=== PATIENT | male | born 1950 | race Caucasian/White ===

== ENCOUNTER 2016-05-30 16:43 | Inpatient (IN) | payer BC ==
[2016-05-30] MEDS ORDERED: HYDROcodone/APAP 7.5-325MG 1 EACH TAB PO ONE (17:12)
--- NOTE | 2016-05-30 17:19 | ED ---
Skin/Abscess/FB HPI - General Source: patient, RN notes reviewed Mode of arrival: ambulatory Limitations: no limitations <Stanley Franco - Last Filed: 05/30/16 17:35> <Cayden Solorio - Last Filed: 06/03/16 15:21> - General Chief complaint: Skin/Abscess/Foreign Body Stated complaint: Abcess Sent by Dr Baltazar Seen by Provider: 05/30/16 17:00 - History of Present Illness Initial comments: 65-year-old male present emergency department for possible abscess in his chest. Patient states that he had history of 2 in which most recently he had cardiothoracic surgery and was hospitalized for several days to weeks. Patient states that he was on long-term antibiotics. Patient states that he followed up with primary care physician or a [facility] emergency department. Patient did have lab work. Patient states she's been having increased chest wall pain and swelling consistent with his previous abscess. Patient denies fever, chills. He has no history of VRE or MRSA. (Stanley Franco) - Related Data Home Medications Medication Instructions Recorded Confirmed Atorvastatin [Lipitor] 20 mg PO HS 11/28/15 05/30/16 Cholecalciferol (Vitamin D3) 10,000 unit PO DAILY 11/28/15 05/30/16 [Vitamin D3] Omeprazole 20 mg PO BID 11/28/15 05/30/16 Ferrous Sulfate [Iron (65 MG 325 mg PO DAILY 05/30/16 05/30/16 Elemental)] HYDROcodone/APAP 10-325MG [Hulbert 1 tab PO Q4HR PRN 05/30/16 05/30/16 10-325] Ibuprofen [Motrin] 200 - 400 mg PO Q6HR PRN 05/30/16 05/30/16 Insulin Aspart [NovoLOG Flexpen] 18 units SQ AC-TID 05/30/16 05/30/16 Insulin Glargine [Lantus] 32 unit SQ HS 05/30/16 05/30/16 Allergies Allergy/AdvReac Type Severity Reaction Status Date / Time onion Allergy Anaphylaxis Verified 05/30/16 17:32 Review of Systems ROS Other: All systems not noted in ROS Statement are negative. <Stanley Franco - Last Filed: 05/30/16 17:35> ROS Other: All systems not noted in ROS Statement are negative. <Cayden Solorio - Last Filed: 06/03/16 15:21> ROS Statement: Those systems with pertinent positive or pertinent negative responses have been documented in the HPI. Past Medical History Past Medical History: Diabetes Mellitus, GERD/Reflux, Hyperlipidemia Additional Past Medical History / Comment(s): neuropathy in feet and legs History of Any Multi-Drug Resistant Organisms: None Reported Past Surgical History: Orthopedic Surgery Additional Past Surgical History / Comment(s): Surgery on left elbow, wrist and hand. Past Psychological History: No Psychological Hx Reported Additional Psychological History / Comment(s): . Is in the family home with his . 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 No experience. No international travel more than 25 years since he left the [facility]. Denies significant tobacco or alcohol use. No recreational drug use, no injection drug use. No children. 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 Smoking Status: Former smoker Past Alcohol Use History: None Reported Past Drug Use History: None Reported - Past Family History Father Family Medical History: Cancer, Coronary Artery Disease (CAD) Mother Family Medical History: CVA/TIA, Diabetes Mellitus <Stanley Franco - Last Filed: 05/30/16 17:35> General Exam Limitations: no limitations General appearance: alert, in no apparent distress Head exam: Present: atraumatic, normocephalic, normal inspection Respiratory exam: Present: normal lung sounds bilaterally, chest wall tenderness (Tenderness over the left chest wall region with moderate swelling minimal erythema). Absent: respiratory distress, wheezes, rales, rhonchi, stridor Cardiovascular Exam: Present: regular rate, normal rhythm, normal heart sounds. Absent: systolic murmur, diastolic murmur, rubs, gallop, clicks Skin exam: Present: warm, dry <Stanley Franco - Last Filed: 05/30/16 17:35> Medical Decision Making <Stanley Franco - Last Filed: 05/30/16 17:35> - Lab Data Result diagrams: 06/02/16 09:33 05/31/16 10:40 <Cayden Solorio - Last Filed: 06/03/16 15:21> - Medical Decision Making 65-year-old male presented for chest abscess. Patient medical records to review. Patient CT does show abscess with erosion of the left clavicle. (Stanley Franco) I saw this patient in conjunction with the physician assistant superintendent. I performed independent history and physical exam. Agree with case management. I discussed the patient's case with both the admitting service and with the surgeon. Their treatment recommendations incorporated. (Cayden Solorio) Disposition <Stanley Franco - Last Filed: 05/30/16 17:35> <Cayden Solorio - Last Filed: 06/03/16 15:21> Clinical Impression: Chest wall abscess Disposition: ADMITTED IP TO THIS HOSP Condition: Stable
[2016-05-30] MEDS ORDERED: NALOXONE 0.4 MG/ML 1 ML VIAL IV PRN (17:36)
[2016-05-30] MEDS ORDERED: ONDANSETRON 4 MG/2 ML VIAL IVP PRN (17:36)
[2016-05-30] MEDS ORDERED: DAPTOmycin 500 MG in SODIUM CHLORIDE 0.9% 50 ML IV STA (17:39)
[2016-05-30 20:12] LABS: Glucose,Whole Blood 61 mg/dL (75-99)
[2016-05-30 20:36] LABS: Glucose,Whole Blood 124 mg/dL (75-99)
[2016-05-30] MEDS: ATORVASTATIN 20 MG TAB PO SCH (21:38)
[2016-05-30] MEDS: HYDROcodone/APAP 10-325MG 1 EACH TAB PO PRN (21:39)
[2016-05-30 22:59] LABS: Glucose,Whole Blood 119 mg/dL (75-99)
[2016-05-30] MEDS: INSULIN GLARGINE 100 UNIT/ML 10 ML VIAL SQ SCH (23:00)
[2016-05-31] MEDS: ACETAMINOPHEN TAB 325 MG TAB PO PRN ×2 (02:12→08:02)
[2016-05-31] MEDS: HYDROcodone/APAP 10-325MG 1 EACH TAB PO PRN ×5 (02:14→21:07)
[2016-05-31 02:17] LABS: Glucose,Whole Blood 92 mg/dL (75-99)
[2016-05-31] MEDS: INSULIN LISPRO (humaLOG) 300 UNIT/3 ML VIAL SQ SCH ×4 (08:01→17:16)
[2016-05-31] MEDS: PANTOPRAZOLE 40 MG TABLET PO SCH ×2 (08:33→17:04)
[2016-05-31] MEDS: DAPTOmycin 500 MG in SODIUM CHLORIDE 0.9% 50 ML IV SCH (08:33)
[2016-05-31 08:46] LABS: Glucose,Whole Blood 160 mg/dL (75-99)
[2016-05-31 11:07] LABS: Basophils # (A) 0.1 k/uL (0-0.2); Basophils % (A) 1 %; CH 28.1; Eosinophils # (A) 0.2 k/uL (0-0.7); Eosinophils % (A) 1 %; HCT 39.7 % (39.0-53.0); HDW 2.95; HGB 12.7 gm/dL (13.0-17.5); Luc # (Auto) 0.14; Luc % (Auto) 1; Lymphocytes # (A) 2.1 k/uL (1.0-4.8); Lymphocytes % (A) 18 %; MCH 27.4 pg (25.0-35.0); MCHC 32.1 g/dL (31.0-37.0); MCV 85.5 fL (80.0-100.0); Mean Platelet Volume 7.8; Monocytes # (A) 0.7 k/uL (0-1.0); Monocytes % (A) 6 %; Neutrophils # (A) 8.5 k/uL (1.3-7.7); Neutrophils % (A) 73 %; RBC 4.64 m/uL (4.30-5.90); RDW 15.1 % (11.5-15.5); WBC 11.8 k/uL (3.8-10.6)
--- NOTE | 2016-05-31 11:26 | P.GSCN ---
History of Present Illness Consult date: 05/31/16 Reason for Consult: Evaluation for potential costoclavicular joint abscess Requesting physician: Chin Yang History of present illness: Patient is a 65 years old gentleman who is known to our service from his December admission. At that time he presented with a left apical intrapleural abscess with chest wall abscess were drained on 12/27/2015 followed by a prolonged period of IV antibiotic with essentially resolution of the infection. Cultures grew staph aureus at that time. Patient has been doing well till up to 2 days ago, as he started complaining of some upper left anterior pectoralis pain with some numbness in the left hand fingers. A computed tomography scan shows at this 0.3 cm mass involving the medial aspect of the left clavicle and potentially the costoclavicular sternal joint. There is no intrapleural process. Patient denies fever or chills. He was therefore admitted for IV antibiotics and CT Surgery consult was called Review of Systems - Gastrointestinal Reports dyspepsia, Reports heartburn - Musculoskeletal Reports arm numbness/tingling - Neurological Reports numbness - Endocrine Reports high blood sugars Past Medical History Past Medical History: Asthma, Diabetes Mellitus, GERD/Reflux, Hyperlipidemia, Osteoarthritis (OA) Additional Past Medical History / Comment(s): neuropathy in feet and legs,CARINA CATARACTS, PAST CHEST WALL ABCESS(PER PT/ AFFECTED BOTH MUSCLE AND BONE), PAST PNE VACCINE BUT NOT SURE OF DATE/DR OFFICE CLOSED AT TIME OF THIS ADMIT UNABLE TO VERIFY DATE. History of Any Multi-Drug Resistant Organisms: None Reported Past Surgical History: Orthopedic Surgery Additional Past Surgical History / Comment(s): Surgery on left elbow"nerve release", LT CARPAL TUNNEL RELEASE, LT HAND "BONE SCRAPING", JENNIFER, i&D CHEST WALL ABCESS, PICC LINE INSERTED 01-01-16, REMOVED IN FEB 2016. Past Anesthesia/Blood Transfusion Reactions: No Reported Reaction Additional Past Anesthesia/Blood Transfusion Reaction / Comm: CLAUSTERPHOBIA Past Psychological History: No Psychological Hx Reported Additional Psychological History / Comment(s): . Is in the family home with his . 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 No experience. No international travel more than 25 years since he left the [facility]. Denies significant tobacco or alcohol use. No recreational drug use, no injection drug use. No children. 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 Smoking Status: Former smoker Past Alcohol Use History: None Reported, Rare Additional Past Alcohol Use History / Comment(s): STARTED SMOKING 1972, QUIT 1972 Past Drug Use History: None Reported - Past Family History Father Family Medical History: Cancer, Coronary Artery Disease (CAD) Mother Family Medical History: CVA/TIA, Diabetes Mellitus Medications and Allergies Home Medications Medication Instructions Recorded Confirmed Type Atorvastatin [Lipitor] 20 mg PO HS 11/28/15 05/30/16 History Cholecalciferol (Vitamin D3) 10,000 unit PO DAILY 11/28/15 05/30/16 History [Vitamin D3] Omeprazole 20 mg PO BID 11/28/15 05/30/16 History Cephalexin [Keflex] 500 mg PO QID 05/30/16 05/30/16 History Ferrous Sulfate [Feosol] 325 mg PO DAILY 05/30/16 05/30/16 History HYDROcodone/APAP 10-325MG [Marshall 1 tab PO Q4HR PRN 05/30/16 05/30/16 History 10-325] Ibuprofen [Motrin] 200 - 400 mg PO Q6HR PRN 05/30/16 05/30/16 History Insulin Aspart [NovoLOG Flexpen] 18 units SQ AC-TID 05/30/16 05/30/16 History Insulin Glargine [Lantus] 32 unit SQ HS 05/30/16 05/30/16 History Allergies Allergy/AdvReac Type Severity Reaction Status Date / Time onion Allergy Anaphylaxis Verified 05/30/16 17:32 Surgical - Exam Vital Signs Temp Pulse Resp BP Pulse Ox 98.5 F 100 20 205/92 98 05/30/16 16:55 05/30/16 16:55 05/30/16 16:55 05/30/16 16:55 05/30/16 16:55 - Neck No obvious mass was seen over the left costoclavicular joint. Healed prior I&D site. Some tenderness in the left upper pectoralis area laterally. Results - Labs 05/31/16 10:40 Abnormal Lab Results - Last 24 Hours (Table) 05/30/16 05/30/16 05/30/16 Range/Units 20:11 20:33 22:57 WBC (3.8-10.6) k/uL Hgb (13.0-17.5) gm/dL Plt Count (150-450) k/uL Neutrophils # (1.3-7.7) k/uL POC Glucose (mg/dL) 61 L 124 H 119 H (75-99) mg/dL 05/31/16 05/31/16 Range/Units 07:08 10:40 WBC 11.8 H (3.8-10.6) k/uL Hgb 12.7 L (13.0-17.5) gm/dL Plt Count 147 L (150-450) k/uL Neutrophils # 8.5 H (1.3-7.7) k/uL POC Glucose (mg/dL) 160 H (75-99) mg/dL - Imaging CT scan - chest: report reviewed, image reviewed Assessment and Plan Plan: 65 years old gentleman with past medical history of diabetes mellitus, status post I and D of a left upper intrapleural and chest wall abscess in December 2015 with adequate resolution after prolonged IV antibiotic therapy, admitted at this point with CAT scan finding that shows bony destructive lesion involving the medial aspect of the left clavicle which is probably infectious in nature. At this point recommend to continue IV antibiotics tackling staph aureus. Patient already is feeling better however he might require further surgical intervention depending on the clinical and radiological progression. We'll be following the patient closely with you. Thank you for the privilege of this consult
[2016-05-31 11:32] LABS: Glucose,Whole Blood 90 mg/dL (75-99)
[2016-05-31 12:23] LABS: ALT 54 U/L (21-72); AST 31 U/L (17-59); Alkaline Phosphatase 77 U/L (38-126); Anion Gap 12 mmol/L; Blood Urea Nitrogen 10 mg/dL (9-20); Calcium 8.8 mg/dL (8.4-10.2); Carbon Dioxide 24 mmol/L (22-30); Chloride 105 mmol/L (98-107); Glucose 97 mg/dL (74-99); Non-African American GFR(MDRD) >60 (>60 ml/min/1.73 sqM); Potassium 3.7 mmol/L (3.5-5.1); Sodium 141 mmol/L (137-145); Total Bilirubin 0.6 mg/dL (0.2-1.3); Total Protein 6.8 g/dL (6.3-8.2)
[2016-05-31 13:27] LABS: Hemoglobin A1C 7.1 % (4.2-6.1)
--- NOTE | 2016-05-31 14:55 | HP ---
DATE OF ADMISSION: Patient is a 65-year-old admitted for left apical intrapleural abscess, which is traumatic n nature. Patient underwent operative drainage followed by IV antibiotic therapy. It grew staph aureus at that time. Patient, I believe, was discharged on ceftriaxone. Comes back again with increased pain and numbness in the left hand and severe sharp in nature and CT scan was done. There was about ( ) cm mass involving the medial aspect of the left clavicle and ( ) sternoclavicular joint. There is no intrapleural abscess though. Cardiothoracic surgery was consulted. They are recommending IV antibiotics at this point of time. Patient denied any fever, chills. Patient denied any nausea or vomiting. No operative intervention is being planned. Patient is admitted for possibility of spread and worsening of infection. His pain is significantly better. Patient had 10/10 pain yesterday. REVIEW OF SYSTEMS: CONSTITUTIONAL: No fever, no malaise, no fatigue. HEENT: No recent visual problems or hearing problems. Denied any sore throat. CARDIOVASCULAR: No chest pain, orthopnea, PND, no palpitations, no syncope. PULMONARY: No shortness of breath, no cough, no hemoptysis. GASTROINTESTINAL: No diarrhea, no nausea, no vomiting, no abdominal pain. Normoactive bowel sounds. NEUROLOGICAL: No headaches, no weakness, no numbness. HEMATOLOGICAL: Denies any bleeding or petechiae. GENITOURINARY: Denies any burning micturition, frequency, or urgency. MUSCULOSKELETAL/RHEUMATOLOGICAL: Denies any joint pain, swelling, or any muscle pain. ENDOCRINE: Denies any polyuria or polydipsia. CHEST WALL: As mentioned above. The rest of the 14 point review of systems is negative. PAST MEDICAL HISTORY: Significant for asthma, diabetes mellitus, gastroesophageal reflux disease, hyperlipidemia, osteoarthritis, chest wall abscess that was drained. The patient was discharged on antibiotics. SOCIAL HISTORY: Quit smoking in 1972. Denied any alcohol abuse or any drug abuse. FAMILY HISTORY: Father had coronary disease and cancer. Mother had CVA, TIA, and diabetes mellitus. HOME MEDICATIONS: 1. Atorvastatin. 2. Cholecalciferol. 3. Omeprazole. 4. Cephalexin. 5. Ferrous sulfate. 6. Hydrocodone acetaminophen. 7. Ibuprofen. 8. Insulin aspart. 9. Insulin glargine. ALLERGIES: Allergic to onion. PHYSICAL EXAMINATION: Temperature 97.0, pulse of 70, respiratory rate 20, blood pressure 179/85, saturating at 99% on room air. GENERAL: The patient is alert and oriented x3, not in any acute distress. Well developed, well nourished. HEENT: Pupils are round and equally reacting to light. EOMI. No scleral icterus. No conjunctival pallor. Normocephalic, atraumatic. No pharyngeal erythema. No thyromegaly. CARDIOVASCULAR: S1 and S2 present. No murmurs, rubs, or gallops. PULMONARY: Chest is clear to auscultation, no wheezing or crackles. ABDOMEN: Soft, nontender, nondistended, normoactive bowel sounds. No palpable organomegaly. MUSCULOSKELETAL: No joint swelling or deformity. EXTREMITIES: No cyanosis, clubbing, or pedal edema. NEUROLOGICAL: Gross neurological examination did not reveal any focal deficits. SKIN: No rashes. CHEST WALL: There is very minimal tenderness on chest wall palpation on the anterior chest on the left side. LABORATORY DATA: CBC and CMP abnormal for mildly elevated WBC count of 11,800. ASSESSMENT AND PLAN: 1. Left upper chest wall infection. Patient had history of incision and drainage of the intrapleural abscess. No operative intervention is being planned at this point of time. Patient will be on IV antibiotics in the form of daptomycin. Patient had Staphylococcus aureus in the past. Infectious Disease was consulted as well as Cardiothoracic Surgery evaluated the patient. 2. Type 2 diabetes mellitus. 3. Gastroesophageal reflux disease. 4. Hyperlipidemia. For above mentioned chronic medical problems, I will go ahead and continue his home medications. Awaiting recommendations from Infectious Disease.
[2016-05-31 17:11] LABS: Glucose,Whole Blood 163 mg/dL (75-99)
[2016-05-31 19:31] LABS: Glucose,Whole Blood 80 mg/dL (75-99)
[2016-05-31 20:48] LABS: Glucose,Whole Blood 99 mg/dL (75-99)
--- NOTE | 2016-05-31 20:58 | CONS ---
DATE OF CONSULTATION: 05/31/2016 REASON FOR CONSULTATION: Left medial clavicular abscess/osteomyelitis. HISTORY OF PRESENT ILLNESS: The patient is a 65-year-old male with a past medical history significant for a large abscess over the left anterior chest wall pain that has been indurated through the musculature of sternoclavicular joint and ended up in lung causing an empyema. The patient has been evaluated by Dr. Ndiaye and CT surgery. The patient had drainage of the same. Culture was positive for MSSA. The patient being treated with 8 week course of IV cefazolin 2 grams q.8 hour which the patient had finished on February 28. At that time no further antibiotic was continued as the patient underlying infection had been adequately treated. The patient also started having pain in his left upper chest area. The pain started around Thursday with the pain getting more worse. Pain described to be dull, aching pain about 3/10 and no radiation. Patient denies any significant associated shortness of breath or any cough. No fever, no chills. With his history of an abscess the patient did have a CT of the chest done as an outpatient on 05/30/2016 which did show 3 cm soft tissue mass involving the medial head of the left clavicular with destruction of the proximal clavicle. The patient has been subsequently admitted to the hospital. He was started on daptomycin and ID was consulted for further recommendation regarding antibiotic therapy. Patient noted to have an elevated white count 11.8. Blood cultures have been drawn, which are currently pending, but no fever has been recorded. REVIEW OF SYSTEMS: CONSTITUTIONAL: Positive for weakness. EYES: No complaint. ENT: No complaint. RESPIRATORY: As per HPI. CARDIOVASCULAR: As per HPI. GENITOURINARY: No complaint. GASTROINTESTINAL: No complaint. MUSCULOSKELETAL: No complaint. INTEGUMENTARY: No complaint. PSYCHOLOGIC: No complaint. ENDOCRINAL: No complaint. NEUROLOGICAL: No complaint. PAST MEDICAL HISTORY: Significant for diabetes mellitus, gastroesophageal reflux disease, hyperlipidemia, osteoarthritis, asthma, neuropathy, left chest wall abscess. PAST SURGICAL HISTORY: Left carpal tunnel release, left hand bone scrapping, JENNIFER, I&D of left chest wall abscess, PICC line insertion and subsequent removal. SOCIAL HISTORY: Remote history of smoking; quit back in 1972. No drinking or drug use. and lives with his . FAMILY HISTORY: Father with history of cancer and coronary artery disease. Mother with history of CVA, TIA and diabetes mellitus. ALLERGIES: No known drug allergies. Medications currently include the patient is on Tylenol, Weston, Lipitor, daptomycin 500 daily, Lantus, Humalog, Narcan, Zofran, Protonix. On examination, blood pressure is 150/86 with a pulse of 80, temperature 99.2. He is 97% on room air. General description is a middle-age male up in the room in no distress. No tachypnea or accessory muscles of respiration use. HEENT EXAMINATION: No pallor or scleral icterus. Oral mucous membrane is dry. NECK: Trachea central. There is no thyromegaly. LUNGS: Unlabored breathing. Clear to auscultation anteriorly. HEART: S1, S2. Regular rate and rhythm. He has mild chest wall tenderness in the left clavicular area, but no swelling or redness was noticed. ABDOMEN: Soft, no tenderness. No guarding or rigidity. EXTREMITIES: No edema of the feet. SKIN EXAMINATION: No rash or mass palpable. NEUROLOGICAL: Patient awake, alert, oriented x3. Mood and affect normal. LABS: Hemoglobin is 12.7, white count 11.8 with a BUN of 10, creatinine 0.96. Electrolytes have been normal. Liver enzymes are normal. Sedimentation rate was 18. Blood cultures were obtained which are currently pending. DIAGNOSTIC IMPRESSION AND PLAN: Patient with left chest wall pain and swelling in a patient who did have a previous history of Methicillin-sensitive Staphylococcus aureus abscess in the same location, could be more likely related to recurrence of the same infection. Malignancy thought to be less likely. Infectious etiology cannot be entirely excluded either. PLAN: 1. Patient may benefit from a CT-guided drainage of this area, which should be sent for culture and sensitivity to pathology. 2. Daptomycin to be continued at this point at 6 mg/kg to cover for possible MSSA as well as MRSA. 3. As the patient is known to Dr. Ndiaye, he will be signed out to him as of tomorrow. Family was present at beside. Their questions and concerns were answered.
[2016-05-31] MEDS: INSULIN GLARGINE 100 UNIT/ML 10 ML VIAL SQ SCH (21:04)
[2016-05-31] MEDS: ATORVASTATIN 20 MG TAB PO SCH (21:07)
[2016-06-01] MEDS: HYDROcodone/APAP 10-325MG 1 EACH TAB PO PRN ×2 (00:46→06:27)
[2016-06-01 00:55] LABS: Glucose,Whole Blood 118 mg/dL (75-99)
[2016-06-01] MEDS: PANTOPRAZOLE 40 MG TABLET PO SCH ×2 (07:17→17:33)
[2016-06-01 07:26] LABS: Glucose,Whole Blood 203 mg/dL (75-99)
[2016-06-01] MEDS: INSULIN LISPRO (humaLOG) 300 UNIT/3 ML VIAL SQ SCH ×5 (07:54→17:32)
[2016-06-01] MEDS ORDERED: LORazepam 0.5 MG TAB PO PRN ×2 (08:52→21:39)
[2016-06-01] MEDS: DAPTOmycin 500 MG in SODIUM CHLORIDE 0.9% 50 ML IV SCH (09:42)
[2016-06-01] MEDS: IBUPROFEN 800 MG TAB PO PRN ×2 (09:42→14:44)
--- NOTE | 2016-06-01 10:48 | P.PN ---
Progress Note - Text Mr. 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 He presents at this time with complaints of pain in the left axilla and anterior shoulder region. A computed tomography scan was performed in the emergency room. This shows abnormality in the region of the left sternoclavicular joint. Physical examination demonstrates no abnormality in this region. There is no swelling tenderness warmth redness etc. Patient does have some discomfort on palpation of the pectoralis muscle more laterally. White blood cell count is 11. The case was discussed with Dr. Ndiaye. I can see absolutely no indication for open surgical drainage or resection in the region of the sternoclavicular joint at this time. Patient states he feels better after a couple of doses of antibiotics. My bias is toward outpatient antibiotic management and close follow-up. Symptomatology may be secondary to damage to the sternoclavicular joint on the left side from the previous infection. If this persists or worsens resection of this joint may be necessary as a palliative measure.
[2016-06-01 11:53] LABS: Glucose,Whole Blood 129 mg/dL (75-99)
--- NOTE | 2016-06-01 17:21 | PN ---
A 65-year-old with apical intrapleural abscess in the past, comes in with chest wall pain. There was suspicion of worsening chest wall infection which has cleared previously. Patient is on IV antibiotics at this point of time and Cardiothoracic Surgery and Infectious Disease evaluated and plan was to continue with IV antibiotics at this point of time. REVIEW OF SYSTEMS: CHEST: Patient continues to have chest pain which improves with narcotic which improved with narcotic pain medications. CARDIOVASCULAR: No chest pain, no orthopnea, no PND, no palpitations. GASTROINTESTINAL: No diarrhea, nausea or vomiting. No abdominal pain. Normoactive bowel sounds. NEUROLOGIC: No headaches, no weakness, no numbness. Medications were reviewed. PHYSICAL EXAMINATION: Temperature 99.1, pulse of 82, respiratory rate of 16, blood pressure 184/107, saturating at 98% on room air. GENERAL: The patient is alert and oriented x3, not in any acute distress. Well developed, well nourished. HEENT: Pupils are round and equally reacting to light. EOMI. No scleral icterus. No conjunctival pallor. Normocephalic, atraumatic. No pharyngeal erythema. No thyromegaly. CARDIOVASCULAR: S1 and S2 present. No murmurs, rubs, or gallops. PULMONARY: Chest is clear to auscultation, no wheezing or crackles. ABDOMEN: Soft, nontender, nondistended, normoactive bowel sounds. No palpable organomegaly. MUSCULOSKELETAL: No joint swelling or deformity. EXTREMITIES: No cyanosis, clubbing, or pedal edema. NEUROLOGICAL: Gross neurological examination did not reveal any focal deficits. SKIN: No rashes. CHEST WALL: There is very minimal tenderness on chest wall palpation on the anterior chest on the left side. LABORATORY DATA: WBC count is 11,800. ASSESSMENT AND PLAN: 1. Possibility of left upper chest wall infection. Patient will be on continued on Daptomycin. Patient has methicillin-susceptible Staphylococcus aureus in the past. So far blood cultures were negative. 2. Type 2 diabetes mellitus. 3. Gastroesophageal reflux disease. 4. Hyperlipidemia. PLAN: Continue with present medications, pain management. Patient will be followed by Dr. Liang from tomorrow.
[2016-06-01 17:31] LABS: Glucose,Whole Blood 98 mg/dL (75-99)
[2016-06-01] MEDS: ATORVASTATIN 20 MG TAB PO SCH (20:32)
[2016-06-01 20:51] LABS: Glucose,Whole Blood 205 mg/dL (75-99)
--- NOTE | 2016-06-01 20:57 | P.PN ---
Subjective Principal diagnosis: Pain left clavicle Pleasant 65-year-old male who is well known to infectious disease who has a history of diabetes mellitus poorly controlled. Developed evidence of extensive sepsis with MSSA. Juan J abscess to the anterior chest wall that required surgical intervention. Has done well since completing his intravenous antibiotic therapy on 02/29/2016. Since then has been doing modestly well. However a few days ago started to develop increasing pain to the left anterior chest wall area. It increased in amount. Because of this he sought medical care. Computed tomography scan was performed that shows evidence of some worsening from the prior study. Some osteomyelitis to the left clavicular head. Patient was seen by ID yesterday and this is a follow-up. Patient is feeling better. Is not having high-grade fevers, chills or rigors. Is very concerned about what will happen next. Objective - Vital Signs Vital signs: Vital Signs Temp 97.9 F 06/01/16 14:46 Pulse 80 06/01/16 14:46 Resp 20 06/01/16 14:46 BP 147/75 06/01/16 14:46 Pulse Ox 96 06/01/16 14:46 Intake & Output 06/01/16 06/01/16 06/02/16 06:59 18:59 06:59 Intake Total 1780 580 Balance 1780 580 Intake: Oral 1780 580 Other: Voiding Method Toilet # Voids 3 2 # Bowel Movements 0 - Exam June 65-year-old male who is now grown extensive facial hair since last evaluation HEENT: Anicteric conjunctiva are pink and moist nasal mucosa grossly intact without significant lesions, there is no thrush. Neck: The neck is supple without significant lymphadenopathy or thyromegaly. Lungs: Good bilateral air entry without significant crackles or wheezing. There is no significant bronchial sounds. There is no egophony or dullness. Heart: Regular rate and rhythm with an audible S1-S2, no S3 S4 There is no significant murmur click or rub, PMI was nondisplaced. Abdomen: Positive bowel sounds soft and nontender without palpable masses or organomegaly. There was no guarding or rebound. Extremities: The upper extremities have excellent pulses they are symmetric, no significant petechiae or telangiectasia. No splinter hemorrhages were noted. The lower extremities are free from significant edema. The peripheral pulses were 2+ and symmetric. Neuro: Awake alert oriented to person place and time. There are no acute new gross focal sensory motor deficits. The left sternoclavicular joint area is tender to touch. It however is not warm or with evidence of erythema. It is not unstable. There is some tenderness onto the anterior chest wall over the pectoralis muscle. There is no thickening to the muscle. No lymphadenopathy is noted. - Labs CBC & Chem 7: 05/31/16 10:40 05/31/16 10:40 Labs: Abnormal Lab Results - Last 24 Hours (Table) 06/01/16 06/01/16 06/01/16 Range/Units 00:51 06:53 11:33 POC Glucose (mg/dL) 118 H 203 H 129 H (75-99) mg/dL 06/01/16 Range/Units 20:48 POC Glucose (mg/dL) 205 H (75-99) mg/dL Laboratory Results WBC 11.8 k/uL (3.8-10.6) H 05/31/16 10:40 RBC 4.64 m/uL (4.30-5.90) 05/31/16 10:40 Hgb 12.7 gm/dL (13.0-17.5) L 05/31/16 10:40 Hct 39.7 % (39.0-53.0) 05/31/16 10:40 MCV 85.5 fL (80.0-100.0) 05/31/16 10:40 MCH 27.4 pg (25.0-35.0) 05/31/16 10:40 MCHC 32.1 g/dL (31.0-37.0) 05/31/16 10:40 RDW 15.1 % (11.5-15.5) 05/31/16 10:40 Plt Count 147 k/uL (150-450) L 05/31/16 10:40 Neutrophils % 73 % 05/31/16 10:40 Lymphocytes % 18 % 05/31/16 10:40 Monocytes % 6 % 05/31/16 10:40 Eosinophils % 1 % 05/31/16 10:40 Basophils % 1 % 05/31/16 10:40 Neutrophils # 8.5 k/uL (1.3-7.7) H 05/31/16 10:40 Lymphocytes # 2.1 k/uL (1.0-4.8) 05/31/16 10:40 Monocytes # 0.7 k/uL (0-1.0) 05/31/16 10:40 Eosinophils # 0.2 k/uL (0-0.7) 05/31/16 10:40 Basophils # 0.1 k/uL (0-0.2) 05/31/16 10:40 ESR 18 mm/hr (0-15) H 05/31/16 10:40 Sodium 141 mmol/L (137-145) 05/31/16 10:40 Potassium 3.7 mmol/L (3.5-5.1) 05/31/16 10:40 Chloride 105 mmol/L (98-107) 05/31/16 10:40 Carbon Dioxide 24 mmol/L (22-30) 05/31/16 10:40 Anion Gap 12 mmol/L 05/31/16 10:40 BUN 10 mg/dL (9-20) 05/31/16 10:40 Creatinine 0.96 mg/dL (0.66-1.25) 05/31/16 10:40 Est GFR (MDRD) Af Amer >60 (>60 ml/min/1.73 sqM) 05/31/16 10:40 Est GFR (MDRD) Non-Af >60 (>60 ml/min/1.73 sqM) 05/31/16 10:40 Glucose 97 mg/dL (74-99) 05/31/16 10:40 POC Glucose (mg/dL) 205 mg/dL (75-99) H 06/01/16 20:48 POC Glu Drill Hand Maci Hutton 06/01/16 20:[address] Glu mg/dL 157 mg/dL 05/31/16 10:40 Hemoglobin A1c 7.1 % (4.2-6.1) H 05/31/16 10:40 Calcium 8.8 mg/dL (8.4-10.2) 05/31/16 10:40 Total Bilirubin 0.6 mg/dL (0.2-1.3) 05/31/16 10:40 AST 31 U/L (17-59) 05/31/16 10:40 ALT 54 U/L (21-72) 05/31/16 10:40 Alkaline Phosphatase 77 U/L (38-126) 05/31/16 10:40 Total Protein 6.8 g/dL (6.3-8.2) 05/31/16 10:40 Albumin 3.8 g/dL (3.5-5.0) 05/31/16 10:40 Microbiology 05/30/16 17:35 Blood Blood Culture - Preliminary No Growth after 48 hours Assessment and Plan (1) Leukocytosis Narrative/Plan: Pleasant 65-year-old male who has an extensive past medical history related to the significant abscess to his left anterior chest wall. Was associated with significant MSSA sepsis and infection to that region. He did have surgical incision and drainage and a protracted course of intravenous antibiotic therapy. He had resolution of his infection was doing well from the last outpatient evaluation. Now presents with increasing pain to the area with concerns to ongoing infection. Has been seen by cardiothoracic surgery and CT scans been reviewed. No need for surgical intervention is noted at this time. Largest concern will be to the activity infection at this site. Computed tomography scan does show some changes but it's unclear if these are acute changes. A bone scan showed be obtained. If it shows a large amount of activity in the region then proceed with another course of intravenous antibiotic therapy against his prior staph. Current thoracic surgical following the outpatient setting. Of significant note when he was ill in the past his sedimentation rate was 120, it is now at 18 similar to when he finishes course of antibiotic therapy with resolution of his infection. Status: Acute (2) Osteomyelitis of sternoclavicular joint Status: Acute
[2016-06-01] MEDS: INSULIN GLARGINE 100 UNIT/ML 10 ML VIAL SQ SCH (21:36)
--- NOTE | 2016-06-01 21:45 | NM ---
EXAMINATION TYPE: NM bone 3 phase DATE OF EXAM: 06/01/2016 9:21 PM COMPARISON: NONE HISTORY: Osteophytic clavicle Triple phase bone scintigraphy was performed following the injection of26.6 mCi Tc 99m MDP. Immediat e images and 3 hours post injection images acquired. FINDINGS: Blood flow: No suspicious focal uptake is evident. Blood pool: No abnormal uptake is evident. Static images: There is increased radiotracer accumulation at the left sternal clavicular junction. T his could be posttraumatic in nature. Note is also made of uptake within the ninth costovertebral salena ction region could be posttraumatic. Some additional left side upper cervical spine uptake is also be present may be degenerative in nature. IMPRESSION: 1. No suspicious changes for osteomyelitis. 2. Findings suggestive for posttraumatic change at the proximal left clavicle. 3. Uptake within the cervical thoracic spine may be degenerative or posttraumatic in nature.
[2016-06-02] MEDS: IBUPROFEN 800 MG TAB PO PRN ×3 (01:09→16:46)
[2016-06-02 01:38] LABS: Glucose,Whole Blood 97 mg/dL (75-99)
[2016-06-02 07:42] LABS: Glucose,Whole Blood 131 mg/dL (75-99)
[2016-06-02] MEDS: INSULIN LISPRO (humaLOG) 300 UNIT/3 ML VIAL SQ SCH ×6 (07:46→17:22)
[2016-06-02] MEDS: PANTOPRAZOLE 40 MG TABLET PO SCH ×2 (07:49→16:49)
[2016-06-02] MEDS: DAPTOmycin 500 MG in SODIUM CHLORIDE 0.9% 50 ML IV SCH (07:50)
[2016-06-02 09:48] LABS: Prothrombin Time 10.5 sec (9.0-12.0)
[2016-06-02 09:52] LABS: Mean Platelet Volume 7.2
[2016-06-02] MEDS: MORPHINE SULFATE 2 MG/ML SYRINGE IVP PRN ×2 (10:20→22:49)
[2016-06-02 10:52] LABS: Glucose,Whole Blood 84 mg/dL (75-99)
[2016-06-02 11:18] LABS: Glucose,Whole Blood 113 mg/dL (75-99)
--- NOTE | 2016-06-02 11:43 | CT ---
EXAMINATION TYPE: CT guided aspiration DATE OF EXAM: 06/02/2016 11:14 AM COMPARISON: NONE HISTORY: clavicular swelling CT DLP: 1043mGycm PROCEDURE: The risks, applications, benefits and alternatives, were discussed with the patient and questions wer e answered. Informed consent was obtained. The patient was placed supine on the fluoroscopic table, prepped and draped in the usual sterile fashion. A 22-gauge system was utilized with direct passage of the needle into left clavicular lesion under C T guidance. Samples were obtained with fine needle aspiration. Pathology is pending. The patient was stable throughout procedure and remained stable upon discharge from radiology. All e lements of maximal barrier and sterile technique were utilized. IMPRESSION: 1. Successful left clavicular lesion fine needle aspiration under CT guidance.
[2016-06-02 12:34] LABS: Glucose,Whole Blood 129 mg/dL (75-99)
[2016-06-02] MEDS: HYDROcodone/APAP 10-325MG 1 EACH TAB PO PRN ×2 (14:30→20:00)
[2016-06-02 14:50] LABS: Basophils # (A) 0.1 k/uL (0-0.2); Basophils % (A) 1 %; CH 27.7; Eosinophils # (A) 0.2 k/uL (0-0.7); Eosinophils % (A) 2 %; HCT 36.8 % (39.0-53.0); HDW 2.78; HGB 11.8 gm/dL (13.0-17.5); Luc # (Auto) 0.14; Luc % (Auto) 2; Lymphocytes # (A) 1.4 k/uL (1.0-4.8); Lymphocytes % (A) 15 %; MCH 27.9 pg (25.0-35.0); MCHC 32.1 g/dL (31.0-37.0); MCV 86.9 fL (80.0-100.0); Mean Platelet Volume 7.5; Monocytes # (A) 0.6 k/uL (0-1.0); Monocytes % (A) 6 %; Neutrophils # (A) 7.1 k/uL (1.3-7.7); Neutrophils % (A) 75 %; RBC 4.24 m/uL (4.30-5.90); RDW 14.8 % (11.5-15.5); WBC 9.5 k/uL (3.8-10.6); WBC (Perox) 10.14
[2016-06-02 17:13] LABS: Glucose,Whole Blood 164 mg/dL (75-99)
--- NOTE | 2016-06-02 18:51 | P.PN ---
Subjective Principal diagnosis: Pain left clavicle Pleasant 65-year-old male who is well known to infectious disease who has a history of diabetes mellitus poorly controlled. Developed evidence of extensive sepsis with MSSA. Juan J abscess to the anterior chest wall that required surgical intervention. Has done well since completing his intravenous antibiotic therapy on 02/29/2016. Since then has been doing modestly well. However a few days ago started to develop increasing pain to the left anterior chest wall area. It increased in amount. Because of this he sought medical care. Computed tomography scan was performed that shows evidence of some worsening from the prior study. Some osteomyelitis to the left clavicular head. Patient is feeling better. Is not having high-grade fevers, chills or rigors. Is very concerned about what will happen next. Is up and walking the hallways feeling considerably better. Needle aspiration of the abnormality was performed today. Objective - Vital Signs Vital signs: Vital Signs Temp 97.0 F L 06/02/16 15:00 Pulse 86 06/02/16 15:00 Resp 20 06/02/16 15:00 BP 142/88 06/02/16 15:00 Pulse Ox 97 06/02/16 15:00 Intake & Output 06/01/16 06/02/16 06/02/16 18:59 06:59 18:59 Intake Total 580 Balance 580 Intake: Oral 580 Other: Voiding Method Toilet Toilet # Voids 2 1 3 # Bowel Movements 0 - Exam June 65-year-old male who is now grown extensive facial hair since last evaluation HEENT: Anicteric conjunctiva are pink and moist nasal mucosa grossly intact without significant lesions, there is no thrush. Neck: The neck is supple without significant lymphadenopathy or thyromegaly. Lungs: Good bilateral air entry without significant crackles or wheezing. There is no significant bronchial sounds. There is no egophony or dullness. Heart: Regular rate and rhythm with an audible S1-S2, no S3 S4 There is no significant murmur click or rub, PMI was nondisplaced. Abdomen: Positive bowel sounds soft and nontender without palpable masses or organomegaly. There was no guarding or rebound. Extremities: The upper extremities have excellent pulses they are symmetric, no significant petechiae or telangiectasia. No splinter hemorrhages were noted. The lower extremities are free from significant edema. The peripheral pulses were 2+ and symmetric. Neuro: Awake alert oriented to person place and time. There are no acute new gross focal sensory motor deficits. The left sternoclavicular joint area is tender to touch. It however is not warm or with evidence of erythema. It is not unstable. There is some tenderness onto the anterior chest wall over the pectoralis muscle. There is no thickening to the muscle. No lymphadenopathy is noted. - Labs CBC & Chem 7: 06/02/16 09:33 05/31/16 10:40 Labs: Abnormal Lab Results - Last 24 Hours (Table) 06/01/16 06/02/16 06/02/16 Range/Units 20:48 07:39 09:33 RBC (4.30-5.90) m/uL Hgb (13.0-17.5) gm/dL Hct (39.0-53.0) % Plt Count 144 L (150-450) k/uL POC Glucose (mg/dL) 205 H 131 H (75-99) mg/dL C-Reactive Protein (<10.0) mg/L 06/02/16 06/02/16 06/02/16 Range/Units 09:33 09:33 11:11 RBC 4.24 L (4.30-5.90) m/uL Hgb 11.8 L (13.0-17.5) gm/dL Hct 36.8 L (39.0-53.0) % Plt Count (150-450) k/uL POC Glucose (mg/dL) 113 H (75-99) mg/dL C-Reactive Protein 28.3 H (<10.0) mg/L 06/02/16 06/02/16 Range/Units 12:18 16:53 RBC (4.30-5.90) m/uL Hgb (13.0-17.5) gm/dL Hct (39.0-53.0) % Plt Count (150-450) k/uL POC Glucose (mg/dL) 129 H 164 H (75-99) mg/dL C-Reactive Protein (<10.0) mg/L Microbiology - Last 24 Hours (Table) 06/02/16 11:05 Tissue Culture - Preliminary Shoulder - Left 06/02/16 11:05 Anaerobic Culture - Preliminary Shoulder - Left Laboratory Results WBC 9.5 k/uL (3.8-10.6) 06/02/16 09:33 RBC 4.24 m/uL (4.30-5.90) L 06/02/16 09:33 Hgb 11.8 gm/dL (13.0-17.5) L 06/02/16 09:33 Hct 36.8 % (39.0-53.0) L 06/02/16 09:33 MCV 86.9 fL (80.0-100.0) 06/02/16 09:33 MCH 27.9 pg (25.0-35.0) 06/02/16 09: MCHC 32.1 g/dL (31.0-37.0) 06/02/16 09: RDW 14.8 % (11.5-15.5) 06/02/16 09:33 Plt Count 151 k/uL (150-450) 06/02/16 09: Neutrophils % 75 % 06/02/16 09:33 Lymphocytes % 15 % 06/02/16 09:33 Monocytes % 6 % 06/02/16 09:33 Eosinophils % 2 % 06/02/16 09:33 Basophils % 1 % 06/02/16 09:33 Neutrophils # 7.1 k/uL (1.3-7.7) 06/02/16 09:33 Lymphocytes # 1.4 k/uL (1.0-4.8) 06/02/16 09:33 Monocytes # 0.6 k/uL (0-1.0) 06/02/16 09:33 Eosinophils # 0.2 k/uL (0-0.7) 06/02/16 09:33 Basophils # 0.1 k/uL (0-0.2) 06/02/16 09:33 ESR 18 mm/hr (0-15) H 05/31/16 10:40 PT 10.5 sec (9.0-12.0) 06/02/16 09:33 INR 1.0 (<1.1) 06/02/16 09:33 Sodium 141 mmol/L (137-145) 05/31/16 10:40 Potassium 3.7 mmol/L (3.5-5.1) 05/31/16 10:40 Chloride 105 mmol/L (98-107) 05/31/16 10:40 Carbon Dioxide 24 mmol/L (22-30) 05/31/16 10:40 Anion Gap 12 mmol/L 05/31/16 10:40 BUN 10 mg/dL (9-20) 05/31/16 10:40 Creatinine 0.96 mg/dL (0.66-1.25) 05/31/16 10:40 Est GFR (MDRD) Af Amer >60 (>60 ml/min/1.73 sqM) 05/31/16 10:40 Est GFR (MDRD) Non-Af >60 (>60 ml/min/1.73 sqM) 05/31/16 10:40 Glucose 97 mg/dL (74-99) 05/31/16 10:40 POC Glucose (mg/dL) 164 mg/dL (75-99) H 06/02/16 16:53 POC Glu Clinical Biostatistician Clau Alfonso 06/02/16 16:[address] Glu mg/dL 157 mg/dL 05/31/16 10:40 Hemoglobin A1c 7.1 % (4.2-6.1) H 05/31/16 10:40 Calcium 8.8 mg/dL (8.4-10.2) 05/31/16 10:40 Total Bilirubin 0.6 mg/dL (0.2-1.3) 05/31/16 10:40 AST 31 U/L (17-59) 05/31/16 10:40 ALT 54 U/L (21-72) 05/31/16 10:40 Alkaline Phosphatase 77 U/L (38-126) 05/31/16 10:40 C-Reactive Protein 28.3 mg/L (<10.0) H 06/02/16 09:33 Total Protein 6.8 g/dL (6.3-8.2) 05/31/16 10:40 Albumin 3.8 g/dL (3.5-5.0) 05/31/16 10:40 Microbiology 06/02/16 11:05 Shoulder - Left Tissue Culture - Preliminary 06/02/16 11:05 Shoulder - Left Anaerobic Culture - Preliminary 05/30/16 17:35 Blood Blood Culture - Preliminary No Growth after 48 hours Assessment and Plan (1) Leukocytosis Narrative/Plan: Pleasant 65-year-old male who has an extensive past medical history related to the significant abscess to his left anterior chest wall. Was associated with significant MSSA sepsis and infection to that region. He did have surgical incision and drainage and a protracted course of intravenous antibiotic therapy. He had resolution of his infection was doing well from the last outpatient evaluation. Now presents with increasing pain to the area with concerns to ongoing infection. Has been seen by cardiothoracic surgery and CT scans been reviewed. No need for surgical intervention is noted at this time. Largest concern will be to the activity infection at this site. Computed tomography scan does show some changes but it's unclear if these are acute changes. A bone scan was obtained. It failed to reveal evidence of extensive uptake in the region, consequently changes could be related to the prior infection that is chronic in nature. Some bony deterioration may be causing the muscular discomfort in the chest wall. Current thoracic surgery is following the outpatient setting. Of significant note when he was ill in the past his sedimentation rate was 120, it is now at 18 similar to when he finishes course of antibiotic therapy with resolution of his infection. He is also without fever or leukocytosis. CT biopsy was performed today await the Gram stain and culture to have a plan for intravenous antibiotic therapy if needed at discharge. Status: Acute (2) Osteomyelitis of sternoclavicular joint Status: Acute
[2016-06-02 19:51] LABS: Glucose,Whole Blood 98 mg/dL (75-99)
[2016-06-02] MEDS: ATORVASTATIN 20 MG TAB PO SCH (19:57)
[2016-06-02] MEDS: INSULIN GLARGINE 100 UNIT/ML 10 ML VIAL SQ SCH (19:59)
[2016-06-02 20:36] LABS: Glucose,Whole Blood 132 mg/dL (75-99)
[2016-06-02 23:15] VITALS: TEMP 98.4
[2016-06-02] MEDS ORDERED: NAPROXEN 250 MG TAB PO SCH (23:15)
[2016-06-03] MEDS: HYDROcodone/APAP 10-325MG 1 EACH TAB PO PRN (01:36)
[2016-06-03 01:44] LABS: Glucose,Whole Blood 86 mg/dL (75-99)
[2016-06-03] MEDS: ACETAMINOPHEN TAB 325 MG TAB PO PRN ×2 (05:33→11:29)
[2016-06-03 07:34] LABS: Glucose,Whole Blood 118 mg/dL (75-99)
[2016-06-03] MEDS: INSULIN LISPRO (humaLOG) 300 UNIT/3 ML VIAL SQ SCH ×4 (07:35→12:32)
[2016-06-03] MEDS: PANTOPRAZOLE 40 MG TABLET PO SCH (07:36)
--- NOTE | 2016-06-03 07:59 | PN ---
DATE OF SERVICE: 06/02/2016 PRESENTING COMPLAINT: Left infraclavicular pain. INTERVAL HISTORY: This is a very pleasant gentleman who was here back in 01/02/2016. At that time, patient had acute anterior chest wall abscess following a blunt injury from a fall extending into the intrathoracic space, felt to be possible osteoarthritis of the sternal, mandible, and clavicle junction with positive blood cultures growing MSSA and also had septic vasculitis. Patient presented with increased pain and numbness of the left hand and there is some tenderness noted in the medial aspect of the left clavicle in the sternoclavicular joint. Patient had no fever except when he came in he had a low white count of 11.8, though patient's C-reactive protein was up at 28.3. Patient has been on daptomycin. Patient today underwent a needle drainage by Radiology and really we have noticed blood cultures have been negative. Otherwise, patient's at the bedside. Patient has been up and about in the hallway with some localized tenderness. Review of systems done for constitutional, cardiovascular, GI, pulmonary; relevant findings as above. Patient's appetite is decent. Current medications include IV daptomycin. On examination, temperature 99.1, pulse 77, respirations 18, blood pressure 143/71, pulse ox 96% on room air. GENERAL APPEARANCE: Sitting up, not in distress. EYES: Pupils equal, conjunctivae normal. NECK: JVD not raised. Mass not palpable. Respiratory effort normal. Lungs are clear. CARDIOVASCULAR: First and second sounds normal. No edema. ABDOMEN: Soft, nontender. Liver and spleen not palpable. PSYCHIATRY: Alert and oriented x3. Mood and affect normal. MUSCULOSKELETAL: Some tenderness at the junction of the sternum and mandible on the left side. INVESTIGATIONS: White count 9.5. CRP was up. ASSESSMENT: 1. Tenderness at the mandible, sternal left junction with some serous fluid that was drained. This could be resulting seroma from a prior osteomyelitis site, could be a lead infection. 2. Diabetes mellitus type 2 with peripheral neuropathy. 3. Gastroesophageal reflux disease. 4. Hyperlipidemia. 5. Primary osteoarthritis in multiple joints, bilateral. PLAN: Care was discussed with the patient and . Continue current medication and treatment plan with daptomycin. Await culture results. Will use antiinflammatory in meantime too. I may be noted patient was taken Keflex at home.
[2016-06-03] MEDS: DAPTOmycin 500 MG in SODIUM CHLORIDE 0.9% 50 ML IV SCH (08:01)
[2016-06-03 08:16] VITALS: PULSE 69; RESP 18
[2016-06-03] MEDS ORDERED: NAPROXEN 250 MG TAB PO SCH (09:00)
[2016-06-03 11:53] LABS: Glucose,Whole Blood 90 mg/dL (75-99)
[2016-06-03 14:48] VITALS: BP 124/64
--- NOTE | 2016-06-03 23:25 | P.PN ---
Subjective Principal diagnosis: Pain left clavicle June 65-year-old male who is well known to infectious disease who has a history of diabetes mellitus poorly controlled. Developed evidence of extensive sepsis with MSSA. Juan J abscess to the anterior chest wall that required surgical intervention. Has done well since completing his intravenous antibiotic therapy on 02/29/2016. Since then has been doing modestly well. However a few days ago started to develop increasing pain to the left anterior chest wall area. It increased in amount. Because of this he sought medical care. Computed tomography scan was performed that shows evidence of some worsening from the prior study. Some osteomyelitis to the left clavicular head. Patient is feeling better. Is not having high-grade fevers, chills or rigors. Is very concerned about what will happen next. Is up and walking the hallways feeling considerably better. Needle aspiration of the abnormality was performed and Gram stain reveals evidence of no Objective - Vital Signs Vital signs: Vital Signs Temp 98.4 F 06/03/16 07:00 Pulse 69 06/03/16 07:00 Resp 18 06/03/16 07:00 BP 124/64 06/03/16 14:47 Pulse Ox 98 06/03/16 07:00 Intake & Output 06/03/16 06/03/16 06/04/16 06:59 18:59 06:59 Intake Total 590 Balance 590 Intake: Oral 590 Other: Voiding Method Toilet - Exam June 65-year-old male who is now grown extensive facial hair since last evaluation HEENT: Anicteric conjunctiva are pink and moist nasal mucosa grossly intact without significant lesions, there is no thrush. Neck: The neck is supple without significant lymphadenopathy or thyromegaly. Lungs: Good bilateral air entry without significant crackles or wheezing. There is no significant bronchial sounds. There is no egophony or dullness. Heart: Regular rate and rhythm with an audible S1-S2, no S3 S4 There is no significant murmur click or rub, PMI was nondisplaced. Abdomen: Positive bowel sounds soft and nontender without palpable masses or organomegaly. There was no guarding or rebound. Extremities: The upper extremities have excellent pulses they are symmetric, no significant petechiae or telangiectasia. No splinter hemorrhages were noted. The lower extremities are free from significant edema. The peripheral pulses were 2+ and symmetric. Neuro: Awake alert oriented to person place and time. There are no acute new gross focal sensory motor deficits. The left sternoclavicular joint area is tender to touch. It however is not warm or with evidence of erythema. It is not unstable. There is some tenderness onto the anterior chest wall over the pectoralis muscle. There is no thickening to the muscle. No lymphadenopathy is noted. - Labs CBC & Chem 7: 06/02/16 09:33 05/31/16 10:40 Labs: Abnormal Lab Results - Last 24 Hours (Table) 06/03/16 Range/Units 07:33 POC Glucose (mg/dL) 118 H (75-99) mg/dL Microbiology - Last 24 Hours (Table) 06/02/16 11:05 Gram Stain - Preliminary Shoulder - Left Tissue Culture - Preliminary Laboratory Results WBC 9.5 k/uL (3.8-10.6) 06/02/16 09:33 RBC 4.24 m/uL (4.30-5.90) L 06/02/16 09:33 Hgb 11.8 gm/dL (13.0-17.5) L 06/02/16 09:33 Hct 36.8 % (39.0-53.0) L 06/02/16 09:33 MCV 86.9 fL (80.0-100.0) 06/02/16 09:33 MCH 27.9 pg (25.0-35.0) 06/02/16 09:33 MCHC 32.1 g/dL (31.0-37.0) 06/02/16 09:33 RDW 14.8 % (11.5-15.5) 06/02/16 09:33 Plt Count 151 k/uL (150-450) 06/02/16 09:33 Neutrophils % 75 % 06/02/16 09:33 Lymphocytes % 15 % 06/02/16 09:33 Monocytes % 6 % 06/02/16 09:33 Eosinophils % 2 % 06/02/16 09:33 Basophils % 1 % 06/02/16 09:33 Neutrophils # 7.1 k/uL (1.3-7.7) 06/02/16 09:33 Lymphocytes # 1.4 k/uL (1.0-4.8) 06/02/16 09:33 Monocytes # 0.6 k/uL (0-1.0) 02/13/17 09:33 Eosinophils # 0.2 k/uL (0-0.7) 06/02/16 09:33 Basophils # 0.1 k/uL (0-0.2) 06/02/16 09:33 ESR 18 mm/hr (0-15) H 05/31/16 10:40 PT 10.5 sec (9.0-12.0) 06/02/16 09:33 INR 1.0 (<1.1) 06/02/16 09:33 Sodium 141 mmol/L (137-145) 05/31/16 10:40 Potassium 3.7 mmol/L (3.5-5.1) 05/31/16 10:40 Chloride 105 mmol/L (98-107) 05/31/16 10:40 Carbon Dioxide 24 mmol/L (22-30) 05/31/16 10:40 Anion Gap 12 mmol/L 05/31/16 10:40 BUN 10 mg/dL (9-20) 05/31/16 10:40 Creatinine 0.96 mg/dL (0.66-1.25) 05/31/16 10:40 Est GFR (MDRD) Af Amer >60 (>60 ml/min/1.73 sqM) 05/31/16 10:40 Est GFR (MDRD) Non-Af >60 (>60 ml/min/1.73 sqM) 05/31/16 10:40 Glucose 97 mg/dL (74-99) 05/31/16 10:40 POC Glucose (mg/dL) 90 mg/dL (75-99) 06/03/16 11:51 POC Glu Boarding House Manager ID Mary Bob 06/03/16 11:[address] Glu mg/dL 157 mg/dL 05/31/16 10:40 Hemoglobin A1c 7.1 % (4.2-6.1) H 05/31/16 10:40 Calcium 8.8 mg/dL (8.4-10.2) 05/31/16 10:40 Total Bilirubin 0.6 mg/dL (0.2-1.3) 05/31/16 10:40 AST 31 U/L (17-59) 05/31/16 10:40 ALT 54 U/L (21-72) 05/31/16 10:40 Alkaline Phosphatase 77 U/L (38-126) 05/31/16 10:40 C-Reactive Protein 28.3 mg/L (<10.0) H 06/02/16 09:33 Total Protein 6.8 g/dL (6.3-8.2) 05/31/16 10:40 Albumin 3.8 g/dL (3.5-5.0) 05/31/16 10:40 Microbiology 05/30/16 17:35 Blood Blood Culture - Preliminary No Growth after 96 hours 06/02/16 11:05 Shoulder - Left Gram Stain - Preliminary 06/02/16 11:05 Shoulder - Left Tissue Culture - Preliminary 06/02/16 11:05 Shoulder - Left Anaerobic Culture - Preliminary Assessment and Plan (1) Leukocytosis Narrative/Plan: Pleasant 65-year-old male who has an extensive past medical history related to the significant abscess to his left anterior chest wall. Was associated with significant MSSA sepsis and infection to that region. He did have surgical incision and drainage and a protracted course of intravenous antibiotic therapy. He had resolution of his infection was doing well from the last outpatient evaluation. Now presents with increasing pain to the area with concerns to ongoing infection. Has been seen by cardiothoracic surgery and CT scans been reviewed. No need for surgical intervention is noted at this time. Largest concern will be to the activity infection at this site. Computed tomography scan does show some changes but it's unclear if these are acute changes. A bone scan was obtained. It failed to reveal evidence of extensive uptake in the region, consequently changes could be related to the prior infection that is chronic in nature. Some bony deterioration may be causing the muscular discomfort in the chest wall. Current thoracic surgery is following the outpatient setting. Of significant note when he was ill in the past his sedimentation rate was 120, it is now at 18 similar to when he finishes course of antibiotic therapy with resolution of his infection. He is also without fever or leukocytosis. CT biopsy was performed And Gram stain shows no significant white cells or bacteria. The patient is now considerably improved. Does not seem to evidence of infection at this site. It is likely having some sequela from his person of infection. He'll follow-up in the outpatient setting with follow-up blood work requested. No need for antibiotic therapy at this time. Call the office for any acute change. Status: Acute (2) Osteomyelitis of sternoclavicular joint Status: Acute
--- NOTE | 2016-06-05 10:34 | DS ---
DATE OF ADMISSION: 05/30/2016 DATE OF DISCHARGE: 06/03/2016 FINAL DIAGNOSES: 1. Left chest wall costochondritis. 2. Type 2 diabetes mellitus with peripheral neuropathy. 3. Gastroesophageal reflux disease. 4. Hyperlipidemia. 5. Primary osteoarthritis in multiple joints. HOSPITAL COURSE: This is a patient who previously had methicillin susceptible Staph aureus infection of the left with osteomyelitis of the left manubrium clavicular joint osteomyelitis. Completing course of antibiotics. Presented with some localized pain there. The patient bone scan was nonspecific. Patient's cultures were negative. Blood cultures negative. Area was drained that came back negative too. Seen by Dr. Ndiaye who I talked to the day of discharge, no need for antibiotics. This was discussed in detail with the patient and . Questions were answered. On examination, minimal tenderness. LUNGS: Slightly decreased breath sounds. DC planning more than 35 minutes. DISCHARGE MEDICATIONS: 1. Lipitor 20 mg q.h.s. 2. Vitamin D3 10,000 units daily. 3. Omeprazole 20 mg b.i.d. 4. Iron 325 p.o. daily. 5. [place] 10, 1 tablet q.4 p.r.n. 6. Motrin q.6 p.r.n. 7. FlexPen 18 units a.c. t.i.d. 8. Lantus 32 units subcu q.h.s. Follow-up with Dr. Yang in 2 days. Follow-up with Dr. Ndiaye in one week.
== END 2016-06-03 14:45 | disposition home or self-care (01) | DRG 168 ==
LOC: EC 16:43 → 4MS4W 17:46
PROVIDERS: ADMIT Hospitalist; ATTEND Hospitalist
PROC: 0PBB3ZX Excision of Left Clavicle, Percutaneous Approach, Diagnostic (ICD-10-PCS; principal; 2016-06-02)
DX: M94.0 Chondrocostal junction syndrome [Tietze] (principal); E11.42 Type 2 diabetes mellitus with diabetic polyneuropathy; K21.9 Gastro-esophageal reflux disease without esophagitis; E78.5 Hyperlipidemia, unspecified; M19.91 Primary osteoarthritis, unspecified site; J45.909 Unspecified asthma, uncomplicated; Z98.42 Cataract extraction status, left eye; Z98.41 Cataract extraction status, right eye; Z87.891 Personal history of nicotine dependence; Z79.4 Long term (current) use of insulin; Z79.899 Other long term (current) drug therapy
CPT/HCPCS: 36415; 71260; 77012; 78315; 80053; 83036; 85025; 85049; 85610; 85652; 86140; 87040; 87070; 87075; 87077; 87186; 87205; 96365; 99284

== ENCOUNTER → 2016-05-30 | Outpatient (CLI) | payer BC ==
[2016-05-30 13:07] LABS: CH 27.8; CHCM 32.6; HCT 40.5 % (39.0-53.0); HDW 2.93; HGB 13.1 gm/dL (13.0-17.5); MCH 27.7 pg (25.0-35.0); MCHC 32.3 g/dL (31.0-37.0); MCV 85.5 fL (80.0-100.0); Mean Platelet Volume 7.1; RBC 4.73 m/uL (4.30-5.90); RDW 14.9 % (11.5-15.5); WBC 9.8 k/uL (3.8-10.6); WBC (Perox) 10.95
[2016-05-30 13:14] LABS: ALT 67 U/L (21-72); AST 40 U/L (17-59); Alkaline Phosphatase 74 U/L (38-126); Anion Gap 10 mmol/L; Blood Urea Nitrogen 13 mg/dL (9-20); Calcium 9.3 mg/dL (8.4-10.2); Carbon Dioxide 28 mmol/L (22-30); Chloride 105 mmol/L (98-107); Glucose 147 mg/dL (74-99); Non-African American GFR(MDRD) >60 (>60 ml/min/1.73 sqM); Potassium 4.4 mmol/L (3.5-5.1); Sodium 143 mmol/L (137-145); Total Bilirubin 0.6 mg/dL (0.2-1.3); Total Protein 7.2 g/dL (6.3-8.2)
[2016-05-30 14:33] LABS: Erythrocyte Sedimentation Rate 18 mm/hr (0-15)
--- NOTE | 2016-05-30 14:36 | CT ---
EXAMINATION TYPE: CT chest w con DATE OF EXAM: 05/30/2016 2:14 PM COMPARISON: Previous study dated 12/31/2015 HISTORY: Chest wall pain CT DLP: 407.40 mGycm Automated exposure control for dose reduction was used. CONTRAST: CT scan of the chest is performed with IV Contrast, patient injected with 100 ml mL of Omnipaque 300. FINDINGS: The lungs are clear. There is no evidence of pneumothorax. There is no significant axillary, mediastinal or hilar adenopathy. There is no pleural or pericardial fluid. There is a small hiatal hernia. There is a stable 1.7 cm right upper pole renal cyst. Visualized portions of the upper abdomen are ot herwise unremarkable. There is mild hypertrophic spondylosis within the spine. There is a bony destructive lesion involving the medial aspect of the left clavicle. This represents a new finding. There is an associated 3 cm soft tissue mass. IMPRESSION: 1. 3 cm soft tissue mass involving the medial head of the left clavicle with destruction of the proxi mal clavicle. 2. Small hiatal hernia. 3. Stable right renal cyst.
[2016-05-30 14:41] LABS: Add Differential Manual Differential
== END | disposition home or self-care (01) ==
LOC: RADCTMAIN 12:28
PROVIDERS: ATTEND Family Medicine
DX: R07.89 Other chest pain (principal)
CPT/HCPCS: 80053; 85652; 85025; 71260; 36415; Q9967

== ENCOUNTER 2016-10-01 06:36 | Day surgery (SDC) | payer BC ==
[2016-09-29 12:35] VITALS: BMI 30.4
--- NOTE | 2016-10-01 06:28 | P.GSHP ---
History of Present Illness H&P Date: 10/01/16 CHIEF COMPLAINT: Colon screen HISTORY OF PRESENT ILLNESS: The patient is a 65-year-old male who presents for colon screen. Lower endoscopy was offered for further evaluation and management. PAST MEDICAL HISTORY: Please see list. PAST SURGICAL HISTORY: Please see list. MEDICATIONS: Please see list. ALLERGIES: Please see list. SOCIAL HISTORY: No illicit drug use FAMILY HISTORY: No reports of Crohn disease or ulcerative colitis. REVIEW OF ORGAN SYSTEMS: CONSTITUTIONAL: No reports of fevers or chills. PHYSICAL EXAM: VITAL SIGNS: Stable GENERAL: Well-developed pleasant in no acute distress. HEENT: No scleral icterus. Extraocular movements grossly intact. Moist buccal mucosa. NECK: Supple without lymphadenopathy. CHEST: Unlabored respirations. Equal bilateral excursions. CARDIOVASCULAR: Regular rate and rhythm. Distal 2+ pulses. ABDOMEN: Soft, nontender, nondistended. MUSCULOSKELETAL: No clubbing, cyanosis, or edema. ASSESSMENT: 1. Colon screen. PLAN: 1. Recommend proceeding with a lower endoscopy Past Medical History Past Medical History: Asthma, Diabetes Mellitus, Eye Disorder, GERD/Reflux, Hyperlipidemia, Osteoarthritis (OA) Additional Past Medical History / Comment(s): neuropathy in feet and legs,CARINA CATARACTS, PAST CHEST WALL ABCESS(PER PT/ AFFECTED BOTH MUSCLE AND BONE), History of Any Multi-Drug Resistant Organisms: None Reported Past Surgical History: Orthopedic Surgery Additional Past Surgical History / Comment(s): Surgery on left elbow"nerve release", LT CARPAL TUNNEL RELEASE, LT HAND "BONE SCRAPING", JENNIFER, I&D CHEST WALL ABCESS, PICC LINE INSERTED 01-01-16, REMOVED IN FEB 2016. RECENT I & D OF CHEST WAS ABSCESS 06/02/16 Past Anesthesia/Blood Transfusion Reactions: No Reported Reaction Additional Past Anesthesia/Blood Transfusion Reaction / Comment(s): CLAUSTERPHOBIA Past Psychological History: No Psychological Hx Reported Additional Psychological History / Comment(s): . Is in the family home with his . 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 No experience. No international travel more than 25 years since he left the [facility]. Denies significant tobacco or alcohol use. No recreational drug use, no injection drug use. No children. 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 Smoking Status: Former smoker Past Alcohol Use History: None Reported Additional Past Alcohol Use History / Comment(s): QUIT SMOKING 1973 Past Drug Use History: None Reported - Past Family History Father Family Medical History: Cancer, Coronary Artery Disease (CAD) Mother Family Medical History: CVA/TIA, Diabetes Mellitus Medications and Allergies Home Medications Medication Instructions Recorded Confirmed Type Atorvastatin [Lipitor] 20 mg PO HS 11/28/15 09/29/16 History Cholecalciferol (Vitamin D3) 10,000 unit PO DAILY 11/28/15 09/29/16 History [Vitamin D3] Omeprazole 20 mg PO BID 11/28/15 09/29/16 History Ferrous Sulfate [Iron (65 MG 325 mg PO DAILY 05/30/16 09/29/16 History Elemental)] HYDROcodone/APAP 10-325MG [[place] 1 tab PO Q4HR PRN 05/30/16 09/29/16 History 10-325] Ibuprofen [Motrin] 200 - 400 mg PO Q6HR PRN 05/30/16 09/29/16 History Insulin Aspart [NovoLOG Flexpen] 18 units SQ AC-TID 05/30/16 09/29/16 History Insulin Glargine [Lantus] 32 unit SQ HS 05/30/16 09/29/16 History Allergies Allergy/AdvReac Type Severity Reaction Status Date / Time onion Allergy Anaphylaxis Verified 09/29/16 12:22
[~2016-10-01 06:36] MED LIST: LACTATED RINGERS 1,000 ML IV SCH; LIDOCAINE 1% 20 ML VIAL (10MG/ML) FOR IV START INTRADERMA PRN
[2016-10-01 07:00] VITALS: TEMP 98.4
[2016-10-01 07:09] LABS: Glucose,Whole Blood 158 mg/dL (75-99)
[2016-10-01] MEDS ORDERED: PROPOFOL 10 MG/ML 20 ML VIAL IV ONE (07:28)
--- NOTE | 2016-10-01 07:30 | P.HPADDEND ---
H&P Addendum H&P Addendum Date: 10/01/16 Patient also has history of recent anemia of unclear etiology. He takes chronic and antacids for reflux disease. Patient was recommended to undergo upper endoscopy for full evaluation of anemia. Patient agreed. We will proceed with upper endoscopy including lower endoscopy.
--- NOTE | 2016-10-01 07:43 | P.PCN ---
Date of Procedure: 10/01/16 Preoperative Diagnosis: Postoperative Diagnosis: Procedure(s) Performed: Implants: Indications for Procedure: Operative Findings: Description of Procedure: PREOPERATIVE DIAGNOSIS: Gastroesophageal reflux disease. Anemia. POSTOPERATIVE DIAGNOSIS: Gastroesophageal reflux disease. Anemia. Mendoza's esophagus. Diaphragmatic hiatal hernia without obstruction, sliding type. Chronic gastritis. OPERATION: Esophagogastroduodenoscopy with biopsies along antrum. SURGEON: Tayla Castro MD ANESTHESIA: MAC. INDICATIONS: The patient is a 65-year-old male who presents with a history of reflux disease including anemia of unclear etiology. Benefits and risks of the procedure were described. Informed consent was obtained. DESCRIPTION: The patient was brought into the endoscopy suite and laid in the left lateral decubitus position. An Olympus gastroscope was passed along the posterior oropharynx down to the distal esophagus where the squamocolumnar junction was obliterated by Mendoza's esophagus from 32 cm to 37 cm from the incisors. The stomach was entered and no bile reflux was found. Additional findings are listed below. Biopsies with cold forceps were obtained of the antrum. The first through third portion of the duodenum was examined and unremarkable. Diffuse gastritis without active bleed found along the antrum. Retroflexion of the scope confirmed Hill grade 4 lower esophageal valve. The squamocolumnar junction demostrated LA grade D erosive esophagitis. The stomach was desufflated. The patient tolerated the procedure well. FINDINGS: Squamocolumnar junction 33 cm from the incisors. Diaphragmatic hiatus at 37 cm. Hiatal hernia 5 cm, sliding type. Hill grade 4 lower esophageal valve. LA grade D erosive esophagitis. No active duodenitis. Chronic gastritis. RECOMMENDATIONS: Continue medical therapy. Further recommendations pending results of pathology report. Upper endoscopy as needed. Will benefit from antireflux surgical procedure for history of Mendoza's including sliding diaphragmatic hiatal hernia which puts him at risk for anemia.
--- NOTE | 2016-10-01 07:58 | P.PCN ---
Date of Procedure: 10/01/16 Preoperative Diagnosis: Postoperative Diagnosis: Procedure(s) Performed: Implants: Indications for Procedure: Operative Findings: Description of Procedure: PREOPERATIVE DIAGNOSIS: Colonoscopy screening. Personal history of colon polyps. Family history of colon polyps in his father and siblings. POSTOPERATIVE DIAGNOSIS: Colonoscopy screening. Personal history of colon polyps. Family history of colon polyps in his father and siblings. OPERATION: Colonoscopy to the ileocecal valve and appendiceal orifice. SURGEON: Tayla Castro MD. ANESTHESIA: MAC. INDICATIONS: The patient is a 65-year-old female who presents for colonoscopy screening. His last colonoscopy was 3 years ago with history of polyps. Benefits and risks were described and informed consent was obtained. DESCRIPTION OF PROCEDURE: The patient had undergone Gatorade, MiraLAX and Dulcolax prep. He had been brought into the operating room and laid in the left lateral decubitus position. After adequate intravenous sedation, the rectum was examined with 2% lidocaine jelly. No external hemorrhoids were encountered. The rectal tone was within normal limits. No lesions were palpated in the rectal vault. The prostate was smooth without nodularity. An Olympus colonoscope was advanced until the ileocecal valve and appendiceal orifice were clearly viewed. The prep was excellent with clear visualization of the mucosal folds. The scope was removed with visualization of each mucosal fold. No scattered diverticulosis was encountered. No colonic polyps were found. No evidence of focal colitis was found. Retroflexion of the scope demonstrated grade 1 internal hemorrhoids without active bleeding or inflammation. The colon was desufflated. The patient had tolerated the procedure well. Withdrawal time was over 6 minutes. FINDINGS: Internal hemorrhoids, grade 1 No external prolapsed hemorrhoids. No arteriovenous malformations. No adenomatous polyps. No focal colitis. RECOMMENDATIONS: Lower endoscopy in 5 years for family and personal history of colon polyps. Plan - Discharge Summary New Discharge Prescriptions: No Action Omeprazole 20 mg PO BID Cholecalciferol (Vitamin D3) [Vitamin D3] 10,000 unit PO DAILY Atorvastatin [Lipitor] 20 mg PO HS Ibuprofen [Motrin] 200 - 400 mg PO Q6HR PRN PRN Reason: Pain HYDROcodone/APAP 10-325MG [[place] 10-325] 1 tab PO Q4HR PRN PRN Reason: Pain Ferrous Sulfate [Iron (65 MG Elemental)] 325 mg PO DAILY Insulin Aspart [NovoLOG Flexpen] 18 units SQ AC-TID Insulin Detemir [Levemir Flextouch] 32 units SQ HS Discharge Medication List Atorvastatin [Lipitor] 20 mg PO HS 11/28/15 [History] Cholecalciferol (Vitamin D3) [Vitamin D3] 10,000 unit PO DAILY 11/28/15 [History ] Omeprazole 20 mg PO BID 11/28/15 [History] Ferrous Sulfate [Iron (65 MG Elemental)] 325 mg PO DAILY 05/30/16 [History] HYDROcodone/APAP 10-325MG [[place] 10-325] 1 tab PO Q4HR PRN 05/30/16 [History] Ibuprofen [Motrin] 200 - 400 mg PO Q6HR PRN 05/30/16 [History] Insulin Aspart [NovoLOG Flexpen] 18 units SQ AC-TID 05/30/16 [History] Insulin Detemir [Levemir Flextouch] 32 units SQ HS 10/01/16 [History] Follow up Appointment(s)/Referral(s): Tayla Castro MD [STAFF PHYSICIAN] - 10/28/16 (Please call to confirm time. ) Patient Instructions/Handouts: *Surgery [facility] - (Anesthesia) Endoscopy Discharge Instructions, Colonoscopy (GEN) Discharge Disposition: HOME SELF-CARE
[2016-10-01 08:19] VITALS: BP 156/86; PULSE 63; RESP 16
== END 2016-10-01 08:39 | disposition home or self-care (01) ==
LOC: ORWHC2ENDO 06:36
PROVIDERS: ATTEND Surgery Plastic and Reconstructive Surgery
DX: Z12.11 Encounter for screening for malignant neoplasm of colon (principal); K64.0 First degree hemorrhoids; K22.70 Barrett's esophagus without dysplasia; K44.9 Diaphragmatic hernia without obstruction or gangrene; K29.50 Unspecified chronic gastritis without bleeding; K21.0 Gastro-esophageal reflux disease with esophagitis; D64.9 Anemia, unspecified; Z86.010 Personal history of colon polyps; J45.909 Unspecified asthma, uncomplicated; E11.9 Type 2 diabetes mellitus without complications; E78.5 Hyperlipidemia, unspecified; M19.90 Unspecified osteoarthritis, unspecified site; Z79.4 Long term (current) use of insulin; Z79.899 Other long term (current) drug therapy; Z91.018 Allergy to other foods; Z87.891 Personal history of nicotine dependence
CPT/HCPCS: 88305; 88342; 43239; J2704; G0105

== ENCOUNTER → 2016-12-23 | Outpatient (CLI) | payer BC ==
[2016-12-23 13:42] LABS: CH 28.6; CHCM 33.1; HCT 38.7 % (39.0-53.0); HDW 3.08; HGB 13.4 gm/dL (13.0-17.5); MCH 30.1 pg (25.0-35.0); MCHC 34.6 g/dL (31.0-37.0); MCV 86.9 fL (80.0-100.0); RBC 4.46 m/uL (4.30-5.90); RDW 13.7 % (11.5-15.5); WBC 8.5 k/uL (3.8-10.6)
[2016-12-23 13:51] LABS: Potassium 4.5 mmol/L (3.5-5.1)
== END | disposition home or self-care (01) ==
LOC: LABPAT 12:55
PROVIDERS: ATTEND Anesthesiology
DX: Z01.812 Encounter for preprocedural laboratory examination (principal)
CPT/HCPCS: 80051; 85027

== ENCOUNTER 2016-12-26 08:15 | Inpatient (IN) | payer BC ==
[2016-12-19 10:24] VITALS: BMI 28.8
--- NOTE | 2016-12-26 07:50 | P.GSHP ---
History of Present Illness H&P Date: 12/26/16 CHIEF COMPLAINT: Paraesophageal hiatal hernia with gastroesophageal reflux disease. HISTORY OF PRESENT ILLNESS: The patient is a 66-year-old male who presents with paraesophageal hiatal hernia. Additionally he has history of Mendoza's esophagus. He has completed an esophageal manometry including upper endoscopy workup. Now he presents for surgical intervention. PAST MEDICAL HISTORY: Please see list. PAST SURGICAL HISTORY: Please see list. MEDICATIONS: Please see list. ALLERGIES: Please see list. SOCIAL HISTORY: No illicit drug use FAMILY HISTORY: No reports of Crohn disease or ulcerative colitis. REVIEW OF ORGAN SYSTEMS: CONSTITUTIONAL: No reports of fevers or chills. GI: Denies any blood in stools or constipation. PHYSICAL EXAM: VITAL SIGNS: Stable GENERAL: Well-developed pleasant and in no acute distress. HEENT: No scleral icterus. Extraocular movements grossly intact. Moist buccal mucosa. NECK: Supple without lymphadenopathy. CHEST: Unlabored respirations. Equal bilateral excursions. CARDIOVASCULAR: Regular rate and rhythm. Distal 2+ pulses. ABDOMEN: Soft, nondistended. No peritoneal signs. MUSCULOSKELETAL: No clubbing, cyanosis, or edema. ASSESSMENT: 1. Diaphragmatic paraesophageal hiatal hernia with severe gastroesophageal reflux disease. 2. Mendoza's esophagus. PLAN: 1. Recommend proceeding with a laparoscopic paraesophageal hiatal hernia with possible mesh. 2. Benefits and risks of surgical intervention was discussed including possibility of open technique. 3. Inpatient hospitalization recommended of 2 nights or less. 4. DVT prophylaxis. 5. Antibiotic prophylaxis. 6. He has also completed a very low caloric high-protein diet to address underlying hepatomegaly. 7. Robotic-assisted approach reviewed and described to the patient and family. Past Medical History Past Medical History: Diabetes Mellitus, GERD/Reflux, Hyperlipidemia, Osteoarthritis (OA) Additional Past Medical History / Comment(s): neuropathy in feet and legs, PAST CHEST WALL ABCESS(PER PT/ AFFECTED BOTH MUSCLE AND BONE) History of Any Multi-Drug Resistant Organisms: None Reported Past Surgical History: Orthopedic Surgery Additional Past Surgical History / Comment(s): Surgery on left elbow"nerve release", LT CARPAL TUNNEL RELEASE, LT HAND "BONE SCRAPING", JENNIFER, I&D CHEST WALL ABCESS, PICC LINE INSERTED 01-01-16, REMOVED IN FEB 2016. RECENT I & D OF CHEST WAS ABSCESS 06/02/16 CARINA CATARACTS, EGD Past Anesthesia/Blood Transfusion Reactions: No Reported Reaction Additional Past Anesthesia/Blood Transfusion Reaction / Comment(s): CLAUSTERPHOBIA Smoking Status: Former smoker - Past Family History Father Family Medical History: Cancer, Coronary Artery Disease (CAD) Mother Family Medical History: CVA/TIA, Diabetes Mellitus Brother(s) Family Medical History: Cancer Medications and Allergies Home Medications Medication Instructions Recorded Confirmed Type Atorvastatin [Lipitor] 20 mg PO HS 11/28/15 12/19/16 History Cholecalciferol (Vitamin D3) 10,000 unit PO DAILY 11/28/15 12/19/16 History [Vitamin D3] Omeprazole 20 mg PO BID 11/28/15 12/19/16 History HYDROcodone/APAP 10-325MG [[place] 1 tab PO Q4HR PRN 05/30/16 12/19/16 History 10-325] Ibuprofen [Motrin] 200 - 400 mg PO Q6HR PRN 05/30/16 12/19/16 History Insulin Aspart [NovoLOG Flexpen] 18 units SQ AC-TID 05/30/16 12/19/16 History Insulin Detemir [Levemir Flextouch] 32 units SQ HS 10/01/16 12/19/16 History Legatrin 1 tab PO DAILY PRN 12/19/16 History Allergies Allergy/AdvReac Type Severity Reaction Status Date / Time onion Allergy Anaphylaxis Verified 12/19/16 10:02
[~2016-12-26 08:15] MED LIST changes: +ACETAMINOPHEN IV (For NPO) 1,000 MG in EMPTY BAG 1 BAG IVPB ONE; +CHLORHEXIDINE GLUCONATE 15 ML CUP MUCOUS MEM ONE; +DEXAMETHASONE SOD PHOSPHATE 10 MG/ML 1 ML VIAL IV ONE; +ENOXAPARIN 40 MG/0.4 ML SYRINGE SQ STA; +HEPARIN SODIUM,PORCINE 5,000 UNIT/ML 1 ML VIAL SQ ONE; -LACTATED RINGERS 1,000 ML IV SCH; -LIDOCAINE 1% 20 ML VIAL (10MG/ML) FOR IV START INTRADERMA PRN; +MIDAZOLAM 2 MG/2 ML VIAL IV PRN; +ONDANSETRON 4 MG/2 ML VIAL IVP ONE; +PANTOPRAZOLE 40 MG/10 ML VIAL IV STA; +SCOPOLAMINE 1.5MG/72HR PATCH TRANSDERM ONE; +ceFAZolin 2 GM in SODIUM CHLORIDE 0.9% 100 ML IVPB ONE; +ceFAZolin 2 GM in SODIUM CHLORIDE 0.9% 100 ML IVPB STA
[2016-12-26 09:02] LABS: Glucose,Whole Blood 131 mg/dL (75-99)
[2016-12-26] MEDS ORDERED: LIDOCAINE 1% 20 ML VIAL (10MG/ML) FOR IV START INTRADERMA ONE (09:30)
[2016-12-26] MEDS: LACTATED RINGERS 1,000 ML IV SCH ×2 (09:30→09:58)
[2016-12-26] MEDS ORDERED: KETOROLAC 30 MG/ML 1 ML VIAL ONE (11:02)
[2016-12-26] MEDS ORDERED: MIDAZOLAM 2 MG/2 ML VIAL ONE (11:02)
[2016-12-26] MEDS ORDERED: ePHEDrine SULFATE/0.9% NACL/PF 50 MG/5 ML SYRINGE IV ONE (11:02)
[2016-12-26] MEDS ORDERED: fentaNYL (PF) 50 MCG/ML 2 ML AMP ONE (11:02)
[2016-12-26] MEDS ORDERED: SUCCINYLCHOLINE CHLORIDE 100 MG/5 ML SYR IV ONE (11:02)
[2016-12-26] MEDS ORDERED: PROPOFOL 10 MG/ML 20 ML VIAL IV ONE (11:02)
[2016-12-26] MEDS ORDERED: LIDOCAINE 1% INJ 10MG/ML (20 ML MDV) ONE (11:02)
[2016-12-26] MEDS ORDERED: ROCURONIUM BROMIDE 10 MG/ML 10 ML VIAL IV ONE (11:02)
[2016-12-26] MEDS ORDERED: BUPIVACAINE (PF) 0.5% 30 ML VIAL SQ ONE (11:28)
--- NOTE | 2016-12-26 13:23 | P.PCN ---
Date of Procedure: 12/26/16 Preoperative Diagnosis: Mendoza's esophagus, gastroesophageal reflux disease, diaphragmatic hiatal hernia Postoperative Diagnosis: Same, incarcerated midline paraesophageal hiatal hernia 5 x 3 cm Procedure(s) Performed: 1. Laparoscopic reduction and repair of incarcerated midline paraesophageal diaphragmatic hiatal hernia 5 x 3 cm with mesh, [place] Biopatch A, 7 x 10 cm 2. Intraoperative esophagogastroduodenoscopy Implants: [place] Biopatch A, 7 x 10 cm Anesthesia: GETA, local Surgeon: Tayla Castro Estimated Blood Loss (ml): 25 Pathology: none sent Condition: stable Disposition: floor Indications for Procedure: Operative Findings: 1. Incarcerated right-sided paraesophageal diaphragmatic hernia with leak point from lipoma excised and reduced into the abdominal cavity. 2. Axial length of 3 cm, intrathoracic length of 5 cm of incarcerated hiatal hernia 3. Intra-abdominal length of 3 cm obtained of the esophagus 4. Hill grade 4 down to [place] grade 2 lower esophageal valve upon completion of procedure 5. Thoracic length 18 cm. 6. Ports placed 15 cm from xiphoid. Description of Procedure:
[2016-12-26] MEDS ORDERED: NALOXONE 0.4 MG/ML 1 ML VIAL IV PRN (13:24)
[2016-12-26] MEDS ORDERED: HYDROcodone/APAP 15 ML SOLUTION PO PRN (13:24)
[2016-12-26] MEDS ORDERED: ONDANSETRON 4 MG/2 ML VIAL IVP PRN (13:24)
[2016-12-26] MEDS ORDERED: HYDROcodone/APAP 10-325MG 1 EACH TAB PO PRN (13:27)
[2016-12-26] MEDS ORDERED: [UNRECOGNIZED DRUG - OTHER] PO PRN (13:27)
[2016-12-26] MEDS: HYDROmorphone 1 MG/ML 1 ML SYRINGE IVP PRN ×4 (13:50→14:15)
[2016-12-26 14:14] LABS: Glucose,Whole Blood 239 mg/dL (75-99)
[2016-12-26] MEDS ORDERED: INSULIN LISPRO (humaLOG) 300 UNIT/3 ML VIAL SQ ONE (14:29)
[2016-12-26] MEDS: 0.9% NACL WITH KCL 20 MEQ/L 1,000 ML IV SCH ×2 (15:21→21:17)
[2016-12-26] MEDS: ALBUTEROL NEBULIZED 2.5 MG/3 ML INHALATION SCH ×2 (15:40→19:27)
--- NOTE | 2016-12-26 16:38 | FL ---
EXAMINATION TYPE: FL UGI DATE OF EXAM: 12/26/2016 CLINICAL HISTORY: Status post hiatal hernia repair. Contrast: Omnipaque 350 50 mL 12 SEC FL TIME , 4 images The patient ingested contrast without difficulty or delay. Noted are postsurgical changes hiatal her scott repair. There is no evidence for leak or obstruction. Contrast is noted within the stomach. IMPRESSION: Post-surgical change of hiatal hernia repair without evidence for obstruction or leak at this point in time.
[2016-12-26 16:40] LABS: Glucose,Whole Blood 172 mg/dL (75-99)
[2016-12-26] MEDS: INSULIN LISPRO (humaLOG) 300 UNIT/3 ML VIAL SQ SCH ×2 (18:09→21:13)
[2016-12-26] MEDS: ceFAZolin 2 GM in SODIUM CHLORIDE 0.9% 100 ML IVPB SCH ×2 (18:10→23:27)
[2016-12-26] MEDS: HYOSCYAMINE ORAL DROPS 1.875 MG/15 ML BOTTLE PO SCH ×2 (18:13→23:27)
[2016-12-26] MEDS: METOCLOPRAMIDE 5 MG/ML 2 ML VIAL IVP SCH ×2 (18:15→23:28)
[2016-12-26] MEDS: SIMETHICONE 40 MG/0.6 ML DROPS 2,000 MG/30 ML BOTTLE PO SCH ×2 (18:16→23:28)
[2016-12-26] MEDS ORDERED: TAMSULOSIN 0.4 MG CAP.ER.24H PO SCH (18:30)
[2016-12-26 20:44] LABS: Glucose,Whole Blood 207 mg/dL (75-99)
[2016-12-27 02:06] VITALS: RESP 16
[2016-12-27] MEDS: HYDROmorphone 1 MG/ML 1 ML SYRINGE IVP PRN ×2 (03:54→06:51)
[2016-12-27] MEDS: 0.9% NACL WITH KCL 20 MEQ/L 1,000 ML IV SCH (04:59)
[2016-12-27] MEDS: METOCLOPRAMIDE 5 MG/ML 2 ML VIAL IVP SCH (05:01)
[2016-12-27] MEDS: SIMETHICONE 40 MG/0.6 ML DROPS 2,000 MG/30 ML BOTTLE PO SCH (05:01)
[2016-12-27] MEDS: HYOSCYAMINE ORAL DROPS 1.875 MG/15 ML BOTTLE PO SCH (05:01)
[2016-12-27 07:12] LABS: Glucose,Whole Blood 152 mg/dL (75-99)
[2016-12-27] MEDS: ALBUTEROL NEBULIZED 2.5 MG/3 ML INHALATION SCH ×2 (07:25→11:57)
[2016-12-27 07:39] LABS: Basophils % (A) 0 %; CH 28.6; CHCM 32.7; Eosinophils % (A) 0 %; HCT 35.1 % (39.0-53.0); HDW 2.93; HGB 11.6 gm/dL (13.0-17.5); Luc # (Auto) 0.17; Luc % (Auto) 2; Lymphocytes # (A) 0.7 k/uL (1.0-4.8); Lymphocytes % (A) 6 %; MCHC 33.1 g/dL (31.0-37.0); MCV 87.8 fL (80.0-100.0); Mean Platelet Volume 7.4; Monocytes # (A) 0.7 k/uL (0-1.0); Monocytes % (A) 7 %; Neutrophils # (A) 9.1 k/uL (1.3-7.7); Neutrophils % (A) 85 %; RDW 13.8 % (11.5-15.5); WBC 10.6 k/uL (3.8-10.6); WBC (Perox) 10.97
[2016-12-27] MEDS ORDERED: 0.9% NACL WITH KCL 20 MEQ/L 1,000 ML IV SCH (08:00)
[2016-12-27 08:12] VITALS: BP 161/78; PULSE 98; TEMP 98.1
[2016-12-27] MEDS: INSULIN LISPRO (humaLOG) 300 UNIT/3 ML VIAL SQ SCH (08:24)
[2016-12-27 08:25] LABS: Anion Gap 10 mmol/L; Blood Urea Nitrogen 17 mg/dL (9-20); Calcium 8.7 mg/dL (8.4-10.2); Carbon Dioxide 23 mmol/L (22-30); Chloride 108 mmol/L (98-107); Magnesium 1.6 mg/dL (1.6-2.3); Non-African American GFR(MDRD) >60 (>60 ml/min/1.73 sqM); Phosphorous 3.4 mg/dL (2.5-4.5); Potassium 4.7 mmol/L (3.5-5.1); Sodium 141 mmol/L (137-145)
[2016-12-27] MEDS ORDERED: PANTOPRAZOLE 40 MG/10 ML VIAL IV SCH (09:00)
[2016-12-27] MEDS ORDERED: ENOXAPARIN 40 MG/0.4 ML SYRINGE SQ SCH (09:00)
--- NOTE | 2016-12-27 09:54 | P.PN ---
Progress Note - Text Per discussion with the patient's nurse, no new issues overnight. No reports of dysphagia. He takes [place] 10/home. He passed his esophagram. Medical reconciliation completed. Patient may be discharged with follow-up in the office within 5 days.
[2016-12-27 12:13] LABS: Hemoglobin A1C 6.1 % (4.2-6.1)
--- NOTE | 2017-01-05 10:24 | P.OP ---
Date of Procedure: 12/26/16 Description of Procedure: Date of Procedure: 12/26/16 DESCRIPTION OF PROCEDURE(S): SURGEON: ERASMO CURRAN MD [employer] FSCM DEVELOPER: Erika Bernard PREOPERATIVE DIAGNOSES: 1. Mendoza's esophagus 2. Gastroesophageal reflux disease. 3. Paraesophageal hiatal hernia, midline. 4. Diabetes type 2 insulin-dependent with neuropathy. 5. Hyperlipidemia. 6. Previous history of multiple abdominal wall hernias. 7. Restless leg syndrome. POSTOPERATIVE DIAGNOSES: 1. Mendoza's esophagus 2. Gastroesophageal reflux disease. 3. Paraesophageal hiatal hernia, midline. 4. Diabetes type 2 insulin-dependent with neuropathy. 5. Hyperlipidemia. 6. Previous history of multiple abdominal wall hernias. 7. Restless leg syndrome. 8. Incarcerated midline paraesophageal hiatal hernia 5 x 3 cm OPERATION: 1. Robotic-assisted laparoscopic reduction and repair of incarcerated midline paraesophageal diaphragmatic hiatal hernia 5 x 3 cm size with [place] Biopatch A, 7 x 10 cm 2. Intraoperative esophagogastroduodenoscopy ANESTHESIA: General with local anesthetic. Implants: [place] Biopatch A, 7 x 10 cm ESTIMATED BLOOD LOSS: 25 mL SPECIMENS REMOVED: None. COMPLICATIONS: None. Operative Findings: 1. Incarcerated midline paraesophageal diaphragmatic hernia 5 x 3 cm with mediastinal lipoma leak point excised and reduced into the abdominal cavity. 2. Axial length of 3 cm, intrathoracic length of 5 cm of incarcerated hiatal hernia 3. Intra-abdominal length of 3 cm obtained of the esophagus 4. Hill grade 4 down to Hill grade 2 lower esophageal valve upon completion of procedure 5. Thoracic length 18 cm. 6. Ports placed 15 cm from xiphoid. INDICATIONS: The patient is a 66-year-old male who presents with Mendoza's esophagus, regurgitation, gastroesophageal reflux disease poorly controlled despite medications, and a symptomatic diaphragmatic hiatal hernia. Preoperative workup including upper endoscopy demonstrated a Hill grade 4 lower esophageal valve. He completed an esophageal manometry. Given the severity of his symptoms, particularly of his symptomatic diaphragmatic hiatal hernia, he had elected for surgical intervention. Benefits and risks including bleeding, infection, recurrence, dysphagia, injury to the lung, need for further surgery was described at length. Informed consent was obtained. DESCRIPTION: The patient was brought into the operating room and placed in supine position. Preoperatively he had received Lovenox subcutaneously for DVT prophylaxis. After general induction, the abdomen was prepped and draped in standard sterile fashion. Ioban draping was placed along the abdomen. A timeout protocol was confirmed with the surgical team, for which the patient's name, procedure to be performed including DVT prophylaxis with bilateral SCDs, and preoperative antibiotics were also confirmed. A robotic da Joseph Si system was prepped and primed. At 15 cm from the xiphoid to just below the umbilicus, proposed port sites were marked with indelible marker along the left axillary line, left mid-clavicular line with each ports were marked 10 cm from each other. A 5 mm 0 degrees laparoscopic trocar entry was performed along the left upper quadrant. The abdomen was insufflated to 15 mmHg pressure he tolerated well. Diagnostic laparoscopy demonstrated no injury to bowel, viscera, or mesentery. The liver surface was unremarkable. No injury had occurred to the small bowel or viscera. Along the hiatus, a defect was found anteriorly. Next, one 8 mm robotic port was placed along the right upper abdomen. An 8-mm port was were placed along the left mid abdomen. The camera 12-mm port extended length was maintained along the epigastrium. Another 8 mm port was placed along the left upper abdominal wall after exchanging the 5 mm port. Please note that the ports were placed at least 20 cm away from the target anatomy. Care was taken to check that each robotic arm were safely away from collision with the bed or the patient. At the epigastrium, a median sized Mar[place]u liver retractor was placed under direct visualization with the [employer] Former placed over the right shoulder of the patient. The additional third robotic arm was placed along the left aspect of the patient. The patient was repositioned in reverse Trendelenburg position after lowering the bed. The robot was docked above the head of the patient. Using a grasper for arm 3, vessel sealer for arm 2, including grasper for arm 1 , the robotic system was docked and primed as described. Instruments were interchanged by the administrative assistant data entry . Use 30 camera down for view. I had sat at the console. The gastrohepatic ligament was cleaved using a vessel sealer. Next, the phrenoesophageal ligament was mobilized and the distal esophagus was mobilized circumferentially without injury to the bilateral vagi nerves. The left and right crura was identified. A moderate sized midline large hiatal hernia and sac was found incarcerated into the mediastinum. Significant mobilization of the distal to mid esophagus into the mediastinum was performed without injury to the vagus nerves. Circumferentially , the hernia sac was excised and brought into the peritoneal cavity. Care was taken to avoid any gastrotomy to the incarcerated upper pole of the stomach. Extended dissection occurred for at least another 30 minutes. The measured hiatal hernia defect was 5 cm longitudinal length including 3 cm axial. After extensive dissection, the distal esophagus at least 2 cm was brought into the abdominal cavity. A large mediastinal mass of lipoma of the hernia sac was reduced into the abdominal cavity. A 56-Hebrew bougie was carefully placed along the posterior oropharynx to the hiatus as a visual aid for hiatus closure and then removed. Once the hiatus and crura was dissected, 2-0 VLOC suture was placed initially with a [id number] suture to reapproximate the diaphragmatic hiatus posteriorly. The aperture was consistent with 2 cm closure. To buttress the repair, a [place] Biopatch A was prepared along the back table as to reinforce the repair as an underlay. The mesh was placed along the crural repair and tagged using horizontal mattress sutures using 2-0 Surgidac. Mesh was tacked with C configuration along the hiatus. The robot was undocked from the patient. Console time 1 hour. I went to the head of the bed to perform intraoperative esophagogastroduodenoscopy. An Olympus gastroscope was passed through posterior oropharynx, where the GE junction was found distal to the diaphragmatic hiatus. The intra-abdominal esophageal length obtained during the case was over 2 cm. The stomach was entered. Retroflexion of the scope confirmed a Hill grade 2 lower esophageal valve. The stomach had been desufflated. No evidence of leaks were found either of the mucosal defects of the esophagus or stomach. The hiatal closure was consistent with a 56 Hebrew bougie as a bougie was passed. This concluded the endoscopic portion of the case. I re-scrubbed into the case. All instruments and pneumoperitoneum were evacuated from the abdominal cavity. Incisions were reapproximated using 4-0 Monocryl in an interrupted subcuticular fashion. The 12-mm port site was oversewn using 0 Vicryl in a Rishi Otero. Dermabond was applied to the skin. Local anesthetic was infiltrated in all wounds for postop analgesia. Multiple intra-abdominal films were obtained. At the end of the procedure, needle, sponge, and instrument count was verified correct by the surgical elastic knitter hand frame. The patient had tolerated the procedure well and was taken to the postanesthesia unit in stable condition. Intraoperative films were reviewed with the patient's family who was pleased with the level of care.
--- NOTE | 2017-01-05 10:26 | P.DS ---
Providers Date of admission: 12/26/16 08:15 Expected date of discharge: 12/27/16 Attending physician: Tayla Castro Primary care physician: Chin Yang - Discharge Diagnosis(es) (1) Paraesophageal hernia with obstruction but no gangrene Status: Acute (2) Mendoza esophagus Status: Acute (3) Reflux esophagitis Status: Acute (4) Hyperlipidemia Status: Acute (5) Diabetes mellitus type 2, insulin dependent Status: Acute (6) Diabetic neuropathy Status: Acute Hospital Course: POSTOPERATIVE DIAGNOSES: 1. Mendoza's esophagus 2. Gastroesophageal reflux disease. 3. Paraesophageal hiatal hernia, midline. 4. Diabetes type 2 insulin-dependent with neuropathy. 5. Hyperlipidemia. 6. Previous history of multiple abdominal wall hernias. 7. Restless leg syndrome. 8. Incarcerated midline paraesophageal hiatal hernia 5 x 3 cm COURSE: The patient is a 66-year-old male who presents with Mendoza's esophagus , regurgitation, gastroesophageal reflux disease poorly controlled despite medications, and a symptomatic diaphragmatic hiatal hernia. Preoperative workup including upper endoscopy demonstrated a Hill grade 4 lower esophageal valve. He completed an esophageal manometry. Given the severity of his symptoms, particularly of his symptomatic diaphragmatic hiatal hernia, he had elected for surgical intervention. Postoperatively, he was tolerating diet. Esophagram was within normal limits. Discharge process instructions were reviewed. Pertinent Studies: Esophagram demonstrated no obstruction or leaks. Procedures: OPERATION: 1. Robotic-assisted laparoscopic reduction and repair of incarcerated midline paraesophageal diaphragmatic hiatal hernia 5 x 3 cm size with [place] Biopatch A, 7 x 10 cm 2. Intraoperative esophagogastroduodenoscopy Patient Condition at Discharge: Good Plan - Discharge Summary New Discharge Prescriptions: New Hyoscyamine Oral Drops [Levsin Drops] 0.125 mg PO Q6HR bottle Simethicone 40 mg/0.6 ml Drops [Mylicon Drops] 40 mg PO Q6HR bottle Continue Cholecalciferol (Vitamin D3) [Vitamin D3] 10,000 unit PO DAILY Atorvastatin [Lipitor] 20 mg PO HS Ibuprofen [Motrin] 200 - 400 mg PO Q6HR PRN PRN Reason: Pain HYDROcodone/APAP 10-325MG [[place] 10-325] 1 tab PO Q4HR PRN PRN Reason: Pain Insulin Aspart [NovoLOG Flexpen] 18 units SQ AC-TID Insulin Detemir [Levemir Flextouch] 32 units SQ HS Legatrin 1 tab PO DAILY PRN PRN Reason: leg pain Discontinued Omeprazole 20 mg PO BID Discharge Medication List Atorvastatin [Lipitor] 20 mg PO HS 11/28/15 [History] Cholecalciferol (Vitamin D3) [Vitamin D3] 10,000 unit PO DAILY 11/28/15 [History ] HYDROcodone/APAP 10-325MG [[place] 10-325] 1 tab PO Q4HR PRN 05/30/16 [History] Ibuprofen [Motrin] 200 - 400 mg PO Q6HR PRN 05/30/16 [History] Insulin Aspart [NovoLOG Flexpen] 18 units SQ AC-TID 05/30/16 [History] Insulin Detemir [Levemir Flextouch] 32 units SQ HS 10/01/16 [History] Legatrin 1 tab PO DAILY PRN 12/19/16 [History] Hyoscyamine Oral Drops [Levsin Drops] 0.125 mg PO Q6HR bottle 12/26/16 [Rx] Simethicone 40 mg/0.6 ml Drops [Mylicon Drops] 40 mg PO Q6HR bottle 12/26/16 [ Rx] Follow up Appointment(s)/Referral(s): Tayla Castro MD [STAFF PHYSICIAN] - 12/30/16 3:00 pm Patient Instructions/Handouts: Full Liquid Diet (DC), Laparoscopic Hiatal Hernia Repair (DC) Activity/Diet/Wound Care/Special Instructions: Please review your post-Hiatal hernia repair diet as per discussed in the office : [email or web address] Full liquid diet including protein shakes 20-30 grams three times daily. No carbonated beverages. No solid foods until seen by your doctor. No lifting over 4 pounds in 4 weeks. May shower. No bath tub soaks. Discharge Disposition: HOME SELF-CARE
== END 2016-12-27 12:22 | disposition home or self-care (01) | DRG 328 ==
LOC: 2ORWHC 08:15 → 3SUR 13:35
PROVIDERS: ADMIT Surgery Plastic and Reconstructive Surgery; ATTEND Surgery Plastic and Reconstructive Surgery
PROC: 8E0W4CZ Robotic Assisted Procedure of Trunk Region, Percutaneous Endoscopic Approach (ICD-10-PCS; principal; 2016-12-26 10:30)
PROC: 0BUS4JZ (ICD-10-PCS; principal; 2016-12-26 10:30)
PROC: 0BUR4JZ (ICD-10-PCS; principal; 2016-12-26 10:30)
PROC: 0DJ08ZZ Inspection of Upper Intestinal Tract, Via Natural or Artificial Opening Endoscopic (ICD-10-PCS; principal; 2016-12-26 10:30)
DX: K44.0 Diaphragmatic hernia with obstruction, without gangrene (principal); E11.40 Type 2 diabetes mellitus with diabetic neuropathy, unspecified; K22.70 Barrett's esophagus without dysplasia; K21.0 Gastro-esophageal reflux disease with esophagitis; G25.81 Restless legs syndrome; D17.9 Benign lipomatous neoplasm, unspecified; E78.5 Hyperlipidemia, unspecified; K21.9 Gastro-esophageal reflux disease without esophagitis; Z79.4 Long term (current) use of insulin; Z79.899 Other long term (current) drug therapy; Z82.49 Family history of ischemic heart disease and other diseases of the circulatory system; Z83.3 Family history of diabetes mellitus; Z87.891 Personal history of nicotine dependence
CPT/HCPCS: 74240; 80051; 82310; 82565; 83036; 83735; 84100; 84520; 85025; 85027; 86850; 86900; 86901; 94640; 94760; 94762

== ENCOUNTER 2018-03-25 12:24 | Day surgery (SDC) | payer MEDICARE, BC ==
[2018-03-24 11:08] VITALS: BMI 24.4
--- NOTE | 2018-03-25 07:28 | P.GSHP ---
History of Present Illness H&P Date: 03/25/18 CHIEF COMPLAINT: GERD HISTORY OF PRESENT ILLNESS: The patient is a 67-year-old male who presents reports gastroesophageal reflux disease. Upper endoscopy was offered for further evaluation and management. PAST MEDICAL HISTORY: Please see list. PAST SURGICAL HISTORY: Please see list. MEDICATIONS: Please see list. ALLERGIES: Please see list. SOCIAL HISTORY: No illicit drug use FAMILY HISTORY: No reports of Crohn disease or ulcerative colitis. REVIEW OF ORGAN SYSTEMS: CONSTITUTIONAL: No reports of fevers or chills. GI: Denies any blood in stools or constipation. PHYSICAL EXAM: VITAL SIGNS: Stable GENERAL: Well-developed and pleasant in no acute distress. HEENT: No scleral icterus. Extraocular movements grossly intact. Moist buccal mucosa. NECK: Supple without lymphadenopathy. CHEST: Unlabored respirations. Equal bilateral excursions. CARDIOVASCULAR: Regular rate and rhythm. Distal 2+ pulses. ABDOMEN: Soft, nondistended. MUSCULOSKELETAL: No clubbing, cyanosis, or edema. ASSESSMENT: 1. Gastroesophageal reflux disease PLAN: 1. Recommend proceeding with an upper endoscopy Past Medical History Past Medical History: Diabetes Mellitus, GERD/Reflux, Hyperlipidemia, Osteoarthritis (OA) Additional Past Medical History / Comment(s): neuropathy in feet and legs, PAST CHEST WALL ABCESS(PER PT/ AFFECTED BOTH MUSCLE AND BONE) History of Any Multi-Drug Resistant Organisms: None Reported Past Surgical History: Orthopedic Surgery Additional Past Surgical History / Comment(s): Surgery on left elbow"nerve release", LT CARPAL TUNNEL RELEASE, LT HAND "BONE SCRAPING", JENNIFER, I&D CHEST WALL ABCESS, PICC LINE INSERTED 01-01-16, REMOVED IN FEB 2016. RECENT I & D OF CHEST WAS ABSCESS 06/02/16 [facility]ACTS, EGD Past Anesthesia/Blood Transfusion Reactions: No Reported Reaction Additional Past Anesthesia/Blood Transfusion Reaction / Comment(s): CLAUSTROPHOBIA WITH MRI Past Psychological History: No Psychological Hx Reported Additional Psychological History / Comment(s): . Smoking Status: Former smoker Past Alcohol Use History: None Reported Additional Past Alcohol Use History / Comment(s): OCCASIONAL SMALL CIGAR USE, QUIT SMOKING 1973 Past Drug Use History: None Reported - Past Family History Father Family Medical History: Cancer, Coronary Artery Disease (CAD) Mother Family Medical History: CVA/TIA, Diabetes Mellitus Brother(s) Family Medical History: Cancer Medications and Allergies Home Medications Medication Instructions Recorded Confirmed Type Atorvastatin [Lipitor] 20 mg PO HS 11/28/15 03/24/18 History Cholecalciferol (Vitamin D3) 10,000 unit PO DAILY 11/28/15 03/24/18 History [Vitamin D3] HYDROcodone/APAP 10-325MG [[place] 1 tab PO Q4HR PRN 05/30/16 03/24/18 History 10-325] Insulin Detemir [Levemir Flextouch] 32 units SQ HS 10/01/16 03/24/18 History Legatrin 1 tab PO DAILY PRN 12/19/16 03/24/18 History Repaglinide [Prandin] 0.5 mg PO AC-SUPPER 03/24/18 03/24/18 History Allergies Allergy/AdvReac Type Severity Reaction Status Date / Time onion Allergy Anaphylaxis Verified 03/24/18 10:56
[~2018-03-25 12:24] MED LIST changes: -ACETAMINOPHEN IV (For NPO) 1,000 MG in EMPTY BAG 1 BAG IVPB ONE; -CHLORHEXIDINE GLUCONATE 15 ML CUP MUCOUS MEM ONE; -DEXAMETHASONE SOD PHOSPHATE 10 MG/ML 1 ML VIAL IV ONE; -ENOXAPARIN 40 MG/0.4 ML SYRINGE SQ STA; -HEPARIN SODIUM,PORCINE 5,000 UNIT/ML 1 ML VIAL SQ ONE; +LACTATED RINGERS 1,000 ML IV SCH; -MIDAZOLAM 2 MG/2 ML VIAL IV PRN; -ONDANSETRON 4 MG/2 ML VIAL IVP ONE; -PANTOPRAZOLE 40 MG/10 ML VIAL IV STA; -SCOPOLAMINE 1.5MG/72HR PATCH TRANSDERM ONE; -ceFAZolin 2 GM in SODIUM CHLORIDE 0.9% 100 ML IVPB ONE; -ceFAZolin 2 GM in SODIUM CHLORIDE 0.9% 100 ML IVPB STA
[2018-03-25 12:46] VITALS: RESP 18; TEMP 97.8
[2018-03-25 12:54] LABS: Glucose,Whole Blood 95 mg/dL (75-99)
[2018-03-25] MEDS ORDERED: LACTATED RINGERS 1,000 ML IV ONE (12:54)
[2018-03-25] MEDS ORDERED: LIDOCAINE 1% 20 ML VIAL (10MG/ML) FOR IV START INTRADERMA ONE (12:54)
[2018-03-25] MEDS ORDERED: PROPOFOL 10 MG/ML 20 ML VIAL IV ONE (13:03)
[2018-03-25] MEDS ORDERED: LIDOCAINE 1% INJ 10MG/ML (20 ML MDV) ONE (13:03)
--- NOTE | 2018-03-25 13:13 | P.PCN ---
Date of Procedure: 03/25/18 Description of Procedure: PREOPERATIVE DIAGNOSIS: Gastroesophageal reflux disease. POSTOPERATIVE DIAGNOSIS: Gastroesophageal reflux disease. OPERATION: Esophagogastroduodenoscopy with biopsies along antrum. SURGEON: Tayla Castro MD ANESTHESIA: MAC. INDICATIONS: The patient is a 67-year-old male who presents with a history of reflux disease. Benefits and risks of the procedure were described. Informed consent was obtained. DESCRIPTION: The patient was brought into the endoscopy suite and laid in the left lateral decubitus position. An Olympus gastroscope was passed along the posterior oropharynx down to the distal esophagus where the squamocolumnar junction was encountered at 36 cm from the incisors. The stomach was entered and no bile reflux was found. Additional findings are listed below. Biopsies with cold forceps were obtained of the antrum. The first through third portion of the duodenum was examined and unremarkable. Retroflexion of the scope confirmed Hill grade 2 lower esophageal valve. The squamocolumnar junction demonstrated no LA grade A erosive esophagitis. The stomach was desufflated. The patient tolerated the procedure well. FINDINGS: Squamocolumnar junction 36 cm from the incisors. Diaphragmatic hiatus at 36 cm. Hill grade 2 lower esophageal valve. No LA grade A erosive esophagitis. No active duodenitis. No current evidence of Mendoza's esophagus RECOMMENDATIONS: Upper endoscopy as needed. Plan - Discharge Summary New Discharge Prescriptions: No Action Cholecalciferol (Vitamin D3) [Vitamin D3] 10,000 unit PO DAILY Atorvastatin [Lipitor] 20 mg PO HS HYDROcodone/APAP 10-325MG [[place] 10-325] 1 tab PO Q4HR PRN PRN Reason: Pain Insulin Detemir [Levemir Flextouch] 32 units SQ HS Legatrin 1 tab PO DAILY PRN PRN Reason: leg pain Repaglinide [Prandin] 0.5 mg PO AC-SUPPER Discharge Medication List Atorvastatin [Lipitor] 20 mg PO HS 11/28/15 [History] Cholecalciferol (Vitamin D3) [Vitamin D3] 10,000 unit PO DAILY 11/28/15 [History ] HYDROcodone/APAP 10-325MG [[place] 10-325] 1 tab PO Q4HR PRN 05/30/16 [History] Insulin Detemir [Levemir Flextouch] 32 units SQ HS 10/01/16 [History] Legatrin 1 tab PO DAILY PRN 12/19/16 [History] Repaglinide [Prandin] 0.5 mg PO AC-SUPPER 03/24/18 [History] Follow up Appointment(s)/Referral(s): Tayla Castro MD [STAFF PHYSICIAN] - 04/06/18 Patient Instructions/Handouts: Gastroesophageal Reflux Disease (DC) Discharge Disposition: HOME SELF-CARE
[2018-03-25 13:33] LABS: Glucose,Whole Blood 90 mg/dL (75-99)
[2018-03-25 13:52] VITALS: BP 147/75; PULSE 54
== END 2018-03-25 14:09 | disposition home or self-care (01) ==
LOC: ORWHC2ENDO 12:24
PROVIDERS: ATTEND Surgery Plastic and Reconstructive Surgery
DX: K21.9 Gastro-esophageal reflux disease without esophagitis (principal)
CPT/HCPCS: 43239; J2001; J2704; 43235

== ENCOUNTER 2020-09-07 11:56 | Observation (INO) | payer MEDICARE, BC ==
--- NOTE | 2020-09-07 12:30 | ED ---
General Adult HPI - General Chief complaint: Chest Pain Stated complaint: Chest Achy Time Seen by Provider: 09/07/20 12:13 Source: patient, RN notes reviewed, old records reviewed Mode of arrival: wheelchair Limitations: no limitations - History of Present Illness Initial comments: 69-year-old male history diabetes presenting for evaluation of a squeezing central chest pain which is been present for approximately one week. This is been intermittent however over the past 12 hours the patient has had constant pain. Describes it as a squeezing sensation in the middle of his chest. No associated nausea vomiting. No diaphoresis. He has no known history of coronary artery disease. He states that he will either last week he's been quite active and has not had an exertional component to this pain. No lower extremity pain or swelling. No dyspnea. No fever. No cough. - Related Data Home Medications Medication Instructions Recorded Confirmed Atorvastatin [Lipitor] 20 mg PO HS 11/28/15 09/07/20 Insulin Detemir [Levemir Flextouch] 32 units SQ HS 10/01/16 09/07/20 Acetaminophen [Tylenol] 650 mg PO Q4H PRN 09/07/20 09/07/20 Aspirin EC [Ecotrin] 650 mg PO DAILY PRN 09/07/20 09/07/20 Cholecalciferol (Vitamin D3) 125 mcg PO DAILY 09/07/20 09/07/20 [Vitamin D3 (5000 Iu)] Gabapentin [Neurontin] 300 mg PO Q8H 09/07/20 09/07/20 Meloxicam [Mobic] 7.5 - 15 mg PO DAILY PRN 09/07/20 09/07/20 Repaglinide [Prandin] 1 mg PO AC-SUPPER 09/07/20 09/07/20 lisinopriL [Zestril] 2.5 mg PO DAILY 09/07/20 09/07/20 Allergies Allergy/AdvReac Type Severity Reaction Status Date / Time onion Allergy Anaphylaxis Verified 09/07/20 14:06 Review of Systems ROS Statement: Those systems with pertinent positive or pertinent negative responses have been documented in the HPI. ROS Other: All systems not noted in ROS Statement are negative. Past Medical History Past Medical History: Diabetes Mellitus, GERD/Reflux, Hyperlipidemia, Osteoarthritis (OA) Additional Past Medical History / Comment(s): neuropathy in feet and legs, PAST CHEST WALL ABCESS(PER PT/ AFFECTED BOTH MUSCLE AND BONE) History of Any Multi-Drug Resistant Organisms: None Reported Past Surgical History: Orthopedic Surgery Additional Past Surgical History / Comment(s): Surgery on left elbow"nerve release", LT CARPAL TUNNEL RELEASE, LT HAND "BONE SCRAPING", JENNIFER, I&D CHEST WALL ABCESS, PICC LINE INSERTED 01-01-16, REMOVED IN FEB 2016. RECENT I & D OF CHEST WAS ABSCESS 06/02/16 CARINA CATARACTS, EGD Past Anesthesia/Blood Transfusion Reactions: No Reported Reaction Additional Past Anesthesia/Blood Transfusion Reaction / Comment(s): CLAUSTROPHO MICKIE WITH MRI Past Psychological History: No Psychological Hx Reported Smoking Status: Former smoker Past Alcohol Use History: None Reported Past Drug Use History: None Reported - Past Family History Father Family Medical History: Cancer, Coronary Artery Disease (CAD) Mother Family Medical History: CVA/TIA, Diabetes Mellitus Brother(s) Family Medical History: Cancer General Exam Limitations: no limitations General appearance: alert, in no apparent distress Head exam: Present: atraumatic, normocephalic Eye exam: Present: normal appearance, PERRL ENT exam: Present: normal exam Neck exam: Present: normal inspection. Absent: tenderness, meningismus Respiratory exam: Present: normal lung sounds bilaterally. Absent: respiratory distress, wheezes Cardiovascular Exam: Present: regular rate, normal rhythm GI/Abdominal exam: Present: soft. Absent: distended, tenderness, guarding Extremities exam: Present: normal inspection, normal capillary refill. Absent: pedal edema, calf tenderness Neurological exam: Present: alert, oriented X3, CN II-XII intact. Absent: motor sensory deficit Psychiatric exam: Present: normal affect, normal mood Skin exam: Present: warm, dry, intact. Absent: cyanosis, diaphoretic Course Vital Signs 09/07/20 12:07 Temperature 97.8 F Pulse Rate 67 Respiratory 18 Rate Blood Pressure 177/78 O2 Sat by Pulse 99 Oximetry EKG Findings - EKG Comments: EKG Findings:: EKG: Sinus rhythm, rate 66, AL interval 176, QRS duration 92, QTC 46, no ST segment elevation Medical Decision Making - Medical Decision Making 69-year-old male presenting with squeezing chest pain. No history of CAD. EKG is sinus rhythm without ST segment elevation. Chest x-ray is negative for acute cardiac primary disease. He has a mild anemia, otherwise normal CBC, CMP is unremarkable, initial troponin negative. Given the patient's risk factors he w ill be kept in observation for serial cardiac enzymes, telemetry, cardiology consultation. Case discussed with Dr. Liang who will admit. - Lab Data Result diagrams: 09/07/20 12:55 09/07/20 12:55 Lab Results 09/07/20 09/07/20 09/07/20 Range/Units 12:55 12:55 12:55 WBC 8.6 (3.8-10.6) k/uL RBC 4.30 (4.30-5.90) m/uL Hgb 12.6 L (13.0-17.5) gm/dL Hct 38.6 L (39.0-53.0) % MCV 89.6 (80.0-100.0) fL MCH 29.3 (25.0-35.0) pg MCHC 32.7 (31.0-37.0) g/dL RDW 14.0 (11.5-15.5) % Plt Count 147 L (150-450) k/uL MPV 7.4 Neutrophils % 72 % Lymphocytes % 20 % Monocytes % 5 % Eosinophils % 1 % Basophils % 1 % Neutrophils # 6.1 (1.3-7.7) k/uL Lymphocytes # 1.7 (1.0-4.8) k/uL Monocytes # 0.4 (0-1.0) k/uL Eosinophils # 0.1 (0-0.7) k/uL Basophils # 0.1 (0-0.2) k/uL PT 10.2 (9.0-12.0) sec INR 0.9 (<1.2) APTT 22.4 (22.0-30.0) sec Sodium 139 (137-145) mmol/L Potassium 4.9 (3.5-5.1) mmol/L Chloride 107 (98-107) mmol/L Carbon Dioxide 26 (22-30) mmol/L Anion Gap 6 mmol/L BUN 29 H (9-20) mg/dL Creatinine 1.11 (0.66-1.25) mg/dL Est GFR (CKD-EPI)AfAm 79 (>60 ml/min/1.73 sqM) Est GFR (CKD-EPI)NonAf 69 (>60 ml/min/1.73 sqM) Glucose 126 H (74-99) mg/dL Calcium 9.6 (8.4-10.2) mg/dL Magnesium 1.8 (1.6-2.3) mg/dL Total Bilirubin 0.3 (0.2-1.3) mg/dL AST 36 (17-59) U/L ALT 36 (4-49) U/L Alkaline Phosphatase 75 (38-126) U/L Troponin I (0.000-0.034) ng/mL Total Protein 6.8 (6.3-8.2) g/dL Albumin 4.4 (3.5-5.0) g/dL 09/07/20 Range/Units 12:55 WBC (3.8-10.6) k/uL RBC (4.30-5.90) m/uL Hgb (13.0-17.5) gm/dL Hct (39.0-53.0) % MCV (80.0-100.0) fL MCH (25.0-35.0) pg MCHC (31.0-37.0) g/dL RDW (11.5-15.5) % Plt Count (150-450) k/uL MPV Neutrophils % % Lymphocytes % % Monocytes % % Eosinophils % % Basophils % % Neutrophils # (1.3-7.7) k/uL Lymphocytes # (1.0-4.8) k/uL Monocytes # (0-1.0) k/uL Eosinophils # (0-0.7) k/uL Basophils # (0-0.2) k/uL PT (9.0-12.0) sec INR (<1.2) APTT (22.0-30.0) sec Sodium (137-145) mmol/L Potassium (3.5-5.1) mmol/L Chloride (98-107) mmol/L Carbon Dioxide (22-30) mmol/L Anion Gap mmol/L BUN (9-20) mg/dL Creatinine (0.66-1.25) mg/dL Est GFR (CKD-EPI)AfAm (>60 ml/min/1.73 sqM) Est GFR (CKD-EPI)NonAf (>60 ml/min/1.73 sqM) Glucose (74-99) mg/dL Calcium (8.4-10.2) mg/dL Magnesium (1.6-2.3) mg/dL Total Bilirubin (0.2-1.3) mg/dL AST (17-59) U/L ALT (4-49) U/L Alkaline Phosphatase (38-126) U/L Troponin I <0.012 (0.000-0.034) ng/mL Total Protein (6.3-8.2) g/dL Albumin (3.5-5.0) g/dL Disposition Clinical Impression: Chest pain Disposition: ADMITTED IP TO THIS [facility] Condition: Stable Is patient prescribed a controlled substance at d/c from ED?: No Referrals: Chin Yang DO [Primary Care Provider] - 1-2 days Decision to Admit Reason: Admit from EC Decision Date: 09/07/20 Decision Time: 14:16
[2020-09-07 13:18] LABS: Basophils # (A) 0.1 k/uL (0-0.2); Basophils % (A) 1 %; Eosinophils # (A) 0.1 k/uL (0-0.7); Eosinophils % (A) 1 %; HCT 38.6 % (39.0-53.0); HGB 12.6 gm/dL (13.0-17.5); Lymphocytes # (A) 1.7 k/uL (1.0-4.8); Lymphocytes % (A) 20 %; MCH 29.3 pg (25.0-35.0); MCHC 32.7 g/dL (31.0-37.0); MCV 89.6 fL (80.0-100.0); Mean Platelet Volume 7.4; Monocytes # (A) 0.4 k/uL (0-1.0); Monocytes % (A) 5 %; Neutrophils # (A) 6.1 k/uL (1.3-7.7); Neutrophils % (A) 72 %; Platelet Count 147 k/uL (150-450); WBC 8.6 k/uL (3.8-10.6)
--- NOTE | 2020-09-07 13:31 | XR ---
EXAMINATION TYPE: XR chest 2V DATE OF EXAM: 09/07/2020 COMPARISON: 12/30/2015 HISTORY: Chest pain TECHNIQUE: Frontal and lateral views of the chest are obtained. FINDINGS: Multiple overlying leads. No focal consolidation, pneumothorax or pleural effusion. Degene rative changes of the thoracic spine. IMPRESSION: 1. No acute pulmonary disease.
[2020-09-07 13:34] LABS: INR 0.9 (<1.2); Partial Thromboplastin Time 22.4 sec (22.0-30.0); Prothrombin Time 10.2 sec (9.0-12.0)
[2020-09-07 13:38] LABS: Albumin 4.4 g/dL (3.5-5.0); Calcium 9.6 mg/dL (8.4-10.2); Magnesium 1.8 mg/dL (1.6-2.3); Potassium 4.9 mmol/L (3.5-5.1); Total Bilirubin 0.3 mg/dL (0.2-1.3); Total Protein 6.8 g/dL (6.3-8.2)
[2020-09-07] MEDS ORDERED: ASPIRIN 325 MG TAB PO STA (14:02)
[2020-09-07] MEDS ORDERED: ACETAMINOPHEN TAB 325 MG TAB PO PRN (14:14)
[2020-09-07] MEDS ORDERED: NALOXONE 0.4 MG/ML 1 ML VIAL IV PRN (14:14)
[2020-09-07] MEDS ORDERED: REPAGLINIDE 1 MG TAB PO SCH (17:30)
--- NOTE | 2020-09-07 17:39 | P.HPIM ---
History of Present Illness H&P Date: 09/07/20 Chief Complaint: Chest pain History of presenting complaint: This is a very pleasant 69-year-old patient of Dr. Yang. Chronic stable medical conditions include diabetes, peripheral neuropathy, hyperlipidemia, osteoarthritis. For about 10 days patient been having central chest pressure. Feels like a squeezing sensation off and on. Urine comes out and rest. No radiation. No dizziness or lightheadedness no perspiration. Patient has not had a stress test before. Patient other active. Patient also gets nocturnal leg cramps. Admitted with unstable angina. Patient's is present with him Review of systems: GEN.: None EYES: None HEENT: None NECK: None RESPIRATORY: None CARDIOVASCULAR: As above GASTROINTESTINAL: None GENITOURINARY: None MUSCULOSKELETAL: Night cramps in the legs LYMPHATICS: None HEMATOLOGICAL: None PSYCHIATRY: None NEUROLOGICAL: Peripheral numbness Past medical history to include: Diabetes, hyperlipidemia, primary osteoarthritis, peripheral neuropathy, osteoarthritis osteomyelitis in 2017 Social history: . Retired from [email or web address]. Did drink excessive alcohol in the past. Stopped smoking a while ago. Physical examination: VITAL SIGNS: 97.8, 68, 18, 1 50 x 98, 99% on room air GENERAL: BMI 26.6, sitting up in a chair, comfortable. EYES: Pupils equal. Conjunctiva normal. HEENT: External appearance of nose and ears normal, oral cavity grossly normal. NECK: JVD not raised; masses not palpable. HEART: First and second heart sounds are normal; no edema. LUNGS: Respiratory rate normal; clear to auscultation. ABDOMEN: Soft, nontender, liver spleen not palpable, no masses palpable. PSYCH: Alert and oriented x3; mood and affect normal. MUSCULAR skeletal: Evidence of OA NEUROLOGICAL: Cranial nerves grossly intact; no facial asymmetry, power and sensation grossly intact. LYMPHATICS: No lymph nodes palpable in the axilla and neck INVESTIGATIONS, reviewed in the clinical context: WBC 8.6 hemoglobin 12.6 platelets 147 potassium 4.9 creatinine 1.11 Troponin I less than 0.0122 Coronavirus [PCR]-not detected EKG tracing personally reviewed by me-normal sinus rhythm Chest x-ray film: No infiltrate. Hyperinflation Assessment and plan: -Possible unstable angina with patient's cardiac risk factors including diabetes, hyperlipidemia, ex-smoker. Initial cardiac enzymes are negative. Patient placed on telemetry, aspirin. Cardiology consulted. -Diabetes mellitus type 2 Follow Accu-Cheks -Hyperlipidemia Continue with Lipitor -Primary osteoarthritis Pain medications when necessary -Diabetic peripheral neuropathy Continue with Neurontin Care was discussed with the patient and at the bedside. Questions answered. Cardiology consulted. . Past Medical History Past Medical History: Diabetes Mellitus, GERD/Reflux, Hyperlipidemia, Osteoarthritis (OA) Additional Past Medical History / Comment(s): neuropathy in feet and legs, PAST CHEST WALL ABCESS(PER PT/ AFFECTED BOTH MUSCLE AND BONE) History of Any Multi-Drug Resistant Organisms: None Reported Past Surgical History: Orthopedic Surgery Additional Past Surgical History / Comment(s): Surgery on left elbow"nerve release", LT CARPAL TUNNEL RELEASE, LT HAND "BONE SCRAPING", JENNIFER, I&D CHEST WALL ABCESS, PICC LINE INSERTED 01-01-16, REMOVED IN FEB 2016. RECENT I & D OF CHEST WAS ABSCESS 06/02/16 [facility] CATARACTS, EGD Past Anesthesia/Blood Transfusion Reactions: No Reported Reaction Additional Past Anesthesia/Blood Transfusion Reaction / Comment(s): CLAUSTROPHOBIA WITH MRI Past Psychological History: No Psychological Hx Reported Smoking Status: Former smoker Past Alcohol Use History: None Reported Past Drug Use History: None Reported - Past Family History Father Family Medical History: Cancer, Coronary Artery Disease (CAD) Mother Family Medical History: CVA/TIA, Diabetes Mellitus Brother(s) Family Medical History: Cancer Medications and Allergies Home Medications Medication Instructions Recorded Confirmed Type Atorvastatin [Lipitor] 20 mg PO HS 11/28/15 09/07/20 History Insulin Detemir [Levemir Flextouch] 32 units SQ HS 10/01/16 09/07/20 History Acetaminophen [Tylenol] 650 mg PO Q4H PRN 09/07/20 09/07/20 History Aspirin EC [Ecotrin] 650 mg PO DAILY PRN 09/07/20 09/07/20 History Cholecalciferol (Vitamin D3) 125 mcg PO DAILY 09/07/20 09/07/20 History [Vitamin D3 (5000 Iu)] Gabapentin [Neurontin] 300 mg PO Q8H 09/07/20 09/07/20 History Meloxicam [Mobic] 7.5 - 15 mg PO DAILY PRN 09/07/20 09/07/20 History Repaglinide [Prandin] 1 mg PO AC-SUPPER 09/07/20 09/07/20 History lisinopriL [Zestril] 2.5 mg PO DAILY 09/07/20 09/07/20 History Allergies Allergy/AdvReac Type Severity Reaction Status Date / Time onion Allergy Anaphylaxis Verified 09/07/20 14:06 Physical Exam Vitals: Vital Signs Temp Pulse Resp BP Pulse Ox 09/07/20 12:07 97.8 F 67 18 177/78 99 Intake and Output 09/07/20 09/07/20 09/07/20 06:59 14:59 22:59 Other: Weight 68.039 kg Results CBC & Chem 7: 09/07/20 12:55 09/07/20 12:55 Labs: Abnormal Lab Results - Last 24 Hours (Table) 09/07/20 09/07/20 Range/Units 12:55 12:55 Hgb 12.6 L (13.0-17.5) gm/dL Hct 38.6 L (39.0-53.0) % Plt Count 147 L (150-450) k/uL BUN 29 H (9-20) mg/dL Glucose 126 H (74-99) mg/dL
[2020-09-07 18:03] LABS: Glucose,Whole Blood 143 mg/dL (75-99)
[2020-09-07] MEDS: GABAPENTIN 300 MG CAP PO SCH ×2 (18:15→22:27)
[2020-09-07] MEDS: MORPHINE SULFATE 4 MG/ML SYRINGE IV PRN ×2 (18:15→22:32)
[2020-09-07] MEDS: INSULIN ASPART (NovoLOG) 100 UNIT/ML VIAL SQ SCH ×2 (18:15→20:50)
[2020-09-07] MEDS ORDERED: lisinopriL 5 MG TAB PO STA (20:24)
[2020-09-07] MEDS ORDERED: hydrALAZINE HCL 20 MG/ML 1 ML VIAL IVP PRN (20:25)
[2020-09-07 20:51] LABS: Glucose,Whole Blood 92 mg/dL (75-99)
[2020-09-07] MEDS ORDERED: INSULIN DETEMIR (LEVEMIR) 100 UNIT/ML SYR SQ SCH (21:00)
[2020-09-07] MEDS ORDERED: ATORVASTATIN 20 MG TAB PO SCH (21:00)
[2020-09-08] MEDS: INSULIN ASPART (NovoLOG) 100 UNIT/ML VIAL SQ SCH ×2 (07:32→14:00)
[2020-09-08 07:33] VITALS: RESP 14
[2020-09-08] MEDS: GABAPENTIN 300 MG CAP PO SCH (07:37)
[2020-09-08] MEDS: MORPHINE SULFATE 4 MG/ML SYRINGE IV PRN (07:37)
[2020-09-08 07:49] LABS: Glucose,Whole Blood 77 mg/dL (75-99)
[2020-09-08] MEDS ORDERED: CHOLECALCIFEROL 25 MCG (1000 IU) TABLET PO SCH (09:00)
[2020-09-08] MEDS ORDERED: ASPIRIN 325 MG TAB PO SCH (09:00)
--- NOTE | 2020-09-08 10:51 | P.CRDCN ---
History of Present Illness Consult date: 09/08/20 Requesting physician: Kailash Liang Reason for Consult (text): CP Chief complaint: chest pain History of present illness: This is a pleasant 69-year-old gentleman with a history of diabetes and hyperlipidemia with a prior history of an intrapleural abscess status post I&D in 2015 2017 has had no prior cardiac workup to his knowledge. There was an echocardiogram done during hospitalization in 2016 which showed a normal LV systolic function. Presented to the emergency department with complaints of intermittent squeezing chest discomfort over the last week to week and a half. 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 It is random in occurrence with no associated symptoms and no clear aggravating or relieving factors. EKG on admission showed sinus rhythm with no evidence of acute ischemia. Blood pressure has been elevated he has been afebrile. Laboratory values show normal at bedside,, hemoglobin 12.6, sodium 139, potassium 4.9, BUN 29, creatinine 1.11, troponins have been negative 3. Chest x-ray showed no acute pulmonary disease. Upon examination patient is resting comfortably in bed. He denies further complaints of chest discomfort. He has no complaints of shortness of breath, palpitations, dizziness, syncope, orthopnea or PND. He has no edema. Past Medical History Past Medical History: Diabetes Mellitus, GERD/Reflux, Hyperlipidemia, Osteoarthritis (OA) Additional Past Medical History / Comment(s): neuropathy in feet and legs, PAST CHEST WALL ABCESS(PER PT/ AFFECTED BOTH MUSCLE AND BONE) History of Any Multi-Drug Resistant Organisms: None Reported Past Surgical History: Orthopedic Surgery Additional Past Surgical History / Comment(s): Surgery on left elbow"nerve release", LT CARPAL TUNNEL RELEASE, LT HAND "BONE SCRAPING", JENNIFER, I&D CHEST WALL ABCESS, PICC LINE INSERTED 01-01-16, REMOVED IN FEB 2016. RECENT I & D OF CHEST WAS ABSCESS 06/02/16 [facility] CATARACTS, EGD Past Anesthesia/Blood Transfusion Reactions: No Reported Reaction Additional Past Anesthesia/Blood Transfusion Reaction / Comment(s): CLAUSTROPHOBIA WITH MRI Past Psychological History: No Psychological Hx Reported Smoking Status: Former smoker Past Alcohol Use History: None Reported Past Drug Use History: None Reported - Past Family History Father Family Medical History: Cancer, Coronary Artery Disease (CAD) Additional Family Medical History / Comment(s): Bowel cancer. Mother Family Medical History: CVA/TIA, Diabetes Mellitus Brother(s) Family Medical History: Cancer Medications and Allergies Home Medications Medication Instructions Recorded Confirmed Type Atorvastatin [Lipitor] 20 mg PO HS 11/28/15 09/07/20 History Insulin Detemir [Levemir Flextouch] 32 units SQ HS 10/01/16 09/07/20 History Acetaminophen [Tylenol] 650 mg PO Q4H PRN 09/07/20 09/07/20 History Aspirin EC [Ecotrin] 650 mg PO DAILY PRN 09/07/20 09/07/20 History Cholecalciferol (Vitamin D3) 125 mcg PO DAILY 09/07/20 09/07/20 History [Vitamin D3 (5000 Iu)] Gabapentin [Neurontin] 300 mg PO Q8H 09/07/20 09/07/20 History Meloxicam [Mobic] 7.5 - 15 mg PO DAILY PRN 09/07/20 09/07/20 History Repaglinide [Prandin] 1 mg PO AC-SUPPER 09/07/20 09/07/20 History lisinopriL [Zestril] 2.5 mg PO DAILY 09/07/20 09/07/20 History Allergies Allergy/AdvReac Type Severity Reaction Status Date / Time onion Allergy Anaphylaxis Verified 09/07/20 14:06 Physical Exam Vitals: Vital Signs Temp Pulse Pulse Resp BP BP Pulse Ox 09/08/20 10:00 190/85 09/08/20 07:33 98.2 F 63 14 185/87 100 09/08/20 02:00 98.4 F 68 17 160/75 98 09/07/20 21:31 151/65 09/07/20 20:00 98.6 F 69 18 187/77 98 09/07/20 18:04 98.6 F 66 17 196/78 98 09/07/20 17:28 68 18 150/98 09/07/20 12:07 97.8 F 67 18 177/78 99 Intake and Output 09/07/20 09/08/20 09/08/20 22:59 06:59 14:59 Other: Voiding Method Toilet Toilet # Voids 2 1 Weight 68.039 kg PHYSICAL EXAMINATION: This is a 69-year-old, and in no apparent distress at the time of my examination. VITAL SIGNS: Blood pressure 185/87, heart rate 63, respirations 13, temp 98.2F. Patient is 100 % on room air. HEENT: Head is atraumatic, normocephalic. Pupils are equal, round. Sclerae anicteric. Conjunctivae are clear. Mucous membranes of the mouth are moist. Neck is supple. There is no elevated jugular venous pressure. No carotid bruit is heard. CHEST EXAMINATION: Clear to auscultation bilaterally. No wheezes rales or rhonchi. Respirations even and nonlabored. HEART EXAMINATION: Heart regular, positive S1 and S2. No S3. No S4. No clicks, rubs or murmurs. ABDOMEN: Soft, nontender. Bowel sounds are heard. No organomegaly noted. EXTREMITIES: 2+ peripheral pulses with no evidence of peripheral edema and no calf tenderness noted. NEUROLOGIC EXAMINATION: Patient is awake, alert and oriented x3. Results 09/07/20 12:55 09/07/20 12:55 Cardiac Enzymes 09/07/20 09/07/20 09/07/20 Range/Units 12:55 12:55 14:51 AST 36 (17-59) U/L Troponin I <0.012 <0.012 (0.000-0.034) ng/mL 09/07/20 Range/Units 18:51 AST (17-59) U/L Troponin I <0.012 (0.000-0.034) ng/mL Coagulation 09/07/20 Range/Units 12:55 PT 10.2 (9.0-12.0) sec APTT 22.4 (22.0-30.0) sec CBC 09/07/20 Range/Units 12:55 WBC 8.6 (3.8-10.6) k/uL RBC 4.30 (4.30-5.90) m/uL Hgb 12.6 L (13.0-17.5) gm/dL Hct 38.6 L (39.0-53.0) % Plt Count 147 L (150-450) k/uL Comprehensive Metabolic Panel 09/07/20 Range/Units 12:55 Sodium 139 (137-145) mmol/L Potassium 4.9 (3.5-5.1) mmol/L Chloride 107 (98-107) mmol/L Carbon Dioxide 26 (22-30) mmol/L BUN 29 H (9-20) mg/dL Creatinine 1.11 (0.66-1.25) mg/dL Glucose 126 H (74-99) mg/dL Calcium 9.6 (8.4-10.2) mg/dL AST 36 (17-59) U/L ALT 36 (4-49) U/L Alkaline Phosphatase 75 (38-126) U/L Total Protein 6.8 (6.3-8.2) g/dL Albumin 4.4 (3.5-5.0) g/dL Current Medications Generic Name Dose Route Start Last Admin Trade Name Freq PRN Reason Stop Dose Admin Acetaminophen 650 mg 09/07/20 14:14 Acetaminophen Tab 325 Mg Tab PO Q6HR PRN Mild Pain or Fever > 100.5 Aspirin 325 mg 09/08/20 09:00 09/08/20 07:37 Aspirin 325 Mg Tab PO 325 mg DAILY MELISSA Administration Atorvastatin Calcium 20 mg 09/07/20 21:00 09/07/20 19:47 Atorvastatin 20 Mg Tab PO 20 mg HS MELISSA Administration Cholecalciferol 125 mcg 09/08/20 09:00 09/08/20 07:37 Cholecalciferol 25 Mcg (1000 Iu) Tablet PO 125 mcg DAILY MELISSA Administration Gabapentin 300 mg 09/07/20 17:30 09/08/20 07:37 Gabapentin 300 Mg Cap PO 300 mg Q8HR MELISSA Administration Hydralazine HCl 10 mg 09/07/20 20:25 09/08/20 10:03 Hydralazine Hcl 20 Mg/Ml 1 Ml Vial IVP 10 mg Q4HR PRN Administration Blood Pressure - High Insulin Aspart 0 unit 09/07/20 17:30 09/08/20 07:32 Insulin Aspart (Novolog) 100 Unit/Ml Vial SQ Not Given ACHS [facility] Protocol Insulin Detemir 32 unit 09/07/20 21:00 09/07/20 20:50 Insulin Detemir (Levemir) 100 Unit/Ml Syr SQ 32 unit HS MELISSA Administration Lisinopril 2.5 mg 09/08/20 09:00 09/08/20 07:37 Lisinopril 2.5 Mg Tab PO 2.5 mg DAILY MELISSA Administration Morphine Sulfate 4 mg 09/07/20 14:14 09/08/20 07:37 Morphine Sulfate 4 Mg/Ml Syringe IV 4 mg Q4HR PRN Administration Severe Pain Naloxone HCl 0.2 mg 09/07/20 14:14 Naloxone 0.4 Mg/Ml 1 Ml Vial IV Q2M PRN Opioid Reversal Repaglinide 1 mg 09/07/20 17:30 09/07/20 18:22 Repaglinide 1 Mg Tab PO 1 mg AC-SUPPER MELISSA Administration Intake and Output 09/07/20 09/08/20 09/08/20 22:59 06:59 14:59 Other: Voiding Method Toilet Toilet # Voids 2 1 Weight 68.039 kg 09/07/20 12:55 09/07/20 12:55 EKG Interpretations (text) Sinus rhythm Assessment and Plan Assessment: #1 symptoms of intermittent chest discomfort, not related to physical activity, and acute coronary event has been ruled out, troponins have been negative 3 EKG shows no signs of ischemia #2 diabetes #3 hyperlipidemia #4 hypertension, uncontrolled at this time Plan: From cardiology selective we will obtain 2-D echo with Doppler to assess cardiac structure and function. We'll increase the dose of the JAYE inhibitor. Continue to monitor the patient over night. Further recommendations to follow depending on patient's symptoms and diagnostic findings. The above dictated assessment and findings were discussed with signing physician. The impression and plan of care have been directed as dictated. Elizabeth Rojas, Nurse Practitioner, acting as scribe for signing physician.
[2020-09-08 11:54] LABS: Glucose,Whole Blood 136 mg/dL (75-99)
--- NOTE | 2020-09-08 14:00 | ECHOF ---
Referral Reason:chest pain MEASUREMENTS -------- HEIGHT: 160.0 cm WEIGHT: 68.0 kg BP: 185/87 RVIDd: 2.7 cm (< 3.3) IVSd: 1.6 cm (0.6 - 1.1) LVIDd: 3.7 cm (3.9 - 5.3) LVPWd: 1.3 cm (0.6 - 1.1) IVSs: 1.9 cm LVIDs: 2.2 cm LVPWs: 1.6 cm LAESV Index (A-L): 21.12 ml/m Ao Diam: 2.6 cm (2.0 - 3.7) AV Cusp: 1.6 cm (1.5 - 2.6) MV EXCURSION: 15.640 mm (> 18.000) MV EF SLOPE: 75 mm/s (70 - 150) EPSS: 0.3 cm MV E Melvin: 0.80 m/s MV DecT: 212 ms MV A Melvin: 1.09 m/s MV E/A Ratio: 0.73 RAP: 5.00 mmHg RVSP: 24.34 mmHg FINDINGS -------- Sinus rhythm. This was a technically adequate study. The left ventricular size is normal. There is moderate concentric left ventricular hypertrophy. O verall left ventricular systolic function is normal with, an EF between 55 - 60 %. The diastolic fi lling pattern is normal for the age of the patient 17.62. The right ventricle is normal in size. Normal LA size by volume 22+/-6 ml/m2. The right atrial size is normal. Interatrial and interventricular septum intact. There is no evidence of aortic regurgitation. There is no evidence of aortic stenosis. There is trace mitral regurgitation. Mild tricuspid regurgitation present. There is no evidence of pulmonary hypertension. The right v entricular systolic pressure, as measured by Doppler, is 24.34mmHg. There is no pulmonic regurgitation present. The aortic root size is normal. Normal inferior vena cava with normal inspiratory collapse consistent with estimated right atrial pre ssure of 5 mmHg. There is no pericardial effusion. CONCLUSIONS -------- 1. The left ventricular size is normal. 2. There is moderate concentric left ventricular hypertrophy. 3. Overall left ventricular systolic function is normal with, an EF between 55 - 60 %. 4. The diastolic filling pattern is normal for the age of the patient 17.62 5. There is trace mitral regurgitation. 6. Mild tricuspid regurgitation present. [employer]: Belén Malik RDCS
[2020-09-08 15:18] VITALS: BP 145/74; PULSE 70; TEMP 98.5
--- NOTE | 2020-09-08 16:12 | P.PN ---
Progress Note - Text Progress Note Date: 09/08/20 Chief Complaint: Chest pain History of presenting complaint: This is a very pleasant 69-year-old patient of Dr. Yang. Chronic stable medical conditions include diabetes, peripheral neuropathy, hyperlipidemia, osteoarthritis. For about 10 days patient been having central chest pressure. Feels like a squeezing sensation off and on. Urine comes out and rest. No radiation. No dizziness or lightheadedness no perspiration. Patient has not had a stress test before. Patient other active. Patient also gets nocturnal leg cramps. Admitted with unstable angina. Patient's is present with him Admitted with unstable angina. Today: Sitting up. Comfortable. Seen by cardiology. He'll keep an eye on the patient. 2-D echocardiogram ordered. Blood pressure was up this morning. Review of systems: Was done for constitutional, cardiovascular, GI, pulmonary. relevant finding as above Active Medications Acetaminophen (Acetaminophen Tab 325 Mg Tab) 650 mg PO Q6HR PRN PRN Reason: Mild Pain or Fever > 100.5 Aspirin (Aspirin 325 Mg Tab) 325 mg PO DAILY [facility] Last Admin: 09/08/20 07:37 Dose: 325 mg Documented by: Atorvastatin Calcium (Atorvastatin 20 Mg Tab) 20 mg PO [facility] Last Admin: 09/07/20 19:47 Dose: 20 mg Documented by: Cholecalciferol (Cholecalciferol 25 Mcg (1000 Iu) Tablet) 125 mcg PO DAILY [facility] Last Admin: 09/08/20 07:37 Dose: 125 mcg Documented by: Gabapentin (Gabapentin 300 Mg Cap) 300 mg PO Q8HR [facility] Last Admin: 09/08/20 07:37 Dose: 300 mg Documented by: Hydralazine HCl (Hydralazine Hcl 20 Mg/Ml 1 Ml Vial) 10 mg IVP Q4HR PRN PRN Reason: Blood Pressure - High Last Admin: 09/08/20 10:03 Dose: 10 mg Documented by: Insulin Aspart (Insulin Aspart (Novolog) 100 Unit/Ml Vial) 0 unit SQ [facility]; Protocol Last Admin: 09/08/20 14:00 Dose: Not Given Documented by: Insulin Detemir (Insulin Detemir (Levemir) 100 Unit/Ml Syr) 32 unit SQ [facility] Last Admin: 09/07/20 20:50 Dose: 32 unit Documented by: Lisinopril (Lisinopril 5 Mg Tab) 5 mg PO BID [facility] Morphine Sulfate (Morphine Sulfate 4 Mg/Ml Syringe) 4 mg IV Q4HR PRN PRN Reason: Severe Pain Last Admin: 09/08/20 07:37 Dose: 4 mg Documented by: Naloxone HCl (Naloxone 0.4 Mg/Ml 1 Ml Vial) 0.2 mg IV Q2M PRN PRN Reason: Opioid Reversal Repaglinide (Repaglinide 1 Mg Tab) 1 mg PO AC-SUPPER [facility] Last Admin: 09/07/20 18:22 Dose: 1 mg Documented by: Past medical history to include: Diabetes, hyperlipidemia, primary osteoarthritis, peripheral neuropathy, osteoarthritis osteomyelitis in 2017 Social history: . Retired from [employer]. Did drink excessive alcohol in the past. Stopped smoking a while ago. Physical examination: VITAL SIGNS: 98.5, 70, 14, 1 45 x 74, 98% on room air GENERAL: Sitting up, comfortable. EYES: Pupils equal. Conjunctiva normal. NECK: JVD not raised; masses not palpable. HEART: First and second heart sounds are normal; no edema. LUNGS: Respiratory rate normal; clear to auscultation. ABDOMEN: Soft, nontender, liver spleen not palpable, no masses palpable. PSYCH: Alert and oriented x3; mood and affect normal. MUSCULAR skeletal: Evidence of OA INVESTIGATIONS, reviewed in the clinical context: 2-D echocardiogram: Moderate concentric LVH. EF 55-60% WBC 8.6 hemoglobin 12.6 platelets 147 potassium 4.9 creatinine 1.11 Troponin I less than 0.0123 negative Coronavirus [PCR]-not detected EKG tracing personally reviewed by me-normal sinus rhythm Chest x-ray film: No infiltrate. Hyperinflation Assessment and plan: -Possible unstable angina with patient's cardiac risk factors including diabetes, hyperlipidemia, ex-smoker. Acute DC ruled out. Patient placed on telemetry, aspirin. Follow with cardiology -Diabetes mellitus type 2 Follow Accu-Cheks -Essential hypertension, accelerated Had Lopressor, JAYE inhibitor -Hypertensive heart disease On antihypertensive -Hyperlipidemia Continue with Lipitor -Primary osteoarthritis Pain medications when necessary -Diabetic peripheral neuropathy Continue with Neurontin Lopressor, JAYE inhibitor added. Discussed with patient. Follow with cardiology. .
--- NOTE | 2020-09-08 16:52 | P.DS ---
Providers Date of admission: 09/07/20 14:15 Expected date of discharge: 09/08/20 Attending physician: Kailash Liang Consults: 09/07/20 14:15 Consult Physician Routine Consulting Provider: Gary Clark Consult Reason/Comments: CP Do you want consulting provider notified?: Yes Primary care physician: [facility] Course: Chief Complaint: Chest pain History of presenting complaint: This is a very pleasant 69-year-old patient of Dr. Yang. Chronic stable medical conditions include diabetes, peripheral neuropathy, hyperlipidemia, oste oarthritis. For about 10 days patient been having central chest pressure. Feels like a squeezing sensation off and on. Urine comes out and rest. No radiation. No dizziness or lightheadedness no perspiration. Patient has not had a stress test before. Patient other active. Patient also gets nocturnal leg cramps. Admitted with unstable angina. Patient's is present with him Admitted with unstable angina. Today: No further chest pain. 2-D echocardiogram results noted. Blood pressure is running high. Beta dano and JAYE inhibitor added. Patient was cleared by cardiology to go home. Consultation: Dr. Autumn Blood-cardiology Past medical history to include: Diabetes, hyperlipidemia, primary osteoarthritis, peripheral neuropathy, osteoarthritis osteomyelitis in 2017 Social history: . Retired from [employer]. Did drink excessive alcohol in the past. Stopped smoking a while ago. Physical examination: VITAL SIGNS: 98.5, 70, 14, 145/74, 98% room air GENERAL: Sitting up, comfortable. EYES: Pupils equal. Conjunctiva normal. NECK: JVD not raised; masses not palpable. HEART: First and second heart sounds are normal; no edema. LUNGS: Respiratory rate normal; clear to auscultation. ABDOMEN: Soft, nontender, liver spleen not palpable, no masses palpable. PSYCH: Alert and oriented x3; mood and affect normal. MUSCULAR skeletal: Evidence of OA INVESTIGATIONS, reviewed in the clinical context: 2-D echocardiogram: Moderate concentric LVH. EF 55-60% WBC 8.6 hemoglobin 12.6 platelets 147 potassium 4.9 creatinine 1.11 Troponin I less than 0.0123 negative Coronavirus [PCR]-not detected EKG tracing personally reviewed by me-normal sinus rhythm Chest x-ray film: No infiltrate. Hyperinflation Assessment and plan: -Possible unstable angina with patient's cardiac risk factors including diabetes, hyperlipidemia, ex-smoker. Acute NV ruled out. Patient placed on telemetry, aspirin. Cleared by cardiology to go home. We'll follow-up as an outpatient for possible stress test. -Diabetes mellitus type 2 Follow Accu-Cheks -Essential hypertension, accelerated Admitted Lopressor, and JAYE inhibitor -Hypertensive heart disease On antihypertensive -Hyperlipidemia Continue with Lipitor -Primary osteoarthritis Pain medications when necessary -Diabetic peripheral neuropathy Continue with Neurontin Disposition: Home. . Patient Condition at Discharge: Stable Plan - Discharge Summary Discharge Rx Participant: No New Discharge Prescriptions: New Aspirin 81 mg PO DAILY chew Metoprolol Tartrate [Lopressor] 25 mg PO BID #60 tab Lisinopril-Hctz 10-12.5 mg [Zestoretic 10-12.5] 1 tab PO HS #30 tab Continue Atorvastatin [Lipitor] 20 mg PO HS Insulin Detemir [Levemir Flextouch] 32 units SQ HS Gabapentin [Neurontin] 300 mg PO Q8H Meloxicam [Mobic] 7.5 - 15 mg PO DAILY PRN PRN Reason: Pain Cholecalciferol (Vitamin D3) [Vitamin D3 (5000 Iu)] 125 mcg PO DAILY Repaglinide [Prandin] 1 mg PO AC-SUPPER Acetaminophen [Tylenol] 650 mg PO Q4H PRN PRN Reason: Pain Discontinued lisinopriL [Zestril] 2.5 mg PO DAILY Aspirin EC [Ecotrin] 650 mg PO DAILY PRN PRN Reason: Pain Discharge Medication List Atorvastatin [Lipitor] 20 mg PO HS 11/28/15 [History] Insulin Detemir [Levemir Flextouch] 32 units SQ HS 10/01/16 [History] Acetaminophen [Tylenol] 650 mg PO Q4H PRN 09/07/20 [History] Cholecalciferol (Vitamin D3) [Vitamin D3 (5000 Iu)] 125 mcg PO DAILY 09/07/20 [History] Gabapentin [Neurontin] 300 mg PO Q8H 09/07/20 [History] Meloxicam [Mobic] 7.5 - 15 mg PO DAILY PRN 09/07/20 [History] Repaglinide [Prandin] 1 mg PO AC-SUPPER 09/07/20 [History] Aspirin 81 mg PO DAILY chew 09/08/20 [Rx] Lisinopril-Hctz 10-12.5 mg [Zestoretic 10-12.5] 1 tab PO HS #30 tab 09/08/20 [Rx] Metoprolol Tartrate [Lopressor] 25 mg PO BID #60 tab 09/08/20 [Rx] Follow up Appointment(s)/Referral(s): Chin Yang DO [Primary Care Provider] - 1-2 days Gary Clark MD [STAFF PHYSICIAN] - 1 Week
[2020-09-08] MEDS ORDERED: METOPROLOL TARTRATE 25 MG TAB PO SCH (21:00)
[2020-09-08] MEDS ORDERED: lisinopriL 5 MG TAB PO SCH (21:00)
[2020-09-09] MEDS ORDERED: ASPIRIN 81 MG PO SCH (09:00)
== END 2020-09-08 17:07 | disposition home or self-care (01) ==
LOC: EC 11:56 → 6NMEDSUR 14:15
PROVIDERS: ADMIT Hospitalist; ATTEND Hospitalist
DX: R07.9 Chest pain, unspecified (principal); E11.42 Type 2 diabetes mellitus with diabetic polyneuropathy; I11.9 Hypertensive heart disease without heart failure; M19.91 Primary osteoarthritis, unspecified site; E78.5 Hyperlipidemia, unspecified; K21.9 Gastro-esophageal reflux disease without esophagitis; R25.2 Cramp and spasm; F40.240 Claustrophobia; Z79.4 Long term (current) use of insulin; Z79.899 Other long term (current) drug therapy; Z91.018 Allergy to other foods; Z20.822 Contact with and (suspected) exposure to COVID-19; Z86.59 Personal history of other mental and behavioral disorders; Z87.891 Personal history of nicotine dependence; Z82.49 Family history of ischemic heart disease and other diseases of the circulatory system; Z80.0 Family history of malignant neoplasm of digestive organs; Z83.3 Family history of diabetes mellitus
CPT/HCPCS: 96376 ×2; 96375; 96374; 99285; 36415; 93005; 93306; 80053; 83735; 84484; 85025; 85610; 85730; 87635; 71046; G0378 ×2; J2270 ×2; J0360

== ENCOUNTER 2021-04-04 06:20 | Day surgery (SDC) | payer MEDICARE, BC ==
[2021-04-03 09:33] VITALS: BMI 25.0
[2021-04-04 06:47] VITALS: RESP 16; TEMP 97.7
[2021-04-04] MEDS ORDERED: LACTATED RINGERS 1,000 ML IV ONE (06:48)
[2021-04-04] MEDS ORDERED: LIDOCAINE 1% (10MG/ML) FOR IV START INTRADERMA ONE (06:48)
[2021-04-04 06:50] LABS: Glucose,Whole Blood 149 mg/dL (75-99)
--- NOTE | 2021-04-04 07:31 | P.PCN ---
Date of Procedure: 04/04/21 Procedure(s) Performed: Procedure= Right sacroiliac joints steroid injection under fluoroscopy guidance (fluoroscopy image stored on file in the radiology Department ) Preoperative diagnosis= 1-Right sacroiliitis 2-right sacroiliac joint dysfunction 2-lumbar Spondylosis withfacet arthropathy Postoperative diagnosis=Same as preop Diagnosis . Complication = none Condition= stable Anesthesia= moderate sedation with intravenous Versed 2 mg , and fentanyl 50 micrograms . Indication for the procedure= patient complaining of low back pain , examination was positive for severe tenderness over the sacroiliac joints bilaterally and patient diagnosed with sacroiliitis, for this reason he was good candidate for sacroiliac joint steroid injection. Description of the procedure= procedure risk and benefits discussed with the patient, including but not limited, risk of infection and bleeding, and ALLERGIC reaction to the medication and not complete pain relief and patient agreed with the preceding patient taken to the operating room, placed in prone position or standard monitors applied to the patient then after induction of anesthesia back prepped with chlorhexidine 3 times , Then under strict sterile technique, first I did the right sacroiliac joint the which was identified under fluoroscopy guidance been local infiltration of the skin and subcu interstitial with lidocaine 1% then 22-gauge Quincke Needle advanced slowly under fluoroscopy and placed in the right sacroiliac joint ne edle placement confirmed with AP and oblique and lateral view and after appropriate needle placement confirmed and after negative aspiration, or heme , then Ropivacaine 0.5% 4 mL, and 40 mg of Kenalog mixed together and injected in the right sacroiliac joint after negative aspiration patient tolerated the procedure well without any complication.
[2021-04-04] MEDS ORDERED: IV FLUID CONTINUATION 1,000 ML IV ONE (07:34)
[2021-04-04 08:00] VITALS: BP 165/72; PULSE 56
[2021-04-04] MEDS ORDERED: LACTATED RINGERS 1,000 ML IV SCH (08:07)
[2021-04-04] MEDS ORDERED: TRIAMCINOLONE ACETONIDE 40 MG/ML 1 ML VIAL ONE (09:39)
[2021-04-04] MEDS ORDERED: MIDAZOLAM 2 MG/2 ML VIAL ONE (09:39)
[2021-04-04] MEDS ORDERED: .fentaNYL (PF) 50 MCG/ML 2 ML AMP ONE (09:39)
[2021-04-04] MEDS ORDERED: ROPIVACAINE 5MG/ML 20ML VIAL ONE (09:39)
--- NOTE | 2021-04-04 10:22 | FL ---
EXAMINATION TYPE: FL guided pain mgmt statistic DATE OF EXAM: 04/04/2021 FLUOROSCOPY Fluoroscopy time of 3 seconds was used during SI joint injection. 2 image/s document/s the procedure .
== END 2021-04-04 08:07 | disposition home or self-care (01) ==
LOC: ORPAIN 06:20
PROVIDERS: ATTEND Specialist
DX: M46.1 Sacroiliitis, not elsewhere classified (principal); M47.816 Spondylosis without myelopathy or radiculopathy, lumbar region; Z91.018 Allergy to other foods; E11.9 Type 2 diabetes mellitus without complications
CPT/HCPCS: J2250; J3301; J3010; J2795; G0260; 27096

== ENCOUNTER 2021-05-21 05:53 | Day surgery (SDC) | payer MEDICARE, BC ==
[2021-05-16 15:42] VITALS: BMI 25.9
[2021-05-21] MEDS ORDERED: LACTATED RINGERS 1,000 ML IV SCH ×2 (05:54→07:15)
[2021-05-21 06:30] VITALS: TEMP 97.4
[2021-05-21 06:32] LABS: Glucose,Whole Blood 112 mg/dL (75-99)
[2021-05-21] MEDS ORDERED: IOPAMIDOL M200 10 ML VIAL ONE (06:56)
[2021-05-21] MEDS ORDERED: fentaNYL (PF) 50 MCG/ML 2 ML AMP ONE (06:56)
[2021-05-21] MEDS ORDERED: TRIAMCINOLONE ACETONIDE 40 MG/ML 1 ML VIAL ONE (06:56)
[2021-05-21] MEDS ORDERED: MIDAZOLAM 2 MG/2 ML VIAL ONE (06:56)
[2021-05-21] MEDS ORDERED: IV FLUID CONTINUATION 1,000 ML IV ONE (07:12)
[2021-05-21 07:14] VITALS: RESP 18
[2021-05-21 07:27] VITALS: BP 137/70; PULSE 62
--- NOTE | 2021-05-21 07:54 | P.PCN ---
Date of Procedure: 05/21/21 Description of Procedure: PREOPERATIVE DIAGNOSIS: Sacroiliac joint dysfunction POSTOPERATIVE DIAGNOSIS: Sacroiliac joint dysfunction. PROCEDURES: 1. Left-sided Sacroiliac joint steroid injection #1 out of 2 2. Sacroiliac joint arthrogram. SURGEON: Clover Brito ANESTHESIA: Local and IV sedation : Versed and fentanyl. EBL: None. Specimen removed: None Fluoroscopic image: saved to electronic medical records. PROCEDURE INDICATIONS: This patient with a history of chronic low back pain, and sacroiliac joint dysfunction. Patient tried conservative therapy. Came here for intervention management. PROCEDURE DESCRIPTION: The patient was seen and identified in the preoperative area. Risks, benefits, complications, and alternatives were discussed with the patient. The patient agreed to proceed with the procedure and signed the consent. IV was started, and vital signs were stable. Patient was taken to the OR and time out was completed. The patient was placed in the prone position on procedure table and a pillow was placed under the abdomen to reduce lumbar lordosis. The lumbosacral area was prepped and draped in the usual sterile fashion. Critical pause was taken. Vital signs were closely monitored during the procedure. For the left side, the fluoroscopic camera was placed in right oblique view and left SI joint lower pole was identified. Skin entry point was infiltrated with 1% lidocaine and 22-gauge 3.5 inch spinal needle was introduced into the inferior one-third of SI joint and after penetrating into the joint arthrogram was done. 0.5 ml of [id number] contrast was injected after negative aspiration for blood, and air and negative for paresthesia. Good spread of the contrast into the SI joint has been seen. Then again after negative aspiration of spinal fluid and blood and negative for neurological symptoms, 3 mL of a solution containing total 2 mL of 1% preservative-free lidocaine mixed with 40 mg of Kenalog was injected. Needle was withdrawn intact. Skin was cleansed, and bandages were applied. COMPLICATIONS: None. DISPOSITION / PLANS: The patient was placed in a supine position and transferred to the recovery area in a stable condition for observation and was discharged from the recovery room after meeting discharge criteria. Home discharge instructions given to the patient by the staff. The patient was reexamined prior to discharge. The patient will schedule for follow-up visit with the pain clinic in 4 weeks duration.
--- NOTE | 2021-05-21 08:01 | FL ---
EXAMINATION TYPE: FL guided pain mgmt statistic DATE OF EXAM: 05/21/2021 CLINICAL HISTORY: Sacroiliac joint pain. TECHNIQUE: Fluoroscopy. COMPARISON: None. FINDINGS: Fluoroscopic guidance was provided during pain relief procedure performed by Dr. Brito . A total of 2 seconds of fluoroscopic time was utilized during the procedure and 1 spot images are a cquired. Single image acquired shows needle localization at inferior sacroiliac joint level. IMPRESSION: As Above.
== END 2021-05-21 07:42 | disposition home or self-care (01) ==
LOC: ORPAIN 05:53
DX: M53.3 Sacrococcygeal disorders, not elsewhere classified (principal); Z91.018 Allergy to other foods; Z98.890 Other specified postprocedural states
CPT/HCPCS: J2250; J3301; J3010; Q9966; G0260; 27096

== ENCOUNTER → 2021-06-17 | Outpatient (CLI) | payer MEDICARE, BC ==
--- NOTE | 2021-06-17 08:17 | P.CON ---
Consult Note - . Consult date: 06/17/21 Assessment/Plan:: HISTORY OF PRESENT ILLNESS: 70 -year-old female with at side as a referral from Dr. David and presents today for evaluation status post SI joint injection of the right and left side over a two-year period for evaluation. Patient states he experienced 55% pain relief with his last injection on the left side but he continues to have shooting pain occasionally towards the posterior left hip and left knee. Pain over the posterior hip is dull, achy and waxes and wanes in intensity throughout the day. It is provoked with weightbearing. It is relieved with Tylenol, Motrin, salon positive patches, injections, heating pad, hot showers and rest. Patient has not tried physical therapy, chiropractic treatments or massage therapy. PMH: DM 2, HTN, hyperlipidemia, diabetic neuropathy PSH: Bilateral SI joint injections Feb-Mar 2021. SH: Negative x 3. . FH: Fa- CAD. Mo- DM. Colon CA family history All: NKDA Meds: See list REVIEW OF ORGAN SYSTEMS: CONSTITUTIONAL: No fevers or chills. No recent weight loss. HEENT: No visual acuity loss, eye pain, difficulties with hearing. No nosebleeds. No difficulty swallowing. RESPIRATORY: Denies any troubles with breathing or dyspnea on exertion. CARDIOVASCULAR: Denies any chest pain, palpitations, or recent heart attacks. GASTROINTESTINAL: Denies fatty food intolerance. Has change in bowel habits and gas bloat. GENITOURINARY: Denies any blood in urine. Has increased urinary frequency. NEUROLOGICAL: + numbness and tingling along the distal extremities. No seizure disorders or headaches. MUSCULOSKELETAL: + back pain SKIN: No skin cancer. No rash. PSYCHIATRIC: Denies current depression or suicidal thoughts. ENDOCRINE: Denies current thyroid disorders. Denies any blood sugar glucose intolerance. HEME/LYMPHATIC: Denies any lumps and bumps around the neck. History of deep venous thrombosis. ALLERGY/IMMUNOLOGY: No immunoglobulin therapy. No immune deficiencies. BREAST: Denies current breast lumps, pain or nipple discharge. Physical Examinations : Constitutional : Cooperative , not in acute distress . HEENT: Neck supple. No Lymphadenopathy. Normal thyroid size . Eyes no ptosis , no icterus, no photophobia . Hearing intact. Normal oropharynx. No Thrush. Respiratory : Chest clear to auscultations bilaterally. No wheezing. No rhonchi. Cardiovascular : Regular rate and rhythm , S1 / S2. No S3 . No S4. Gastrointestinal : Abdomen soft. No tenderness. Bowel sounds x 4. No organomegaly . Genitourinary : Deferred. Neurologic : Cranial nerve II to XII intact. No focal neurological deficits. Psychiatric : alert & oriented x 3. Matching mood & appropriate affect. Judgment & insight intact. Lymphatic No Lymphadenopathy. Musculoskeletal : Cervical Spine Motor strength in the deltoid and biceps: Normal right side. Normal Left side Motor strength biceps and the wrist extensors: Normal right side . Normal left side Motor strength in the triceps muscle: Normal right side. Normal left side Deep tendon reflexes: Normal at the biceps. Normal at Brachioradialis. Normal at triceps Cervical facet loading test: positive bilaterally Spurling test: positive bilaterally Neck distraction test: positive bilaterally Richard sign: positive bilaterally Lumbar spine Motor strength lower extremities ,thigh and legs 5/5 Right side , 5/5 Left side Deep tendon reflexes : Normal Knee Jerk. Normal Ankle Jerk Vertebral body tenderness over Lumbar facet Loading Test: positive Right / positive Left Range of motion of the lumbar spine Flexion 30 degrees, extension 10 degrees Straight Leg Raise test: Left/ Right positive at degree Cinthya test: positive right / positive left. Severe tenderness over the Sacroiliac joint on the Right < Left sides Gaenslen test: positive bilaterally Seated flexion test: positive bilaterally. Assessment/ Plan : Recommendation of bilateral SI joint injection #2. Risks, benefits of procedure discussed and patient verbalized understanding. Denies aspirin or anti- coagulant use. Patient has a history of diabetes mellitus type 2 insulin-dependent. All questions answered. I have spent greater than 50 minutes on patient care today. Dr Palomino was available by phone for the evaluation of this patient. The time was used to review the medical records including relevant urine studies and Prescription history (MAPs), review of the available imaging, evaluation and examination of the patient, coordination of care with the medical staff and if applicable referring physicians, as well as creation of the medical record PQRS Measure Charge Sheet PQRS Narrative: Smoking Status Former smoker Pain Intensity [Lower Back] 4 Hx Alcohol Use (MH) Yes Home Medications: Ambulatory Orders Atorvastatin [Lipitor] 20 mg PO HS 11/28/15 Insulin Detemir [Levemir Flextouch Pen] 32 units SQ HS 10/01/16 Acetaminophen [Tylenol] 650 mg PO Q4H PRN 09/07/20 Cholecalciferol (Vitamin D3) [Vitamin D3 (5000 Iu)] 125 mcg PO DAILY 09/07/20 Gabapentin [Neurontin] 300 mg PO Q8H 09/07/20 Repaglinide [Prandin] 1 mg PO AC-SUPPER 09/07/20 Lisinopril-Hctz 10-12.5 mg [Zestoretic 10-12.5] 1 tab PO HS #30 tab 09/08/20 Ibuprofen [Motrin Ib] 400 mg PO Q8H PRN 06/14/21
[2021-06-17 08:44] VITALS: BP 164/69; PULSE 62; RESP 18; TEMP 98.5
== END ==
LOC: PNWHC3 07:22
PROVIDERS: ATTEND Physician Assistant Medical
DX: M46.1 Sacroiliitis, not elsewhere classified (principal); I10 Essential (primary) hypertension; E78.5 Hyperlipidemia, unspecified; E11.40 Type 2 diabetes mellitus with diabetic neuropathy, unspecified; Z91.018 Allergy to other foods; Z87.891 Personal history of nicotine dependence
CPT/HCPCS: 99211

== ENCOUNTER → 2021-08-08 | Outpatient (CLI) | payer MEDICARE, BC ==
[~2021-08-08] MED LIST changes: +KETOROLAC 30 MG/ML 1 ML VIAL IM STA; -LACTATED RINGERS 1,000 ML IV SCH; +LIDOCAINE (PF) 10 MG/ML 2 ML VIAL IM STA
--- NOTE | 2021-08-08 09:17 | P.PN ---
Subjective Progress Note Date: 08/08/21 Principal diagnosis: A 70 yr old male with at side with a history of severe and chronic sacroiliitis presents today for evaluation status post bilateral SI joint injection. Patient states he experienced 100% pain relief and his right hip and less than 25% pain relief in his left hip. Pain level is currently at 5 out of 10 in intensity, sharp stabbing, shooting pain in the lower aspects of his lumbar spine/tailbone with radiation of pain down the posterior portion of the legs, left greater than right. Pain Colace as high as 7 out of 10 in intensity with bending and lifting . Pain is alleviated with medications, [place] patches, injections, heat, physical therapy which increases pain, chiropractic treatments which increase pain, repositioning and rest. Interventional pain procedures completed include bilateral SI joint injections Patient is currently on Tylenol, ibuprofen, aspirin Patient denies any side effects of the medication(s), denies excessive drowsiness or sleepiness, denies suicidal ideation and reports that the current pain medication is helping to control the pain and improve activities of daily living. Patient denies any motor or sensory deficits. Patient denies any fever or night sweats, denies any change in the bowel movements or urination. Physical Examination: -Constitutional: Cooperative. Not in acute distress . -HEENT: Neck is supple. No lymphadenopathy. No thyromegaly. Normal thyroid size. Eyes: No ptosis , no icterus, no photophobia. ENT: No auditory deficits. Normal oropharynx. No Thrush. - Respiratory: Chest clear to auscultations bilaterally. No wheezing. No rhonchi. - Cardiovascular: Regular rate and rhythm. S1 / S2 , no S3 , no S4. - Gastrointestinal: Abdomen soft no tenderness. Bowel sounds positive in all four quadrants. No organomegaly. - Genitourinary: Deferred. - Neurologic: Cranial nerve II to XII intact. No focal neurological deficits. - Psychatric: Alert & oriented x 3. Matching mood & appropriate affect. Judgment and insight intact. - Lymphatic: No Lymphadenopathy. - Musculoskeletal: Cervical spine: Muscle bulk/ tone/ strength in the bilateral upper extremities normal. Facet loading test cervical area positive. Lumbar spine: Motor bulk/ tone/ strength lower extremities , thigh and legs : 5/5 Deep tendon reflexes : Normal Knee Jerk. Normal Ankle Jerk . Vertebral body tenderness to palpation over Lumbar Facet Loading Test positive Straight Leg Raise: positive at 30 degrees right side/ left side Gaenslen's Test positive Sacral spine : Severe tenderness over the Sacroiliac joint: right side / left side Range of motion: Flexion of the lumbar spine <60 degrees Range of motion: Extension of the lumbar spine <20 degrees Gaenslen's Test positive Cinthya test: positive right side < left side Assessment and plan: Chronic low back pain secondary to lumbar degenerative disc disease , lumbar spondylosis with facet arthropathy without myelopathy Recommendation of bilateral SI joint injection. May need a series of injections, every 3 months, to obtain optimal pain relief. Risks, benefits of procedure discussed and patient verbalized understanding. Admits to aspirin use. Denies medical history diabetes. Toradol 60mg/2mL/4units Lido 5%/ 1cc IM x 1. All patient questions answered MAPS reviewed and it was appropriate. I have spent 31 minutes on patient care today. Dr Palomino was available by phone for the evaluation of this patient. The time was used to review the medical records including relevant urine studies and Prescription history (MAPs), review of the available imaging, evaluation and examination of the patient, coordination of care with the medical staff and if applicable referring physicians, as well as creation of the medical record Objective - Vital Signs Vital signs: Vital Signs Temp 97.9 F 08/08/21 08:03 Pulse 63 08/08/21 08:03 Resp 18 08/08/21 08:03 BP 179/55 08/08/21 08:03 Pulse Ox 97 08/08/21 08:03 Intake & Output 08/07/21 08/08/21 08/08/21 18:59 06:59 18:59 Weight 68.039 kg PQRS Measure Charge Sheet Mode of Arrival: Ambulatory - Pain Location Left Hip Non-Pharmacological Interventions: Heat Pharmacological Interventions: PRN Medication PQRS Narrative: Smoking Status Former smoker Blood Pressure 179/55 Pain Intensity [Left Hip] 5 Scale Used Numeric (1 - 10) Hx Alcohol Use (MH) Yes Home Medications: Ambulatory Orders Atorvastatin [Lipitor] 20 mg PO HS 11/28/15 Insulin Detemir [Levemir Flextouch Pen] 32 units SQ HS 10/01/16 Acetaminophen [Tylenol] 650 mg PO Q4H PRN 09/07/20 Cholecalciferol (Vitamin D3) [Vitamin D3 (5000 Iu)] 125 mcg PO DAILY 09/07/20 Gabapentin [Neurontin] 300 mg PO Q8H 09/07/20 Repaglinide [Prandin] 1 mg PO AC-SUPPER 09/07/20 Lisinopril-Hctz 10-12.5 mg [Zestoretic 10-12.5] 1 tab PO HS #30 tab 09/08/20 Ibuprofen [Motrin Ib] 400 mg PO Q8H PRN 06/14/21 HYDROcodone/APAP 7.5-325MG [[place] 7.5-325] 1 tab PO Q6HR PRN 07/01/21 Alpha Lipoic Acid 600 mg PO DAILY 07/02/21
[2021-08-08 11:58] VITALS: BP 168/80; PULSE 65; RESP 16; TEMP 98.6
== END ==
LOC: PNWHC3 07:40
PROVIDERS: ATTEND Specialist
DX: M46.1 Sacroiliitis, not elsewhere classified (principal); M51.36 Other intervertebral disc degeneration, lumbar region; M47.816 Spondylosis without myelopathy or radiculopathy, lumbar region; G89.29 Other chronic pain; Z87.891 Personal history of nicotine dependence; Z91.018 Allergy to other foods
CPT/HCPCS: 96372; J2001; J1885; G0463; 99211

== ENCOUNTER → 2021-09-27 | Outpatient (CLI) | payer MEDICARE, BC | END | disposition home or self-care (01) | LOC: RADMRIMAIN 05:59 | PROVIDERS: ATTEND Orthopaedic Surgery | DX: Z53.9 Procedure and treatment not carried out, unspecified reason (principal) ==

== ENCOUNTER 2021-11-06 07:42 | Day surgery (SDC) | payer MEDICARE, BC ==
[2021-11-05 08:44] VITALS: BMI 25.6
[~2021-11-06 07:42] MED LIST changes: -KETOROLAC 30 MG/ML 1 ML VIAL IM STA; +LACTATED RINGERS 1,000 ML IV SCH; -LIDOCAINE (PF) 10 MG/ML 2 ML VIAL IM STA
[2021-11-06 08:12] VITALS: TEMP 97.7
[2021-11-06 08:30] LABS: Glucose,Whole Blood 170 mg/dL (70-110)
[2021-11-06] MEDS ORDERED: PROPOFOL 10 MG/ML 20 ML VIAL IV ONE (08:30)
--- NOTE | 2021-11-06 08:31 | P.GSHP ---
History of Present Illness H&P Date: 11/06/21 CHIEF COMPLAINT: Colon screen HISTORY OF PRESENT ILLNESS: The patient is a 71-year-old male who presents for colon screen. Lower endoscopy was offered for further evaluation and management. PAST MEDICAL HISTORY: Please see list. PAST SURGICAL HISTORY: Please see list. MEDICATIONS: Please see list. ALLERGIES: Please see list. SOCIAL HISTORY: No illicit drug use FAMILY HISTORY: No reports of Crohn disease or ulcerative colitis. REVIEW OF ORGAN SYSTEMS: CONSTITUTIONAL: No reports of fevers or chills. PHYSICAL EXAM: VITAL SIGNS: Stable GENERAL: Well-developed pleasant in no acute distress. HEENT: No scleral icterus. Extraocular movements grossly intact. Moist buccal mucosa. NECK: Supple without lymphadenopathy. CHEST: Unlabored respirations. Equal bilateral excursions. CARDIOVASCULAR: Regular rate and rhythm. Distal 2+ pulses. ABDOMEN: Soft, nontender, nondistended. MUSCULOSKELETAL: No clubbing, cyanosis, or edema. ASSESSMENT: 1. Colon screen. PLAN: 1. Recommend proceeding with a lower endoscopy Past Medical History Past Medical History: Diabetes Mellitus, GERD/Reflux, Hyperlipidemia, Hypertension, Osteoarthritis (OA) Additional Past Medical History / Comment(s): neuropathy feet & legs, hx chest wall abscess (affected muscle/bone) Chronic back pain, herniated disc., Hx hiatal hernia repair. History of Any Multi-Drug Resistant Organisms: None Reported Past Surgical History: Hernia Repair, Orthopedic Surgery Additional Past Surgical History / Comment(s): Surgery on left elbow"nerve release", LT CTR, LT Hand "BONE SCRAPING", JENNIFER, I&D CHEST WALL ABCESS, PICC LINE INSERTED 01-01-16, REMOVED IN FEB 2016. ,I & D OF CHEST WAll ABSCESS 06/02/16 .,CARINA CATARACTS, EGD, PAIN CLINIC PROCEDURES. Hiatal hernia repair Past Anesthesia/Blood Transfusion Reactions: No Reported Reaction Additional Past Anesthesia/Blood Transfusion Reaction / Comment(s): CLAUSTROPHOBIA WITH MRI Past Psychological History: No Psychological Hx Reported Additional Psychological History / Comment(s): . Smoking Status: Former smoker Past Alcohol Use History: Rare Additional Past Alcohol Use History / Comment(s): QUIT SMOKING 1972. -smoked occasional cigars. Past Drug Use History: None Reported - Past Family History Father Family Medical History: Cancer, Coronary Artery Disease (CAD) Additional Family Medical History / Comment(s): Bowel cancer. Mother Family Medical History: CVA/TIA, Diabetes Mellitus Brother(s) Family Medical History: Cancer Medications and Allergies Home Medications Medication Instructions Recorded Confirmed Type Atorvastatin [Lipitor] 20 mg PO HS 11/28/15 11/06/21 History Insulin Detemir [Levemir Flextouch 32 units SQ HS 10/01/16 11/06/21 History Pen] Acetaminophen [Tylenol] 650 mg PO DIRECTED PRN 09/07/20 11/06/21 History Gabapentin [Neurontin] 300 mg PO Q8H 09/07/20 11/05/21 History HYDROcodone/APAP 7.5-325MG [[place] 1 tab PO Q6HR PRN 07/01/21 11/05/21 History 7.5-325] Alpha Lipoic Acid 200 mg PO DAILY 11/05/21 11/06/21 History Cholecalciferol (Vitamin D3) 250 mcg PO DAILY 11/05/21 11/05/21 History [Vitamin D3 (125 MCG = 5,000 IU)] Meloxicam [Mobic] 15 mg PO DAILY 11/05/21 11/05/21 History Multivit-Mins/Iron/Folic/Lycop 1 each PO DAILY 11/05/21 11/05/21 History [Centrum Men's Tablet] Vit C/E/Zn/Coppr/Lutein/Zeaxan 1 each PO DAILY 11/05/21 11/06/21 History [Preservision Areds 2 Softgel] diphenhydrAMINE [Benadryl] 25 mg PO BID PRN 11/05/21 11/06/21 History lisinopriL [Zestril] 10 mg PO DAILY 11/05/21 11/05/21 History Allergies Allergy/AdvReac Type Severity Reaction Status Date / Time onion Allergy Anaphylaxis Verified 11/05/21 08:21 Surgical - Exam Vital Signs Temp Pulse Resp BP Pulse Ox 97.7 F 79 16 162/79 96 11/06/21 08:10 11/06/21 08:10 11/06/21 08:10 11/06/21 08:10 11/06/21 08:10
[2021-11-06] MEDS ORDERED: LIDOCAINE 1% (10MG/ML) FOR IV START INTRADERMA ONE (08:32)
--- NOTE | 2021-11-06 08:52 | P.PCN ---
Date of Procedure: 11/06/21 Description of Procedure: PREOPERATIVE DIAGNOSIS: Colonoscopy screening. Family history malignant colon polyp Personal history colon polyp POSTOPERATIVE DIAGNOSIS: Colonoscopy screening. OPERATION: Colonoscopy to the cecum, ileocecal valve and appendiceal orifice. SURGEON: Tayla Castro MD. ANESTHESIA: MAC. INDICATIONS: The patient is a 71-year-old male who presents for colonoscopy screening. Last colonoscopy 5 years ago. Benefits and risks were described and informed consent was obtained. DESCRIPTION OF PROCEDURE: The patient had undergone Sutab prep. The patient had been brought into the operating room and laid in the left lateral decubitus position. After adequate intravenous sedation, the rectum was examined with 2% lidocaine jelly. The prostate fossa was unremarkable. No external hemorrhoids were encountered. The rectal tone was within normal limits. No lesions were palpated in the rectal vault. An Olympus colonoscope was advanced until the cecum, ileocecal valve and appendiceal orifice were viewed. The prep was fair. No large scattered diverticulosis was encountered. No colonic polyps were found. No evidence of focal colitis was found. Retroflexion of the scope demonstrated grade 1 internal hemorrhoids without active bleeding or inflammation. The colon was desufflated. The patient had tolerated the procedure well. Withdrawal time was over 6 minutes. FINDINGS: Aronchick preparation quality scale 2+ (1-5) Internal hemorrhoids, grade 1 No external prolapsed hemorrhoids. No arteriovenous malformations. No adenomatous polyps. No focal colitis. RECOMMENDATIONS: Lower endoscopy in 5 years, 2026 Plan - Discharge Summary New Discharge Prescriptions: Continue Atorvastatin [Lipitor] 20 mg PO HS Insulin Detemir [Levemir Flextouch Pen] 32 units SQ HS Gabapentin [Neurontin] 300 mg PO Q8H lisinopriL [Zestril] 10 mg PO DAILY Cholecalciferol (Vitamin D3) [Vitamin D3 (125 MCG = 5,000 IU)] 250 mcg PO DAILY Vit C/E/Zn/Coppr/Lutein/Zeaxan [Preservision Areds 2 Softgel] 1 each PO DAILY Multivit-Mins/Iron/Folic/Lycop [Centrum Men's Tablet] 1 each PO DAILY Alpha Lipoic Acid 200 mg PO DAILY Acetaminophen [Tylenol] 650 mg PO DIRECTED PRN PRN Reason: Pain HYDROcodone/APAP 7.5-325MG [[place] 7.5-325] 1 tab PO Q6HR PRN PRN Reason: Pain diphenhydrAMINE [Benadryl] 25 mg PO BID PRN PRN Reason: Allergy Symptoms Meloxicam [Mobic] 15 mg PO DAILY Discharge Medication List Atorvastatin [Lipitor] 20 mg PO HS 11/28/15 [History] Insulin Detemir [Levemir Flextouch Pen] 32 units SQ HS 10/01/16 [History] Acetaminophen [Tylenol] 650 mg PO DIRECTED PRN 09/07/20 [History] Gabapentin [Neurontin] 300 mg PO Q8H 09/07/20 [History] HYDROcodone/APAP 7.5-325MG [[place] 7.5-325] 1 tab PO Q6HR PRN 07/01/21 [History] Alpha Lipoic Acid 200 mg PO DAILY 11/05/21 [History] Cholecalciferol (Vitamin D3) [Vitamin D3 (125 MCG = 5,000 IU)] 250 mcg PO DAILY 11/05/21 [History] Meloxicam [Mobic] 15 mg PO DAILY 11/05/21 [History] Multivit-Mins/Iron/Folic/Lycop [Centrum Men's Tablet] 1 each PO DAILY 11/05/21 [History] Vit C/E/Zn/Coppr/Lutein/Zeaxan [Preservision Areds 2 Softgel] 1 each PO DAILY 11/05/21 [History] diphenhydrAMINE [Benadryl] 25 mg PO BID PRN 11/05/21 [History] lisinopriL [Zestril] 10 mg PO DAILY 11/05/21 [History] Follow up Appointment(s)/Referral(s): Tayla Castro MD [STAFF PHYSICIAN] - As Needed Patient Instructions/Handouts: Colonoscopy (DC) Activity/Diet/Wound Care/Special Instructions: Repeat colonoscopy in 5 years, 2026 Discharge Disposition: HOME SELF-CARE
[2021-11-06 09:06] VITALS: BP 136/77; PULSE 64; RESP 16
== END 2021-11-06 10:35 | disposition home or self-care (01) ==
LOC: ORWHC2ENDO 07:42
PROVIDERS: ATTEND Surgery Plastic and Reconstructive Surgery
DX: Z12.11 Encounter for screening for malignant neoplasm of colon (principal); K64.0 First degree hemorrhoids; Z86.010 Personal history of colon polyps; E11.69 Type 2 diabetes mellitus with other specified complication; E78.5 Hyperlipidemia, unspecified; K21.9 Gastro-esophageal reflux disease without esophagitis; M19.90 Unspecified osteoarthritis, unspecified site; E11.42 Type 2 diabetes mellitus with diabetic polyneuropathy; G89.29 Other chronic pain; M54.9 Dorsalgia, unspecified; F40.240 Claustrophobia; Z87.891 Personal history of nicotine dependence; Z80.0 Family history of malignant neoplasm of digestive organs; Z82.49 Family history of ischemic heart disease and other diseases of the circulatory system; Z82.3 Family history of stroke; Z79.4 Long term (current) use of insulin; Z79.899 Other long term (current) drug therapy; Z79.1 Long term (current) use of non-steroidal anti-inflammatories (NSAID); Z91.018 Allergy to other foods
CPT/HCPCS: J2704; G0105; 45378

== ENCOUNTER 2021-12-19 10:09 | Day surgery (SDC) | payer MEDICARE, BC ==
--- NOTE | 2021-12-19 07:23 | P.HPOR ---
History of Present Illness H&P Date: 12/12/21 Chief Complaint: Left SI pain [facility] Date of :[birth year] Age: 70 year Height: 5'5" Weight: 150 lbs BMI: 24.96 kg/m2 Occupation: Retired VAS: 3 CHIEF COMPLAINT: Lumbar pain HISTORY: Xrays No new xrays taken in office Trauma or injury No Work-Related No Pain description Aching, sharp. Location Posterior Activity Modification yes, unable to stand or ambulate for extended periods of time. Hand Dominance right DOI: Chronic, no injury or trauma. DOS:None. TREATMENTS COMPLETED: 6 weeks of PT completed? No Home exercise completed? yes, does zabrina work at home. Medications yes List: Neurontin, Motrin with no improvements. Tylenol with mild improvements. Alternative interventions Chiropractic?: No Brace: Used several LSO's and SI belts at work over the years without relief. Injections Yes (Bilateral SI series with the last on 09/05/2021, on 07/02/2021 bilateral SI, 05/21/21 right side SI joint injections, on 04/04/2021 he has left SI joint injections) did have a Toradol injection through the clinic as well with How many: 4 Did they help? yes, found temporary relief of his sacroilitis.Found 80% relief with his last 2 left SI joint injection 6 weeks apart. Relief has since waned. Found relief with the Toradol injection as well. RFA: No SUBJECTIVE: Mr. Kenyon returns to the office for an recheck and pre-operative review of their Left SI joint fusion scheduled for next . Since the time of the last appointment the patient reports no changes to his symptoms, noting continued debility. Furthermore Mr. Kenyon symptoms are exacerbated with most daily activities making completion of daily tasks very challenging, due to this they notes that it is increasingly difficult for Mr. Kenyon to complete many of their daily tasks. Patient is having severe sleep disturbances as well due to their ongoing pain and associated symptoms. Regarding treatments, the patient has previously trialed all abovementioned treatment modalities without lasting relief of his symptoms. Patient denies trialing any other modalities at this time. Otherwise the patient denies any f/c/sob/cp, no incision concerns, no bladder or bowel retention/incontinence, no perineal numbness/tingling, and ambulates independently. All questions and concerns regarding the procedure were discussed and the patient wishes to proceed. HPI: Mr. Kenyon last presented on 10/04/2021 via phone call regarding his SI joint MRI obtained after the time of the last appointment. Since the time of the last appointment the patient denies any changes to his symptoms. He has continued with the physician recommended home exercise program along with the Motrin 800mg both without any relief. Overall he notes that aside from the recent injections he has seen no changes to his symptoms and is having significant debility due to the severity of his symptoms. Otherwise the patient continues to deny any f/c/sob/cp, no bladder or bowel retention/incontinence, no perineal numbness/tingling, and ambulates independently. Patient returned to the office on 09/13/2021 for a recheck of his low back following his SI injection series completed after the time of the last appointment. Since the time of the last appointment the patient reports that he did complete the series of 2 bilateral SI joint injections with the last on 09/05/2021 with 80% relief until the last couple days. To review, the patient has previously had bilateral SI injections on 07/02/2021, right SI injection on 05/21/2021, and left SI injection on 04/04/2021 all with about 80% temporary relief. Furthermore the patient notes that he has also trialed both LSO braces and SI belts over the years without any relief of his symptoms. Otherwise he notes no improvements with all abovementioned medications. Overall he notes that aside from the recent injections he has seen no changes to his symptoms and is having significant debility due to the severity of his symptoms. Otherwise the patient continues to deny any f/c/sob/cp, no bladder or bowel retention/incontinence, no perineal numbness/tingling, and ambulates independe ntly. Patient last presented to the office on 05/30/2021 for a recheck of his lumbar spine. Since the time of the last appointment the patient reports that he has completed two SI joint injections, with which has has noticed good improvements to his symptoms. With the right side the patient does report 90% relief that is still helping. Regarding the left side he does report some waning effectiveness but overall these injections have provided him with good relief. With this he has been taking Tylenol with mild relief of his pain as well. Overall the patient has seen some moderate improvements to his symptoms with the injections, medications, and home exercises. Of note the patient is still having sleep disturbances due to the pain. Otherwise he denies any lower extremity numbness/tingling, no bladder or bowel retention/incontinence, no perineal numbness/tingling, and ambulates independently. Mr. Kenyon last presented to the office on 02/27/2021 for an evaluation of his low back. He notes that this pain has been ongoing for several years with no known injury or trauma to indicate an exact onset of the symptoms. Over time the patients' symptoms have progressively worsened in severity and now presents to the office for his first examination by myself. Regarding his symptoms, he notes pain diffuse across the low back that radiates down into the right lower extremity, specifically the right thigh. He denies any associated numbness or tingling. These symptoms are exacerbated with prolonged standing, ambulating, and bending/lifting/twisting motions. His daily functions are mildly limited secondary to the symptoms. Along with this he does have mild sleep disturbances due to his ongoing symptoms. As for treatments, the patient has done injections through Dr. Mcdowell's office and found temporary relief of his symptoms. Along with this he does take Neurontin and Tylenol without improvements to his symptoms. Patient does have an MRI of the lumbar spine from 11/21/2019. Othe rwise the patient denies any bladder or bowel issues, perineal numbness/tingling, and presents to the office without the use of any ambulatory aides. The patients' past social, medical, family, surgical history, as well as review of systems, have been reviewed. Please refer to the Neurosurgery History and Physical form that has been scanned in to our electronic medical record system. 14 points review of systems completed and as stated in HPI, all other systems reviewed are negative. Social History: Reviewed, see appropriate section of the chart for details. [id number]: never a smoker P3 Alcohol: none P3 P3 Family History: Reviewed, see appropriate section of the chart for details. [id number]: diabetes. P2 Father: coronary artery disease . P2 Sibling(s): alive & well. P2 Family History: colon cancer. P2 Past Medical History: Reviewed, see appropriate section of the chart for details. P1 PAST MEDICAL HISTORY: TYPE II DIABETES P1 Surgical / Procedural History: none P1 [id number] Medications: Rx: atorvastatin 20 mg tablet Ref: 0 Rx: D3 DOTS 50 mcg (2,000 unit) tablet Ref: 0 Rx: gabapentin 300 mg capsule Ref: 0 Rx: Levemir FlexTouch U-100 Insuln Ref: 0 Rx: lisinopriL 2.5 mg tablet Ref: 0 Rx: repaglinide 1 mg tablet Ref: 0 PHYSICAL EXAMINATION: General: Awake, alert, appropriate for age, in no acute distress. HEENT: No unusual neck masses around region of lateral neck triangle, thyroid, supraclavicular groove Extremities: Skin warm and dry without acute lesions, coloration, temperature, skin intact, no tenderness or erythema Integument: Hairy patches: Absent Dorsal skin dimples: Absent Cafe au lait spots: Absent Surgical incisions: No Palpation: Please see Pain drawing on Intake sheet for further detail. Midline spinal tenderness: No E6 Paralumbar tenderness: No E6 Parathoracic tenderness: No E6 Buttocks tenderness: No E6 Special findings: No Bilateral SI TTP Bilateral SI compression Bilateral SI distraction Neg hip thrust Rt SI Fortons finger positive bilaterally POSTURAL and MUSCULO-SKELETAL EVALUATION: Coronal Balance: NEUTRAL Recumbent testing: Patient is able to lay flat on back Sagittal Balance: NEUTRAL Shoulder Profile: LEVEL Pelvic Girdle: LEVEL Neck ROM: UNRESTRICTED Lumbar ROM: RESTRICTED Shoulder ROM: Symmetrical Hip ROM: Symmetrical Knee ROM: Symmetrical Hands: Normal appearance, symmetrical Feet: Normal appearance, Symmetrical VASCULAR STATUS : LEFT RIGHT Wrist Pulses INTACT INTACT Pedal Pulses (Dors. pedis & post.tibialis) INTACT INTACT Color NORMAL NORMAL Edema Absent Absent NEUROLOGIC EXAMINATION: Mental Status:Awake and alert, fully oriented, with normal attention, concentration and memory, and fluent, appropriate speech. Cranial Nerves: I: Olfactory not tested. II: Visual acuity normal, no visual field deficit noted with confrontation. III,IV: Normal pupillary reflexes & intact extraocular movements without nystagmus. V,: Intact symmetrical facial sensation. VII: Intact symmetrical facial motor movement VIII: Hearing intact. IX,X: Intact gag, swallow, & normal voice. XI: Sternocleidomastoid, trapezius function intact. XII: Tongue midline with normal movements. L'hermitte's Sign: Negative / absent Spurling'Sign: Absent bilaterally. Cubital percussion test: Absent bilaterally. Juvenal-Tinel sign - Carpal region: Absent bilaterally. Straight Leg Raising: Absent bilaterally. Crossed straight leg raise: negative O8 MOTOR EXAM (0-5/5, N/T) STRENGTH RIGHT LEFT Shoulder Abd (not part of the JENNIFER score) 5 5 Elbow Flexors 5 5 Elbow Extensor 5 5 Wrist Dorsiflexors 5 5 Finger Abductor 5 5 Data Security Consultant 5 5 Hip Flexor (Not part of JENNIFER Motor score) 5 5 Knee Flexor 5 5 Knee Extensor 5 5 Ankle dorsiflexor 5 5 Ankle plantarflexion 5 5 Extensor hallucis 5 5 All LE motions done with pain however due to SI joints REFLEXES(0-4/2, NT) RIGHT LEFT Upper Extremities 2 2 Lower Extremities 2 2 Pathological Reflexes RIGHT LEFT Jara's Absent Absent Clonus Absent Absent Babinski Absent Absent # Indicates mechanical impairment Muscle appearance: Symmetrical, without signs of atrophy or dystrophy. Sensory system (0-4, N/T) Test type RU CRISTINA RL LL Joint-Position 2 2 2 2 Vibration 2 2 2 2 Pain & LT sense 2 2 2 2 Dermatomal Deficit: None None L5 None Gait and Functional Evaluation: Ambulatory aids: Independent Romberg's test: Intact bilaterally Toe heel walk / heel-toe walk intact while maintaining satisfactory balance? yes Squatting/straightening w/o assistance to a min of 60 degree knee flexion? yes Single leg stance: intact Trendelenburg sign negative bilaterally Hand and finger dexterity intact bilaterally? yes Disdiadochokinesis examination negative bilaterally? yes RADIOGRAPHIC STUDIES: XRay taken on 02/27/21 of Lumbar, Pelvis Spine: MIld spondylotic changes L3-S1 with facet arthrosis, hypertrophy as well as disc height loss and osteophytic formations. No fractures or dislocations. No lesions. AP pelvis shows congruent level pelvis no fracture MRI scan from 11/21/2019 of Lumbar Spine: Similar findings to xray. There is More severe disc desiccation and collapse of L3-4 than noted on xray. There is a large broad based disc bulge that is causing b/l foraminal stenosis as well as moderate central stenosis at this level with facet arthropathy and facet hypertrophy. Ligamental hypertrophy and facet bogginess noted as well. No other fractures or lesions noted. MRI scan with and without contrast from 09/27/2021 (w/o contrast) and 09/30/2021 (w/contrast) of Sacroiliac Joints: Alignment maintained. No evidnce of any infective process in SI joints. OA changes in b/l SI joints noted Lt>Rt at this time with subchondral changes, sclerosis, increased modic changes as well as cartilage wear. No fractures noted. No lesions noted. IMPRESSION AND PLAN: It was my pleasure to have seen and examined Hemanth. I reviewed the patient's clinical syndrome, physical findings, and imaging studies during the appointment today. It is my impression that the patient has a diagnosis of. 1. B/L Sacroiliitis Lt>Rt 2.Mechanical Low back pain secondary to #1 3. Gait abnormality secondary to #1 4. L3-4 spondylosis .DX:Diagnosis: Sacroiliitis : ICD10 = M46.1 / ICD9 = 720.2 / SNOMED = 43214561 I outlined the natural course history without intervention and various interventional options. Based on my findings I suggest the following course of action: 1. I discussed treatment options with the patient, including operative and non- operative options, and they have elected to proceed with the following surgical procedure: Left Sacroilliac joint fusion The indications, risks, benefits, and alternatives to surgery were discussed with the patient and family at length. Specifically (but not limited to) the risks of infection, stiffness, recurrence of symptoms, need for revision surgery, local numbness, neurovascular injury, and blood clots were discussed. The patient's questions were answered. The decision to proceed was made. Consent will be obtained for the procedure. 2. Spine Surgery Risk Review Mr. Kenyon is presenting for evaluation of left SI joint pain. It was my pleasure to have seen and examined Mr. Kenyon. In our visit today we have had a chance to go over subjective complaints, physical examination findings and treatments including the natural course history without intervention and various interventional options. The patients imaging demonstrates: XRay taken on 02/27/21 of Lumbar, Pelvis Spine: MIld spondylotic changes L3-S1 with facet arthrosis, hypertrophy as well as disc height loss and osteophytic formations. No fractures or dislocations. No lesions. AP pelvis shows congruent level pelvis no fracture MRI scan from 11/21/2019 of Lumbar Spine: Similar findings to xray. There is More severe disc desiccation and collapse of L3-4 than noted on xray. There is a large broad based disc bulge that is causin g b/l foraminal stenosis as well as moderate central stenosis at this level with facet arthropathy and facet hypertrophy. Ligamental hypertrophy and facet bogginess noted as well. No other fractures or lesions noted. MRI scan with and without contrast from 09/27/2021 (w/o contrast) and 09/30/2021 (w/contrast) of Sacroiliac Joints: Alignment maintained. No evidnce of any infective process in SI joints. OA changes in b/l SI joints noted Lt>Rt at this time with subchondral changes, sclerosis, increased modic changes as well as cartilage wear. No fractures noted. No lesions noted. On physical exam, Mr. Kenyon demonstrates Bilateral SI TTP, Bilateral SI compression, Bilateral SI distraction, Neg hip thrust Rt SI, Fortons finger positive bilaterally. I have explained to the patient that as their condition progresses it will cause further neurological deficits and eventual paralysis. Based on the patients imaging, physical exam, and the rapid progression and disabling nature of their symptoms, at this time I recommend surgery in the form or a: Left Sacroilliac joint fusion . I discussed the risk and benefits of this procedure at length with Mr. Kenyon. The patient and his significant other agreed to considered pursuing the procedure abovementioned. Prior to surgery, she should follow up with her PCP (Cardio, ID, IM etc) for clearance. Questions were invited and answered, and the patient wishes to proceed as outlined below. Currently, I am recommendin. Left Sacroilliac joint fusion 2.Follow up with PCP for surgical clearance 3.Review of surgical risks and benefits as well as an educational packet on the proposed surgical procedure. Risks: All surgical procedures come with inherent risks, including those related to positioning, anesthesia, intraoperative findings, and postoperative complications. It is important to understand that surgery does not come with any guarantee of a successful outcome as complications and adverse events are always possible. The patient was given a handout in office today discussing the surgical procedure and risks associated with the intervention, both of which were discussed with the patient. These risks include but are not limited to the following: * Experiencing same, different or even worse symptoms in back, neck, arms, or legs compared to before surgery. Requiring further surgery or other forms of treatment presently or at some time in the future at same or other levels of the intended spine surgery. On an extreme but fortunately relatively rare basis severe complication such as blindness, stroke, heart attack, temporary and/or permanent nerve injury, paralysis, coma, or may occur, sometimes without known explanation. Surgical complications may include but are not limited to risk of infection, fluid accumulation in the surgical dissection site, including a seroma or hematoma, that requires additional surgery, wound drainage, bleeding, new numbness or weakness, vision changes/loss, spinal fluid leakage, non-healing and/or infected incision, headaches, difficulty or inability to swallow, hoarseness, hemopneumothorax, pneumothorax, impotence, retrograde ejaculation, vaginal dryness; injury to nerves, spinal cord, blood vessels, lymphatics or other vital organs (i.e., bowel injury, injury to the great vessels); heterotopic bone formation; complications related to the hardware such as screws, rods, cages including misplaced hardware, device failure, instrumentation at the wrong spine level, hardware fracture/breakage, or hardware loosening; vertebral failure of the spinal column above or below the newly placed hardware; retained surgical instrumentations or devices and the need for further surgery. * Medical risks of the planned spine surgery include but are not limited to generalized Infections to the whole body or local areas outside of the surgical site (sepsis), heart attack, bleeding, anaphylaxis, meningitis, seizure, epilepsy, hearing loss, burn heart, laceration of the head or other areas of the body, bruising, hypersensitivity of the skin, bladder over distension; allergic reaction; shoulder injury related to positioning; fat, blood and air clots to other areas of the body like heart, lungs, brain; failure of internal organs such as lungs, kidneys, liver and excessive bleeding. If blood transfusions are necessary, note that transfusions may cause intolerance reactions such as anaphylaxis or other complex reactions. Despite best efforts, the results of spine surgery might not heal in terms of bone, soft tissues such as skin, fascia, ligaments, and joints. Additionally, in order to achieve best possible results, spine surgery may be carried out beyond the initially planned levels and involve decompression, fusion including insertion of hardware at levels other than the original intended area of surgical interest change some portions of the procedure in order to ensure the best possible outcomes. With spine surgery and spinal fusion, there are different off label uses of instrumentation (devices, implants and hardware) as well as biological substances (bone morphogenic proteins, demineralized bone matrix) as well as using extra bone from allograft sources (i.e. cadaver bone) or autograft (iliac crest bone, ribs, or the spine itself). The patient has been given information about these practices and their inherent risks and benefits. [facility] is an educational center that serves as a training facility for neurosurgical and orthopedic TELEPHONE PLANT POWER OPERATOR and Nursing students. Physician assistants are medically trained surgical providers who function in the outpatient, inpatient, and operating room setting under the direct supervision of the attending surgeon. [facility] has multiple operating rooms with single and overlapping rooms running daily. They currently function under the required guidelines as produced by the [facility] Finance Committee with regards to the overlapping rooms and will continue to comply with changes to this policy as they occur. The requirements include and are complied with as follows: (1) the critical portions of the overlapping rooms will not occur at the same time, (2) the attending physician will be physically present during the critical portions of the procedure and immediately available during the entire case, and (3) a back-up attending is designated should the primary attending not be immediately available. The patient has had a chance to review all the listed information, has been given print outs detailing this information, and has had all his/her questions answered to their satisfaction. It was my pleasure to have seen and examined Mr. Kenyon. In our visit today we have had a chance to go over my understanding of our patient's current condition, the natural course history without intervention and various interventional options. Questions were invited and answered, and the patient wis hes to proceed as outlined above. I have seen and examined the patient for 25 minutes and we have spent more than 50% of the time in repeat and detailed counseling about the patient's condition, its natural course history with out and as much as can be predicted with surgery and re-review of various surgical treatment options. In conclusion, Mr. Kenyon and his partner requested we proceed with the above suggested surgery and are willing to accept risks and limitations of the suggested surgery as nature of the disease process and our best attempts at tr eatment for the condition. Thank you again for allowing us to be part of your patient's care. Please don't hesitate to contact me if you have any further questions. Signed and authenticated by: Forrest David DO [facility] Complex and Minimally Invasive Spine Surgery [facility], [place] [place] [address] Past Medical History Past Medical History: Diabetes Mellitus, Hyperlipidemia, Hypertension, Osteoarthritis (OA) Additional Past Medical History / Comment(s): neuropathy feet & legs, hx chest wall abscess (affected muscle/bone) Chronic back pain, herniated disc., Hx hiatal hernia repair. hx of reflux resolved after hernia repair. History of Any Multi-Drug Resistant Organisms: None Reported Past Surgical History: Hernia Repair, Orthopedic Surgery Additional Past Surgical History / Comment(s): Surgery on left elbow"nerve release", LT CTR, LT Hand "BONE SCRAPING", JENNIFER, I&D CHEST WALL ABCESS, PICC LINE INSERTED 01-01-16, REMOVED IN FEB 2016. ,I & D OF CHEST WAll ABSCESS 06/02/16 .,CARINA CATARACTS, EGD, PAIN CLINIC PROCEDURES. Hiatal hernia repair Past Anesthesia/Blood Transfusion Reactions: No Reported Reaction Additional Past Anesthesia/Blood Transfusion Reaction / Comment(s): CLAUSTROPHOBIA WITH MRI. no blood transfusions Smoking Status: Former smoker - Past Family History Father Family Medical History: Cancer, Coronary Artery Disease (CAD) Additional Family Medical History / Comment(s): Bowel cancer. Mother Family Medical History: CVA/TIA, Diabetes Mellitus Brother(s) Family Medical History: Cancer Medications and Allergies Home Medications Medication Instructions Recorded Confirmed Type Atorvastatin [Lipitor] 20 mg PO HS 11/28/15 12/18/21 History Insulin Detemir [Levemir Flextouch 32 units SQ HS 10/01/16 12/18/21 History Pen] Acetaminophen [Tylenol] 650 mg PO DIRECTED PRN 09/07/20 12/18/21 History Gabapentin [Neurontin] 300 mg PO Q8H 09/07/20 12/18/21 History HYDROcodone/APAP 7.5-325MG [[place] 1 tab PO Q6HR PRN 07/01/21 12/18/21 History 7.5-325] Alpha Lipoic Acid 200 mg PO DAILY 11/05/21 12/18/21 History Cholecalciferol (Vitamin D3) 250 mcg PO DAILY 11/05/21 12/18/21 History [Vitamin D3 (125 MCG = 5,000 IU)] Meloxicam [Mobic] 15 mg PO DAILY 11/05/21 12/18/21 History Multivit-Mins/Iron/Folic/Lycop 1 each PO DAILY 11/05/21 12/18/21 History [Centrum Men's Tablet] Vit C/E/Zn/Coppr/Lutein/Zeaxan 1 each PO DAILY 11/05/21 12/18/21 History [Preservision Areds 2 Softgel] diphenhydrAMINE [Benadryl] 25 mg PO BID PRN 11/05/21 12/18/21 History lisinopriL [Zestril] 10 mg PO DAILY 11/05/21 12/18/21 History Allergies Allergy/AdvReac Type Severity Reaction Status Date / Time onion Allergy Anaphylaxis Verified 11/05/21 08:21 Physical Examination Osteopathic Statement: *. No significant issues noted on an osteopathic structural exam other than those noted in the History and Physical/Consult.
[~2021-12-19 10:09] MED LIST changes: +ACETAMINOPHEN TAB 500 MG TAB PO PRN; +GABAPENTIN 300 MG CAP PO PRN; +LIDOCAINE 1% (10MG/ML) FOR IV START INTRADERMA PRN; +METOCLOPRAMIDE 5 MG/ML 2 ML VIAL IVP PRN; +ONDANSETRON 4 MG/2 ML VIAL IVP ONE; +ONDANSETRON 4 MG/2 ML VIAL IVP PRN; +TRANEXAMIC ACID IN NACL,ISO-OS 1,000 MG in SALINE 1 100ML.BAG IVPB PRN
[2021-12-19 10:56] LABS: Glucose,Whole Blood 125 mg/dL (70-110)
[2021-12-19] MEDS ORDERED: IV FLUID CONTINUATION 1,000 ML IV ONE (10:56)
[2021-12-19] MEDS ORDERED: MIDAZOLAM 2 MG/2 ML VIAL IVP ONE ×2 (11:20→11:35)
[2021-12-19 11:35] VITALS: RESP 16
[2021-12-19] MEDS ORDERED: GELATIN SPONGE,ABSORB (LARGE) 1 EACH SPONGE TOPICAL ONE (12:17)
[2021-12-19] MEDS ORDERED: THROMBIN (BOVINE) 5,000 UNIT VIAL TOPICAL ONE (12:17)
[2021-12-19] MEDS ORDERED: BUPIVACAIN-EPI 0.25%-1:200,000 30 ML VIAL SQ ONE (12:17)
[2021-12-19] MEDS ORDERED: TRANEXAMIC ACID IN NACL,ISO-OS 1,000 MG/100 ML BAG ONE (12:24)
[2021-12-19] MEDS ORDERED: HYDROmorphone (PF) 1 MG/ML ONE (12:24)
[2021-12-19] MEDS ORDERED: LIDOCAINE 2% INJ 20 MG/ML (2 ML VIAL) ONE (12:24)
[2021-12-19] MEDS ORDERED: ePHEDrine 50 MG/ML 1 ML VIAL ONE (12:24)
[2021-12-19] MEDS ORDERED: PROPOFOL 10 MG/ML 20 ML VIAL IV ONE (12:24)
[2021-12-19] MEDS ORDERED: fentaNYL (PF) 50 MCG/ML 2 ML AMP ONE (12:24)
[2021-12-19] MEDS ORDERED: SUCCINYLCHOLINE CHLORIDE 200 MG/10 ML VIAL IV ONE (12:24)
[2021-12-19] MEDS ORDERED: MIDAZOLAM 2 MG/2 ML VIAL ONE (12:24)
[2021-12-19] MEDS ORDERED: ceFAZolin 3,000 MG in SODIUM CHLORIDE 0.9% IRRIGATIO 3,000 ML IRRIGATION ONE (13:15)
[2021-12-19] MEDS ORDERED: LACTATED RINGERS 1,000 ML IV ONE (14:00)
[2021-12-19 14:51] VITALS: TEMP 96.9
[2021-12-19] MEDS: HYDROmorphone 0.5 MG/0.5 ML SYRINGE IVP PRN ×4 (14:54→16:06)
--- NOTE | 2021-12-19 15:01 | FL ---
EXAMINATION TYPE: FL guidance operating room, XR lumbar spine 2 or 3V DATE OF EXAM: 12/19/2021 CLINICAL HISTORY: Fusion. Sacroiliac joint pain. TECHNIQUE: Fluoroscopy. L-Spine 2 views intraoperatively. COMPARISON: None. FINDINGS: Fluoroscopic guidance was provided during lumbar fusion procedure performed by Dr. Colon son. A total of 61 seconds of fluoroscopic time was utilized during the procedure and 14 spot images was acquired. Images acquired through portion of lumbar spine and pelvis with eventual placement of 2 fusion device s at level of the sacroiliac joint. IMPRESSION: As Above.
[2021-12-19 17:10] LABS: Glucose,Whole Blood 170 mg/dL (70-110)
[2021-12-19 17:44] VITALS: BP 172/73; PULSE 79
--- NOTE | 2021-12-19 18:13 | P.OP ---
Date of Procedure: 12/19/21 Preoperative Diagnosis: 1. Left degenerative sacroiliitis Postoperative Diagnosis: 1. Left degenerative sacroiliitis Procedure(s) Performed: 1. MIS Arthrodesis Left SI joint with bone graft (87732) 2. Use of [employer] 3D navigation for the placement of screws (01791) 3. Use of intraoperative neuromonitoring 4. Interpretation of intraoperative flouroscopy <1hr Implants: -SI bone Torque Screws x3 11.5 x 45/40/35 mm -Allograft -DBM Anesthesia: GETA Surgeon: Forrest David Water Control Supervisor #1: Laney Ferraro (Was present and assisted in all aspects of the case) Estimated Blood Loss (ml): 75 IV fluids (ml): 500 Urine output (ml): 200 Pathology: none sent Condition: stable Disposition: PACU Indications for Procedure: 71 yo male presented today for left sacroiliits and SI joint fusion. Pt has had chronic left sided SI joint and buttock pain for the past 2 years and it has progressively gotten worse to the point where it is difficult for him to ambulate and he has now needed a cane. He is normally a very active individual. He showed signs of SI joint dysfunction with with positive fortons sign, compression and distraction signs and hip thrust on the left. He has failed over 6 mo of conservative treatments including PT, SI belt, x2 therepeudic injections of SI joint which resulted in inadequate response with return of pain. Imaging showed no signs of lumbar pathology with signs of SI degeneration and no infection or tumor. There is spurring of the upper portion of the joint on xray and sclerosis of the subchondral surfaces. Hip pathology was ruled out as well with exam. We discussed different options for treatment including surgical options and the patient has opted for surgical fixation of his Left SI joint as the only sustainable option for longterm treatment. We discussed risks and benefits as outlined in the risk review. He was willing to proceed with the procedure. Description of Procedure: The patient was seen and examined in the preoperative area. All preoperative protocols were followed. Informed consent was obtained risks and benefits of the procedure were discussed at length. Risks including bleeding infection damage to the surrounding tissue and risk of reoperation were discussed with the patient. Risk of anesthesia up to and including was a discussed with the patient. These are outlined in the risk review. They were willing to accept these risks and all of the risks of surgery. The patient was given a weight- based dose of antibiotics in the form of 2 g Ancef. The patient was seen and evaluated by the anesthesia team who deemed them fit for surgery. The site was marked, the patient was willing to proceed with the procedure. The patient was transferred to the operative suite by the Department of anesthesia. They were then drifted off to sleep by the department anesthesia and [anesthesia type] was performed. The patient tolerated this well. [Kasper catheter was placed by nursing staff, atraumatically]. Once confirmation of lines and ventilation the patient was transferred to a [prone Josr table very carefully]. All bony prominences including wrists, elbows, axilla, chest, hips, and thighs, and feet were padded very well. Special attention was paid to the genitalia and these were padded accordingly. SCDs were placed on bilateral lower extremities and were connected. Arms were well padded and placed [on arm boards up and out in the 90/90 position]. Once in position, again we confirmed good ventilation capabilities and that lines were running appropriately. The patient's lumbosacral spine was then exposed. 1010s were placed outlining the incision site. Standard alcohol was used to clean the incision site and allowed to dry. C-arm was used to biomark the patient and confirm level for incision which was marked with a skin marker. Operative briefing was performed with all teams and everyone in agreement to proceed. The patient was then prepped and draped in a normal sterile fashion. Timeout was then performed and all parties were in agreement with the procedure to be performed. the Shan spine mask was then placed on the patient and secured. A 3-D intraoperative scan was then taken and registered. We then confirmed [employer] navigation accuracy and was accurate. skin incision was then made in line with the previously bio marked area of the mid sacral line 1 cm distal to the alar lines. Blunt dissection was then taken down to the gluteal fascia which was palpated. This was then incised carefully and blunt dissection taken down to the iliac wing. A pin was then placed and centered on lateral x-ray over S1 and just distal to the sacral alar lines. This was then seated in the bone. Over this and we then placed the Shan navigated drill guide. The pin was then removed and drill was then placed we templated for a 40 mm screw in this area and then using [employer] navigation we drilled to a 40 mm screw. The pin was then replaced a tap was then navigated over the wire pass the joint to the desired depth. Navigation confirmed good placement. We then sized and selected a screw the screw was filled with allograft and DBM a navigated screwdriver was then used to place the screw in the same position as previously templated. The superior screw was then placed without incident and there are no neuro monitoring changes. We confirmed the screws placement with live fluoroscopy inlet and outlet as well as lateral views and was in good position. We then proceeded to the S2 screw up and was again placed with the lateral fluoroscopy and seated the navigated drill guide was then placed over the pin and the pin removed the navigated drill guide was then used to strip [employer] 3-D navigation to templated and measured for a screw. Screw depth of 35 mm was selected and drilled. Pin was then replaced and a navigated tap was placed over the pin followed by the templated screw. Standard navigated's's screwdriver was used the screw was filled with allograft and DBM and was placed without incident there were no neuro monitoring changes we confirmed good placement on lateral inlet and outlet fluoroscopic views. We then proceeded to placement of the anterior inferior screw once again pin was seated using lateral fluoroscopy for starting point we then placed the navigated drill guide over the pin and a similar sequence was taken to previously described. The screw was measured to 40 mm we then tapped and placed the screw using [employer] 3-D navigation and template. We confirmed screws position on lateral inlet and outlet views and all screws were in good position. There were no neuro monitoring changes throughout the case no EMG firing. Final fluoroscopic images confirmed good placement of all screws across the joint and within the SI region. We then copiously irrigated the wound with normal sterile saline. Deep fascia was closed with 0 Vicryl superficial fascia closed with 0 Vicryl subcu tissue closed with 2-0 Vicryl in subcu cuticular tissue closed with 40 strata fix. The wound was then cleaned and dressed sterilely with Dermabond glue and tape. This was allowed to dry and a operative foam dressing was then placed. The patient was transferred back to their hospital bed atraumatically. Patient was then awakened and extubated by the department of anesthesia having tolerated the procedure very well with no complications. They were transferred to the postoperative care unit in stable condition.
== END 2021-12-19 17:46 | disposition home or self-care (01) ==
LOC: OR 10:09
PROVIDERS: ATTEND Orthopaedic Surgery
DX: M46.1 Sacroiliitis, not elsewhere classified (principal); M47.817 Spondylosis without myelopathy or radiculopathy, lumbosacral region; M54.50 Low back pain, unspecified; R26.9 Unspecified abnormalities of gait and mobility; G47.9 Sleep disorder, unspecified; M48.00 Spinal stenosis, site unspecified; E78.5 Hyperlipidemia, unspecified; I10 Essential (primary) hypertension; M19.90 Unspecified osteoarthritis, unspecified site; G89.29 Other chronic pain; G62.9 Polyneuropathy, unspecified; K44.9 Diaphragmatic hernia without obstruction or gangrene; E11.9 Type 2 diabetes mellitus without complications; Z80.0 Family history of malignant neoplasm of digestive organs; Z82.49 Family history of ischemic heart disease and other diseases of the circulatory system; Z82.3 Family history of stroke; Z79.84 Long term (current) use of oral hypoglycemic drugs; Z87.891 Personal history of nicotine dependence; Z83.3 Family history of diabetes mellitus; Z91.048 Other nonmedicinal substance allergy status
CPT/HCPCS: 27279; 61783; 72100; C1713; J2250; J0330; J2765; J0690 ×2; J2405; J3010; J1170 ×2; J2704; J2001; 86850; 86900; 86901

== ENCOUNTER → 2023-03-09 | Outpatient (CLI) | payer MEDICARE, BC ==
--- NOTE | 2023-03-09 15:17 | P.PAINPG ---
Objective - Vital Signs Vital signs: Intake & Output 03/08/23 03/09/23 03/09/23 18:59 06:59 18:59 Weight 76.204 kg PQRS Measure Charge Sheet Comment: A 72 yr old male with at side with a history of severe and chronic neck pain x 4 mo presents secondary to DDD, spondylosis and facet arthropathy without myelopathy today for evaluation. Pain level is currently at 6 / 10 in intensity, sharp stabbing, shooting pain in the lower aspects of his cervical spine, predominantly axial, with occasional radiation of pain down the BUEs. Pain provoked with bending and lifting. Pain is alleviated with medications, Salon Pas patches, injections, heat, PT years ago which increases pain and was discontinued, chiropractic treatments which increase pain and were discontinued, physician guided stretches daily x 4 mo, heat, ice, repositioning and rest. Cervical disability pain score of 32. Interventional pain procedures completed include BL SI joint injections Patient is currently on Tylenol, Ibu, ASA, Salon Pas patches Patient denies any side effects of the medication(s), denies excessive drowsiness or sleepiness, denies suicidal ideation and reports that the current pain medication is helping to control the pain and improve activities of daily living. Patient denies any motor or sensory deficits. Patient denies any fever or night sweats, denies any change in the bowel movements or urination. Physical Examination: -Constitutional: Cooperative. Not in acute distress . -HEENT: Neck is supple. No lymphadenopathy. No thyromegaly. Normal thyroid size. Eyes: No ptosis , no icterus, no photophobia. ENT: No auditory deficits. Normal oropharynx. No Thrush. - Respiratory: Chest clear to auscultations bilaterally. No wheezing. No rhonchi. - Cardiovascular: Regular rate and rhythm. S1 / S2 , no S3 , no S4. - Gastrointestinal: Abdomen soft no tenderness. Bowel sounds positive in all four quadrants. No organomegaly. - Genitourinary: Deferred. - Neurologic: Cranial nerve II to XII intact. No focal neurological deficits. - Psychatric: Alert & oriented x 3. Matching mood & appropriate affect. Judgment and insight intact. - Lymphatic: No Lymphadenopathy. - Musculoskeletal: Cervical spine: Muscle bulk/ tone/ strength in the bilateral upper extremities normal. Vertebral body tenderness to palpation over C6 Spurling test positive BL C6-C7 Facet loading test cervical area positive. Lumbar spine: Motor bulk/ tone/ strength lower extremities , thigh and legs : 5/5 Deep tendon reflexes : Normal Knee Jerk. Normal Ankle Jerk . Vertebral body tenderness to palpation over Lumbar Facet Loading Test positive Straight Leg Raise: positive at 30 degrees right side/ left side Gaenslen's Test positive Sacral spine : Severe tenderness over the Sacroiliac joint: right side / left side Range of motion: Flexion of the lumbar spine <60 degrees Range of motion: Extension of the lumbar spine <20 degrees Gaenslen's Test positive Cinthya test: positive right side < left side Imaging: MRI non contrast of the cervical spine from 01/30/23 reviewed Assessment and plan: Chronic neck pain secondary to cervical DDD , lumbar spondylosis with facet arthropathy without myelopathy Recommendation of NEIDA C6-C7 #1. May need a series of injections for o btain optimal pain relief. Risks, benefits of procedure discussed and patient verbalized understanding. Protocol for discontinuation/continuation of medications surrounding procedure discussed. All patient questions answered MAPS reviewed and it was appropriate. I have spent 31 minutes on patient care today. Dr Palomino was available by phone for the evaluation of this patient. The time was used to review the medical records including relevant urine studies and Prescription history (MAPs), review of the available imaging, evaluation and examination of the patient, coordination of care with the medical staff and if applicable referring physicians, as well as creation of the medical record PQRS Narrative: Smoking Status Former smoker Hx Alcohol Use (MH) Yes Home Medications: Ambulatory Orders Atorvastatin [Lipitor] 20 mg PO HS 11/28/15 Insulin Detemir [Levemir Flextouch Pen] 32 units SQ HS 10/01/16 Acetaminophen [Tylenol] 650 mg PO DIRECTED PRN 09/07/20 Gabapentin [Neurontin] 300 mg PO Q8H 09/07/20 HYDROcodone/APAP 7.5-325MG [[place] 7.5-325] 1 tab PO Q6HR PRN 07/01/21 Alpha Lipoic Acid 200 mg PO DAILY 11/05/21 Cholecalciferol (Vitamin D3) [Vitamin D3 (125 MCG = 5,000 IU)] 250 mcg PO DAILY 11/05/21 Meloxicam [Mobic] 15 mg PO DAILY 11/05/21 Multivit-Mins/Iron/Folic/Lycop [Centrum Men's Tablet] 1 each PO DAILY 11/05/21 Vit C/E/Zn/Coppr/Lutein/Zeaxan [Preservision Areds 2 Softgel] 1 each PO DAILY 11/05/21 diphenhydrAMINE [Benadryl] 25 mg PO BID PRN 11/05/21 lisinopriL [Zestril] 10 mg PO DAILY 11/05/21 Cyclobenzaprine [Flexeril] 5 mg PO TID #90 tablet 12/19/21 HYDROcodone/APAP 5-325MG [[place] 5-325] 1 - 2 tab PO Q6HR PRN #56 tab 12/19/21 cefaDROXiL [Duricef] 500 mg PO Q12HR 3 Days #6 cap 12/19/21 diazePAM [Valium] 5 mg PO DAILY PRN 1 Days #2 tab 03/09/23 Controlled Substance Measures - Controlled Substance Measures Is patient prescribed a controlled substance at discharge?: Yes When asked, does pt state using other controlled substances?: No If prescribed controlled substance>3 days was MAPS reviewed?: Prescribed <3 Days
== END ==
LOC: PNWHC3 14:00
PROVIDERS: ATTEND Specialist
DX: M47.812 Spondylosis without myelopathy or radiculopathy, cervical region (principal); M48.061 Spinal stenosis, lumbar region without neurogenic claudication; R51.9 Headache, unspecified; G89.29 Other chronic pain; M50.20 Other cervical disc displacement, unspecified cervical region; M47.816 Spondylosis without myelopathy or radiculopathy, lumbar region; Z91.018 Allergy to other foods; Z87.891 Personal history of nicotine dependence
CPT/HCPCS: 99211

== ENCOUNTER 2023-03-24 06:00 | Day surgery (SDC) | payer MEDICARE, BC ==
[2023-03-19 15:43] VITALS: BMI 25.0
[2023-03-24] MEDS ORDERED: LACTATED RINGERS 1,000 ML IV SCH (06:17)
[2023-03-24 06:36] VITALS: TEMP 96.9
[2023-03-24 06:38] LABS: Glucose,Whole Blood 326 mg/dL (70-110)
[2023-03-24] MEDS ORDERED: INSULIN ASPART (NovoLOG) 100 UNIT/ML VIAL SQ ONE (06:58)
--- NOTE | 2023-03-24 07:09 | P.PCN ---
Date of Procedure: 03/24/23 Procedure(s) Performed: . PROCEDURE 1. Cervical epidural steroid injection under fluoroscopic guidance, C6-7 (fluoroscopy images available in the radiology department ) 2. Cervical epidurogram. PREOPERATIVE DIAGNOSIS: 1- Cervical Degenerative Disc Diseases 2-cervical spondylosis with cervical Facet arthropathy without myelopathy.3-cervical spinal stenosis POSTOPERATIVE DIAGNOSIS: : 1- Cervical Degenerative Disc Diseases , 2-,cervical spondylosis with cervical Facet arthropathy without myelopathy. 3-cervical spinal stenosis ANESTHESIA: Local anesthesia with lidocaine 1% 3 ml only EBL 0 PROCEDURE INDICATION: The patient with neck pain and radiculitis unresponsive to conservative treatment consents for procedure. PROCEDURE DESCRIPTION / TECHNIQUE: The patient was seen and identified in the preoperative area. Risks, benefits, complications, including but not limited to infections ,bleeding , allergic reactions to the medications ,and not complete pain releife, and alternatives were discussed with the patient, the patient agreed to proceed with the procedure and signed the consent. Patient was taken to the OR and time out was completed. The patient was placed in the prone position on the procedure table. A pillow was placed under the patients chest to increase the cervical interlaminar space. The cervical area was prepped and draped in the usual sterile fashion. Vital signs were closely monitored during the procedure. Using anterior-posterior fluoroscopy, the C6-7 interlaminar space was identified and the skin over this site was marked and then infiltrated with 1% lidocaine subcutaneously. Subsequently, a 20-gauge 3-1/2-inch Tuohy epidural needle was inserted and advanced toward the epidural space by means of the ``hanging-drop technique and guided by AP and lateral fluoroscopy. The correct needle position in the epidural space was verified with the injection of 2 mL of the water soluble contrast dye [id number]-[id number] and observing an excellent epidurogram with the epidural spread of the dye, after negative aspiration for blood and CSF and in the absence of paresthesias. then, mixture containing 10 mg Dexamethasone and 2 ml of preservative-free normal saline injected and a washout of epidurogram was seen. Needle was withdrawn intact, skin was cleansed, and bandages were applied. Complications= none. Disposition= patient was placed in supine position and transferred to the recovery room area in stable condition and there was no evidence of upper or lower extremity motor or sensory deficit after the procedure patient was discharged from recovery room after discharge criteria met and home discharge instructions was given by the staff and patient will follow with the pain clinic in 2-4 weeks
[2023-03-24] MEDS ORDERED: IOPAMIDOL M200 10 ML VIAL ONE (07:10)
[2023-03-24] MEDS ORDERED: DEXAMETHASONE SOD PHOSPHATE 10 MG/ML 1 ML VIAL ONE (07:10)
[2023-03-24 07:21] LABS: Glucose,Whole Blood 287 mg/dL (70-110)
[2023-03-24 07:25] VITALS: RESP 16
[2023-03-24 07:48] VITALS: BP 157/74; PULSE 63
--- NOTE | 2023-03-24 11:17 | FL ---
EXAMINATION TYPE: FL guided pain mgmt statistic DATE OF EXAM: 03/24/2023 FLUOROSCOPY CARYL. 1 sec fl. 0.23336 mGycm2 DAP. One image provided.
== END 2023-03-24 07:32 | disposition home or self-care (01) ==
LOC: ORPAIN 06:00
PROVIDERS: ATTEND Specialist
DX: M50.123 Cervical disc disorder at C6-C7 level with radiculopathy (principal); M47.22 Other spondylosis with radiculopathy, cervical region; M48.02 Spinal stenosis, cervical region; G89.29 Other chronic pain; Z79.899 Other long term (current) drug therapy
CPT/HCPCS: 62321; J1100; Q9966

== ENCOUNTER 2023-03-31 09:51 | Emergency (ER) | payer MEDICARE, BC ==
--- NOTE | 2023-03-31 10:08 | ED ---
Headache HPI - General Source: patient, family, RN notes reviewed Mode of arrival: ambulatory Limitations: no limitations <Stanley Franco - Last Filed: 03/31/23 10:06> - General Source: patient, family, RN notes reviewed Mode of arrival: ambulatory Limitations: no limitations <Claudia Petty - Last Filed: 03/31/23 13:58> - General Chief Complaint: Headache Stated Complaint: headache Time Seen by Provider: 03/31/23 10:07 - History of Present Illness Initial Comments: 72-year-old male presents emergency Department with chief complaint of a headache. Patient states he has had a headache for the last 3 months states that getting better he had a recent epidural in his neck which alleviated his right radicular symptoms he states the pain is having is worse she does see pain clinic patient is requesting a shot of Toradol patient's had no prior imaging of his brain. (Stanley Franco) 72-year-old male presents to the emergency department for chief complaint of headache. He states that this is been going on for the past 3 months. He states that he has been seeing Dr. David for his neck was as a possible source of his headaches. He states that he had recent steroid injection for radicular symptoms which he states these symptoms improved following this. He reports he takes Fioricet which typically helps but recently has not been. Denies fever, chills. Admits to nausea without vomiting. (Claudia Petty) - Related Data Home Medications Medication Instructions Recorded Confirmed Atorvastatin [Lipitor] 20 mg PO HS 11/28/15 03/24/23 Insulin Detemir [Levemir Flextouch 32 units SQ HS 10/01/16 03/24/23 Pen] Gabapentin [Neurontin] 300 mg PO Q8H 09/07/20 03/24/23 Cholecalciferol (Vitamin D3) 250 mcg PO DAILY 11/05/21 03/24/23 [Vitamin D3 (125 MCG = 5,000 IU)] Multivit-Mins/Iron/Folic/Lycop 1 each PO DAILY 11/05/21 03/24/23 [Centrum Men's Tablet] diphenhydrAMINE [Benadryl] 25 mg PO BID PRN 11/05/21 03/24/23 lisinopriL [Zestril] 10 mg PO DAILY 11/05/21 03/24/23 Areds(Unknown Med) 1 tab PO DAILY 03/19/23 03/24/23 Cholecalciferol [Vitamin D3 (10 10 mcg PO DAILY 03/19/23 03/24/23 Mcg = 400 Iu)] Allergies Allergy/AdvReac Type Severity Reaction Status Date / Time onion Allergy Anaphylaxis Verified 03/31/23 10:04 Review of Systems ROS Other: All systems not noted in ROS Statement are negative. <Stanley Franco - Last Filed: 03/31/23 10:06> ROS Other: All systems not noted in ROS Statement are negative. <Claudia Petty - Last Filed: 03/31/23 13:58> ROS Statement: Those systems with pertinent positive or pertinent negative responses have been documented in the HPI. Past Medical History Past Medical History: Diabetes Mellitus, GERD/Reflux, Hyperlipidemia, Hypertension, Osteoarthritis (OA) Additional Past Medical History / Comment(s): neuropathy feet & legs, hx chest wall abscess (affected muscle/bone) Chronic back pain, herniated disc., Hx h iatal hernia repair. Neck pain History of Any Multi-Drug Resistant Organisms: None Reported Past Surgical History: Hernia Repair, Orthopedic Surgery Additional Past Surgical History / Comment(s): Surgery on left elbow"nerve release", LT CTR, LT Hand "BONE SCRAPING", JENNIFER, I&D CHEST WALL ABCESS, PICC LINE INSERTED 01-01-16, REMOVED IN FEB 2016. ,I & D OF CHEST WAll ABSCESS 06/02/16 .,CARINA CATARACTS, EGD, PAIN CLINIC PROCEDURES. Hiatal hernia repair, back surgery 2021. Past Anesthesia/Blood Transfusion Reactions: No Reported Reaction Additional Past Anesthesia/Blood Transfusion Reaction / Comment(s): CLAUSTROPHOBIA WITH MRI Past Psychological History: No Psychological Hx Reported Smoking Status: Never smoker Past Alcohol Use History: Occasional Past Drug Use History: Marijuana - Past Family History Father Family Medical History: Cancer, Coronary Artery Disease (CAD) Additional Family Medical History / Comment(s): Bowel cancer. Mother Family Medical History: CVA/TIA, Diabetes Mellitus Brother(s) Family Medical History: Cancer <Stanley Franco - Last Filed: 03/31/23 10:06> General Exam Limitations: no limitations <Stanley Franco - Last Filed: 03/31/23 10:06> Limitations: no limitations General appearance: alert, in no apparent distress Head exam: Present: atraumatic, normocephalic, normal inspection Eye exam: Present: normal appearance, PERRL, EOMI. Absent: scleral icterus, conjunctival injection, nystagmus, periorbital swelling ENT exam: Present: normal exam, mucous membranes moist Neck exam: Present: normal inspection. Absent: tenderness, meningismus, lymphadenopathy <Claudia Petty - Last Filed: 03/31/23 13:58> - General Exam Comments Initial Comments: Visual Physical Exam Vital signs reviewed General: Well-appearing, nontoxic, no acute distress. Head: Normocephalic, atraumatic Eyes: PERRLA, EOMI ENT: Airway patent Chest: Nonlabored breathing Skin: No visual rash, normal skin tone Neuro: Alert and oriented 3 Musculoskeletal: No gross abnormalities (Stanley Franco) Course Vital Signs 03/31/23 03/31/23 10:00 12:02 Temperature 97.5 F L Pulse Rate 68 63 Respiratory 18 16 Rate Blood Pressure 163/80 175/86 O2 Sat by Pulse 98 99 Oximetry Medical Decision Making <Stanley Franco - Last Filed: 03/31/23 10:06> <Claudia Petty - Last Filed: 03/31/23 13:58> - Medical Decision Making I completed the quick note portion of this chart signed Stanley Franco PA-C (Stanley Franco) Was pt. sent in by a medical professional or institution ([facility], [facility], urgent care, hospital, or penitentiary...) When possible be specific @ -No Did you speak to anyone other than the patient for history (EMS, parent, family, police, friend...)? What history was obtained from this source @ -No Did you review nursing and triage notes (agree or disagree)? Why? @ -I reviewed and agree with nursing and triage notes Were old charts reviewed (outside hosp., previous admission, EMS record, old EKG, old radiological studies, urgent care reports/EKG's, penitentiary records)? Report findings @ -No old charts were reviewed Differential Diagnosis (chest pain, altered mental status, abdominal pain women, abdominal pain men, vaginal bleeding, weakness, fever, dyspnea, syncope, headache, dizziness, GI bleed, back pain, seizure, CVA, palpatations, mental health, musculoskeletal)? @ -Differential Headache: Migraine, tension, cluster, carbon monoxide, central venous thrombosis, pension karma temporal arteritis, acute closure glaucoma, intercranial hemorrhage, mastoiditis, sinusitis, head injury, this is not meant to be an all-inclusive list. EKG interpreted by me (3pts min.). @ -None X-rays interpreted by me (1pt min.). @ -None done CT interpreted by me (1pt min.). @ -CT brain shows no acute intracranial hemorrhage U/S interpreted by me (1pt. min.). @ -None done What testing was considered but not performed or refused? (CT, X-rays, U/S, labs)? Why? @ -None What meds were considered but not given or refused? Why? @ -None Did you discuss the management of the patient with other professionals (professionals i.e. , PA, FUR GRADER, lab, RT, psych nurse, social worker masters, sales agent financial report service, teacher, chief security officer, geriatric case manager)? Give summary @ -No Was smoking cessation discussed for >3mins.? @ -No Was critical care preformed (if so, how long)? @ -No Were there social determinants of health that impacted care today? How? (Homelessness, low income, unemployed, alcoholism, drug addiction, transpor tation, low edu. Level, literacy, decrease access to med. care, halfway, rehab)? @ -No Was there de-escalation of care discussed even if they declined (Discuss DNR or withdrawal of care, Hospice)? DNR status @ -No What co-morbidities impacted this encounter? (DM, HTN, Smoking, COPD, CAD, Cancer, CVA, ARF, Chemo, Hep., AIDS, mental health diagnosis, sleep apnea, morbid obesity)? @ -None Was patient admitted / discharged? Hospital course, mention meds given and route, prescriptions, significant lab abnormalities, going to OR and other pertinent info. @ -Discharge. Patient presented to the emergency department with chief complaint of headache. It is worse with neck movements. He states that he has been having them daily for around 3 months. His daily medication is no longer working. Patient neurologically intact. CT brain shows no acute intracranial process. Patient was given migraine cocktail including normal saline, Benadryl, Toradol, Reglan. Patient reevaluated and his symptoms had improved significantly. He has an appointment with his primary care physician tomorrow. Patient understanding agreeable with discharge plan. Patient stable at time of discharge. Case discussed with Dr. Hung. Undiagnosed new problem with uncertain prognosis? @ -No Drug Therapy requiring intensive monitoring for toxicity (Heparin, Nitro, Insulin, Cardizem)? @ -No Were any procedures done? @ -No Diagnosis/symptom? @ -Headache Acute, or Chronic, or Acute on Chronic? @ - acute on chronic Uncomplicated (without systemic symptoms) or Complicated (systemic symptoms)? @ -Uncomplicated Side effects of treatment? @ -No Exacerbation, Progression, or Severe Exacerbation? @ -No Poses a threat to life or bodily function? How? (Chest pain, [place], [place], pneumonia, PE, COPD, DKA, ARF, appy, cholecystitis, CVA, Diverticulitis, Homicidal, Suicidal, threat to staff... and all critical care pts) @ -No (Claudia Petty) Disposition <Stanley Franco - Last Filed: 03/31/23 10:06> Is patient prescribed a controlled substance at d/c from ED?: No <Claudia Petty - Last Filed: 03/31/23 13:58> Clinical Impression: Headache Disposition: HOME SELF-CARE Condition: Stable Instructions (If sedation given, give patient instructions): Acute Headache (ED) Additional Instructions: Please follow up with Dr. Yang tomorrow as scheduled. Return to the emergency department for new or worsening symptoms. Referrals: Chin Yang DO [Primary Care Provider] - 1-2 days
--- NOTE | 2023-03-31 10:47 | CT ---
EXAMINATION TYPE: CT brain wo con DATE OF EXAM: 03/31/2023 COMPARISON: None HISTORY: 72-year-old male headache for 3 months TECHNIQUE: Examination was done in axial plane without intravenous contrast. Coronal and sagittal r econstructions performed. CT DLP: 1095.1 mGycm Automated exposure control for dose reduction was used. FINDINGS: There is no evidence of acute intracranial hemorrhage, acute ischemic changes, mass, mass-effect, or extra-axial fluid collection. There is no effacement of cerebral sulci or basal subarachnoid cister ns. There is no hydrocephalus. There is no midline shift. Buitrago-white matter distinction is preserv ed. Partially empty sella. Mild lobulated mucosal thickening maxillary sinuses. Orbits and globes are intact. Mastoid air cells are well pneumatized. IMPRESSION: No acute intracranial abnormality seen. Mild chronic maxillary sinus disease.
[2023-03-31] MEDS ORDERED: KETOROLAC 15 MG/ML 1 ML VIAL IVP STA (11:43)
[2023-03-31] MEDS ORDERED: METOCLOPRAMIDE 5 MG/ML 2 ML VIAL IVP STA (11:43)
[2023-03-31] MEDS ORDERED: SODIUM CHLORIDE 0.9% 1,000 ML IV ONE (11:44)
[2023-03-31] MEDS ORDERED: diphenhydrAMINE 50 MG/ML 1 ML VIAL IVP STA (11:45)
[2023-03-31 12:21] VITALS: RESP 16
[2023-03-31 14:27] VITALS: BP 165/83; PULSE 69; TEMP 98
== END 2023-03-31 14:19 | disposition home or self-care (01) ==
LOC: EC 09:51
DX: R51.9 Headache, unspecified (principal); E11.9 Type 2 diabetes mellitus without complications; E78.5 Hyperlipidemia, unspecified; I10 Essential (primary) hypertension; M19.90 Unspecified osteoarthritis, unspecified site; F12.90 Cannabis use, unspecified, uncomplicated; Z91.018 Allergy to other foods; Z79.4 Long term (current) use of insulin; Z79.899 Other long term (current) drug therapy
CPT/HCPCS: 99284 ×2; 96374 ×2; 96375 ×3; 96361 ×2; 70450; J1200; J2765; J1885

== ENCOUNTER → 2023-04-23 | Outpatient (CLI) | payer MEDICARE, BC ==
--- NOTE | 2023-04-23 14:16 | P.PAINPG ---
PQRS Measure Charge Sheet Comment: A 72 yr old male with at side with a history of severe and chronic neck pain x 4 mo presents secondary to DDD, spondylosis and facet arthropathy without myelopathy, Occipital Neuralgia/ Cervicogenic GILBERT today for evaluation s/p NEIDA C6-C7 #1. Pt states he experienced 97% pain relief for the last 4 wks s/p procedure. Pain level is currently at 6 / 10 in intensity, predominantly axial, sharp/ stabbing, shooting pain in the upper cervical spine with occasional radiation of pain up the scalp. Pain provoked with bright light and rotation. Pain is alleviated slightly with use of a C collar, medications, Salon Pas patches, injections, heat, PT (cervical) years ago which increases pain and was discontinued, chiropractic treatments (cervical) which increase pain and were discontinued, physician guided stretches daily x 4 mo, heat, ice, repositioning and rest. Cervical disability pain score of 30. Interventional pain procedures completed include BL SI joint injections, NEIDA C6- C7 x1 Patient is currently on Tylenol, Ibu, ASA, Salon Pas patches Patient denies any side effects of the medication(s), denies excessive drowsiness or sleepiness, denies suicidal ideation and reports that the current pain medication is helping to control the pain and improve activities of daily living. Patient denies any motor or sensory deficits. Patient denies any fever or night sweats, denies any change in the bowel movements or urination. Physical Examination: -Constitutional: Cooperative. Not in acute distress . -HEENT: Neck is supple. No lymphadenopathy. No thyromegaly. Normal thyroid size. Eyes: No ptosis , no icterus, no photophobia. ENT: No auditory deficits. Normal oropharynx. No Thrush. - Respiratory: Chest clear to auscultations bilaterally. No wheezing. No rhonchi. - Cardiovascular: Regular rate and rhythm. S1 / S2 , no S3 , no S4. - Gastrointestinal: Abdomen soft no tenderness. Bowel sounds positive in all four quadrants. No organomegaly. - Genitourinary: Deferred. - Neurologic: Cranial nerve II to XII intact. No focal neurological de ficits. - Psychatric: Alert & oriented x 3. Matching mood & appropriate affect. Judgment and insight intact. - Lymphatic: No Lymphadenopathy. - Musculoskeletal: Cervical spine: +BL GISELE TTP Muscle bulk/ tone/ strength in the bilateral upper extremities normal. Vertebral body tenderness to palpation Spurling test positive Facet loading test cervical area positive. Lumbar spine: Motor bulk/ tone/ strength lower extremities , thigh and legs : 5/5 Deep tendon reflexes : Normal Knee Jerk. Normal Ankle Jerk . Vertebral body tenderness to palpation over Lumbar Facet Loading Test positive Straight Leg Raise: positive at 30 degrees right side/ left side Gaenslen's Test positive Sacral spine : Severe tenderness over the Sacroiliac joint: right side / left side Range of motion: Flexion of the lumbar spine <60 degrees Range of motion: Extension of the lumbar spine <20 degrees Gaenslen's Test positive Cinthya test: positive right side < left side Imaging: MRI non contrast of the cervical spine from 01/30/23 reviewed Assessment and plan: Chronic neck pain secondary to cervical DDD , lumbar spondylosis with facet arthropathy without myelopathy, Occipital Neuralgia/ Cervicogenic GILBERT Recommendation of BL GISELE Injections. May need a series of injections for obtain optimal pain relief. Risks, benefits of procedure discussed and patient verbalized understanding. Protocol for discontinuation/continuation of medications surrounding procedure discussed. All patient questions answered I have spent 31 minutes on patient care today. Dr Palomino was available by phone for the evaluation of this patient. The time was used to review the medical records including relevant urine studies and Prescription history (MAPs), review of the available imaging, evaluation and examination of the patient, coordination of care with the medical staff and if applicable referring physicians, as well as creation of the medical record PQRS Narrative: Smoking Status Former smoker Hx Alcohol Use (MH) Yes Home Medications: Ambulatory Orders Atorvastatin [Lipitor] 20 mg PO HS 11/28/15 Insulin Detemir [Levemir Flextouch Pen] 32 units SQ HS 10/01/16 Gabapentin [Neurontin] 300 mg PO Q8H 09/07/20 Cholecalciferol (Vitamin D3) [Vitamin D3 (125 MCG = 5,000 IU)] 250 mcg PO DAILY 11/05/21 Multivit-Mins/Iron/Folic/Lycop [Centrum Men's Tablet] 1 each PO DAILY 11/05/21 diphenhydrAMINE [Benadryl] 25 mg PO BID PRN 11/05/21 lisinopriL [Zestril] 10 mg PO DAILY 11/05/21 Areds(Unknown Med) 1 tab PO DAILY 03/19/23 Cholecalciferol [Vitamin D3 (10 Mcg = 400 Iu)] 10 mcg PO DAILY 03/19/23 Controlled Substance Measures - Controlled Substance Measures Is patient prescribed a controlled substance at discharge?: No
[2023-04-23 14:36] VITALS: BP 157/80; PULSE 82; RESP 18; TEMP 97.4
== END ==
LOC: PNWHC3 13:38
PROVIDERS: ATTEND Specialist
DX: M54.81 Occipital neuralgia (principal); G44.86 Cervicogenic headache; G89.29 Other chronic pain; M50.30 Other cervical disc degeneration, unspecified cervical region; F12.90 Cannabis use, unspecified, uncomplicated; M47.816 Spondylosis without myelopathy or radiculopathy, lumbar region; Z91.018 Allergy to other foods; Z79.82 Long term (current) use of aspirin; Z87.891 Personal history of nicotine dependence
CPT/HCPCS: 99211

== ENCOUNTER 2023-05-05 06:54 | Day surgery (SDC) | payer MEDICARE, BC ==
[2023-05-05 07:28] VITALS: RESP 16; TEMP 97.4
[2023-05-05] MEDS ORDERED: LACTATED RINGERS 1,000 ML IV SCH (07:29)
[2023-05-05 07:37] LABS: Glucose,Whole Blood 114 mg/dL (70-110)
[2023-05-05] MEDS ORDERED: methylPREDNISolone ACETATE 40 MG/ML 1 ML VIAL ONE (07:46)
[2023-05-05] MEDS ORDERED: ROPIVACAINE 5MG/ML 20ML VIAL ONE (07:46)
--- NOTE | 2023-05-05 07:53 | P.PCN ---
Date of Procedure: 05/05/23 Procedure(s) Performed: Preoperative diagnoses= 1- Greater occipital neuralgia. 2-cervical degenerative disc disease. 3-cervical spondylosis with cervical facet arthropathy. 4- cervicogenic headache Postoperative diagnoses= same as preop diagnosis. Procedure= Bilateral Greater occipital nerve block Anesthesia= none . Estimated blood loss=minimal. Procedure indication= the patient had a history of severe chronic neck pain ,and headache, diagnosed with occipital neuralgia exam was positive for severe tenderness over the occipital nerve bilaterally, she will be a good candidate occipital nerve block, patient failed conservative management Procedure description= the patient was seen and identified in the preoperative holding area, risks and benefits and alternative of the procedure and possible complications discussed with the patient, and he agreed with the preceding, patient signed the consent, and vital signs were monitored and were stable throughout the procedure, patient was placed in the sitting position or table and the neck area was prepped and draped with a sterile fashion, vital signs were closely monitored during the procedure, 25-gauge needle advanced 1 inch lateral to the occipital protuberance on the right side, at the location of the right occipital nerve , then after negative aspiration for heme and CSF and there was no paresthesia during the injection, 6 ml of Robivacaine 0.5% and 20 mg of Depo-Medrol injected after negative aspiration, the needle removed, and the entire same procedure was repeated for the left Greater occipital nerve. Patient tolerated the procedure well without any complication, The patient returned to supine position after the back was cleaned and a Band- Aid applied, the patient transported to recovery room in stable condition and he was monitored for 30 minutes before he was discharged home and then patient was reexamined before going home and patient was discharged in stable condition and patient will follow up with the pain clinic in a few weeks.
[2023-05-05 08:41] VITALS: BP 153/74; PULSE 59
== END 2023-05-05 08:36 | disposition home or self-care (01) ==
LOC: ORPAIN 06:54
PROVIDERS: ATTEND Specialist
DX: M47.812 Spondylosis without myelopathy or radiculopathy, cervical region (principal); M54.81 Occipital neuralgia; M50.30 Other cervical disc degeneration, unspecified cervical region
CPT/HCPCS: 64405; J1030; J2795

== ENCOUNTER → 2023-08-07 | Outpatient (CLI) | payer MEDICARE, BC ==
--- NOTE | 2023-08-07 08:39 | CT ---
EXAMINATION TYPE: CT cervical spine wo con DATE OF EXAM: 08/07/2023 COMPARISON: 12/26/2015 HISTORY: Spondylosis w/o myelopathy or radiculopathy cervical spine, pt states injury years ago CT DLP: 487.60 mGycm CONTRAST: None CT of the cervical spine is performed in the axial plane at 2 mm thick sections. Reconstructed image s in the coronal, and sagittal plane are reviewed on the computer. No acute fractures are evident. Vertebral body alignment is normal. There is loss of disc height C5-6. Milder disc space narrowing is present through the remainder of th e cervical spine. Posterior endplate spurring is noted C5 superior endplate and C5-6 disc space. Ante rior vertebral body spurring is present C3-C7 Vertebral body heights are preserved. No spinal canal stenosis is evident Left foraminal stenosis present C2-3 due to vertebral. Severe foraminal stenosis left C3-4. Mild diff use foraminal narrowing is bilaterally at C4-5 and C5-6. Milder C6-7 foraminal narrowing is present.. IMPRESSION: 1. Degenerative disc changes foraminal stenosis discussed
== END | disposition home or self-care (01) ==
LOC: RADCTMAIN 07:19
PROVIDERS: ATTEND Orthopaedic Surgery
DX: M99.71 Connective tissue and disc stenosis of intervertebral foramina of cervical region (principal); M47.812 Spondylosis without myelopathy or radiculopathy, cervical region; M50.31 Other cervical disc degeneration, high cervical region
CPT/HCPCS: 72125

== ENCOUNTER → 2023-09-25 | Outpatient (CLI) | payer MEDICARE, BC ==
--- NOTE | 2023-09-25 09:30 | US ---
EXAMINATION TYPE: US kidneys/renal and bladder DATE OF EXAM: 09/25/2023 COMPARISON: NONE CLINICAL INDICATION: Male, 72 years old with history of R74.8 ABNORMAL LEVELS OF OTHER SERUM ENZYMES; EXAM MEASUREMENTS: Right Kidney: 9.7 x 4.9 x 5.8 cm Left Kidney: 9.9 x 4.8 x 5.0 cm Right Kidney: 1.4cm cyst superior pole Left Kidney: wnl Bladder: wnl Bilateral Jets seen: yes There is no evidence for hydronephrosis at this point in time. No nephrolithiasis is seen. No anthony s are identified. The urinary bladder is anechoic. Bilateral ureteral jets are seen. IMPRESSION: 1. No evidence for obstructive uropathy. 2. Cortical medullary differentiation maintained. 3. Right renal simple appearing cyst.
== END | disposition home or self-care (01) ==
LOC: RADUSWWP 08:02
PROVIDERS: ATTEND Family Medicine
DX: N28.1 Cyst of kidney, acquired (principal); R74.8 Abnormal levels of other serum enzymes
CPT/HCPCS: 76770

== ENCOUNTER → 2023-10-14 | Outpatient (CLI) | payer MEDICARE, BC | END | disposition home or self-care (01) | LOC: LABPAT 09:01 | PROVIDERS: ATTEND Orthopaedic Surgery | DX: Z01.812 Encounter for preprocedural laboratory examination (principal); M43.12 Spondylolisthesis, cervical region; M47.12 Other spondylosis with myelopathy, cervical region; Z22.322 Carrier or suspected carrier of Methicillin resistant Staphylococcus aureus | CPT/HCPCS: 36415; 86850; 86900; 86901; 87070 ==

== ENCOUNTER 2023-10-26 05:36 | Inpatient (IN) | payer MEDICARE, BC ==
--- NOTE | 2023-10-25 11:25 | P.HPOR ---
History of Present Illness H&P Date: 10/14/23 .D:Date: 10/14/23 : 08:16am .T:Title: CHETAN CARRASCO [facility] HISTORY AND PHYSICAL Age: 72 year Height: 5'5" Weight: 150 lbs BMI: 24.96 kg/m2 Occupation: Retired VAS: 8 IMPRESSION: It was my pleasure to have seen and examined Hemanth. I reviewed the patient's clinical syndrome, physical findings, and imaging studies during the appointment today. It is my impression that the patient has a diagnosis of. 1. 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 BUE Radiculopathy 3. GILBERT 4. Neck pain 5. Possible fibromyalgia Spine Surgery Risk Review Mr. Kenyon is presenting for evaluation of neck pain and headaches. It was my pleasure to have seen and examined Mr. Kenyon. In our visit today we have had a chance to go over subjective complaints, physical examination findings and treatments including the natural course history without intervention and various interventional options. The patients imaging demonstrates: Multilevel spondylotic disease with severe disc collapse at C3-7 with HNP causing central and b/l foraminal stenosis that is moderate to severe at each level. C3-4 is the best level and each level worsens caudally. There is reversal of the normal cervical lordosis due to this collapse. Large anterior and posterior osteophytes are present at the disc spaces and around the facets which are severely deteriorated. There is trace anterior listhesis at C3-4, C4-5 and C5-6 noted as well. No fractures or lesions at this time. C0-1 and C1-2 are stable. On physical exam, Mr. Kenyon demonstrates: A continued throbbing, shooting pain throughout the neck that radiates up into the base of the skull. He notes progressively worsening headaches over the last several months. He notes any quick movements of the neck cause sharp, shooting radiating pain throughout the bilateral upper extremities. He notes his neck symptoms have become debilitating. He states all activity exacerbates his symptoms. He reports exper iencing severe sleep disturbances related to his ongoing pain and associated symptoms. I have explained to the patient that as their condition progresses it will cause further neurological deficits and eventual paralysis. Based on the patients imaging, physical exam, and the rapid progression and disabling nature of their symptoms, at this time I recommend surgery in the form of a: Stage I: C3-7 ACDF and Stage II: C2-T2 posterior decompression and fusion . I discussed the risk and benefits of this procedure at length with Mr. Kenyon. The patient agreed to considered pursuing the procedure above mentioned. Prior to surgery, she should follow up with her PCP (Cardio, ID, IM etc) for clearance. Questions were invited and answered, and the patient wishes to proceed as outlined below. Currently, I am recommendin.Stage I: C3-7 ANTERIOR CERVICAL DISCECTOMY AND FUSION and Stage II: C2-T2 posterior decompression and fusion 2.Review of surgical risks and benefits as well as an educational packet on the proposed surgical procedure. Risks: All surgical procedures come with inherent risks, including those related to positioning, anesthesia, intraoperative findings, and postoperative complications. It is important to understand that surgery does not come with any guarantee of a successful outcome as complications and adverse events are always possible. The patient was given a handout in office today discussing the surgical proced ure and risks associated with the intervention, both of which were discussed with the patient. These risks include but are not limited to the following: * Experiencing same, different or even worse symptoms in back, neck, arms, or legs compared to before surgery. Requiring further surgery or other forms of treatment presently or at some time in the future at same or other levels of the intended spine surgery. On an extreme but fortunately relatively rare basis severe complication such as blindness, stroke, heart attack, temporary and/or permanent nerve injury, paralysis, coma, or may occur, sometimes without known explanation. Surgical complications may include but are not limited to risk of infection, fluid accumulation in the surgical dissection site, including a seroma or hemato ma, that requires additional surgery, wound drainage, bleeding, new numbness or weakness, vision changes/loss, spinal fluid leakage, non-healing and/or infected incision, headaches, difficulty or inability to swallow, hoarseness, hemopneumothorax, pneumothorax, impotence, retrograde ejaculation, vaginal dryness; injury to nerves, spinal cord, blood vessels, lymphatics or other vital organs (i.e., bowel injury, injury to the great vessels); heterotopic bone formation; complications related to the hardware such as screws, rods, cages including misplaced hardware, device failure, instrumentation at the wrong spine level, hardware fracture/breakage, or hardware loosening; vertebral failure of the spinal column above or below the newly placed hardware; retained surgical instrumentations or devices and the need for further surgery. * Medical risks of the planned spine surgery include but are not limited to generalized Infections to the whole body or local areas outside of the surgical site (sepsis), heart attack, bleeding, anaphylaxis, meningitis, seizure, epilepsy, hearing loss, burn heart, laceration of the head or other areas of the body, bruising, hypersensitivity of the skin, bladder over distension; allergic reaction; shoulder injury related to positioning; fat, blood and air clots to other areas of the body like heart, lungs, brain; failure of internal organs such as lungs, kidneys, liver and excessive bleeding. If blood transfusions are necessary, note that transfusions may cause intolerance reactions such as anaphylaxis or other complex reactions. Despite best efforts, the results of spine surgery might not heal in terms of bone, soft tissues such as skin, fascia, ligaments, and joints. Additionally, in order to achieve best possible results, spine surgery may be carried out beyond the initially planned levels and involve decompression, fusion including insertion of hardware at levels other than the original intended area of surgical interest change some portions of the procedure in order to ensure the best possible outcomes. With spine surgery and spinal fusion, there are different off label uses of instrumentation (devices, implants and hardware) as well as biological substances (bone morphogenic proteins, demineralized bone matrix) as well as using extra bone from allograft sources (i.e. cadaver bone) or autograft (iliac crest bone, ribs, or the spine itself). The patient has been given information about these practices and their inherent risks and benefits. [facility] is an educational center that serves as a training facility for neurosurgical and orthopedic EQUIPMENT MANAGER and Nursing students. Physician assistants are medically trained surgical providers who function in the outpatient, inpatient, and operating room setting under the direct supervision of the attending surgeon. [facility] has multiple operating rooms with single and overlapping rooms running daily. They currently function under the required guidelines as produced by the [facility] with regards to the overlapping rooms and will continue to comply with changes to this policy as they occur. The requirements include and are complied with as follows: (1) the critical portions of the overlapping rooms will not occur at the same time, (2) the attending physician will be physically present during the critical portions of the procedure and immediately available during the entire case, and (3) a back-up attending is designated should the primary attending not be immediately available. The patient has had a chance to review all the listed information, has been given print outs detailing this information, and has had all his/her questions answered to their satisfaction. It was my pleasure to have seen and examined Mr. Kenyon. In our visit today we have had a chance to go over my understanding of our patient's current condition, the natural course history without intervention and various interventional options. Questions were invited and answered, and the patient wishes to proceed as outlined above. I have seen and examined the patient for 25 minutes and we have spent more than 50% of the time in repeat and detailed counseling about the patient's condition, its natural course history with out and as much as can be predicted with surgery and re-review of various surgical treatment options. In conclusion, Mr. Kenyon requested we proceed with the above suggested surgery and are willing to accept risks and limitations of the suggested surgery as nature of the disease process and our best attempts at treatment for the condition. FOLLOW UP: Post Procedure PATIENT EDUCATION: Medications Reviewed: YES In our visit today Mr. Kenyon and I have had a chance to go over my understanding of the patient's current condition, the natural course history without intervention and various interventional options. Questions were invited and answered, and the patient wishes to proceed as outlined above. I will be sure to keep you updated after Mr. Kenyon returns here for further follow-up. Thank you again for your referral. Please do not hesitate to contact me if you have any further questions. Signed and authenticated by: Forrest Deluna [facility] [address] [place] [id number] This message is confidential, intended only for the named recipient(s) and may contain information that is privileged or exempt from disclosure under applicable law. If you are not the intended recipient(s), you are notified that the dissemination, distribution or copying of this information is strictly prohibited. If you received this message in error, please notify the sender then delete this message. # SIGNED BY Forrest David (GOO)10/14/2023 09:10AM Past Medical History Past Medical History: Asthma, Diabetes Mellitus, Hyperlipidemia, Hypertension, Osteoarthritis (OA) Additional Past Medical History / Comment(s): neuropathy feet & legs, hx chest wall abscess (affected muscle/bone) hx Chronic back pain with repair, herniated disc., Hx hiatal hernia repair. Neck pain. seasonal asthma with exertion. History of Any Multi-Drug Resistant Organisms: None Reported Past Surgical History: Back Surgery, Hernia Repair, Orthopedic Surgery Additional Past Surgical History / Comment(s): Surgery on left elbow"nerve release", LT CTR, LT Hand "BONE SCRAPING", JENNIFER, I&D CHEST WALL ABCESS, PICC LINE INSERTED 01-01-16, REMOVED IN FEB 2016. ,I & D OF CHEST WAll ABSCESS 06/02/16 .,CARINA CATARACTS, EGD, PAIN CLINIC PROCEDURES. Hiatal hernia repair, back surgery 2021. Past Anesthesia/Blood Transfusion Reactions: No Reported Reaction Additional Past Anesthesia/Blood Transfusion Reaction / Comment(s): CLAUSTROPHOBIA WITH MRI Smoking Status: Former smoker - Past Family History Father Family Medical History: Cancer, Coronary Artery Disease (CAD) Additional Family Medical History / Comment(s): Bowel cancer. Mother Family Medical History: CVA/TIA, Diabetes Mellitus Brother(s) Family Medical History: Cancer Medications and Allergies Home Medications Medication Instructions Recorded Confirmed Type Atorvastatin [Lipitor] 40 mg PO HS 11/28/15 10/20/23 History Insulin Detemir [Levemir Flextouch 32 units SQ HS 10/01/16 10/20/23 History Pen] Gabapentin [Neurontin] 600 mg PO BID 09/07/20 10/20/23 History Cholecalciferol (Vitamin D3) 250 mcg PO DAILY 11/05/21 10/20/23 History [Vitamin D3 (125 MCG = 5,000 IU)] Multivit-Mins/Iron/Folic/Lycop 1 each PO DAILY 11/05/21 10/20/23 History [Centrum Men's Tablet] Areds(Unknown Med) 2 tab PO DAILY 03/19/23 10/20/23 History Fenofibrate Nanocrystallized 145 mg PO DAILY 04/30/23 10/20/23 History [Fenofibrate] Losartan [Cozaar] 100 mg PO DAILY 04/30/23 10/20/23 History amLODIPine [Norvasc] 5 mg PO HS 04/30/23 10/20/23 History Butalb/Acetaminophen/Caffeine 1 - 2 cap PO Q4HR PRN 10/20/23 10/20/23 History [Fioricet 50-300-40 mg Capsule] Dulaglutide [Trulicity] 1.5 mg SQ TU 10/20/23 10/20/23 History methocarbamoL 750 mg PO TID 10/20/23 10/20/23 History Allergies Allergy/AdvReac Type Severity Reaction Status Date / Time onion Allergy Anaphylaxis Verified 10/20/23 09:48 Physical Examination Osteopathic Statement: *. No significant issues noted on an osteopathic structural exam other than those noted in the History and Physical/Consult. Assessment and Plan (1) Cervical spondylosis with myelopathy Status: Acute Code(s): M47.12 - OTHER SPONDYLOSIS WITH MYELOPATHY, CERVICAL REGION SNOMED Code(s): 595423631 (2) Stenosis, cervical spine Status: Acute Code(s): M48.02 - SPINAL STENOSIS, CERVICAL REGION SNOMED Code(s): 71888563 (3) Neck pain Status: Acute Code(s): M54.2 - CERVICALGIA SNOMED Code(s): 15077738 (4) Cervical radiculopathy due to degenerative joint disease of spine Status: Acute Code(s): M47.22 - OTHER SPONDYLOSIS WITH RADICULOPATHY, CERVICAL REGION SNOMED Code(s): 64526102
[~2023-10-26 05:36] MED LIST changes: -ACETAMINOPHEN TAB 500 MG TAB PO PRN; -LACTATED RINGERS 1,000 ML IV SCH; -METOCLOPRAMIDE 5 MG/ML 2 ML VIAL IVP PRN; -ONDANSETRON 4 MG/2 ML VIAL IVP ONE; -ONDANSETRON 4 MG/2 ML VIAL IVP PRN; +TRANEXAMIC 1,000 MG/100ML-NACL 1,000 MG in SALINE 1 100ML.BAG IVPB PRN; -TRANEXAMIC ACID IN NACL,ISO-OS 1,000 MG in SALINE 1 100ML.BAG IVPB PRN
[2023-10-26] MEDS: IV FLUID CONTINUATION 1,000 ML IV ONE ×2 (05:59)
[2023-10-26 06:29] LABS: Glucose,Whole Blood 193 mg/dL (70-110)
[2023-10-26] MEDS: ACETAMINOPHEN TAB 500 MG TAB PO PRN (06:41)
[2023-10-26] MEDS: ONDANSETRON 4 MG/2 ML VIAL IVP PRN ×2 (06:42→20:53)
[2023-10-26] MEDS: DEXAMETHASONE SOD PHOSPHATE 4 MG/ML 1 ML VIAL IV ONE (06:42)
[2023-10-26] MEDS: MIDAZOLAM 2 MG/2 ML VIAL IVP ONE (06:50)
[2023-10-26] MEDS ORDERED: MIDAZOLAM 2 MG/2 ML VIAL ONE (07:20)
[2023-10-26] MEDS ORDERED: ROCURONIUM 10 MG/ML (5 ML VIAL) IV ONE (07:20)
[2023-10-26] MEDS ORDERED: ePHEDrine 50 MG/ML 1 ML VIAL ONE (07:20)
[2023-10-26] MEDS ORDERED: fentaNYL (PF) 50 MCG/ML 2 ML AMP ONE (07:20)
[2023-10-26] MEDS ORDERED: TRANEXAMIC 1,000 MG/100ML-NACL PREMIX BAG ONE (07:20)
[2023-10-26] MEDS ORDERED: SUCCINYLCHOLINE CHLORIDE 200 MG/10 ML VIAL IV ONE (07:20)
[2023-10-26] MEDS ORDERED: GLYCOPYRROLATE 0.2 MG/ML 2 ML VIAL ONE (07:20)
[2023-10-26] MEDS ORDERED: PROPOFOL 10 MG/ML 20 ML VIAL IV ONE (07:20)
[2023-10-26] MEDS ORDERED: LIDOCAINE 1% INJ 10MG/ML (20 ML MDV) ONE (07:20)
[2023-10-26] MEDS ORDERED: KETAMINE HCL IN 0.9 % NACL 50 MG/5 ML SYRINGE ONE (07:20)
[2023-10-26] MEDS: THROMBIN (BOVINE) 5,000 UNIT VIAL TOPICAL ONE (08:39)
[2023-10-26] MEDS: LACTATED RINGERS 1,000 ML IV ONE ×2 (10:00→12:40)
[2023-10-26] MEDS ORDERED: CYCLOBENZAPRINE 5 MG TAB PO PRN (11:20)
[2023-10-26] MEDS ORDERED: SENNOSIDES-DOCUSATE SODIUM 1 EACH TAB PO PRN (11:20)
[2023-10-26] MEDS ORDERED: MAG HYDROX/AL HYDROX/SIMETH 30 ML CUP PO PRN (11:20)
[2023-10-26] MEDS ORDERED: MAGNESIUM HYDROXIDE 2,400 MG/30 ML CUP PO PRN (11:20)
[2023-10-26] MEDS ORDERED: HYDROcodone/APAP 5-325MG 1 EACH TAB PO PRN (11:20)
[2023-10-26] MEDS: ceFAZolin 3,000 MG in SODIUM CHLORIDE 0.9% IRRIGATIO 3,000 ML IRRIGATION ONE (14:10)
[2023-10-26] MEDS: GENTAMICIN 80 MG in SODIUM CHLORIDE 0.9% IRRIGATIO 3,000 ML IRRIGATION ONE (14:11)
[2023-10-26] MEDS: VANCOMYCIN 1,000 MG VIAL MISCELLANE ONE (14:11)
--- NOTE | 2023-10-26 15:03 | P.OP ---
Date of Procedure: 10/26/23 Preoperative Diagnosis: Current Active Problems Cervical spondylosis with myelopathy (Acute) Stenosis, cervical spine (Acute) Neck pain (Acute) Cervical radiculopathy due to degenerative joint disease of spine (Acute) Postoperative Diagnosis: Current Active Problems Cervical spondylosis with myelopathy (Acute) Stenosis, cervical spine (Acute) Neck pain (Acute) Cervical radiculopathy due to degenerative joint disease of spine (Acute) Procedure(s) Performed: STAGE I: -C3-4 ANTERIOR CERVICAL ARTHRODESIS -C4-5 ANTERIOR CERVICAL ARTHRODESIS -C5-6 ANTERIOR CERVICAL ARTHRODESIS -C6-7 ANTERIOR CERVICAL ARTHRODESIS -C3-7 ANTERIOR INSTRUMENTATION -C3-4, C4-5, C5-6, C6-7 INSERTION OF BIOMECHANICAL DEVICE USE OF IONM USE OF IO MICROSCOPE STAGE II: -C2-T2 posterolateral instrumented fusion (19429, [id number]) -C2-T2 instrumentation (34350) -C2-T1 decompressive laminectomy, partial medial facetectomy and foraminotomy (35320, [id number]) Implants: -4 WEB ANTERIOR CAGES X4 -16MM, 14MM SCREWS -MAGNATOS -KAROLINA NOVA SCOTIA POSTERIOR CERVICAL SYSTEM -ALLOGRAFT, AUTOGRAFT Anesthesia: GETA Surgeon: Forrest David Cargoman #1: Macario Kingston (was present and assisted with all aspects of the case from position to dressing placement both stages) Estimated Blood Loss (ml): 350 (total front and back. Front 50. back 300) IV fluids (ml): 2,500 Urine output (ml): 900 Pathology: none sent Condition: stable Disposition: ICU Indications for Procedure: Mr. Kenyon is presenting for evaluation of neck pain and headaches. It was my pleasure to have seen and examined Mr. Kenyon. In our visit today we have had a chance to go over subjective complaints, physical examination findings and treatments including the natural course history without intervention and various interventional options. The patients imaging demonstrates: Multilevel spondylotic disease with severe disc collapse at C3-7 with HNP causing central and b/l foraminal stenosis that is moderate to severe at each level. C3-4 is the best level and each level worsens caudally. There is reversal of the normal cervical lordosis due to this collapse. Large anterior and posterior osteophytes are present at the disc spaces and around the facets which are severely deteriorated. There is trace anterior listhesis at C3-4, C4-5 and C5-6 noted as well. No fractures or lesions at this time. C0-1 and C1-2 are stable. On physical exam, Mr. Kenyon demonstrates: A continued throbbing, shooting pain throughout the neck that radiates up into the base of the skull. He notes progressively worsening headaches over the last several months. He notes any quick movements of the neck cause sharp, shooting radiating pain throughout the bilateral upper extremities. He notes his neck symptoms have become debilitating. He states all activity exacerbates his symptoms. He reports experiencing severe sleep disturbances related to his ongoing pain and associated symptoms. I have explained to the patient that as their condition progresses it will cause further neurological deficits and eventual paralysis. Based on the patients imaging, physical exam, and the rapid progression and disabling nature of their symptoms, at this time I recommend surgery in the form of a: Stage I: C3-7 ACDF and Stage II: C2-T2 posterior decompression and fusion . I discussed the risk and benefits of this procedure at length with Mr. Kenyon. The patient agreed to considered pursuing the procedure above mentioned. Prior to surgery, she should follow up with her PCP (Cardio, ID, IM etc) for clearance. Questions were invited and answered, and the patient wishes to proceed as outlined below. Currently, I am recommendin.Stage I: C3-7 ANTERIOR CERVICAL DISCECTOMY AND FUSION and Stage II: C2-T2 posterior decompression and fusion Description of Procedure: STAGE I: C3-7 ACDF The patient was seen and examined in the preoperative area. All preoperative protocols were followed. Informed consent was obtained, risks and benefits of the procedure were discussed at length. Risks including bleeding infection damage to the surrounding tissue and risk of reoperation were discussed with the patient. Risk of anesthesia up to and including was discussed with the patient. These are outlined in the risk review. They were willing to accept these risks and all the risks of surgery. The patient was given a weight-based dose of antibiotics in the form of 2 g Ancef. The patient was seen and evaluated by the anesthesia team who deemed them fit for surgery. The site was marked, the patient was willing to proceed with the procedure. The patient was transferred to the operative suite by the Department of anesthesia. They were then drifted off to sleep by the department anesthesia and GETA was performed. The patient tolerated this well. Kasper catheter was placed by nursing staff, a-traumatically. Once confirmation of lines and ventilation the patient was transferred to a Supine Josr table very carefully. All bony prominences including wrists, elbows, axilla, chest, hips, and thighs, and feet were padded very well. Special attention was paid to the genitalia, and these were padded accordingly. SCDs were placed on bilateral lower extremities and were connected. Arms were well padded and placed at their side thumbs up. Once in position, again we confirmed good ventilation capabilities and that lines were running appropriately. The patients Cervical spine was then exposed. 1010s were placed outlining the incision site. Standard alcohol was used to clean the incision site and allowed to dry. C-arm was used to bio-jonh the patient and confirm level for incision which was marked with a skin marker. Operative briefing was performed with all teams and everyone in agreement to proceed. The patient was then prepped and draped in a normal sterile fashion. Timeout was then performed, and all parties agreed with the procedure to be performed. Transverse skin incision was then made on the LEFT side of the patient's neck 3 cm and dissection taken down to the platysma which was split transversely. Sub platysma flap was made, and interval identified between SCM and medial structures. Omohyoid was visualized and protected. Blunt dissection taken down to the anterior cervical fascia which was identified. Blunt probe was then placed and lateral image taken which confirmed levels for operation. These levels were then marked with a bovi. Subperiosteal dissection of the longissimus muscles were then done over these levels identifying uncovertebral joints bilaterally. Osteophytes were removed anteriorly with Rongure. There were large osteophytes over the C3-4, C5-6 and C6-7 levels which were growing large and lateral. Retractor was then placed deep to the muscles and held in place with a bed arm. Starting at C6-7, Newhope pins were placed into C6 and C7 and gentle distraction taken out over the levels. Theresa rongeur used to remove disc material. Operating microscope brought in for visualization. Complete discectomy performed at this level with curette, rongure and pituitary. High speed laura used to remove osteophytes anteriorly and posteriorly until PLL was identified. 6-0 up curette then used to identify the canal and resect the PLL. 2-0 and 3-0 Kerrison used then to remove PLL and disc herniation and performed b/l foraminotomies. Once good decompression was accomplished, meticulous hemostasis was performed. Sizers were then placed under lateral fluoroscopy until the desired height and lordosis. Cage was then selected, packed with autograft and allograft and placed under lateral imaging. Once in good position it was tested and stable. Motors run before and after cage placement were stable. The wound was irrigated, and autograft placed lateral to the cage anteriorly for fusion. Newhope pin was then removed from C7 and placed into C5. Gentle distraction taken out over C5-6 now. Complete discectomy done at C5-6 as described including decompression, b/l foraminotomies and PLL resection. Burring of endplates was minimal, osteophytes removed as described. Spacers were then sized and placed under lateral imaging. Cage selected, packed with graft and placed under lateral images. Once in position, meticulous hemostasis performed, and motors remained stable before and after cage placement. AP image confirmed good placement of cages. Wound was irrigated. Newhope pin was then removed from C6 and placed into C4. Gentle distraction taken out over C4-5 now. Complete discectomy done at C4-5 as described including decompression, b/l foraminotomies and PLL resection. Burring of endplates was minimal, osteophytes removed as described. Spacers were then sized and placed under lateral imaging. Cage selected, packed with graft and placed under lateral images. Once in position, meticulous hemostasis performed, and motors remained stable before and after cage placement. AP image confirmed good placement of cages. Wound was irrigated. Newhope pin was removed from C5 and placed in C3. Gentle distraction taken out over C3-4 now. Complete discectomy done at C3-4 as described including decompression, b/l foraminotomies and PLL resection. Burring of endplates was minimal, osteophytes removed as described. Spacers were then sized and placed under lateral imaging. Cage selected, packed with graft and placed under lateral images. Once in position, meticulous hemostasis performed, and motors remained stable before and after cage placement. AP image confirmed good placement of cages. Wound was irrigated. Anterior instrumentation was then accomplished. Screws were placed through the anterior cage with good purchase using lateral imaging. The screws were placed inferiorly and superiorly and locked into place and the plate locked to the cage. All locking mechanisms were set, and all screws had good purchase. Final AP and lateral images taken confirmed good placement of hardware and good reduction and christianity of height. The wound was then irrigated copiously with NSS. Surgicel placed deep in the wound. A deep drain placed out a separate incision and sewed into place. Layered closure then performed with 3-0 Vicryl in the platysma and subQ tissue. 4-0 Strata fix in the subcuticular tissue. The wound was then cleaned, and dried and skin glue placed. Once glue dried on Opifoam was placed. The patient was then transferred back to their hospital bed a-traumatically. The drain continued to hold suction. They were placed in a soft collar. Beds were changes and the patient was stable and so we continued to second stage posterior procedure. STAGE II:C2-T2 decompression and fusion Pre-positioning motors were obtained. Once confirmation of lines and ventilation Leal head clamp was placed on the patient and secured and the patient was transferred to a prone Josr table very carefully with the Leal head scorer the head was secured and placed into an optimal position x- ray confirmed this position. Post-positioning motors remained stable. All bony prominences including wrists, elbows, axilla, chest, hips, and thighs, and feet were padded very well. Special attention was paid to the genitalia and these were padded accordingly. SCDs were placed on bilateral lower extremities and were connected. Arms were well padded and placed tucked at his side thumbs down. Shoulders were gently taped down to the table. Once in position, again we confirmed good ventilation capabilities and that lines were running appropriately. The patient's posterior cervical spine was then exposed. 1010s were placed outlining the incision site. Standard alcohol was used to clean the incision site and allowed to dry. C-arm was used to biomark the patient and confirm level for incision which was marked with a skin marker. Operative briefing was performed with all teams and everyone in agreement to proceed. The patient was then prepped and draped in a normal sterile fashion. Timeout was then performed and all parties were in agreement with the procedure to be performed. Midline skin incision made over the previously bio-marked area and dissection taken down midline to the SP of C2-T2. Subperiosteal dissection taken out over the lamina and lateral masses of C2-C7 and TVP of T1 and T2. Once exposure complete, the wound was irrigated and the C-arm brought in for imaging. A penfield 4 was used to bluntly dissect the medial border of C2 pedicle and placed for guidance. C arm used and a laura hole made for the starting point. The C2 pedicle was then drilled in 2 mm increments to 16 mm using a ball tip feeler in between each drill session to make sure within the 4 mcmillan with a good bottom. Once this was accomplished a screw was selected and placed under lateral fluoroscopic guidance. Screw had a good purchase. This was then repeated on the contralateral side. AP confirmed good placement of both screws. We then proceeded to the T1 and T2 screws bilaterally. A high speed laura was used to remove the facet joint of C7 and to create a starting point for T1 and similarly, T1 facet for T2. Pedicle finder was then passed into T1 and T2 and imaging taken to confirm placement this was then removed and a tap placed ball-tipped probe was then placed and 4 mcmillan of pedicle fell with good bottom. Screw was then measured and placed intoT1 and T2. This is repeated on the contralateral side. Imaging confirmed good placement of all 4 thoracic screws. The wound was then irrigated. Lateral mass screws were then drilled to 12 mm and placed at each level from C3-6. C4 was left out on the left due to poor purchase and lateral mass bone. Each had a good bite. Rods were then sized and selected and cut to length. They were bent accordingly and lordosis. These were then secured into C2 bilaterally and then sequentially reduced into lateral mass screws and T1 and T2 screws without issues. All set screws were placed and were then final tightened and the position. Bilateral laminectomy, facetectomy and foraminotomies were then done from C2-T1 using high speed laura, kerrison rongeur and upbiting curette. Bilateral laminotomy troughs were made with laura followed by curette to release ligamentum. Rongure was then used to gently remove the lamina and facets posteriorly without issues. Meticulous hemostasis was performed after.. Motors were run before and after decompression and they remain stable. Good pulsations of the cord were noted after decompression. Foraminotomies then performed with kerrison rongeur and clean up of the laminectomy site. The wound was then copiously irrigated with 3 L of Ancef irrigation followed by 3 L of gentamicin irrigation 1L Irricept, 1L betadine followed by 3 L of normal sterile saline. Facet joints were drilled at each level to allow for fusion Surgicel was placed over the dura. MagnetOs were placed in the posterior lateral gutters along with autograft.. This was impacted into position for fusion. 2 g of powdered vancomycin was then placed deep within the wound and a deep drain was placed. We then proceeded with layered closure first in the deep muscle and fascia with #1 PDS. 0 Vicryl was used in the deep subq fascia. 2-0 Vicryl was used in the superficial subq. Skin was closed with 2-0 nylon running everting trauma stitch. The wound edges approximated very well. The wound was then cleaned and dressed sterilely with adaptic, 4x4, ABD and medipore tape. The drain was attached had good suction. The patient was placed in a hard cervical collar. The patient was transferred back to their hospital bed atraumatically. Leal head clamp was removed and pin sites were clear. Drain continued to hold suction. Patient was placed in a hard collar Patient was then awakened and extubated by the department of anesthesia having tolerated the procedure very well with no complications. They were transferred to the postoperative care unit in stable condition.
--- NOTE | 2023-10-26 15:03 | FL ---
EXAMINATION TYPE: FL guidance operating room, XR cervical spine limited Intraoperative/procedural flu oroscopic services were provided. Total fluoroscopy time is 1 min 10 seconds with a total of 9 submit florian images to PACS. Please see the operative/procedural note for further details. DAP: 2.1613 Gycm2
[2023-10-26] MEDS: hydrALAZINE HCL 20 MG/ML 1 ML VIAL IVP STA (15:25)
[2023-10-26] MEDS: HYDROmorphone 0.5 MG/0.5 ML SYRINGE IVP PRN (15:52)
[2023-10-26 17:00] LABS: Glucose,Whole Blood 354 mg/dL (70-110)
[2023-10-26] MEDS: INSULIN ASPART (NovoLOG) 100 UNIT/ML VIAL SQ ONE (17:02)
[2023-10-26 17:14] LABS: Glucose,Whole Blood 376 mg/dL (70-110)
[2023-10-26] MEDS: CLEVIDIPINE BUTYRATE 25 MG in EMPTY BAG 1 BAG IV SCH (17:21)
[2023-10-26] MEDS: LACTATED RINGERS 1,000 ML IV SCH (17:21)
[2023-10-26] MEDS: HYDROmorphone 1 MG/ML 1 ML SYRINGE IVP PRN (17:46)
--- NOTE | 2023-10-26 17:47 | P.ANPRN ---
Procedure Note - Anesthesia - Invasive Line Right Arterial Line Time Out Performed: Yes Date of Procedure: 10/26/23 Time of Procedure: 06:54 Location of Patient: PreOp Preparation: Sterile Prep, Sterile Dressing Arterial Line Location: Radial Ultrasound Used: No Purpose - Visualization and Identification of Vasculature: No Image Stored and Saved: No Narrative: Invasive line placement per sterile protocol utilized.
--- NOTE | 2023-10-26 17:58 | P.CNPUL ---
History of Present Illness Consult date: 10/26/23 Requesting physician: Forrest David Reason for consult: other (ICU management) Chief complaint: Neck pain and cervical radiculopathy History of present illness: This is a 73-year-old white male with history of cervical spondylosis with myelopathy and cervical stenosis, patient had chronic neck pain and cervical radiculopathy due to degenerative joint disc disease of the spine. Today the pa tient underwent anterior cervical arthrodesis at multiple levels, patient also had C2-T2 posterolateral instrumented fusion and decompressive laminectomy. Postoperatively, patient had significantly elevated blood pressure, and I was asked to see the patient in consultation for admission to the ICU and close monitoring of the blood pressure. I saw the patient in the recovery room, extubated, not in distress, however his blood pressure was noted to be in the 180 systolic range, and I recommended starting the patient on Cleviprex and titrate the systolic blood pressure to 150 to 160 range the meantime patient will be given medications for his postsurgical pain. And that seems to help blood pressure the most Review of Systems REVIEW OF SYSTEMS: CONSTITUTIONAL: Negative. EYES: Negative. ENT: Negative. CARDIAC: Negative. PULMONARY: Negative GI: Negative. GENITOURINARY: Negative. MUSCULOSKELETAL: Chronic neck pain and cervical radiculopathy SKIN: Negative. NEUROPSYCH: Negative. ENDOCRINE: Negative. HEMATOLOGIC: Negative. Past Medical History Past Medical History: Asthma, Diabetes Mellitus, Hyperlipidemia, Hypertension, Osteoarthritis (OA) Additional Past Medical History / Comment(s): neuropathy feet & legs, hx chest wall abscess (affected muscle/bone) hx Chronic back pain with repair, herniated disc., Hx hiatal hernia repair. Neck pain. seasonal asthma with exertion. History of Any Multi-Drug Resistant Organisms: None Reported Past Surgical History: Back Surgery, Hernia Repair, Orthopedic Surgery Additional Past Surgical History / Comment(s): Surgery on left elbow"nerve release", LT CTR, LT Hand "BONE SCRAPING", JENNIFER, I&D CHEST WALL ABCESS, PICC LINE INSERTED 01-01-16, REMOVED IN FEB 2016. ,I & D OF CHEST WAll ABSCESS 06/02/16 .,CARINA CATARACTS, EGD, PAIN CLINIC PROCEDURES. Hiatal hernia repair, back surgery 2021. Past Anesthesia/Blood Transfusion Reactions: No Reported Reaction Additional Past Anesthesia/Blood Transfusion Reaction / Comment(s): CLAUSTROPHOBIA WITH MRI Smoking Status: Former smoker - Past Family History Father Family Medical History: Cancer, Coronary Artery Disease (CAD) Additional Family Medical History / Comment(s): Bowel cancer. Mother Family Medical History: CVA/TIA, Diabetes Mellitus Brother(s) Family Medical History: Cancer Medications and Allergies Home Medications Medication Instructions Recorded Confirmed Type Atorvastatin [Lipitor] 40 mg PO HS 11/28/15 10/26/23 History Insulin Detemir [Levemir Flextouch 32 units SQ HS 10/01/16 10/26/23 History Pen] Gabapentin [Neurontin] 600 mg PO BID 09/07/20 10/26/23 History Cholecalciferol (Vitamin D3) 250 mcg PO DAILY 11/05/21 10/26/23 History [Vitamin D3 (125 MCG = 5,000 IU)] Multivit-Mins/Iron/Folic/Lycop 1 each PO DAILY 11/05/21 10/26/23 History [Centrum Men's Tablet] Areds(Unknown Med) 2 tab PO DAILY 03/19/23 10/26/23 History Fenofibrate Nanocrystallized 145 mg PO DAILY 04/30/23 10/26/23 History [Fenofibrate] Losartan [Cozaar] 100 mg PO DAILY 04/30/23 10/26/23 History amLODIPine [Norvasc] 5 mg PO HS 04/30/23 10/26/23 History Butalb/Acetaminophen/Caffeine 1 - 2 cap PO Q4HR PRN 10/20/23 10/26/23 History [Fioricet 50-300-40 mg Capsule] Dulaglutide [Trulicity] 1.5 mg SQ TU 10/20/23 10/26/23 History methocarbamoL 750 mg PO TID 10/20/23 10/26/23 History Allergies Allergy/AdvReac Type Severity Reaction Status Date / Time onion Allergy Anaphylaxis Verified 10/26/23 06:17 Physical Exam Vitals: Vital Signs Temp Pulse Resp BP BP Pulse Ox 10/26/23 17:19 95 10/26/23 16:45 87 16 169/73 167/76 94 L 10/26/23 16:30 92 16 169/73 98 10/26/23 16:15 92 16 144/63 97 10/26/23 16:13 90 18 169/73 97 10/26/23 15:59 88 20 156/62 93 L 10/26/23 15:44 92 16 157/73 99 10/26/23 15:40 159/72 10/26/23 15:29 198/76 10/26/23 15:17 81 18 188/79 100 10/26/23 15:02 98.0 F 76 16 140/72 100 10/26/23 13:52 91 18 159/72 99 10/26/23 07:04 54 L 14 149/77 100 10/26/23 06:11 97.2 F L 62 16 227/92 97 Intake and Output 10/26/23 10/26/23 10/26/23 06:59 14:59 22:59 Intake Total 200 2852 500 Output Total 1250 200 Balance 200 1602 300 Intake: IV 200 2852 500 Output: Urine 900 200 Estimated Blood Loss 350 Other: Weight 69.9 kg General: The patient is awake and alert, in no distress, and does not appear acutely ill. Skin: Skin is warm and dry and no rashes or lesions are noted. Eye: Pupils are equal, round and reactive to light, extra-ocular movements are intact; there is normal conjunctiva bilaterally. Ears, nose, mouth and throat: There are moist mucous membranes and no oral lesions. Neck: C-collar noted in place Cardiovascular: There is a regular rate and rhythm. No murmur, rub or gallop is appreciated. Respiratory: Clear bilaterally no crackles rhonchi or wheezes Gastrointestinal: Soft, non-distended, non-tender abdomen without masses or organomegaly noted. There is no rebound or guarding present. Bowel sounds are unremarkable. Back: There is no tenderness to palpation in the midline. There is no obvious deformity. Musculoskeletal: Normal ROM, no tenderness, There is no pedal edema. There is no calf tenderness or swelling. No cords were appreciated. Neurological: CN II-XII intact, Cranial nerves III through XII are intact. There are no obvious motor or sensory deficits. Coordination appears grossly intact. Speech is normal. Psychiatric: Cooperative, appropriate mood & affect, normal judgment. Results - Laboratory Findings Abnormal lab findings: Abnormal Labs 10/26/23 10/26/23 10/26/23 06:29 16:58 17:12 POC Glucose (mg/dL) 193 H 354 H 376 H Assessment and Plan Assessment: Impression: Cervical spondylosis with myelopathy Cervical stenosis Cervical radiculopathy secondary to degenerative joint disease of the spine, patient had bilateral upper extremities radiculopathy Status post surgery/cervical arthrodesis on multiple levels as noted in orthopedics note postoperative day #0 Postoperative pain and hypertension Type 2 diabetes Dyslipidemia Family history of coronary artery disease Recommendation: Patient was seen and examined while in the recovery room, extubated, on 2 L nasal cannula Will transfer the patient to the ICU for close monitoring of the blood pressure Start patient on Cleviprex and titrate accordingly maintaining a mean arterial pressure of 80, and systolic pressure between 150-160. Resume home meds Pain medication as ordered by orthopedics on the case. Will continue to follow. Time with Patient: Greater than 30
--- NOTE | 2023-10-26 18:21 | P.CONS ---
History of Present Illness - Reason for Consult Consult date: 10/26/23 - Chief Complaint medical management - History of Present Illness 73-year-old male with medical history of hypertension, hyperlipidemia, diabetes type 2 presented for evaluation of elective back surgery, which included C3-7 anterior cervical discectomy and fusion. Medicine was consulted postoperatively for medical management of his comorbidities including diabetes, hypertension, hyperlipidemia. Patient has no new complaints at this time, is doing well postoperatively, is hemodynamically stable. There is not yet any labs or imaging to review from this hospitalization. Gen: In NAD, non-toxic HEENT: normocephalic, atraumatic, hearing acuity is intant, mucous membranes moist CVS: perfusing all extremities well, no pitting edema, Respiratory: symmetric chest expansion, no accessory muscle use, GI: soft, NTTP, ND, : no suprapubic tenderness, no CVA tenderness MSK/Derm: no rashes, cyanosis Assessment/plan: Diabetes type 2 with hyperglycemia -Patient is on oral diabetes medication as an outpatient, will initiate sliding scale insulin while in house -Add Levemir 10 units nightly -ACHS sugar checks -BMP, Mg ordered Hypertension -Patient is presently on a Cleviprex drip -ICU is following Hyperlipidemia -Resume home statin Status post cervical discectomy and fusion -Care per primary team -CBC ordered Patient is full code Past Medical History Past Medical History: Asthma, Diabetes Mellitus, Hyperlipidemia, Hypertension, Osteoarthritis (OA) Additional Past Medical History / Comment(s): neuropathy feet & legs, hx chest wall abscess (affected muscle/bone) hx Chronic back pain with repair, herniated disc., Hx hiatal hernia repair. Neck pain. seasonal asthma with exertion. History of Any Multi-Drug Resistant Organisms: None Reported Past Surgical History: Back Surgery, Hernia Repair, Orthopedic Surgery Additional Past Surgical History / Comment(s): Surgery on left elbow"nerve release", LT CTR, LT Hand "BONE SCRAPING", JENNIFER, I&D CHEST WALL ABCESS, PICC LINE INSERTED 01-01-16, REMOVED IN FEB 2016. ,I & D OF CHEST WAll ABSCESS 06/02/16 .,CARINA CATARACTS, EGD, PAIN CLINIC PROCEDURES. Hiatal hernia repair, back surgery 2021. Past Anesthesia/Blood Transfusion Reactions: No Reported Reaction Additional Past Anesthesia/Blood Transfusion Reaction / Comm: CLAUSTROPHOBIA WITH MRI Smoking Status: Former smoker - Past Family History Father Family Medical History: Cancer, Coronary Artery Disease (CAD) Additional Family Medical History / Comment(s): Bowel cancer. Mother Family Medical History: CVA/TIA, Diabetes Mellitus Brother(s) Family Medical History: Cancer Medications and Allergies Home Medications Medication Instructions Recorded Confirmed Type Atorvastatin [Lipitor] 40 mg PO HS 11/28/15 10/26/23 History Insulin Detemir [Levemir Flextouch 32 units SQ HS 10/01/16 10/26/23 History Pen] Gabapentin [Neurontin] 600 mg PO BID 09/07/20 10/26/23 History Cholecalciferol (Vitamin D3) 250 mcg PO DAILY 11/05/21 10/26/23 History [Vitamin D3 (125 MCG = 5,000 IU)] Multivit-Mins/Iron/Folic/Lycop 1 each PO DAILY 11/05/21 10/26/23 History [Centrum Men's Tablet] Areds(Unknown Med) 2 tab PO DAILY 03/19/23 10/26/23 History Fenofibrate Nanocrystallized 145 mg PO DAILY 04/30/23 10/26/23 History [Fenofibrate] Losartan [Cozaar] 100 mg PO DAILY 04/30/23 10/26/23 History amLODIPine [Norvasc] 5 mg PO HS 04/30/23 10/26/23 History Butalb/Acetaminophen/Caffeine 1 - 2 cap PO Q4HR PRN 10/20/23 10/26/23 History [Fioricet 50-300-40 mg Capsule] Dulaglutide [Trulicity] 1.5 mg SQ TU 10/20/23 10/26/23 History methocarbamoL 750 mg PO TID 10/20/23 10/26/23 History Allergies Allergy/AdvReac Type Severity Reaction Status Date / Time onion Allergy Anaphylaxis Verified 10/26/23 06:17 Physical Exam Osteopathic Statement: *. No significant issues noted on an osteopathic structural exam other than those noted in the History and Physical/Consult. Vitals: Vital Signs Temp Pulse Resp BP BP Pulse Ox 10/26/23 17:19 95 10/26/23 16:45 87 16 169/73 167/76 94 L 10/26/23 16:30 92 16 169/73 98 10/26/23 16:15 92 16 144/63 97 10/26/23 16:13 90 18 169/73 97 10/26/23 15:59 88 20 156/62 93 L 10/26/23 15:44 92 16 157/73 99 10/26/23 15:40 159/72 10/26/23 15:29 198/76 10/26/23 15:17 81 18 188/79 100 10/26/23 15:02 98.0 F 76 16 140/72 100 10/26/23 13:52 91 18 159/72 99 10/26/23 07:04 54 L 14 149/77 100 10/26/23 06:11 97.2 F L 62 16 227/92 97 Intake and Output 10/26/23 10/26/23 10/26/23 06:59 14:59 22:59 Intake Total 200 2852 500 Output Total 1250 220 Balance 200 1602 280 Intake: IV 200 2852 500 Output: Drainage 20 Anterior Neck 20 Urine 900 200 Estimated Blood Loss 350 Other: Weight 69.9 kg Results Labs: Abnormal Lab Results - Last 24 Hours (Table) 10/26/23 10/26/23 10/26/23 Range/Units 06:29 16:58 17:12 POC Glucose (mg/dL) 193 H 354 H 376 H (70-110) mg/dL
[2023-10-26] MEDS: ACETAMINOPHEN TAB 325 MG TAB PO SCH (18:34)
[2023-10-26 19:13] LABS: Basophils % (A) 0 %; Eosinophils # (A) 0.1 k/uL (0-0.7); Eosinophils % (A) 0 %; HCT 32.5 % (39.0-53.0); HGB 10.8 gm/dL (13.0-17.5); Hypochromasia Slight; Lymphocytes # (A) 0.8 k/uL (1.0-4.8); Lymphocytes % (A) 3 %; MCH 31.2 pg (25.0-35.0); MCHC 33.4 g/dL (31.0-37.0); MCV 93.3 fL (80.0-100.0); Mean Platelet Volume 8.3; Monocytes # (A) 0.9 k/uL (0-1.0); Monocytes % (A) 4 %; Neutrophils # (A) 20.6 k/uL (1.3-7.7); Neutrophils % (A) 92 %; Platelet Count 249 k/uL (150-450); RBC 3.48 m/uL (4.30-5.90); RDW 13.4 % (11.5-15.5); WBC 22.3 k/uL (3.8-10.6)
[2023-10-26 19:30] LABS: African American GFR (CKD) 60 (>60 ml/min/1.73 sqM); Anion Gap 13 mmol/L; Blood Urea Nitrogen 27 mg/dL (9-20); Calcium 8.7 mg/dL (8.4-10.2); Carbon Dioxide 15 mmol/L (22-30); Chloride 107 mmol/L (98-107); Glucose 393 mg/dL (74-99); Magnesium 1.3 mg/dL (1.6-2.3); Non-African American GFR(CKD) 52 (>60 ml/min/1.73 sqM); Potassium 4.9 mmol/L (3.5-5.1); Sodium 135 mmol/L (137-145)
[2023-10-26] MEDS: MAGNESIUM SULFATE-D5W PMX 1 GM in DEXTROSE/WATER 1 100ML.BAG IVPB SCH (19:46)
[2023-10-26 20:16] LABS: Glucose,Whole Blood 436 mg/dL (70-110)
[2023-10-26] MEDS: GABAPENTIN 300 MG CAP PO SCH (20:20)
[2023-10-26] MEDS: INSULIN DETEMIR (LEVEMIR) 100 UNIT/ML SYR SQ SCH (20:21)
[2023-10-26] MEDS: INSULIN ASPART (NovoLOG) 100 UNIT/ML VIAL SQ SCH (20:22)
[2023-10-27] MEDS: METOCLOPRAMIDE 5 MG/ML 2 ML VIAL IVP STA (01:14)
[2023-10-27] MEDS: HYDROcodone/APAP 10-325MG 1 EACH TAB PO PRN (03:06)
[2023-10-27] MEDS: HYDROmorphone 0.5 MG/0.5 ML SYRINGE IVP PRN (04:38)
[2023-10-27 06:22] LABS: Glucose,Whole Blood 351 mg/dL (70-110)
[2023-10-27 07:03] LABS: Basophils % (A) 0 %; Eosinophils % (A) 0 %; HCT 31.2 % (39.0-53.0); HGB 10.3 gm/dL (13.0-17.5); Lymphocytes # (A) 0.6 k/uL (1.0-4.8); Lymphocytes % (A) 3 %; MCHC 32.9 g/dL (31.0-37.0); MCV 91.4 fL (80.0-100.0); Mean Platelet Volume 8.7; Monocytes % (A) 5 %; Neutrophils # (A) 17.4 k/uL (1.3-7.7); Neutrophils % (A) 90 %; Platelet Count 235 k/uL (150-450); RBC 3.42 m/uL (4.30-5.90); RDW 13.7 % (11.5-15.5); WBC 19.3 k/uL (3.8-10.6)
[2023-10-27 07:16] LABS: African American GFR (CKD) 45 (>60 ml/min/1.73 sqM); Anion Gap 8 mmol/L; Blood Urea Nitrogen 33 mg/dL (9-20); Calcium 8.6 mg/dL (8.4-10.2); Carbon Dioxide 21 mmol/L (22-30); Chloride 105 mmol/L (98-107); Glucose 342 mg/dL (74-99); Magnesium 2.9 mg/dL (1.6-2.3); Non-African American GFR(CKD) 39 (>60 ml/min/1.73 sqM); Potassium 4.9 mmol/L (3.5-5.1); Sodium 134 mmol/L (137-145)
[2023-10-27] MEDS ORDERED: HYDROcodone/APAP 10-325MG 1 EACH TAB PO SCH (07:45)
--- NOTE | 2023-10-27 08:24 | P.PN ---
Subjective Progress Note Date: 10/27/23 Principal diagnosis: 1. 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 Bilateral upper extremity radiculopathy 3. Headaches 4. Cervicalgia 5. Possible fibromyalgia Patient seen and examined this morning in ICU. Patient is resting in bed with hard cervical collar present. He does report significant amount of cervical pain. Medications have been reviewed and adjusted. surgical incisions to the anterior and posterior cervical spine, dressings are clean dry and intact with DEJA drain present to the anterior cervical spine and Hemovac present at the posterior cervical spine. Drains will remain at this time, continue to monitor output every shift. Patient does report improvement of his bilateral upper extremity radiculopathy since the procedure. Informed patient that once pain is controlled physical therapy will begin to work with him today. Encourage patient to utilize ice packs behind bilateral shoulders to assist with pain. Patient denies any difficulty with swallowing, although he states he has not had anything to eat yet since the procedure. Brito catheter is patent, this may be discontinued once patient is up and about. Continue to encourage patient to use incentive spirometer 10x/HR while awake. Patient denies any fever/chills, shortness of breath or chest pain. Objective - Vital Signs Vital signs: Vital Signs Temp 97.7 F 10/27/23 04:00 Pulse 80 10/27/23 07:00 Resp 8 L 10/27/23 07:00 BP 167/75 10/27/23 07:00 Pulse Ox 98 10/27/23 07:00 FiO2 Intake & Output 10/26/23 10/27/23 10/27/23 18:59 06:59 18:59 Intake Total 3422 631.699 20 Output Total 1545 625 30 Balance 1877 6.699 -10 Weight 66 kg Intake: IV 3352 620 20 Lactated Ringers 1,000 ml 220 20 @ 20 mls/hr IV .Q24H [facility] Rx#:[id number] Magnesium Sulfate-D5w Pmx 400 1 gm In Dextrose/Water 1 100ml.bag @ 100 mls/hr IVPB Q1H [facility] Rx#: [id number] Intake, IV Titration 70 11.699 Amount Clevidipine Butyrate 25 11.699 mg In Empty Bag 1 bag @ 1 MG/HR 2 mls/hr IV .Q24H [facility] Rx#:[id number] Lactated Ringers 1,000 ml 20 @ 20 mls/hr IV .Q24H [facility] Rx#:[id number] ceFAZolin 2 gm In Sodium 50 Chloride 0.9% 50 ml @ 100 mls/hr IVPB Q8HR [facility] Rx# :[id number] Output: Drainage 55 50 Anterior Neck 20 20 Posterior Neck 35 30 Urine 1140 575 30 Estimated Blood Loss 350 Other: Voiding Method Indwelling Catheter # Emeses 1 ABP, PAP, CO, CI - Last Documented Arterial Blood Pressure 135/44 - Exam Physical Examination General: The patient is awake and alert, in no acute distress Skin: Skin is warm and dry with no obvious rashes or lesions. Surgical incision to the anterior cervical spine, dressing is clean dry and intact with DEJA drain present and patent. Surgical incision to the posterior cervical spine, dressing is clean dry and intact with Hemovac drain present and patent. Eye: Pupils are equal, round and reactive to light, extra-ocular movements are intact; there is normal conjunctiva bilaterally. Neck: The neck is moderate tenderness around incision sites, range of motion is restricted due to surgical procedure and placement of hard cervical collar. Gastrointestinal: Soft, non-distended, non-tender abdomen. Back: There is no tenderness to palpation in the midline, paralumbar, parathoracic or buttocks region. There is no obvious deformity . Musculoskeletal: ROM limited secondary to pain and stiffness from surgical procedure. Muscle strength in all major muscle groups of bilateral upper extremities 4/5, bilateral lower extremities 5/5. Neurological: CN 2-12 intact. There are no obvious motor or sensory deficits. Movement and coordination equal and intact. Sensory exam to light touch intact C5-T1 and intact from L2-S1. Reflexes 2/4 in bilateral upper and lower extremities. Negative Hoffmans, babinski, and clonus signs. Psychiatric: Cooperative, appropriate mood & affect, normal judgment. - Labs CBC & Chem 7: 10/27/23 06:40 10/27/23 06:40 Labs: Abnormal Lab Results - Last 24 Hours (Table) 10/26/23 10/26/23 10/26/23 Range/Units 16:58 17:12 18:37 WBC 22.3 H (3.8-10.6) k/uL RBC 3.48 L (4.30-5.90) m/uL Hgb 10.8 L (13.0-17.5) gm/dL Hct 32.5 L (39.0-53.0) % Neutrophils # 20.6 H (1.3-7.7) k/uL Lymphocytes # 0.8 L (1.0-4.8) k/uL Sodium (137-145) mmol/L Carbon Dioxide (22-30) mmol/L BUN (9-20) mg/dL Creatinine (0.66-1.25) mg/dL Glucose (74-99) mg/dL POC Glucose (mg/dL) 354 H 376 H (70-110) mg/dL Magnesium (1.6-2.3) mg/dL 10/26/23 10/26/23 10/27/23 Range/Units 18:37 20:15 06:21 WBC (3.8-10.6) k/uL RBC (4.30-5.90) m/uL Hgb (13.0-17.5) gm/dL Hct (39.0-53.0) % Neutrophils # (1.3-7.7) k/uL Lymphocytes # (1.0-4.8) k/uL Sodium 135 L (137-145) mmol/L Carbon Dioxide 15 L (22-30) mmol/L BUN 27 H (9-20) mg/dL Creatinine 1.37 H (0.66-1.25) mg/dL Glucose 393 H (74-99) mg/dL POC Glucose (mg/dL) 436 H 351 H (70-110) mg/dL Magnesium 1.3 L (1.6-2.3) mg/dL 10/27/23 10/27/23 Range/Units 06:40 06:40 WBC 19.3 H (3.8-10.6) k/uL RBC 3.42 L (4.30-5.90) m/uL Hgb 10.3 L (13.0-17.5) gm/dL Hct 31.2 L (39.0-53.0) % Neutrophils # 17.4 H (1.3-7.7) k/uL Lymphocytes # 0.6 L (1.0-4.8) k/uL Sodium 134 L (137-145) mmol/L Carbon Dioxide 21 L (22-30) mmol/L BUN 33 H (9-20) mg/dL Creatinine 1.72 H (0.66-1.25) mg/dL Glucose 342 H (74-99) mg/dL POC Glucose (mg/dL) (70-110) mg/dL Magnesium 2.9 H (1.6-2.3) mg/dL Assessment and Plan Assessment: Postop day 1:Stage I: C3-7 Anterior cervical discectomy and fusion and Stage II: C2-T2 posterior decompression and fusion Plan: -Appreciate reimbursement consultant and team management. -Activity: Ambulate QID, OOB all meals, up and about, limit lifting bending twisting to less than 5 lbs. Use walker or cane if needed for stability. -Daily PT/OT, increase ambulation strength and balance. -Hard cervical collar on at all times, may remove for showers. -Pain control: Medications have been adjusted -Meds: reviewed -GI ppx: senna, Miralax -DC brito when up and about, bedside commode if needed -DVT PPX: Heparin, SCDs -Hygiene: Maintain dressing clean and dry. -Drains: Anterior DEJA drain, Posterior Hemovac; Maintain for now. Continue to monitor and record output q shift. -Encourage IS 10x/hr -Dispo: Clinically pending *I reviewed and discussed this case with my attending Dr. David, whom has reviewed this chart and films and is in agreement with assessment and plan of care as outlined above. I have personally seen and examined the patient, performed the documentation and the assessment and plan as written. Number of minutes spent on the visit: 20m.
--- NOTE | 2023-10-27 08:27 | CT ---
EXAMINATION TYPE: CT cervical spine wo con DATE OF EXAM: 10/27/2023 COMPARISON: 08/07/2023 HISTORY: s/p C3-C7 ACDF and C2-T2 post cervical decomp fusi CT DLP: 431.9 mGycm CONTRAST: None CT of the cervical spine is performed in the axial plane at 2 mm thick sections. Reconstructed image s in the coronal, and sagittal plane are reviewed on the computer. No acute fractures are evident. Acute postsurgical changes are present with subcutaneous air in the p araspinal regions. Note is made of a pedicle screw with the tip partially within the left vertebral artery foramen. [facility] le image series 201 image is 45-46. This may also be at the inferior portion of the vertebral artery foramen on the right, image 201 image 45. Vertebral body alignment is normal. Disc spacers in place C3-4 through C6-7. Laminectomies appear to be present at C3-C7. Pedicle screws and fixation rods evident Vertebral body heights are preserved. No spinal canal stenosis is evident Mild foraminal narrowing is present at C7-T1, C6-7. Moderate to severe right foraminal narrowing pres ent at C5-6. Mild narrowing of foramina seen 4 5 present. More moderate narrowing bilateral foramina is seen at C3-4 is present IMPRESSION: 1. Postsurgical changes from cervical decompression fixation. 2. There may be some partial encroachment of the vertebral artery foramen at C2.
[2023-10-27] MEDS: HYDROcodone/APAP 10-325MG 1 EACH TAB PO SCH (09:34)
[2023-10-27] MEDS: SENNOSIDES-DOCUSATE SODIUM 1 EACH TAB PO SCH (09:34)
[2023-10-27] MEDS: CYCLOBENZAPRINE 5 MG TAB PO SCH (09:34)
[2023-10-27] MEDS: INSULIN DETEMIR (LEVEMIR) 100 UNIT/ML SYR SQ STA (09:35)
[2023-10-27 09:40] LABS: Glucose,Whole Blood 267 mg/dL (70-110)
--- NOTE | 2023-10-27 10:12 | P.PN ---
Subjective Progress Note Date: 10/27/23 Pt c/o nausea and neck pain today. He does deny weakness/numbness in his extremities. Gen: In NAD, non-toxic HEENT: normocephalic, atraumatic, hearing acuity is intant, mucous membranes moist CVS: perfusing all extremities well, no pitting edema, Respiratory: symmetric chest expansion, no accessory muscle use, GI: soft, NTTP, ND, : no suprapubic tenderness, no CVA tenderness MSK/Derm: no rashes, cyanosis Hospital Course: 73-year-old male with medical history of hypertension, hyperlipidemia, diabetes type 2 presented for evaluation of elective back surgery, which included C3-7 anterior cervical discectomy and fusion. Medicine was consulted postoperatively for medical management of his comorbidities including diabetes, hypertension, hyperlipidemia. Patient has no new complaints at this time, is doing well postoperatively, is hemodynamically stable. Assessment/plan: Diabetes type 2 with hyperglycemia -Patient is on oral diabetes medication as an outpatient, will initiate sliding scale insulin while in house -Continue Levemir 10 units nightly, added levemir 10U daily -ACHS sugar checks -BMP, Mg ordered Acute Kidney Injury -repeat BMP, Mg -started NS @ 100cc/hr Hypertension -Patient is presently on a Cleviprex drip -ICU is following Hyperlipidemia -Resume home statin Status post cervical discectomy and fusion -Care per primary team -CBC ordered Patient is full code Objective - Vital Signs Vital signs: Vital Signs Temp 98.3 F 10/27/23 08:00 Pulse 80 10/27/23 09:30 Resp 14 10/27/23 09:30 BP 155/66 10/27/23 09:00 Pulse Ox 96 10/27/23 09:30 FiO2 Intake & Output 10/26/23 10/27/23 10/27/23 18:59 06:59 18:59 Intake Total 3422 631.699 20 Output Total 1545 625 30 Balance 1877 6.699 -10 Weight 66 kg Intake: IV 3352 620 20 Lactated Ringers 1,000 ml 220 20 @ 20 mls/hr IV .Q24H [facility] Rx#:[id number] Magnesium Sulfate-D5w Pmx 400 1 gm In Dextrose/Water 1 100ml.bag @ 100 mls/hr IVPB Q1H [facility] Rx#: [id number] Intake, IV Titration 70 11.699 Amount Clevidipine Butyrate 25 11.699 mg In Empty Bag 1 bag @ 1 MG/HR 2 mls/hr IV .Q24H [facility] Rx#:[id number] Lactated Ringers 1,000 ml 20 @ 20 mls/hr IV .Q24H [facility] Rx#:[id number] ceFAZolin 2 gm In Sodium 50 Chloride 0.9% 50 ml @ 100 mls/hr IVPB Q8HR [facility] Rx# :[id number] Output: Drainage 55 50 Anterior Neck 20 20 Posterior Neck 35 30 Urine 1140 575 30 Estimated Blood Loss 350 Other: Voiding Method Indwelling Catheter # Emeses 1 ABP, PAP, CO, CI - Last Documented Arterial Blood Pressure 152/48 - Labs CBC & Chem 7: 10/27/23 06:40 10/27/23 06:40 Labs: Abnormal Lab Results - Last 24 Hours (Table) 10/26/23 10/26/23 10/26/23 Range/Units 16:58 17:12 18:37 WBC 22.3 H (3.8-10.6) k/uL RBC 3.48 L (4.30-5.90) m/uL Hgb 10.8 L (13.0-17.5) gm/dL Hct 32.5 L (39.0-53.0) % Neutrophils # 20.6 H (1.3-7.7) k/uL Lymphocytes # 0.8 L (1.0-4.8) k/uL Sodium (137-145) mmol/L Carbon Dioxide (22-30) mmol/L BUN (9-20) mg/dL Creatinine (0.66-1.25) mg/dL Glucose (74-99) mg/dL POC Glucose (mg/dL) 354 H 376 H (70-110) mg/dL Magnesium (1.6-2.3) mg/dL 10/26/23 10/26/23 10/27/23 Range/Units 18:37 20:15 06:21 WBC (3.8-10.6) k/uL RBC (4.30-5.90) m/uL Hgb (13.0-17.5) gm/dL Hct (39.0-53.0) % Neutrophils # (1.3-7.7) k/uL Lymphocytes # (1.0-4.8) k/uL Sodium 135 L (137-145) mmol/L Carbon Dioxide 15 L (22-30) mmol/L BUN 27 H (9-20) mg/dL Creatinine 1.37 H (0.66-1.25) mg/dL Glucose 393 H (74-99) mg/dL POC Glucose (mg/dL) 436 H 351 H (70-110) mg/dL Magnesium 1.3 L (1.6-2.3) mg/dL 10/27/23 10/27/23 10/27/23 Range/Units 06:40 06:40 09:38 WBC 19.3 H (3.8-10.6) k/uL RBC 3.42 L (4.30-5.90) m/uL Hgb 10.3 L (13.0-17.5) gm/dL Hct 31.2 L (39.0-53.0) % Neutrophils # 17.4 H (1.3-7.7) k/uL Lymphocytes # 0.6 L (1.0-4.8) k/uL Sodium 134 L (137-145) mmol/L Carbon Dioxide 21 L (22-30) mmol/L BUN 33 H (9-20) mg/dL Creatinine 1.72 H (0.66-1.25) mg/dL Glucose 342 H (74-99) mg/dL POC Glucose (mg/dL) 267 H (70-110) mg/dL Magnesium 2.9 H (1.6-2.3) mg/dL
[2023-10-27 12:43] LABS: Glucose,Whole Blood 225 mg/dL (70-110)
[2023-10-27] MEDS: methocarbamoL 750 MG TAB PO SCH (12:43)
[2023-10-27] MEDS: SODIUM CHLORIDE 0.9% 1,000 ML IV SCH (12:50)
--- NOTE | 2023-10-27 13:33 | P.PN ---
Subjective Progress Note Date: 10/27/23 Principal diagnosis: Status post anterior cervical discectomy, and fusion, postoperative day #1 This is a 73-year-old white male with history of cervical spondylosis with myelopathy and cervical stenosis, patient had chronic neck pain and cervical radiculopathy due to degenerative joint disc disease of the spine. Today the patient underwent anterior cervical arthrodesis at multiple levels, patient also had C2-T2 posterolateral instrumented fusion and decompressive laminectomy. Postoperatively, patient had significantly elevated blood pressure, and I was asked to see the patient in consultation for admission to the ICU and close monitoring of the blood pressure. I saw the patient in the recovery room, extubated, not in distress, however his blood pressure was noted to be in the 180 systolic range, and I recommended starting the patient on Cleviprex and titrate the systolic blood pressure to 150 to 160 range the meantime patient will be given medications for his postsurgical pain. And that seems to help blood pressure the most Patient was evaluated today on 10/27/2023, patient remains in the ICU, on 2 L nasal cannula, does not seem to be in distress, blood pressure remains elevated, remains on Cleviprex at 2 mg/h. Patient has mostly post surgical pain, being addressed by orthopedic surgery, receiving pain meds to control his cervical pain. Which is expected. Pulmonary melgar the patient is not in any distress, no cough no wheezing no shortness of breath.Labs however today showed worsening renal profile creatinine jumped up to 1.72 blood sugar is 342, hence the patient will receive more fluids in the form of 0.9 normal saline and will continue to monitor his renal profile Objective - Vital Signs Vital signs: Vital Signs Temp 98.0 F 10/27/23 12:00 Pulse 90 10/27/23 13:00 Resp 10 L 10/27/23 13:00 BP 164/80 10/27/23 13:00 Pulse Ox 97 10/27/23 13:00 FiO2 Intake & Output 10/26/23 10/27/23 10/27/23 18:59 06:59 18:59 Intake Total 3422 631.699 505.4 Output Total 1545 625 300 Balance 1877 6.699 205.4 Weight 66 kg Intake: IV 3352 620 380 Lactated Ringers 1,000 ml 220 80 @ 20 mls/hr IV .Q24H [facility] Rx#:[id number] Magnesium Sulfate-D5w Pmx 400 1 gm In Dextrose/Water 1 100ml.bag @ 100 mls/hr IVPB Q1H [facility] Rx#: [id number] Sodium Chloride 0.9% 1, 300 000 ml @ 100 mls/hr IV . Q10H [facility] Rx#:[id number] Intake, IV Titration 70 11.699 25.4 Amount Clevidipine Butyrate 25 11.699 25.4 mg In Empty Bag 1 bag @ 1 MG/HR 2 mls/hr IV .Q24H [facility] Rx#:[id number] Lactated Ringers 1,000 ml 20 @ 20 mls/hr IV .Q24H [facility] Rx#:[id number] ceFAZolin 2 gm In Sodium 50 Chloride 0.9% 50 ml @ 100 mls/hr IVPB Q8HR [facility] Rx# :[id number] Oral 100 Output: Drainage 55 50 Anterior Neck 20 20 Posterior Neck 35 30 Urine 1140 575 300 Estimated Blood Loss 350 Other: Voiding Method Indwelling Catheter Indwelling Catheter # Emeses 1 ABP, PAP, CO, CI - Last Documented Arterial Blood Pressure 162/69 - Exam General: The patient is awake and alert, in no distress, and does not appear acutely ill. Skin: Skin is warm and dry and no rashes or lesions are noted. Eye: Pupils are equal, round and reactive to light, extra-ocular movements are intact; there is normal conjunctiva bilaterally. Ears, nose, mouth and throat: There are moist mucous membranes and no oral lesions. Neck: C-collar noted in place Cardiovascular: There is a regular rate and rhythm. No murmur, rub or gallop is appreciated. Respiratory: Clear bilaterally no crackles rhonchi or wheezes Gastrointestinal: Soft, non-distended, non-tender abdomen without masses or organomegaly noted. There is no rebound or guarding present. Bowel sounds are unremarkable. Back: There is no tenderness to palpation in the midline. There is no obvious deformity. Musculoskeletal: Normal ROM, no tenderness, There is no pedal edema. There is no calf tenderness or swelling. No cords were appreciated. Neurological: CN II-XII intact, Cranial nerves III through XII are intact. There are no obvious motor or sensory deficits. Coordination appears grossly intact. Speech is normal. Psychiatric: Cooperative, appropriate mood & affect, normal judgment. - Labs CBC & Chem 7: 07/09/24 06:40 10/27/23 06:40 Labs: Abnormal Lab Results - Last 24 Hours (Table) 10/26/23 10/26/23 10/26/23 Range/Units 16:58 17:12 18:37 WBC 22.3 H (3.8-10.6) k/uL RBC 3.48 L (4.30-5.90) m/uL Hgb 10.8 L (13.0-17.5) gm/dL Hct 32.5 L (39.0-53.0) % Neutrophils # 20.6 H (1.3-7.7) k/uL Lymphocytes # 0.8 L (1.0-4.8) k/uL Sodium (137-145) mmol/L Carbon Dioxide (22-30) mmol/L BUN (9-20) mg/dL Creatinine (0.66-1.25) mg/dL Glucose (74-99) mg/dL POC Glucose (mg/dL) 354 H 376 H (70-110) mg/dL Magnesium (1.6-2.3) mg/dL 10/26/23 10/26/23 10/27/23 Range/Units 18:37 20:15 06:21 WBC (3.8-10.6) k/uL RBC (4.30-5.90) m/uL Hgb (13.0-17.5) gm/dL Hct (39.0-53.0) % Neutrophils # (1.3-7.7) k/uL Lymphocytes # (1.0-4.8) k/uL Sodium 135 L (137-145) mmol/L Carbon Dioxide 15 L (22-30) mmol/L BUN 27 H (9-20) mg/dL Creatinine 1.37 H (0.66-1.25) mg/dL Glucose 393 H (74-99) mg/dL POC Glucose (mg/dL) 436 H 351 H (70-110) mg/dL Magnesium 1.3 L (1.6-2.3) mg/dL 10/27/23 10/27/23 10/27/23 Range/Units 06:40 06:40 09:38 WBC 19.3 H (3.8-10.6) k/uL RBC 3.42 L (4.30-5.90) m/uL Hgb 10.3 L (13.0-17.5) gm/dL Hct 31.2 L (39.0-53.0) % Neutrophils # 17.4 H (1.3-7.7) k/uL Lymphocytes # 0.6 L (1.0-4.8) k/uL Sodium 134 L (137-145) mmol/L Carbon Dioxide 21 L (22-30) mmol/L BUN 33 H (9-20) mg/dL Creatinine 1.72 H (0.66-1.25) mg/dL Glucose 342 H (74-99) mg/dL POC Glucose (mg/dL) 267 H (70-110) mg/dL Magnesium 2.9 H (1.6-2.3) mg/dL 10/27/23 Range/Units 12:41 WBC (3.8-10.6) k/uL RBC (4.30-5.90) m/uL Hgb (13.0-17.5) gm/dL Hct (39.0-53.0) % Neutrophils # (1.3-7.7) k/uL Lymphocytes # (1.0-4.8) k/uL Sodium (137-145) mmol/L Carbon Dioxide (22-30) mmol/L BUN (9-20) mg/dL Creatinine (0.66-1.25) mg/dL Glucose (74-99) mg/dL POC Glucose (mg/dL) 225 H (70-110) mg/dL Magnesium (1.6-2.3) mg/dL Assessment and Plan Assessment: Impression: Cervical spondylosis with myelopathy Cervical stenosis Cervical radiculopathy secondary to degenerative joint disease of the spine, patient had bilateral upper extremities radiculopathy Status post surgery/cervical arthrodesis on multiple levels as noted in orthopedics note postoperative day #1 Postoperative pain and hypertension Type 2 diabetes Dyslipidemia Family history of coronary artery disease History of benign essential hypertension Acute kidney injury with significant rise in creatinine over the last 24 hours, I believe this is mostly a picture of hypovolemia and the patient should improve with fluids Recommendation: Increase IV fluid to 100 cc/h Continue Cleviprex and eventually transition to oral meds once the patient has no further episodes of nausea and vomiting is receiving Zofran for intermittent episodes of nausea and vomiting today. Continue to monitor in the ICU close monitoring of the blood pressure Titrate Cleviprex accordingly Resume home meds close monitoring of renal status and renal profile Pain medication as ordered by orthopedics on the case. Continue insulin as per sliding scale and continue Levemir insulin for his elevated blood sugar Will continue to follow. Time with Patient: Less than 30
[2023-10-27 17:13] LABS: Glucose,Whole Blood 192 mg/dL (70-110)
[2023-10-27] MEDS: KETOROLAC 15 MG/ML 1 ML VIAL IVP SCH (17:15)
[2023-10-27] MEDS: ACETAMINOPHEN IV (For NPO) 1,000 MG in EMPTY BAG 1 BAG IVPB SCH (18:46)
[2023-10-27] MEDS: HEPARIN SODIUM,PORCINE 5,000 UNIT/ML 1 ML VIAL SQ SCH (20:00)
[2023-10-27] MEDS: polyethylene glycoL 3350 17 GM POWD.PACK PO SCH (20:00)
[2023-10-27] MEDS: GABAPENTIN 300 MG CAP PO SCH (21:12)
[2023-10-27] MEDS: CYCLOBENZAPRINE 5 MG TAB PO PRN (22:27)
[2023-10-27] MEDS: amLODIPine 5 MG TAB PO SCH (23:21)
[2023-10-28 05:23] LABS: African American GFR (CKD) 68 (>60 ml/min/1.73 sqM); Anion Gap 3 mmol/L; Blood Urea Nitrogen 20 mg/dL (9-20); Calcium 8.1 mg/dL (8.4-10.2); Carbon Dioxide 24 mmol/L (22-30); Chloride 110 mmol/L (98-107); Glucose 155 mg/dL (74-99); Magnesium 2.4 mg/dL (1.6-2.3); Non-African American GFR(CKD) 59 (>60 ml/min/1.73 sqM); Potassium 4.4 mmol/L (3.5-5.1); Sodium 137 mmol/L (137-145)
[2023-10-28 05:31] LABS: Basophils % (A) 0 %; Eosinophils % (A) 0 %; HCT 29.6 % (39.0-53.0); HGB 9.7 gm/dL (13.0-17.5); Lymphocytes # (A) 0.8 k/uL (1.0-4.8); Lymphocytes % (A) 6 %; MCH 30.3 pg (25.0-35.0); MCHC 32.8 g/dL (31.0-37.0); MCV 92.3 fL (80.0-100.0); Mean Platelet Volume 7.7; Monocytes # (A) 0.7 k/uL (0-1.0); Monocytes % (A) 5 %; Neutrophils # (A) 12.5 k/uL (1.3-7.7); Neutrophils % (A) 88 %; Platelet Count 167 k/uL (150-450); RDW 13.5 % (11.5-15.5); WBC 14.2 k/uL (3.8-10.6)
[2023-10-28 06:43] LABS: Glucose,Whole Blood 180 mg/dL (70-110)
[2023-10-28] MEDS: INSULIN DETEMIR (LEVEMIR) 100 UNIT/ML SYR SQ SCH ×2 (08:53→22:03)
[2023-10-28 08:54] LABS: Glucose,Whole Blood 193 mg/dL (70-110)
--- NOTE | 2023-10-28 09:07 | P.PN ---
Subjective Progress Note Date: 10/28/23 Pt c/o headache and pain today. BPs are elevated at 159/67. Denies n/v. Denies numbness/weakness. Gen: In NAD, non-toxic HEENT: normocephalic, atraumatic, hearing acuity is intant, mucous membranes carri st CVS: perfusing all extremities well, no pitting edema, Respiratory: symmetric chest expansion, no accessory muscle use, GI: soft, NTTP, ND, : no suprapubic tenderness, no CVA tenderness MSK/Derm: no rashes, cyanosis Hospital Course: 73-year-old male with medical history of hypertension, hyperlipidemia, diabetes type 2 presented for evaluation of elective back surgery, which included C3-7 anterior cervical discectomy and fusion. Medicine was consulted postoperatively for medical management of his comorbidities including diabetes, hypertension, hyperlipidemia. Patient has no new complaints at this time, is doing well postoperatively, is hemodynamically stable. Assessment/plan: Diabetes type 2 with hyperglycemia -Patient is on oral diabetes medication as an outpatient, will initiate sliding scale insulin while in house -Continue Levemir 10 units nightly, levemir 10U daily -ACHS sugar checks, blood sugars have been in the high 100s, low 200s, overall improved -BMP, Mg ordered Acute Kidney Injury -repeat BMP, Mg -started NS @ 100cc/hr Hypertension -Patient is presently on a Cleviprex drip -Resume home losartan 100 mg daily -Add hydralazine 25 mg 4 times daily as needed -ICU is following Hyperlipidemia -Resume home statin Status post cervical discectomy and fusion -Care per primary team -CBC ordered Patient is full code Objective - Vital Signs Vital signs: Vital Signs Temp 98.1 F 10/28/23 04:00 Pulse 89 10/28/23 07:00 Resp 12 10/28/23 07:00 BP 154/59 10/27/23 22:00 Pulse Ox 97 10/28/23 08:54 FiO2 Intake & Output 10/27/23 10/28/23 10/28/23 18:59 06:59 18:59 Intake Total 7745.824 6484.467 100 Output Total 950 1535 50 Balance 184.533 -121.533 50 Weight 67.5 kg Intake: IV 880 1200 100 Lactated Ringers 1,000 ml 80 @ 20 mls/hr IV .Q24H [facility] Rx#:[id number] Sodium Chloride 0.9% 1, 800 1200 100 000 ml @ 100 mls/hr IV . Q10H [facility] Rx#:[id number] Intake, IV Titration 54.533 95.467 Amount Clevidipine Butyrate 25 54.533 95.467 mg In Empty Bag 1 bag @ 1 MG/HR 2 mls/hr IV .Q24H [facility] Rx#:[id number] Oral 200 118 Output: Drainage 165 Anterior Neck 20 Posterior Neck 145 Urine 950 1370 50 Other: Voiding Method Indwelling Catheter Indwelling Catheter ABP, PAP, CO, CI - Last Documented Arterial Blood Pressure 166/164 - Labs CBC & Chem 7: 10/28/23 04:31 10/28/23 04:31 Labs: Abnormal Lab Results - Last 24 Hours (Table) 10/27/23 10/27/23 10/27/23 Range/Units 09:38 12:41 17:11 WBC (3.8-10.6) k/uL RBC (4.30-5.90) m/uL Hgb (13.0-17.5) gm/dL Hct (39.0-53.0) % Neutrophils # (1.3-7.7) k/uL Lymphocytes # (1.0-4.8) k/uL Chloride (98-107) mmol/L Glucose (74-99) mg/dL POC Glucose (mg/dL) 267 H 225 H 192 H (70-110) mg/dL Calcium (8.4-10.2) mg/dL Magnesium (1.6-2.3) mg/dL 10/28/23 10/28/23 10/28/23 Range/Units 04:31 04:31 06:41 WBC 14.2 H (3.8-10.6) k/uL RBC 3.20 L (4.30-5.90) m/uL Hgb 9.7 L (13.0-17.5) gm/dL Hct 29.6 L (39.0-53.0) % Neutrophils # 12.5 H (1.3-7.7) k/uL Lymphocytes # 0.8 L (1.0-4.8) k/uL Chloride 110 H (98-107) mmol/L Glucose 155 H (74-99) mg/dL POC Glucose (mg/dL) 180 H (70-110) mg/dL Calcium 8.1 L (8.4-10.2) mg/dL Magnesium 2.4 H (1.6-2.3) mg/dL 10/28/23 Range/Units 08:52 WBC (3.8-10.6) k/uL RBC (4.30-5.90) m/uL Hgb (13.0-17.5) gm/dL Hct (39.0-53.0) % Neutrophils # (1.3-7.7) k/uL Lymphocytes # (1.0-4.8) k/uL Chloride (98-107) mmol/L Glucose (74-99) mg/dL POC Glucose (mg/dL) 193 H (70-110) mg/dL Calcium (8.4-10.2) mg/dL Magnesium (1.6-2.3) mg/dL
[2023-10-28] MEDS: LOSARTAN 50 MG TAB PO SCH (09:55)
[2023-10-28] MEDS: LACTULOSE 20 GM/30 ML CUP PO SCH (10:04)
[2023-10-28] MEDS: amLODIPine 5 MG TAB PO SCH (10:04)
[2023-10-28] MEDS: METOPROLOL TARTRATE 25 MG TAB PO SCH (10:04)
--- NOTE | 2023-10-28 10:49 | P.PN ---
Subjective Progress Note Date: 10/28/23 Principal diagnosis: 1. 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 Bilateral upper extremity radiculopathy 3. Headaches 4. Cervicalgia 5. Possible fibromyalgia Patient seen and examined this morning. Patient is sitting upright in bed eating applesauce, tolerating well. Patient does report mild difficulty with swallowing. He continues to report pain of the anterior and posterior cervical spine. Medications were adjusted yesterday afternoon. Patient has not been up since procedure. Surgical incision to the anterior cervical spine, dressing is clean dry and intact with DEJA drain present. Surgical incision to the posterior cervical spine, dressing is clean dry and intact with Hemovac drain present. Patient continues to report improvement of his bilateral upper extremities since her procedure. Encourage patient to continue to work with physical therapy and attempt to sit at bedside today. Brito catheter is present and patent. This may be discontinued once patient is up and about. No acute concerns at this time. Objective - Vital Signs Vital signs: Vital Signs Temp 98.1 F 10/28/23 04:00 Pulse 89 10/28/23 07:00 Resp 12 10/28/23 07:00 BP 154/59 10/27/23 22:00 Pulse Ox 97 10/28/23 08:54 FiO2 Intake & Output 10/27/23 10/28/23 10/28/23 18:59 06:59 18:59 Intake Total 6136.892 4013.467 100 Output Total 950 1535 50 Balance 184.533 -121.533 50 Weight 67.5 kg Intake: IV 880 1200 100 Lactated Ringers 1,000 ml 80 @ 20 mls/hr IV .Q24H [facility] Rx#:[id number] Sodium Chloride 0.9% 1, 800 1200 100 000 ml @ 100 mls/hr IV . Q10H [facility] Rx#:[id number] Intake, IV Titration 54.533 95.467 Amount Clevidipine Butyrate 25 54.533 95.467 mg In Empty Bag 1 bag @ 1 MG/HR 2 mls/hr IV .Q24H [facility] Rx#:[id number] Oral 200 118 Output: Drainage 165 Anterior Neck 20 Posterior Neck 145 Urine 950 1370 50 Other: Voiding Method Indwelling Catheter Indwelling Catheter ABP, PAP, CO, CI - Last Documented Arterial Blood Pressure 166/164 - Exam Physical Examination General: The patient is awake and alert, in no acute distress Skin: Skin is warm and dry with no obvious rashes or lesions. Surgical incision to the anterior cervical spine, dressing is clean dry and intact with DEJA drain present and patent. Surgical incision to the posterior cervical spine, dressing is clean dry and intact with Hemovac drain present and patent. Eye: Pupils are equal, round and reactive to light, extra-ocular movements are intact; there is normal conjunctiva bilaterally. Neck: The neck is moderate tenderness around incision sites, range of motion is restricted due to surgical procedure and placement of hard cervical collar. Gastrointestinal: Soft, non-distended, non-tender abdomen. Back: There is no tenderness to palpation in the midline, paralumbar, parathoracic or buttocks region. There is no obvious deformity . Musculoskeletal: ROM limited secondary to pain and stiffness from surgical procedure. Muscle strength in all major muscle groups of bilateral upper extremities 4/5, bilateral lower extremities 5/5. Neurological: CN 2-12 intact. There are no obvious motor or sensory deficits. Movement and coordination equal and intact. Sensory exam to light touch intact C5-T1 and intact from L2-S1. Reflexes 2/4 in bilateral upper and lower extremities. Negative Hoffmans, babinski, and clonus signs. Psychiatric: Cooperative, appropriate mood & affect, normal judgment. - Labs CBC & Chem 7: 10/28/23 04:31 10/28/23 04:31 Labs: Abnormal Lab Results - Last 24 Hours (Table) 10/27/23 10/27/23 10/27/23 Range/Units 09:38 12:41 17:11 WBC (3.8-10.6) k/uL RBC (4.30-5.90) m/uL Hgb (13.0-17.5) gm/dL Hct (39.0-53.0) % Neutrophils # (1.3-7.7) k/uL Lymphocytes # (1.0-4.8) k/uL Chloride (98-107) mmol/L Glucose (74-99) mg/dL POC Glucose (mg/dL) 267 H 225 H 192 H (70-110) mg/dL Calcium (8.4-10.2) mg/dL Magnesium (1.6-2.3) mg/dL 10/28/23 10/28/23 10/28/23 Range/Units 04:31 04:31 06:41 WBC 14.2 H (3.8-10.6) k/uL RBC 3.20 L (4.30-5.90) m/uL Hgb 9.7 L (13.0-17.5) gm/dL Hct 29.6 L (39.0-53.0) % Neutrophils # 12.5 H (1.3-7.7) k/uL Lymphocytes # 0.8 L (1.0-4.8) k/uL Chloride 110 H (98-107) mmol/L Glucose 155 H (74-99) mg/dL POC Glucose (mg/dL) 180 H (70-110) mg/dL Calcium 8.1 L (8.4-10.2) mg/dL Magnesium 2.4 H (1.6-2.3) mg/dL 10/28/23 Range/Units 08:52 WBC (3.8-10.6) k/uL RBC (4.30-5.90) m/uL Hgb (13.0-17.5) gm/dL Hct (39.0-53.0) % Neutrophils # (1.3-7.7) k/uL Lymphocytes # (1.0-4.8) k/uL Chloride (98-107) mmol/L Glucose (74-99) mg/dL POC Glucose (mg/dL) 193 H (70-110) mg/dL Calcium (8.4-10.2) mg/dL Magnesium (1.6-2.3) mg/dL Assessment and Plan Assessment: Postop day 2:Stage I: C3-7 Anterior cervical discectomy and fusion and Stage II: C2-T2 posterior decompression and fusion Plan: -Appreciate vocational rehab consultant and team management. -Activity: Ambulate QID, OOB all meals, up and about, limit lifting bending twisting to less than 5 lbs. Use walker or cane if needed for stability. -Daily PT/OT, increase ambulation strength and balance. -Hard cervical collar on at all times, may remove for showers. -Pain control: Medications have been adjusted, continue with regimen at this time. -Meds: reviewed -GI ppx: senna, Miralax -DC brito when up and about, bedside commode if needed -DVT PPX: Heparin, SCDs -Hygiene: Maintain dressing clean and dry. -Drains: Anterior DEJA drain, Posterior Hemovac; Maintain for now. Continue to monitor and record output q shift. -Encourage IS 10x/hr -Dispo: Clinically pending *I reviewed and discussed this case with my attending Dr. David, whom has reviewed this chart and films and is in agreement with assessment and plan of care as outlined above. I have personally seen and examined the patient, performed the documentation and the assessment and plan as written. Number of minutes spent on the visit: 20m.
[2023-10-28 12:25] LABS: Glucose,Whole Blood 188 mg/dL (70-110)
--- NOTE | 2023-10-28 14:43 | P.PN ---
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 Today the patient underwent anterior cervical arthrodesis at multiple levels, patient also had C2-T2 posterolateral instrumented fusion and decompressive laminectomy. Postoperatively, patient had significantly elevated blood pressure, and I was asked to see the patient in consultation for admission to the ICU and close monitoring of the blood pressure. I saw the patient in the recovery room, extubated, not in distress, however his blood pressure was noted to be in the 180 systolic range, and I recommended starting the patient on Cleviprex and titrate the systolic blood pressure to 150 to 160 range the meantime patient will be given medications for his postsurgical pain. And that seems to help blood pressure the most Patient was evaluated today on 10/27/2023, patient remains in the ICU, on 2 L nasal cannula, does not seem to be in distress, blood pressure remains elevated, remains on Cleviprex at 2 mg/h. Patient has mostly post surgical pain, being addressed by orthopedic surgery, receiving pain meds to control his cervical pain. Which is expected. Pulmonary melgar the patient is not in any distress, no cough no wheezing no shortness of breath.Labs however today showed worsening renal profile creatinine jumped up to 1.72 blood sugar is 342, hence the patient will receive more fluids in the form of 0.9 normal saline and will continue to monitor his renal profile Patient was seen and examined today on 10/28/2023, patient seems to be doing better today compared to the last couple of days, patient seems to be better controlled. Nonetheless his blood pressure remains elevated, and we are recommending more oral medications for his blood pressure and hoping to discontinue Cleviprex. Patient is now on losartan 100 mg daily, amlodipine 5 mg twice daily, and added metoprolol 25 mg twice daily. He is presently on Cleviprex at 8 mg/h. WBC count is 14.2 hemoglobin 9.7 basic metabolic profile is normal renal profile showed a BUN of 20 creatinine 1.24, Improving with hydration compared to 1.7 to creatinine yesterday. Objective - Vital Signs Vital signs: Vital Signs Temp 98.2 F 10/28/23 08:00 Pulse 74 10/28/23 12:00 Resp 14 10/28/23 12:00 BP 141/76 10/28/23 12:00 Pulse Ox 93 L 10/28/23 12:00 FiO2 Intake & Output 10/27/23 10/28/23 10/28/23 18:59 06:59 18:59 Intake Total 9482.205 6406.467 1680 Output Total 950 1535 760 Balance 184.533 -121.533 920 Weight 67.5 kg Intake: IV 880 1200 480 ACETAMINOPHEN IV (For NPO 100 ) 1,000 mg In Empty Bag 1 bag @ 400 mls/hr IVPB Q6HR [facility] Rx#:[id number] Invasive Line 2 30 Invasive Line 3 30 Lactated Ringers 1,000 ml 80 @ 20 mls/hr IV .Q24H [facility] Rx#:[id number] Sodium Chloride 0.9% 1, 800 1200 320 000 ml @ 20 mls/hr IV . Q24H [facility] Rx#:[id number] Intake, IV Titration 54.533 95.467 Amount Clevidipine Butyrate 25 54.533 95.467 mg In Empty Bag 1 bag @ 1 MG/HR 2 mls/hr IV .Q24H [facility] Rx#:[id number] Oral 061 259 9873 Output: Drainage 165 60 Anterior Neck 20 0 Posterior Neck 145 60 Urine 950 1370 700 Other: Voiding Method Indwelling Catheter Indwelling Catheter Indwelling Catheter # Bowel Movements 0 ABP, PAP, CO, CI - Last Documented Arterial Blood Pressure 163/49 - Exam General: The patient is awake and alert, in no distress, and does not appear acutely ill. Skin: Skin is warm and dry and no rashes or lesions are noted. Eye: Pupils are equal, round and reactive to light, extra-ocular movements are intact; there is normal conjunctiva bilaterally. Ears, nose, mouth and throat: There are moist mucous membranes and no oral lesions. Neck: C-collar noted in place Cardiovascular: There is a regular rate and rhythm. No murmur, rub or gallop is appreciated. Respiratory: Clear bilaterally no crackles rhonchi or wheezes Gastrointestinal: Soft, non-distended, non-tender abdomen without masses or organomegaly noted. There is no rebound or guarding present. Bowel sounds are unremarkable. Musculoskeletal: Normal ROM, no tenderness, There is no pedal edema. There is no calf tenderness or swelling. No cords were appreciated. Neurological: CN II-XII intact, Cranial nerves III through XII are intact. There are no obvious motor or sensory deficits. Coordination appears grossly intact. Speech is normal. Psychiatric: Cooperative, appropriate mood & affect, normal judgment. - Labs CBC & Chem 7: 10/28/23 04:31 10/28/23 04:31 Labs: Abnormal Lab Results - Last 24 Hours (Table) 10/27/23 10/28/23 10/28/23 Range/Units 17:11 04:31 04:31 WBC 14.2 H (3.8-10.6) k/uL RBC 3.20 L (4.30-5.90) m/uL Hgb 9.7 L (13.0-17.5) gm/dL Hct 29.6 L (39.0-53.0) % Neutrophils # 12.5 H (1.3-7.7) k/uL Lymphocytes # 0.8 L (1.0-4.8) k/uL Chloride 110 H (98-107) mmol/L Glucose 155 H (74-99) mg/dL POC Glucose (mg/dL) 192 H (70-110) mg/dL Calcium 8.1 L (8.4-10.2) mg/dL Magnesium 2.4 H (1.6-2.3) mg/dL 10/28/23 10/28/23 10/28/23 Range/Units 06:41 08:52 12:24 WBC (3.8-10.6) k/uL RBC (4.30-5.90) m/uL Hgb (13.0-17.5) gm/dL Hct (39.0-53.0) % Neutrophils # (1.3-7.7) k/uL Lymphocytes # (1.0-4.8) k/uL Chloride (98-107) mmol/L Glucose (74-99) mg/dL POC Glucose (mg/dL) 180 H 193 H 188 H (70-110) mg/dL Calcium (8.4-10.2) mg/dL Magnesium (1.6-2.3) mg/dL Assessment and Plan Assessment: Impression: Cervical spondylosis with myelopathy Cervical stenosis Cervical radiculopathy secondary to degenerative joint disease of the spine, patient had bilateral upper extremities radiculopathy Status post surgery/cervical arthrodesis on multiple levels as noted in orthopedics note postoperative day #2 Postoperative pain and hypertension Type 2 diabetes Dyslipidemia Family history of coronary artery disease History of benign essential hypertension Acute kidney injury with significant rise in creatinine over the last 24 hours, I believe this is mostly a picture of hypovolemia and the patient should improve with fluids Recommendation: Continue IV fluids at 100 cc/h Continue Cleviprex, in the meantime add more blood pressure medications orally including losartan amlodipine and metoprolol Continue to monitor in the ICU close monitoring of the blood pressure close monitoring of renal status and renal profile Pain medication as ordered by orthopedics on the case. Continue insulin as per sliding scale and continue Levemir insulin for his elevated blood sugar Will follow Time with Patient: Less than 30
[2023-10-28 16:54] LABS: Glucose,Whole Blood 135 mg/dL (70-110)
[2023-10-28 20:07] LABS: Glucose,Whole Blood 161 mg/dL (70-110)
[2023-10-28] MEDS: ATORVASTATIN 40 MG TAB PO SCH (20:44)
[2023-10-28] MEDS ORDERED: GABAPENTIN 300 MG CAP PO SCH (21:00)
[2023-10-29 06:09] LABS: Glucose,Whole Blood 74 mg/dL (70-110)
[2023-10-29 06:32] LABS: Glucose,Whole Blood 95 mg/dL (70-110)
[2023-10-29] MEDS: FENOFIBRATE 160 MG TAB PO SCH (08:34)
[2023-10-29] MEDS: VIT A,C & E-LUTEIN-MINERALS 1 EACH TAB PO SCH (08:34)
[2023-10-29] MEDS: CHOLECALCIFEROL 125 MCG (5000 IU) TABLET PO SCH (08:34)
[2023-10-29] MEDS: MULTIVITAMINS, THERA 1 EACH TAB PO SCH (08:34)
[2023-10-29] MEDS: INSULIN DETEMIR (LEVEMIR) 100 UNIT/ML SYR SQ SCH (08:35)
--- NOTE | 2023-10-29 08:49 | P.PN ---
Subjective Progress Note Date: 10/29/23 Principal diagnosis: 1. 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 Bilateral upper extremity radiculopathy 3. Headaches 4. Cervicalgia 5. Possible fibromyalgia Patient has been transferred from ICU to . Patient seen and examined this morning. Patient is resting in bed. He reports that he just came back to his room from ambulating in the hallways. He reports that he is tolerating activity well. Surgical incision to the anterior cervical spine is well-approximated with glue intact, no active drainage. DEJA drain has been removed and new anant gical dressing applied. Surgical incision to the posterior cervical spine is well-approximated with sutures intact, no active drainage. Hemovac drain has been removed and new surgical dressing applied. [place] hard collar has been placed. Patient reports improvement in his bilateral upper extremities since the procedure. Patient states that he currently is waiting for his pain medication and has report of a headache. He finds relief when taking pressure off his neck. He denies any dizziness, blurred vision, or nausea. Patient states he is looking forward to working with PT and attempting to perform stairs. Objective - Vital Signs Vital signs: Vital Signs Temp 98.2 F 10/29/23 04:00 Pulse 71 10/29/23 04:00 Resp 18 10/29/23 04:00 BP 147/82 10/29/23 04:00 Pulse Ox 98 10/29/23 04:00 FiO2 Intake & Output 10/28/23 10/29/23 10/29/23 18:59 06:59 18:59 Intake Total 1680 40 Output Total 760 100 Balance 920 -60 Weight 73 kg Intake: IV 480 40 ACETAMINOPHEN IV (For NPO 100 ) 1,000 mg In Empty Bag 1 bag @ 400 mls/hr IVPB Q6HR MELISSA Rx#:[id number] Invasive Line 2 30 20 Invasive Line 3 30 20 Sodium Chloride 0.9% 1, 320 000 ml @ 20 mls/hr IV . Q24H MELISSA Rx#:[id number] Oral 1200 Output: Drainage 60 100 Anterior Neck 0 20 Posterior Neck 60 80 Urine 700 Other: Voiding Method Indwelling Catheter Toilet # Voids 1 # Bowel Movements 0 ABP, PAP, CO, CI - Last Documented Arterial Blood Pressure 163/49 - Exam Physical Examination General: The patient is awake and alert, in no acute distress Skin: Skin is warm and dry with no obvious rashes or lesions. Surgical incision to the anterior cervical spine, edges are well-approximated with glue intact with no active drainage. DEJA drain has been removed. Surgical incision to the posterior cervical spine, edges are well-approximated with sutures intact with no active drainage. Hemovac drain has been removed. New surgical dressin gs have been applied. Eye: Pupils are equal, round and reactive to light, extra-ocular movements are intact; there is normal conjunctiva bilaterally. Neck: The neck is moderate tenderness around incision sites, range of motion is restricted due to surgical procedure and placement of hard cervical collar. Gastrointestinal: Soft, non-distended, non-tender abdomen. Back: There is no tenderness to palpation in the midline, paralumbar, parathoracic or buttocks region. There is no obvious deformity . Musculoskeletal: ROM limited secondary to pain and stiffness from surgical procedure. Muscle strength in all major muscle groups of bilateral upper extremities 4/5, bilateral lower extremities 5/5. Neurological: CN 2-12 intact. There are no obvious motor or sensory deficits. Movement and coordination equal and intact. Sensory exam to light touch intact C5-T1 and intact from L2-S1. Reflexes 2/4 in bilateral upper and lower extremities. Negative Hoffmans, babinski, and clonus signs. Psychiatric: Cooperative, appropriate mood & affect, normal judgment. - Labs CBC & Chem 7: 10/28/23 04:31 10/28/23 04:31 Labs: Abnormal Lab Results - Last 24 Hours (Table) 10/28/23 10/28/23 10/28/23 Range/Units 08:52 12:24 16:51 POC Glucose (mg/dL) 193 H 188 H 135 H (70-110) mg/dL 10/28/23 Range/Units 20:06 POC Glucose (mg/dL) 161 H (70-110) mg/dL Assessment and Plan Assessment: Postop day 3:Stage I: C3-7 Anterior cervical discectomy and fusion and Stage II: C2-T2 posterior decompression and fusion Plan: -Appreciate market research consultant and team management. -Activity: Ambulate QID, OOB all meals, up and about, limit lifting bending twisting to less than 5 lbs. Use walker or cane if needed for stability. -Daily PT/OT, increase ambulation strength and balance. -Hard cervical collar on at all times, may remove for showers. -Pain control: Medications have been adjusted, continue with regimen at this time. -Meds: reviewed -GI ppx: senna, Miralax -DVT PPX: Heparin, SCDs -Hygiene: Maintain dressing clean and dry. -Encourage IS 10x/hr -Dispo: Anticipate discharge home with home care in the next 24 hours *I reviewed and discussed this case with my attending Dr. David, whom has reviewed this chart and films and is in agreement with assessment and plan of care as outlined above. I have personally seen and examined the patient, performed the documentation and the assessment and plan as written. Number of minutes spent on the visit: 20m.
[2023-10-29] MEDS ORDERED: LOSARTAN 50 MG TAB PO SCH (09:00)
--- NOTE | 2023-10-29 09:54 | CDI ---
Documentation Clarification Form Date: 10/29/2023 08:54:51 AM From: Criss Roldan RN, CCDS Phone: [phone] Admit Date: 10/26/2023 05:36:00 AM Patient Name: Hemanth Kenyon Visit Number: [id number] Discharge Date: ATTENTION: The Clinical Documentation Specialists (CDI) and [facility] Coding Staff appreciate your assistance in clarifying documentation. Please respond to the clarification below the line at the bottom and electronically sign. The CDI & [facility] Coding staff will review the response and follow-up if needed. Please note: Queries are made part of the Legal Health Record. If you have any questions, please contact the author of this message via ITS. Dr. Latasha Rincon Postoperative pain and hypertension are documented in the pulmonary consult and ongoing progress notes starting on 10/26/23, and patient hadStage I: C3-7 Anterior cervical discectomy and fusion and Stage II: C2-T2 posterior decompression and fusion. Additional clarification is requested regarding the relationship, if any, that exists between the diagnosis and the procedure. Patients Admitting Diagnosis: C3-7 spondylosis with stenosis, bilateral upper extremity radiculopathy Post-Operative Diagnosis: Same Procedure performed: Stage I: C3-7 Anterior cervical discectomy and fusion and Stage II: C2-T2 posterior decompression and fusion History/Risk Factors: Asthma, Diabetes Mellitus, Hyperlipidemia, Hypertension, Osteoarthritis Clinical Indicators: 73-year-old male presenting for elective surgery related to C3-7 spondylosis with stenosis and myelopathy with chronic neck pain. He was taken to OR on 10/26/23. He has history of chronic pain and History of hypertension. Per documentation he had elevation in blood pressure noted to be in the 180 systolic and was started on Cleviprex with pain medication adjustment. 10/25 VS (19:30) 154/105 94 10, (20:00) 142/71 95 8 97.8 10/26 VS (04:00) 147/102 81 5, 98% 2/L (04:30) 148/80 90 13 Treatment: ICU/Telemetry monitoring Clevidipine drip (per orders) 10/25-10/27 Norvasc 5MG PO BID 10/27- Neurontin 600 MG PO TID 10/26-10/28 Dilaudid 0.5-1MG IVP Q 3 HRS PRN, Oxyir 5 MG PO Q6 HR Lopressor 25 MG PO BID 10/27- What relationship, if any, exists between the diagnosis of Postoperative pain and hypertension and the procedure? [ ] Postoperative pain and hypertension is a complication of surgical procedure [ x ] Postoperative pain and hypertension is an expected outcome of the surgical procedure [ ] Postoperative pain and hypertension is related to patients co-morbid condition(s) of [insert co-morbid dxs] & not a complication of the procedure [ ] Other please specify ____ [ ] Unable to determine (Template Last Revised: June 2020) MTDD
[2023-10-29 11:31] LABS: Glucose,Whole Blood 96 mg/dL (70-110)
--- NOTE | 2023-10-29 13:56 | P.PN ---
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 Today the patient underwent anterior cervical arthrodesis at multiple levels, patient also had C2-T2 posterolateral instrumented fusion and decompressive laminectomy. Postoperatively, patient had significantly elevated blood pressure, and I was asked to see the patient in consultation for admission to the ICU and close monitoring of the blood pressure. I saw the patient in the recovery room, extubated, not in distress, however his blood pressure was noted to be in the 180 systolic range, and I recommended starting the patient on Cleviprex and titrate the systolic blood pressure to 150 to 160 range the meantime patient will be given medications for his postsurgical pain. And that seems to help blood pressure the most Patient was evaluated today on 10/27/2023, patient remains in the ICU, on 2 L nasal cannula, does not seem to be in distress, blood pressure remains elevated, remains on Cleviprex at 2 mg/h. Patient has mostly post surgical pain, being addressed by orthopedic surgery, receiving pain meds to control his cervical pain. Which is expected. Pulmonary melgar the patient is not in any distress, no cough no wheezing no shortness of breath.Labs however today showed worsening renal profile creatinine jumped up to 1.72 blood sugar is 342, hence the patient will receive more fluids in the form of 0.9 normal saline and will continue to monitor his renal profile Patient was seen and examined today on 10/28/2023, patient seems to be doing better today compared to the last couple of days, patient seems to be better controlled. Nonetheless his blood pressure remains elevated, and we are recommending more oral medications for his blood pressure and hoping to discontinue Cleviprex. Patient is now on losartan 100 mg daily, amlodipine 5 mg twice daily, and added metoprolol 25 mg twice daily. He is presently on Cleviprex at 8 mg/h. WBC count is 14.2 hemoglobin 9.7 basic metabolic profile is normal renal profile showed a BUN of 20 creatinine 1.24, Improving with hydration compared to 1.7 to creatinine yesterday. Patient was seen and examined today on 10/29/2023, patient is now on the medical floor, doing well, blood pressure is under control, he is now on oral meds for blood pressure of Cleviprex. Hardly any pulmonary symptoms, patient is feeling better, pain is under control, and I believe he is being considered for dischar ge probably in the next 24 hours. Patient is on room air, O2 saturation 99 blood pressure is 155/80. Heart rate is 105 Objective - Vital Signs Vital signs: Vital Signs Temp 98.1 F 10/29/23 08:00 Pulse 70 10/29/23 11:29 Resp 18 10/29/23 11:29 BP 155/80 10/29/23 11:29 Pulse Ox 99 10/29/23 11:29 FiO2 Intake & Output 10/28/23 10/29/23 10/29/23 18:59 06:59 18:59 Intake Total 1680 40 240 Output Total 760 100 Balance 920 -60 240 Weight 73 kg Intake: IV 480 40 ACETAMINOPHEN IV (For NPO 100 ) 1,000 mg In Empty Bag 1 bag @ 400 mls/hr IVPB Q6HR MELISSA Rx#:[id number] Invasive Line 2 30 20 Invasive Line 3 30 20 Sodium Chloride 0.9% 1, 320 000 ml @ 20 mls/hr IV . Q24H MELISSA Rx#:[id number] Oral 1200 240 Output: Drainage 60 100 Anterior Neck 0 20 Posterior Neck 60 80 Urine 700 Other: Voiding Method Indwelling Catheter Toilet Toilet # Voids 1 2 # Bowel Movements 0 ABP, PAP, CO, CI - Last Documented Arterial Blood Pressure 163/49 - Exam General: The patient is awake and alert, in no distress Skin: Skin is warm and dry and no rashes or lesions are noted. Eye: Pupils are equal, round and reactive to light, extra-ocular movements are intact; there is normal conjunctiva bilaterally. Ears, nose, mouth and throat: There are moist mucous membranes and no oral lesions. Neck: C-collar noted in place Cardiovascular: There is a regular rate and rhythm. No murmur, rub or gallop is appreciated. Respiratory: Clear bilaterally no crackles rhonchi or wheezes Gastrointestinal: Soft, non-distended, non-tender abdomen without masses or organomegaly noted. There is no rebound or guarding present. Bowel sounds are unremarkable. Musculoskeletal: Normal ROM, no tenderness, There is no pedal edema. There is no calf tenderness or swelling. No cords were appreciated. Neurological: CN II-XII intact, Cranial nerves III through XII are intact. There are no obvious motor or sensory deficits. Coordination appears grossly intact. Speech is normal. Psychiatric: Cooperative, appropriate mood & affect, normal judgment. - Labs CBC & Chem 7: 10/28/23 04:31 10/28/23 04:31 Labs: Abnormal Lab Results - Last 24 Hours (Table) 10/28/23 10/28/23 Range/Units 16:51 20:06 POC Glucose (mg/dL) 135 H 161 H (70-110) mg/dL Assessment and Plan Assessment: Impression: Cervical spondylosis with myelopathy Cervical stenosis Cervical radiculopathy secondary to degenerative joint disease of the spine, patient had bilateral upper extremities radiculopathy Status post surgery/cervical arthrodesis on multiple levels as noted in orthopedics note postoperative day #3 Postoperative pain and hypertension, expected still discussed of surgery. Type 2 diabetes Dyslipidemia Family history of coronary artery disease History of benign essential hypertension Acute kidney injury with significant rise in creatinine over the last 24 hours, I believe this is mostly a picture of hypovolemia and the patient should improve with fluids Recommendation: Continue incentive spirometry Continue to monitor blood pressure on oral meds for blood pressure Continue to monitor in the ICU close monitoring of the blood pressure Continue pain control Possible discharge in Time with Patient: Less than 30
--- NOTE | 2023-10-29 14:33 | P.PN ---
Subjective Progress Note Date: 10/29/23 Hospital course 73-year-old male with medical history of hypertension, hyperlipidemia, diabetes type 2 presented for evaluation of elective back surgery, which included C3-7 anterior cervical discectomy and fusion. Medicine was consulted postoperatively for medical management of his comorbidities including diabetes, hypertension, hyperlipidemia. After surgery patient did have hypertension urgency and had to be started on cleviprex drip. Patient was restarted on his home dose losartan 100 mg daily. Patient was started on hydralazine 25 mg 4 times a day. Patient was then weaned off the clevprex drip. He was then deemed stable for transfer out of the ICU. Patient also had a complicated hospital course due to acute kidney injury. He was started on fluids. His renal function then improved Subjective Patient seen this morning. He has no acute complaints. He is walking around in his room. 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 Will also start sliding scale insulin Patient can resume his home diabetic meds on discharge. Blood glucose ranges from 95 to 95 Acute kidney injury We can stop fluids Encourage oral hydration Hypertension urgency Blood pressure this morning is acceptable Continue with losartan 100 mg daily and hydralazine 25 mg 4 times a day Hyperlipidemia Resume statin Status post cervical discectomy and fusion -Care per primary team Patient is stable for discharge from medical standpoint. Upon discharge please do not hesitate to contact us for the medication reconciliation on discharge Objective - Vital Signs Vital signs: Vital Signs Temp 98.1 F 10/29/23 08:00 Pulse 70 10/29/23 11:29 Resp 18 10/29/23 11:29 BP 155/80 10/29/23 11:29 Pulse Ox 99 10/29/23 11:29 FiO2 Intake & Output 10/28/23 10/29/23 10/29/23 18:59 06:59 18:59 Intake Total 1680 40 240 Output Total 760 100 Balance 920 -60 240 Weight 73 kg Intake: IV 480 40 ACETAMINOPHEN IV (For NPO 100 ) 1,000 mg In Empty Bag 1 bag @ 400 mls/hr IVPB Q6HR MELISSA Rx#:[id number] Invasive Line 2 30 20 Invasive Line 3 30 20 Sodium Chloride 0.9% 1, 320 000 ml @ 20 mls/hr IV . Q24H MELISSA Rx#:[id number] Oral 1200 240 Output: Drainage 60 100 Anterior Neck 0 20 Posterior Neck 60 80 Urine 700 Other: Voiding Method Indwelling Catheter Toilet Toilet # Voids 1 2 # Bowel Movements 0 ABP, PAP, CO, CI - Last Documented Arterial Blood Pressure 163/49 - Labs CBC & Chem 7: 10/28/23 04:31 10/28/23 04:31 Labs: Abnormal Lab Results - Last 24 Hours (Table) 10/28/23 10/28/23 Range/Units 16:51 20:06 POC Glucose (mg/dL) 135 H 161 H (70-110) mg/dL
[2023-10-29 16:21] LABS: Glucose,Whole Blood 101 mg/dL (70-110)
[2023-10-29 20:20] LABS: Glucose,Whole Blood 93 mg/dL (70-110)
[2023-10-30 04:23] LABS: Glucose,Whole Blood 149 mg/dL (70-110)
[2023-10-30 06:03] LABS: Glucose,Whole Blood 113 mg/dL (70-110)
--- NOTE | 2023-10-30 09:11 | P.PN ---
Subjective Progress Note Date: 10/30/23 Principal diagnosis: 1. 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 Bilateral upper extremity radiculopathy 3. Headaches 4. Cervicalgia 5. Possible fibromyalgia Patient seen and examined this morning. Patient is resting comfortably in bed. Spouse is at bedside. Patient reports that he feels he is safe and ready to be going home. He states his pain has been controlled on his current regimen. Surgical dressings to the anterior and posterior cervical spine are clean dry and intact. Patient has been ambulatory within room and hallways without difficulty. Discharge instructions have been discussed. No acute concerns. Objective - Vital Signs Vital signs: Vital Signs Temp 98.2 F 10/30/23 07:55 Pulse 79 10/30/23 07:55 Resp 20 10/30/23 07:55 BP 152/68 10/30/23 07:55 Pulse Ox 96 10/30/23 07:55 FiO2 Intake & Output 10/29/23 10/30/23 10/30/23 18:59 06:59 18:59 Intake Total 240 780 10 Output Total 900 Balance 240 -120 10 Weight 121 kg Intake: IV 10 Invasive Line 3 10 Oral 240 780 Output: Urine 900 Other: Voiding Method Toilet Toilet Toilet # Voids 2 ABP, PAP, CO, CI - Last Documented Arterial Blood Pressure 163/49 - Exam Physical Examination General: The patient is awake and alert, in no acute distress Skin: Skin is warm and dry with no obvious rashes or lesions. Surgical incisions to the anterior and posterior cervical spine, dressings are clean dry and intact. Eye: Pupils are equal, round and reactive to light, extra-ocular movements are intact; there is normal conjunctiva bilaterally. Neck: The neck is moderate tenderness around incision sites, range of motion is restricted due to surgical procedure and placement of hard cervical collar. Gastrointestinal: Soft, non-distended, non-tender abdomen. Back: There is no tenderness to palpation in the midline, paralumbar, parathoracic or buttocks region. There is no obvious deformity . Musculoskeletal: ROM limited secondary to pain and stiffness from surgical procedure. Muscle strength in all major muscle groups of bilateral upper extremities 4/5, bilateral lower extremities 5/5. Neurological: CN 2-12 intact. There are no obvious motor or sensory deficits. Movement and coordination equal and intact. Sensory exam to light touch intact C5-T1 and intact from L2-S1. Reflexes 2/4 in bilateral upper and lower extremities. Negative Hoffmans, babinski, and clonus signs. Psychiatric: Cooperative, appropriate mood & affect, normal judgment. - Labs CBC & Chem 7: 10/28/23 04:31 10/28/23 04:31 Labs: Abnormal Lab Results - Last 24 Hours (Table) 10/30/23 10/30/23 Range/Units 04:22 06:02 POC Glucose (mg/dL) 149 H 113 H (70-110) mg/dL Assessment and Plan Assessment: Postop day 4:Stage I: C3-7 Anterior cervical discectomy and fusion and Stage II: C2-T2 posterior decompression and fusion Plan: -Appreciate tax consultant and team management. -Activity: Ambulate QID, OOB all meals, up and about, limit lifting bending twisting to less than 5 lbs. Use walker or cane if needed for stability. -Daily PT/OT, increase ambulation strength and balance. -Hard cervical collar on at all times, may remove for showers. -Pain control: Medications have been adjusted, continue with regimen at this time. -Meds: reviewed -GI ppx: senna, Miralax -DVT PPX: Heparin, SCDs -Hygiene: Maintain dressing clean and dry. -Encourage IS 10x/hr -Dispo: Discharge home today with home care *I reviewed and discussed this case with my attending Dr. David, whom has reviewed this chart and films and is in agreement with assessment and plan of care as outlined above. I have personally seen and examined the patient, performed the documentation and the assessment and plan as written. Number of minutes spent on the visit: 20m.
--- NOTE | 2023-10-30 09:20 | P.DS ---
Providers Date of admission: 10/26/23 05:36 Expected date of discharge: 10/30/23 Attending physician: Forrest David DO Consults: 10/26/23 11:20 Consult Physician Routine Consulting Provider: Chin Yang Consult Reason/Comments: medical management s/p C3-C7 ACDF and C2-T2 post cervical decomp fusi Do you want consulting provider notified?: Yes 10/26/23 16:37 Consult Physician Routine Consulting Provider: Latasha Rincon Consult Reason/Comments: ICU management Do you want consulting provider notified?: Already Contacted 10/26/23 16:58 Consult Physician Routine Consulting Provider: Casa Lovett Consult Reason/Comments: Medical management Do you want consulting provider notified?: Yes Primary care physician: Chin Yang [facility] Course: hospital Course: The patient was evaluated preoperatively and found to have the diagnosis of Cervical spondylosis with stenosis. They underwent appropriate preoperative care and were willing to undergo the intended procedure. They underwent a successful Stage I: C3-7 Anterior cervical discectomy and fusion and Stage II: C2-T2 posterior decompression and fusion were recovered appropriately and sent to the floor. While on the floor they worked with physical therapy, occupational therapy and nursing to enhance their recovery experience. Their pain was well controlled through their stay and they were started on appropriate medications, DVT ppx modalities, activity and dietary needs. Daily labs were monitored closely, and transfusions were only used when necessary. Medicine as well as other consulting services have made their input and have helped with our team approach and multidisciplinary care. PT milestones have been met and passed and they have made the recommendation of Home with home care for this patient and treating providers agree with this care path. The patient will be discharged home with appropriate medications, instructions and follow-up information and in stable condition. Patient Condition at Discharge: Good Plan - Discharge Summary Discharge Rx Participant: No New Discharge Prescriptions: New Gabapentin 600 mg PO BID #60 tab methocarbamoL [Robaxin-750] 750 mg PO QID PRN #60 tab PRN Reason: Muscle Spasm Sennosides/Docusate Sodium [Senna Plus 8.6-50 mg Tablet] 1 each PO DAILY PRN #20 tab PRN Reason: Constipation cefaDROXiL [Duricef] 500 mg PO Q12HR #10 cap HYDROcodone/APAP 10-325MG [Oxly 10-325] 1 tab PO Q4-6H PRN #40 tab PRN Reason: Pain No Action Atorvastatin [Lipitor] 40 mg PO HS Insulin Detemir [Levemir Flextouch Pen] 32 units SQ HS Gabapentin [Neurontin] 600 mg PO BID Cholecalciferol (Vitamin D3) [Vitamin D3 (125 MCG = 5,000 IU)] 250 mcg PO DAILY Multivit-Mins/Iron/Folic/Lycop [Centrum Men's Tablet] 1 each PO DAILY Areds(Unknown Med) 2 tab PO DAILY amLODIPine [Norvasc] 5 mg PO HS methocarbamoL 750 mg PO TID Dulaglutide [Trulicity] 1.5 mg SQ TU Losartan [Cozaar] 100 mg PO DAILY Fenofibrate Nanocrystallized [Fenofibrate] 145 mg PO DAILY Butalb/Acetaminophen/Caffeine [Fioricet 50-300-40 mg Capsule] 1 - 2 cap PO Q4HR PRN PRN Reason: Pain Discharge Medication List Atorvastatin [Lipitor] 40 mg PO HS 11/28/15 [History] Insulin Detemir [Levemir Flextouch Pen] 32 units SQ HS 10/01/16 [History] Gabapentin [Neurontin] 600 mg PO BID 09/07/20 [History] Cholecalciferol (Vitamin D3) [Vitamin D3 (125 MCG = 5,000 IU)] 250 mcg PO DAILY 11/05/21 [History] Multivit-Mins/Iron/Folic/Lycop [Centrum Men's Tablet] 1 each PO DAILY 11/05/21 [History] Areds(Unknown Med) 2 tab PO DAILY 03/19/23 [History] Fenofibrate Nanocrystallized [Fenofibrate] 145 mg PO DAILY 04/30/23 [History] Losartan [Cozaar] 100 mg PO DAILY 04/30/23 [History] amLODIPine [Norvasc] 5 mg PO HS 04/30/23 [History] Butalb/Acetaminophen/Caffeine [Fioricet 50-300-40 mg Capsule] 1 - 2 cap PO Q4HR PRN 10/20/23 [History] Dulaglutide [Trulicity] 1.5 mg SQ TU 10/20/23 [History] methocarbamoL 750 mg PO TID 10/20/23 [History] Gabapentin 600 mg PO BID #60 tab 10/30/23 [Rx] HYDROcodone/APAP 10-325MG [Oxly 10-325] 1 tab PO Q4-6H PRN #40 tab 10/30/23 [Rx] Sennosides/Docusate Sodium [Senna Plus 8.6-50 mg Tablet] 1 each PO DAILY PRN #20 tab 10/30/23 [Rx] cefaDROXiL [Duricef] 500 mg PO Q12HR #10 cap 10/30/23 [Rx] methocarbamoL [Robaxin-750] 750 mg PO QID PRN #60 tab 10/30/23 [Rx] Follow up Appointment(s)/Referral(s): Chin Yang DO [Primary Care Provider] - 1 Week Forrest David DO [Doctor of Osteopathic Medicine] - 2 Weeks Activity/Diet/Wound Care/Special Instructions: spine Discharge and Recovery Instructions Date of Surgery: 10/26/2023 Diagnosis: cervical spondylosis with stenosis Procedure: Stage I: C3-7 Anterior cervical discectomy and fusion and Stage II: C2-T2 p osterior decompression and fusion Medications: See medication list All medication refills should be obtained through your primary care doctor or your clinic spine surgeon. Please discuss prescription refills at your follow up appointment. Do not call the hospital for medication refills. Activity: Encourage ambulation with assist of walker, Up and about 6-8x daily PT/OT daily work on balance, strength and mobility Up in chair with all meals Shower daily Brace: Use brace when up and about, do not wear in bed or shower Dressing: Leave your dressing in place for a total of 3 days post operatively. Then you may remove your dressing and leave open to air. Keep the area clean and if not able to keep area clean, then cover with sterile gauze and tape. Showering: You may shower 3 days after your procedure allowing soap and water to run over incision. Do not scrub. Do not soak. Blot dry. Follow up: Please confirm a follow up appointment with your surgeon 2 weeks post op eratively. Please make an appointment to follow up with your PCP in 1-2 weeks after surgery for evaluation `3 phase, 3-week plan POST OP WEEKS 1-3 1. Lifting/carrying/pushing/pulling limited to less than 5 pounds. 2. Do not sit for longer than 15 minutes at one time. Get up and walk around. Prolonged sitting is NOT advised. If you lay down, see if you can tolerate laying down on you front (belly side) 3. Walk for periods of 15 minutes = 1 mile but no longer; do it multiple times times each day. 4. Ice your low back after activity. POST OP WEEKS 3-6 1. Lifting limited to less than 20 pounds. 2. Do not sit for longer than 30 minutes at a time. Frequently change positions. Use a sit-to stand workstation or take frequent breaks from sitting if you have returned to work. 3. Walk for 30 minutes each day. If possible, do these three or more times a day POST OP WEEKS 6+ At your 6-week appointment we will give you a physical therapy referral to focus on a core stabilization and strengthening program. You should also work on leg & buttock strengthening, hamstring & quadriceps stretching, and continue a low impact aerobic activity program such as swimming, walking, or riding a stationary bicycle. During the initial 6 weeks after your surgery, you are at the highest risk of re-injuring your spine. You should generally avoid BLTs (bending, lifting and twisting combination motions) and follow the above guidelines to reduce the chance of reinjury. You can anticipate post op appointments in our office at approximately 3 weeks and 6 weeks after your surgery. INCISION CARE: If your incision is not draining you do NOT need to cover it with a dressing. Keep your incision clean, dry and intact. In most cases, we apply skin glue, amanda or sutures to the incision at the time of surgery. This will be like a crust or have the appearance of a scab and will fall off in time on its own. The stitches or amanda need to be removed at 3 weeks post op appointment. You may begin to shower 3 days after surgery (this allows the glue to gusman well). However, please avoid scrubbing the incision site or peeling off any of the skin glue. This will ensure optimal healing of your incision. Also, during this time avoid soaking the incision area in water - this includes swimming pools, hot tubs or baths. No ointments, lotions or oils on the incision until your surgeon allows. Leave amanda, sutures or glue in place. Neurological dysfunction that comes on suddenly can also be a sign of a stroke. Below some common symptoms of a stroke are listed: B - balance difficulty such as sudden onset walking or leaning to one side - NEW E - eye problem such as sudden double vision or trouble seeing on one side - NEW F - Facial weakness or numbness on one side - NEW A - Arm or leg weakness or numbness on one side - NEW S - Slurred speech or difficulty with word finding - NEW T - Time is BRAIN! Call 911 as soon as you recognize these symptoms Diet: Consume a regular diet rich in vegetables and lean protein such as chicken or fish. You should consume in a ratio of approximately 20% fats|40% carbohydrates|40%protein. Vegetables, sweet potatoes, brown rice or quinoa are examples of good carbohydrates. Chips, white bread, cookies and sweets/sugar are examples of bad carbohydrates. Limit your bad carbs, go wild with good carbs. "Life's Simple 7" Guidelines as per [place] [employer] These will help you reclaim your life after surgery and pump servicer helper in your recovery, keeping in mind your restrictions. (1) Get Active. Physical activity can help people lose weight, control high blood pressure and cholesterol, feel emotionally better, and sleep better. (2) Control Cholesterol. Avoid a diet high in saturated fat, trans fat, & cholesterol. Limit whole milk & cream, ice cream, butter, egg yolks, processed meats (like sausage and hot dogs), and fatty meats. Choose healthy foods that are low in saturated fat, trans fat and cholesterol which include: Fruits and vegetables, fiber rich grain products (like whole grain pasta and brown rice), lean meat such as chicken, fish, nuts, seeds, and legumes. (3) Eat Better. Eat small portions. Shop at the grocery with a list and do not stray from it. Tips for a healthy diet include: Limit sodium intake to less than 1500mg daily, avoid prepackaged, processed, and fast foods, choose a diet rich in fruits, vegetables, and whole grain, high fiber foods, and limit saturated & cholesterol in your diet. (4) Manage Blood Pressure. If you have high blood pressure, you should have a cuff at home so that you can check your blood pressure regularly. Be sure you have a good cuff. An arm one is generally better than a wrist one. Bring the cuff to a doctor's appointment to validate that the measurements that your cuff are taking are accurate. Take your blood pressure twice daily when you are sitting down and relaxing. Record the numbers in a log and bring this log with you to your doctors' appointments. (5) Lose Weight if your BMI is above 25. A healthy BMI is between 19-25. To calculate Your BMI, you may use a Standard BMI Calculator on the NIH BMI website: <www.nhlbi.nih.gov/guidelines/obesity/BMI/bmicalc.htm>. Weigh oneself daily. If you are overweight, set a goal to lose weight. A pound a week loss if needed is a good target. (6) Reduce Blood Sugar. Limit foods and liquids with "added sugars." (Added sugars include sucrose, fructose, glucose, maltose, dextrose, high fructose corn syrup, corn syrup, concentrated fruit juice and honey). (7) Stop Smoking. If you smoke, quitting smoking is one of the best things that you can do for your health. Smoking increases your risk of heart attack, stroke, and peripheral vascular disease, which is a build-up of plaque in your arteries. Please discard all the cigarettes and lighters in your house. Have a plan for what you will do when you have the urge to smoke. Direct and second- hand smoke shortens your life as well as the lives of your family, friends and others around you. For your health and the health of those around you, please consider quitting! Proper Bending Body Mechanics: Maintain a wide stance with one foot slightly in front of the other. Keep your back straight. Bend utilizing the strength in your hips and knees. Do not bend at the waist. Maintain the lifted object at your waist-level close to your body. Avoid lifting weight that causes immediately pain or pain anywhere in the body afterwards. Smoking/Nicotine If there was ever one thing that you could do to increase your overall health, decrease your risk of cardiovascular problems by about 39% the second you make the choice, it is to STOP SMOKING. Your body's most instant gratification is the second you stop smoking. We have all heard the studies, read the articles but it is true, smoking is extremely bad for your overall health, and moreover it is detrimental to your bone health. Nicotine, IN ANY FORM, kills bone cells, prevents your body from healing fractures, and significantly prolongs healing after surgery. In spine surgery specifically, it increases your risk of not healing your bones to create a fusion and increases your risk of having a revision surgery due to this up to 60%. I know it is hard. I know it feels impossible. But there are ways. Take control of your life. We are here to help you through it. And when you are ready, ask us and we can direct you to help if you desire. Use the START Plan to Quit Smoking (please visit the Blottr.org website listed below for more information): S = Set a quit date. Choose a date within the next 2 weeks, so you have enough time to prepare without losing your motivation to quit. If you mainly smoke at work, quit on the weekend, so you have a few days to adjust to the change. T = Tell family, friends, and co-workers that you plan to quit. Let your friends and family in on your plan to quit smoking and tell them you need their support and encouragement to stop. Look for a quit evy who wants to stop smoking as well. You can help each other get through the rough times. A = Anticipate and plan for the challenges you'll face while quitting. Most people who begin smoking again do so within the first 3 months. You can help yourself make it through by preparing ahead for common challenges, such as nicotine withdrawal and cigarette cravings. R = Remove cigarettes and other tobacco products from your home, car, and work. Throw away all your cigarettes (no emergency pack!), lighters, ashtrays, and matches. Wash your clothes and freshen up anything that smells like smoke. Shampoo your car, clean your drapes and carpet, and steam your furniture. T = Talk to your doctor about getting help to quit. Your doctor can prescribe medication to help with withdrawal and suggest other alternatives. If you can't see a doctor, you can get many products over the counter at your local pharmacy or grocery store, including the nicotine patch, nicotine lozenges, and nicotine gum. Resources for Quitting Smoking: <https://www.[place].gov/documen gianna/[facility]/Quit_Tobacco_Resources_for_patients_313480_7.pdf> Supplementation: Take recommended dosages of Vitamin D and Calcium to help fortify your bones and help them to heal. See your health maintenance packet for dosages and recommended levels. DVT/VTE prophylaxis: You will be given compression stockings from the hospital. Wear these daily for the first two weeks after surgery. You may take them off at night. You may be prescribed a medication to help thin your blood. Take this as directed. If you are not prescribed this medication, early and frequent ambulation has been shown to be the best prophylaxis to deep vein thrombosis and sequelae related to this event. Discharge Disposition: HOME WITH HOME HEALTH SERVICES
[2023-10-30 11:27] LABS: Glucose,Whole Blood 64 mg/dL (70-110)
[2023-10-30 11:43] VITALS: BP 150/65; PULSE 68; RESP 18; TEMP 97.8
[2023-10-30 11:45] LABS: Glucose,Whole Blood 118 mg/dL (70-110)
--- NOTE | 2023-10-30 13:58 | P.PN ---
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 Today the patient underwent anterior cervical arthrodesis at multiple levels, patient also had C2-T2 posterolateral instrumented fusion and decompressive laminectomy. Postoperatively, patient had significantly elevated blood pressure, and I was asked to see the patient in consultation for admission to the ICU and close monitoring of the blood pressure. I saw the patient in the recovery room, extubated, not in distress, however his blood pressure was noted to be in the 180 systolic range, and I recommended starting the patient on Cleviprex and titrate the systolic blood pressure to 150 to 160 range the meantime patient will be given medications for his postsurgical pain. And that seems to help blood pressure the most Patient was evaluated today on 10/27/2023, patient remains in the ICU, on 2 L nasal cannula, does not seem to be in distress, blood pressure remains elevated, remains on Cleviprex at 2 mg/h. Patient has mostly post surgical pain, being addressed by orthopedic surgery, receiving pain meds to control his cervical pain. Which is expected. Pulmonary melgar the patient is not in any distress, no cough no wheezing no shortness of breath.Labs however today showed worsening renal profile creatinine jumped up to 1.72 blood sugar is 342, hence the patient will receive more fluids in the form of 0.9 normal saline and will continue to monitor his renal profile Patient was seen and examined today on 10/28/2023, patient seems to be doing better today compared to the last couple of days, patient seems to be better controlled. Nonetheless his blood pressure remains elevated, and we are recommending more oral medications for his blood pressure and hoping to discontinue Cleviprex. Patient is now on losartan 100 mg daily, amlodipine 5 mg twice daily, and added metoprolol 25 mg twice daily. He is presently on Cleviprex at 8 mg/h. WBC count is 14.2 hemoglobin 9.7 basic metabolic profile is normal renal profile showed a BUN of 20 creatinine 1.24, Improving with hydration compared to 1.7 to creatinine yesterday. Patient was seen and examined today on 10/29/2023, patient is now on the medical floor, doing well, blood pressure is under control, he is now on oral meds for blood pressure of Cleviprex. Hardly any pulmonary symptoms, patient is feeling better, pain is under control, and I believe he is being considered for dischar ge probably in the next 24 hours. Patient is on room air, O2 saturation 99 blood pressure is 155/80. Heart rate is 105 Patient was reevaluated today on 10/30/2023, patient is doing well, he is being considered for discharge home today. No pulmonary issues no cough no wheezing or shortness of breath, pain is under control. Blood pressure is under control Objective - Vital Signs Vital signs: Vital Signs Temp 97.8 F 10/30/23 11:43 Pulse 68 10/30/23 11:43 Resp 18 10/30/23 11:43 BP 150/65 10/30/23 11:43 Pulse Ox 97 10/30/23 11:43 FiO2 Intake & Output 10/29/23 10/30/23 10/30/23 18:59 06:59 18:59 Intake Total 240 780 128 Output Total 900 Balance 240 -120 128 Weight 121 kg Intake: IV 10 Invasive Line 3 10 Oral 240 780 118 Output: Urine 900 Other: Voiding Method Toilet Toilet Toilet # Voids 2 ABP, PAP, CO, CI - Last Documented Arterial Blood Pressure 163/49 - Exam General: The patient is awake and alert, in no distress Skin: Skin is warm and dry and no rashes or lesions are noted. Eye: Pupils are equal, round and reactive to light, extra-ocular movements are intact; there is normal conjunctiva bilaterally. Ears, nose, mouth and throat: There are moist mucous membranes and no oral lesions. Neck: C-collar noted in place Cardiovascular: There is a regular rate and rhythm. No murmur, rub or gallop is appreciated. Respiratory: Clear bilaterally no crackles rhonchi or wheezes Gastrointestinal: Soft, non-distended, non-tender abdomen without masses or organomegaly noted. There is no rebound or guarding present. Bowel sounds are unremarkable. Musculoskeletal: Normal ROM, no tenderness, There is no pedal edema. There is no calf tenderness or swelling. No cords were appreciated. Neurological: CN II-XII intact, Cranial nerves III through XII are intact. There are no obvious motor or sensory deficits. Coordination appears grossly intact. Speech is normal. Psychiatric: Cooperative, appropriate mood & affect, normal judgment. - Labs CBC & Chem 7: 10/28/23 04:31 10/28/23 04:31 Labs: Abnormal Lab Results - Last 24 Hours (Table) 10/30/23 10/30/23 10/30/23 Range/Units 04:22 06:02 11:26 POC Glucose (mg/dL) 149 H 113 H 64 L (70-110) mg/dL 10/30/23 Range/Units 11:44 POC Glucose (mg/dL) 118 H (70-110) mg/dL Assessment and Plan Assessment: Impression: Cervical spondylosis with myelopathy Cervical stenosis Cervical radiculopathy secondary to degenerative joint disease of the spine, patient had bilateral upper extremities radiculopathy Status post surgery/cervical arthrodesis on multiple levels as noted in orthopedics note postoperative day #4 Postoperative pain and hypertension, expected still discussed of surgery. Type 2 diabetes Dyslipidemia Family history of coronary artery disease History of benign essential hypertension Acute kidney injury with significant rise in creatinine over the last 24 hours, I believe this is mostly a picture of hypovolemia and the patient should improve with fluids Recommendation: Agree with discharge planning Patient to follow-up with orthopedics postdischarge. No need for pulmonary follow-up Time with Patient: Less than 30
== END 2023-10-30 12:28 | disposition home health service (06) | DRG 454 ==
LOC: 2ORMAIN 05:36 → 2SICU 16:38 → 3SCARD 10-28 15:06
PROVIDERS: ADMIT Orthopaedic Surgery; ATTEND Orthopaedic Surgery
PROC: 0RT30ZZ Resection of Cervical Vertebral Disc, Open Approach (ICD-10-PCS; 2023-10-26)
PROC: 01N10ZZ Release Cervical Nerve, Open Approach (ICD-10-PCS; 2023-10-26)
PROC: 00NW0ZZ Release Cervical Spinal Cord, Open Approach (ICD-10-PCS; 2023-10-26)
PROC: 0RG20A0 Fusion of 2 or more Cervical Vertebral Joints with Interbody Fusion Device, Anterior Approach, Anterior Column, Open Approach (ICD-10-PCS; principal; 2023-10-26 07:30)
PROC: 0RG2071 Fusion of 2 or more Cervical Vertebral Joints with Autologous Tissue Substitute, Posterior Approach, Posterior Column, Open Approach (ICD-10-PCS; 2023-10-26 07:30)
DX: M48.02 Spinal stenosis, cervical region (principal); M47.12 Other spondylosis with myelopathy, cervical region; M50.01 Cervical disc disorder with myelopathy, high cervical region; N17.9 Acute kidney failure, unspecified; E11.42 Type 2 diabetes mellitus with diabetic polyneuropathy; Z79.4 Long term (current) use of insulin; E11.65 Type 2 diabetes mellitus with hyperglycemia; I16.0 Hypertensive urgency; I10 Essential (primary) hypertension; M47.22 Other spondylosis with radiculopathy, cervical region; G89.29 Other chronic pain; M25.78 Osteophyte, vertebrae; G47.8 Other sleep disorders; M50.11 Cervical disc disorder with radiculopathy, high cervical region; G89.18 Other acute postprocedural pain; E78.5 Hyperlipidemia, unspecified; E86.1 Hypovolemia; R13.10 Dysphagia, unspecified; M79.7 Fibromyalgia; Z87.891 Personal history of nicotine dependence; Z79.891 Long term (current) use of opiate analgesic; Z79.85 Long-term (current) use of injectable non-insulin antidiabetic drugs; Z79.899 Other long term (current) drug therapy; Z91.018 Allergy to other foods
CPT/HCPCS: 72040; 72125; 80048; 83735; 85025

== ENCOUNTER 2023-11-07 16:06 | Inpatient (IN) | payer MEDICARE, BC ==
[2023-11-07] MEDS: fentaNYL (PF) 50 MCG/ML 2 ML AMP IVP STA (16:24)
[2023-11-07] MEDS: KETOROLAC 15 MG/ML 1 ML VIAL IVP STA (16:24)
[2023-11-07] MEDS: ONDANSETRON 4 MG/2 ML VIAL IVP STA (16:25)
[2023-11-07] MEDS: SODIUM CHLORIDE 0.9% 500 ML 500 ML IV STA (16:25)
--- NOTE | 2023-11-07 16:37 | ED ---
Back Pain HPI - General Chief Complaint: Back Pain/Injury Stated Complaint: Post-op back pain Time Seen by Provider: 11/07/23 16:07 Source: patient, EMS, RN notes reviewed Limitations: no limitations - History of Present Illness Initial Comments: This is a 73-year-old male who presents to the emergency department for back and neck pain. On 10/25 patient had surgery on his neck and back with Dr. David. This was a C3-C7 ACDF and C2-T2 post cervical decompression and fusion. States that he was doing okay postoperatively other than expected postoperative pain. Yesterday he was able to sit outside for approximately half an hour. Today he was up and around the house to try to get himself ready for the day. He then developed severe pain to the neck and states that it brought him to his knees. This essentially occurred out of nowhere. Denies any new injuries. He did start to feel nauseous on his way here. Denies any fevers or chills. He was given 100 mcg of fentanyl by EMS en route without substantial relief. Denies any difficulty with movement of his extremities or any weakness. MD Complaint: back pain - Related Data Home Medications Medication Instructions Recorded Confirmed Insulin Detemir [Levemir Flextouch 32 units SQ HS 10/01/16 11/07/23 Pen] Gabapentin [Neurontin] 600 mg PO BID 09/07/20 11/07/23 Cholecalciferol (Vitamin D3) 250 mcg PO DAILY 11/05/21 11/07/23 [Vitamin D3 (125 MCG = 5,000 IU)] Multivit-Mins/Iron/Folic/Lycop 1 tab PO DAILY 11/05/21 11/07/23 [Centrum Men's Tablet] Fenofibrate Nanocrystallized 145 mg PO DAILY 04/30/23 11/07/23 [Fenofibrate] amLODIPine [Norvasc] 5 mg PO HS 04/30/23 11/07/23 Butalb/Acetaminophen/Caffeine 1 - 2 cap PO Q4HR PRN 10/20/23 11/07/23 [Fioricet 50-300-40 mg Capsule] Atorvastatin [Lipitor] 40 mg PO HS 11/07/23 11/07/23 Dulaglutide [Trulicity] 1.5 mg SQ TU 11/07/23 11/07/23 Losartan Potassium [Cozaar] 100 mg PO DAILY 11/07/23 11/07/23 Sennosides/Docusate Sodium [Senna 1 tab PO DAILY PRN 11/07/23 11/07/23 Plus 8.6-50 mg Tablet] Vit C/E/Zn/Coppr/Lutein/Zeaxan 2 cap PO DAILY 11/07/23 11/07/23 [Preservision Areds 2 Softgel] oxyCODONE-APAP 7.5-325MG [Percocet 1 tab PO Q6HR PRN 11/07/23 11/07/23 7.5-325 mg] Previous Rx's Medication Instructions Recorded methocarbamoL [Robaxin-750] 750 mg PO QID PRN #60 tab 10/30/23 Allergies Allergy/AdvReac Type Severity Reaction Status Date / Time onion Allergy Anaphylaxis Verified 10/26/23 06:17 Review of Systems ROS Statement: Those systems with pertinent positive or pertinent negative responses have been documented in the HPI. ROS Other: All systems not noted in ROS Statement are negative. Past Medical History Past Medical History: Asthma, Diabetes Mellitus, Hyperlipidemia, Hypertension, Osteoarthritis (OA) Additional Past Medical History / Comment(s): neuropathy feet & legs, hx chest wall abscess (affected muscle/bone) hx Chronic back pain with repair, herniated disc., Hx hiatal hernia repair. Neck pain. seasonal asthma with exertion. History of Any Multi-Drug Resistant Organisms: None Reported Past Surgical History: Back Surgery, Hernia Repair, Orthopedic Surgery Additional Past Surgical History / Comment(s): Surgery on left elbow"nerve release", LT CTR, LT Hand "BONE SCRAPING", JENNIFER, I&D CHEST WALL ABCESS, PICC LINE INSERTED 01-01-16, REMOVED IN FEB 2016. ,I & D OF CHEST WAll ABSCESS 06/02/16 .,CARINA CATARACTS, EGD, PAIN CLINIC PROCEDURES. Hiatal hernia repair, back surgery 2021. C1-T1 procedure October 2023 Past Anesthesia/Blood Transfusion Reactions: No Reported Reaction Additional Past Anesthesia/Blood Transfusion Reaction / Comment(s): CLAUSTROPHOBIA WITH MRI Past Psychological History: No Psychological Hx Reported Smoking Status: Former smoker - Past Family History Father Family Medical History: Cancer, Coronary Artery Disease (CAD) Additional Family Medical History / Comment(s): Bowel cancer. Mother Family Medical History: CVA/TIA, Diabetes Mellitus Brother(s) Family Medical History: Cancer General Exam Limitations: no limitations General appearance: alert, in distress Head exam: Present: atraumatic, normocephalic, normal inspection Neck exam: Present: other (Patient's operative incisions are clean, dry, and intact. There are no areas of drainage.) Respiratory exam: Present: normal lung sounds bilaterally. Absent: respiratory distress, wheezes, rales, rhonchi, stridor Cardiovascular Exam: Present: regular rate, normal rhythm, normal heart sounds. Absent: systolic murmur, diastolic murmur, rubs, gallop, clicks Neurological exam: Present: alert, oriented X3, CN II-XII intact Expanded Cerebellar function: Finger to Nose: Normal Motor strength exam: RUE: 5, LUE: 5, RLE: 5, LLE: 5 Psychiatric exam: Present: normal affect, normal mood Skin exam: Present: warm, dry, intact, normal color. Absent: rash Course Vital Signs 11/07/23 11/07/23 16:12 20:07 Temperature 98.7 F Pulse Rate 97 94 Respiratory 20 18 Rate Blood Pressure 168/72 154/79 O2 Sat by Pulse 100 97 Oximetry Medical Decision Making - Medical Decision Making This is a 73 year old male who presents to the emergency department for back and neck pain. Was pt. sent in by a medical professional or institution? @ -No Did you speak to anyone other than the patient for history? @ -No Did you review nursing and triage notes? @ -Yes, and I agree, it is accurate with regards to the patient's symptoms. Were old charts reviewed? @ -No Differential Diagnosis? @ -Differential Back Pain: Strain, zoster, cauda equina syndrome, epidural abscess, vertebral osteomyeli tis, discitis, fracture, subluxation, disc herniation, DJD, spinal stenosis, dissection, AAA, pancreatitis, peptic ulcer disease, pyelonephritis, kidney stone, this is not meant to be an all-inclusive list. EKG interpreted by me (3pts min.)? @ -Not obtained X-rays interpreted by me (1pt min.)? @ -Not obtained CT interpreted by me (1pt min.)? @ -CT scan of the cervical and thoracic spine obtained. My interpretation estefania ntifies no acute fractures. U/S interpreted by me (1pt. min.)? @ -Not obtained What testing was considered but not performed? (CT, X-rays, U/S, labs)? Why? @ -None What meds were considered but not given? Why? @ -None Did you discuss the management of the patient with other professionals? @ -Yes, Dr. David, who advised that the patient could follow-up in the office or be admitted to medicine if his pain was still too severe. Dr. Carroll with [facility] accepts the patient for admission to medicine. Did you reconcile home meds? @ -Yes Was smoking cessation discussed for >3mins.? @ -No Was critical care preformed (if so, how long)? @ -No Were there social determinants of health that impacted care today? How? (Homelessness, low income, unemployed, alcoholism, drug addiction, transportation, low edu. Level, literacy, decrease access to med. care, custodial, rehab)? @ -No Was there de-escalation of care discussed even if they declined? (Discuss DNR or withdrawal of care, Hospice)? @ -No What co-morbidities impacted this encounter? (DM, HTN, Smoking, COPD, CAD, Cancer, CVA, Hep., AIDS, mental health diagnosis, sleep apnea, morbid obesity)? @ -Osteoarthritis Was patient admitted / discharged? @ -Admitted. On arrival, patient was examined and found to be neurologically intact. He also denied any areas of weakness. Lab work demonstrates leukocytosis with a white blood cell count of 12.5. CRP elevated at 5.2. Lab work otherwise fairly unremarkable. CT scan of the cervical and thoracic spine obtained. This demonstrated scattered foci of gas most pronounced at C3 consistent with surgical change. However, infection cannot be excluded. Case discussed with Dr. David. He reviewed the patient's films. He advised that the patient can follow-up with him in the office, however if his pain was still uncontrollable he could be admitted to medicine for further management. Patient states that he is still in too much pain and does not believe he can go home. Patient subsequently admitted to medicine for intractable pain. Blood cultures were obtained and he was given a dose of Ancef for any potential infectious component. Undiagnosed new problem with uncertain prognosis? @ -None Drug Therapy requiring intensive monitoring for toxicity (Heparin, Nitro, Insulin, Cardizem)? @ -None Were any procedures done? @ -None Diagnosis/symptom? @ -Postoperative neck pain, history of cervical fusion Acute, or Chronic, or Acute on Chronic? @ -Acute Uncomplicated (without systemic symptoms) or Complicated (systemic symptoms)? @ -Uncomplicated Side effects of treatment? @ -None Exacerbation, Progression, or Severe Exacerbation] @ -Not applicable Poses a threat to life or bodily function? @ -Yes, the pain is limiting his function. This case was discussed in detail with the attending ED physician, Dr. Bland. Presentation, findings, and treatment plan discussed in detail as well. - Lab Data Result diagrams: 11/07/23 16:45 11/07/23 16:45 Lab Results 11/07/23 11/07/23 11/07/23 Range/Units 16:45 16:45 16:45 WBC 12.5 H (3.8-10.6) k/uL RBC 3.54 L (4.30-5.90) m/uL Hgb 10.7 L (13.0-17.5) gm/dL Hct 32.3 L (39.0-53.0) % MCV 91.1 (80.0-100.0) fL MCH 30.1 (25.0-35.0) pg MCHC 33.0 (31.0-37.0) g/dL RDW 13.5 (11.5-15.5) % Plt Count 479 H D (150-450) k/uL MPV 7.4 Neutrophils % 86 % Lymphocytes % 7 % Monocytes % 5 % Eosinophils % 1 % Basophils % 0 % Neutrophils # 10.7 H (1.3-7.7) k/uL Lymphocytes # 0.9 L (1.0-4.8) k/uL Monocytes # 0.6 (0-1.0) k/uL Eosinophils # 0.1 (0-0.7) k/uL Basophils # 0.0 (0-0.2) k/uL PT 11.0 (10.0-12.5) sec INR 1.0 (<1.2) APTT 24.0 (22.0-30.0) sec Sodium 133 L (137-145) mmol/L Potassium 4.4 (3.5-5.1) mmol/L Chloride 102 (98-107) mmol/L Carbon Dioxide 17 L (22-30) mmol/L Anion Gap 14 mmol/L BUN 29 H (9-20) mg/dL Creatinine 1.15 (0.66-1.25) mg/dL Est GFR (CKD-EPI)AfAm 74 (>60 ml/min/1.73 sqM) Est GFR (CKD-EPI)NonAf 64 (>60 ml/min/1.73 sqM) Glucose 234 H (74-99) mg/dL Plasma Lactic Acid Chuy (0.7-2.0) mmol/L Calcium 8.7 (8.4-10.2) mg/dL Total Bilirubin 0.6 (0.2-1.3) mg/dL AST 49 (17-59) U/L ALT 45 (4-49) U/L Alkaline Phosphatase 72 (38-126) U/L C-Reactive Protein 5.2 H (<1.0) mg/dL Total Protein 5.9 L (6.3-8.2) g/dL Albumin 3.6 (3.5-5.0) g/dL 11/07/23 Range/Units 16:45 WBC (3.8-10.6) k/uL RBC (4.30-5.90) m/uL Hgb (13.0-17.5) gm/dL Hct (39.0-53.0) % MCV (80.0-100.0) fL MCH (25.0-35.0) pg MCHC (31.0-37.0) g/dL RDW (11.5-15.5) % Plt Count (150-450) k/uL MPV Neutrophils % % Lymphocytes % % Monocytes % % Eosinophils % % Basophils % % Neutrophils # (1.3-7.7) k/uL Lymphocytes # (1.0-4.8) k/uL Monocytes # (0-1.0) k/uL Eosinophils # (0-0.7) k/uL Basophils # (0-0.2) k/uL PT (10.0-12.5) sec INR (<1.2) APTT (22.0-30.0) sec Sodium (137-145) mmol/L Potassium (3.5-5.1) mmol/L Chloride (98-107) mmol/L Carbon Dioxide (22-30) mmol/L Anion Gap mmol/L BUN (9-20) mg/dL Creatinine (0.66-1.25) mg/dL Est GFR (CKD-EPI)AfAm (>60 ml/min/1.73 sqM) Est GFR (CKD-EPI)NonAf (>60 ml/min/1.73 sqM) Glucose (74-99) mg/dL Plasma Lactic Acid Chuy 1.4 (0.7-2.0) mmol/L Calcium (8.4-10.2) mg/dL Total Bilirubin (0.2-1.3) mg/dL AST (17-59) U/L ALT (4-49) U/L Alkaline Phosphatase (38-126) U/L C-Reactive Protein (<1.0) mg/dL Total Protein (6.3-8.2) g/dL Albumin (3.5-5.0) g/dL - Radiology Data Radiology results: report reviewed, image reviewed Disposition Clinical Impression: Other acute postoperative pain, Hx of fusion of cervical spine Disposition: ADMITTED IP TO THIS [facility] Condition: Fair
[2023-11-07 16:58] LABS: Basophils % (A) 0 %; Eosinophils # (A) 0.1 k/uL (0-0.7); Eosinophils % (A) 1 %; HCT 32.3 % (39.0-53.0); HGB 10.7 gm/dL (13.0-17.5); Lymphocytes # (A) 0.9 k/uL (1.0-4.8); Lymphocytes % (A) 7 %; MCH 30.1 pg (25.0-35.0); MCV 91.1 fL (80.0-100.0); Mean Platelet Volume 7.4; Monocytes # (A) 0.6 k/uL (0-1.0); Monocytes % (A) 5 %; Neutrophils # (A) 10.7 k/uL (1.3-7.7); Neutrophils % (A) 86 %; RBC 3.54 m/uL (4.30-5.90); RDW 13.5 % (11.5-15.5); WBC 12.5 k/uL (3.8-10.6)
[2023-11-07 17:00] LABS: Platelet Count 479 k/uL (150-450)
[2023-11-07 17:07] LABS: ALT 45 U/L (4-49); AST 49 U/L (17-59); African American GFR (CKD) 74 (>60 ml/min/1.73 sqM); Albumin 3.6 g/dL (3.5-5.0); Alkaline Phosphatase 72 U/L (38-126); Anion Gap 14 mmol/L; Blood Urea Nitrogen 29 mg/dL (9-20); C Reactive Protein 5.2 mg/dL (<1.0); Calcium 8.7 mg/dL (8.4-10.2); Carbon Dioxide 17 mmol/L (22-30); Chloride 102 mmol/L (98-107); Glucose 234 mg/dL (74-99); Non-African American GFR(CKD) 64 (>60 ml/min/1.73 sqM); Potassium 4.4 mmol/L (3.5-5.1); Sodium 133 mmol/L (137-145); Total Bilirubin 0.6 mg/dL (0.2-1.3); Total Protein 5.9 g/dL (6.3-8.2)
[2023-11-07] MEDS: MORPHINE SULFATE 4 MG/ML SYRINGE IVP STA ×2 (17:43→19:23)
--- NOTE | 2023-11-07 18:01 | CT ---
EXAMINATION TYPE: CT CervThoracic spine wo con CT DLP: 882.2 mGycm, Automated exposure control for dose reduction was used. DATE OF EXAM: 11/07/2023 5:20 PM COMPARISON: December 28, 2023. CLINICAL INDICATION:Male, 73 years old with history of Postop neck/back pain; PHH, POST OP PAIN TECHNIQUE: Axial CT images from the skull base to the inferior aspect of T2 we obtained without intra venous contrast. Coronal and sagittal reformatted images were also reviewed. Contrast used: mL of , (if blank None) Oral contrast used: (if blank None) FINDINGS: Fracture: None. Osseous structures: Postsurgical changes throughout the spine with hardware appearing intact and in s imilar position to prior exam 10/27/2023. There is laminectomy changes throughout the cervical spine. S ubcutaneous foci are present in the surgical bed most pronounced in the upper cervical bed near C3 se [facility] 205 image 49. A surgical bed fluid collection is not excluded but hard to evaluate given lack of IV contrast and CT technique. Visualization of the thoracic spine is intact with multilevel degenera tion changes with osteophyte formation disc space narrowing and facet joint arthropathy. C6-C7 community relations director ior osteophyte with at least mild spinal moderate spinal canal stenosis. Vertebral alignment: Alignment within normal limits. Spinal canal/Neural Foramina: C6-C7 posterior osteophyte with at least mild spinal moderate spinal ca nal stenosis. Other levels of mild neural foraminal stenosis noted throughout the thoracic and upper lumbar spine. Neck soft tissues: Prevertebral soft tissues are within normal limits. Other: The airway is patent. The lung apices are clear. IMPRESSION: 1. Postsurgical changes with hardware in similar position to 10/27/2023. There is surgical bed scatter ed foci of gas most pronounced at the level of C3. Findings could be normal postsurgical change with infection not entirely ruled out at this time. Streak artifact limits evaluation. 2. No evidence for spinal fracture.
[2023-11-07] MEDS ORDERED: ACETAMINOPHEN TAB 325 MG TAB PO PRN (18:47)
[2023-11-07] MEDS ORDERED: ONDANSETRON 4 MG/2 ML VIAL IVP PRN (18:47)
[2023-11-07] MEDS ORDERED: NALOXONE 0.4 MG/ML 1 ML VIAL IV PRN (18:47)
[2023-11-07] MEDS: ORPHENADRINE 30 MG/ML 2 ML VIAL IVP STA (19:23)
[2023-11-07] MEDS: SODIUM CHLORIDE 0.9% 1,000 ML IV SCH (19:24)
[2023-11-07] MEDS ORDERED: SENNOSIDES-DOCUSATE SODIUM 1 EACH TAB PO PRN (19:25)
[2023-11-07] MEDS ORDERED: oxyCODONE-APAP 7.5-325MG 1 EACH TAB PO PRN (19:25)
[2023-11-07] MEDS ORDERED: BUTALB/APAP/CAFF 50-325-40MG TAB PO PRN (19:25)
[2023-11-07] MEDS: GABAPENTIN 300 MG CAP PO SCH (23:28)
[2023-11-07] MEDS: ATORVASTATIN 40 MG TAB PO SCH (23:28)
[2023-11-07] MEDS: MORPHINE SULFATE 4 MG/ML SYRINGE IV PRN (23:28)
[2023-11-07] MEDS: amLODIPine 5 MG TAB PO SCH (23:28)
[2023-11-07 23:35] LABS: Glucose,Whole Blood 226 mg/dL (70-110)
[2023-11-07] MEDS: INSULIN DETEMIR (LEVEMIR) 100 UNIT/ML SYR SQ SCH (23:46)
[2023-11-08] MEDS: KETOROLAC 15 MG/ML 1 ML VIAL IVP PRN (02:52)
[2023-11-08] MEDS: methocarbamoL 750 MG TAB PO PRN (05:54)
[2023-11-08 05:57] LABS: Glucose,Whole Blood 95 mg/dL (70-110)
[2023-11-08] MEDS: FENOFIBRATE 160 MG TAB PO SCH (07:49)
[2023-11-08] MEDS: CHOLECALCIFEROL 125 MCG (5000 IU) TABLET PO SCH (07:49)
[2023-11-08] MEDS: LOSARTAN 50 MG TAB PO SCH (07:49)
[2023-11-08] MEDS: MULTIVITAMINS, THERA 1 EACH TAB PO SCH (07:49)
[2023-11-08] MEDS: VIT A,C & E-LUTEIN-MINERALS 1 EACH TAB PO SCH (07:50)
[2023-11-08] MEDS: PANTOPRAZOLE 40 MG/10 ML VIAL IV SCH (07:50)
[2023-11-08 08:06] LABS: Erythrocyte Sedimentation Rate 78 mm/Hr (0-20)
--- NOTE | 2023-11-08 08:40 | P.PN ---
Progress Note - Text Progress Note Date: 11/08/23 Full consult pending ortho evaluation. Chart and images reviewed Spoke with ED yesterday about pt upon ED visit. Answering service contacted me and I spoke with his as well. I advised they go to ED due to his increase in pain suddenly as well as difficulty with ambulation and report of weakness. states she is unsure as to why as he was doing well at home and was up and about and getting around without much issues other than normal PO pain. Yesterday, however it became rather acutely worse accompanied by what she described as weakness due to the pain. He was still moving all his EXT without issues, but was very painful. I advised they go to ED immediately to be evaluated with CT and exam. stated she wishes they would have done ALISA now due to his need for more help. ED provider contacted myself upon eval and CT. There were, per report, no alarming neurological signs or symptoms. Pt just in increased pain. He was able to move all 4 ext with 5/5 strength. He did require Fent. and Morphine to get his pain under control in the ED. I advised if the pain was too much to go home, and they desired placement due to his need for advanced help, more than could be provided at home due to his debility after surgery, that he be admitted for eval and pain control as well as PT. Provider agreed. I reviewed CT scan of C and T spine. PO changes noted which when compared to previous images did not show any significant interval changes. There was mention of some gas around C3 region, which was present PO as well, infection is in DDX but less likely due to very recent surgery and surgical bed healing. Labs showed increased CRP and SED as well as WBC, but pt was on Steroids in hosp. as well as recent surgery which can explain these. Per report as well his wound was healing very well without drainage, redness or dehiscence. We will evaluate this patient and make further recommendations upon eval. Thank you. Laboratory Results - Last 24 Hours 11/07/23 11/07/23 11/07/23 16:45 16:45 16:45 WBC 12.5 H RBC 3.54 L Hgb 10.7 L Hct 32.3 L MCV 91.1 MCH 30.1 MCHC 33.0 RDW 13.5 Plt Count 479 H D MPV 7.4 Neutrophils % 86 Lymphocytes % 7 Monocytes % 5 Eosinophils % 1 Basophils % 0 Neutrophils # 10.7 H Lymphocytes # 0.9 L Monocytes # 0.6 Eosinophils # 0.1 Basophils # 0.0 ESR 78 H PT 11.0 INR 1.0 APTT 24.0 Sodium 133 L Potassium 4.4 Chloride 102 Carbon Dioxide 17 L Anion Gap 14 BUN 29 H Creatinine 1.15 Est GFR (CKD-EPI)AfAm 74 Est GFR (CKD-EPI)NonAf 64 Glucose 234 H POC Glucose (mg/dL) POC Glu Cadastral Surveyor ID Plasma Lactic Acid Chuy Calcium 8.7 Total Bilirubin 0.6 AST 49 ALT 45 Alkaline Phosphatase 72 C-Reactive Protein 5.2 H Total Protein 5.9 L Albumin 3.6 11/07/23 11/07/23 11/08/23 16:45 23:33 05:56 WBC RBC Hgb Hct MCV MCH MCHC RDW Plt Count MPV Neutrophils % Lymphocytes % Monocytes % Eosinophils % Basophils % Neutrophils # Lymphocytes # Monocytes # Eosinophils # Basophils # ESR PT INR APTT Sodium Potassium Chloride Carbon Dioxide Anion Gap BUN Creatinine Est GFR (CKD-EPI)AfAm Est GFR (CKD-EPI)NonAf Glucose POC Glucose (mg/dL) 226 H 95 POC Glu Cadastral Surveyor ID Dolan, Bailey Dolan, Bailey Plasma Lactic Acid Chuy 1.4 Calcium Total Bilirubin AST ALT Alkaline Phosphatase C-Reactive Protein Total Protein Albumin Vital Signs 11/07/23 11/07/23 11/07/23 16:12 20:07 23:50 Temperature 98.7 F 98.8 F Pulse Rate 97 94 Pulse Rate [ 85 Pulse Oximetery ] Respiratory 20 18 16 Rate Blood Pressure 168/72 154/79 Blood Pressure 158/69 [Left Arm] O2 Sat by Pulse 100 97 97 Oximetry 11/08/23 11/08/23 01:38 07:20 Temperature 98.4 F 97.8 F Pulse Rate Pulse Rate [ 82 76 Pulse Oximetery ] Respiratory 15 18 Rate Blood Pressure Blood Pressure 147/67 132/58 [Left Arm] O2 Sat by Pulse 99 93 L Oximetry
[2023-11-08] MEDS: MORPHINE SULFATE 2 MG/ML SYRINGE IV PRN (09:38)
[2023-11-08] MEDS ORDERED: DEXTROSE 50% SYRINGE 50 ML IVP PRN ×2 (09:44)
[2023-11-08 10:50] LABS: African American GFR (CKD) 60 (>60 ml/min/1.73 sqM); Anion Gap 5 mmol/L; Blood Urea Nitrogen 28 mg/dL (9-20); Calcium 8.6 mg/dL (8.4-10.2); Carbon Dioxide 26 mmol/L (22-30); Chloride 105 mmol/L (98-107); Glucose 99 mg/dL (74-99); Non-African American GFR(CKD) 52 (>60 ml/min/1.73 sqM); Potassium 4.1 mmol/L (3.5-5.1); Sodium 136 mmol/L (137-145)
[2023-11-08] MEDS: HEPARIN SODIUM,PORCINE 5,000 UNIT/ML 1 ML VIAL SQ SCH (10:55)
[2023-11-08] MEDS: CYCLOBENZAPRINE 10 MG TAB PO SCH (11:01)
[2023-11-08] MEDS: oxyCODONE-APAP 10-325MG 1 EACH TAB PO SCH (11:01)
[2023-11-08 11:06] LABS: Glucose,Whole Blood 110 mg/dL (70-110)
--- NOTE | 2023-11-08 11:15 | P.CNOR ---
History of Present Illness - [facility] Consult date: 11/08/23 Requesting physician: Charley Gustafson Consult reason: low back pain, other (Recent post-op) History of present illness: History of Presenting Illness Patient is a pleasant 73-year-old male who presented to the ER for increased postop pain. Patient recently had surgery with Dr. David on 10/26/2023, C3- C7 ACDF and C2-T2 post cervical decompression and fusion. Patient reports that he seemed to be doing well at home and yesterday he had severe pain to the pos terior cervical spine that radiates across his bilateral shoulders. He states he has intermittent numbness and tingling that radiates into the right upper extremity into his ring and pinky fingers. Patient's spouse is present. She states she has been helping with some of his ADLS the best she can. Patient and spouse admit that patient should have went to [facility] for a short period of time to assist with pain control and progress his activities. Patient does report he has been attempting to ambulate and change his position at home as instructed, although it seems to be becoming more difficult due to pain and stiffness. Patient states he is currently able to take 3-4 steps before the pain increases and he has to lay down. Patient is requesting [facility] at discharge. Review of Systems Pertinent positives and negatives as discussed in HPI, a complete review of systems was performed and all other systems are negative. Physical Examination General: The patient is awake and alert, in no acute distress Skin: Skin is warm and dry with no obvious rashes or lesions. Surgical incision to the anterior cervical spine, edges are well-approximated with glue intact. Surgical incision to the posterior cervical spine, edges are well- approximated with sutures intact. Both incisions are healing well. Eye: Pupils are equal, round and reactive to light, extra-ocular movements are intact; there is normal conjunctiva bilaterally. Neck: The neck is supple, there is no tenderness and ROM intact. Cardiovascular: There is a regular rate and rhythm. No murmur, rub or gallop is appreciated. Respiratory: Lungs are clear to auscultation, respirations are non-labored, breath sounds are equal. Gastrointestinal: Soft, non-distended, non-tender abdomen. Back: There is no tenderness to palpation in the midline, paralumbar, parathoracic or buttocks region. There is no obvious deformity. Musculoskeletal: ROM limited secondary to pain and stiffness from surgical procedure. Shoulder abduction 5/5, elbow flexors 5/5, wrist dorsiflexors 5/5. finger abductor 5/5, sports intern 5/5, hip flexor 5/5, knee flexor 5/5, ankle dorsiflexor 5/5, ankle plantarflexion 5/5 and extensor hallucis 5/5. Neurological: CN 2-12 intact. There are no obvious motor or sensory deficits. Movement and coordination equal and intact. Sensory exam to light touch intact C5-T1 and intact from L2-S1. Reflexes 2/4 in bilateral upper and lower extremities. Negative Hoffmans, babinski, and clonus signs. Psychiatric: Cooperative, appropriate mood & affect, normal judgment. Assessment and Plan CT of the cervical spine has been reviewed by Dr. David, please see previous note. At this time we do not recommend any emergent/urgent orthopedic surgical intervention. Increased post-op pain 2 week post-op C3-C7 ACDF and C2-T2 post cervical decompression and fusion 1. Appreciate medical management 2. Pain management - Medications have been adjusted. 3. Maintain incisions clean and dry, we will remove posterior cervical sutures prior to patient discharge. 3. GI prophylaxis -senna 4. DVT prophylaxis -heparin 5. PT/OT - weightbearing as tolerated with a walker as needed. 6. Appreciate consult I reviewed and discussed this case with my attending Dr. David, whom has reviewed this chart and films and is in agreement with assessment and plan of care as outlined above. I have personally seen and examined the patient, performed the documentation and the assessment and plan as written. Number of minutes spent on the visit: 30m. Past Medical History Past Medical History: Asthma, Diabetes Mellitus, Hyperlipidemia, Hypertension, Osteoarthritis (OA) Additional Past Medical History / Comment(s): neuropathy feet & legs, hx chest wall abscess (affected muscle/bone) hx Chronic back pain with repair, herniated disc., Hx hiatal hernia repair. Neck pain. seasonal asthma with exertion. History of Any Multi-Drug Resistant Organisms: None Reported Past Surgical History: Back Surgery, Hernia Repair, Orthopedic Surgery Additional Past Surgical History / Comment(s): Surgery on left elbow"nerve release", LT CTR, LT Hand "BONE SCRAPING", JENNIFER, I&D CHEST WALL ABCESS, PICC LINE INSERTED 01-01-16, REMOVED IN FEB 2016. ,I & D OF CHEST WAll ABSCESS 06/02/16 .,CARINA CATARACTS, EGD, PAIN CLINIC PROCEDURES. Hiatal hernia repair, back surgery 2021. C1-T1 procedure October 2023 Past Anesthesia/Blood Transfusion Reactions: No Reported Reaction Additional Past Anesthesia/Blood Transfusion Reaction / Comm: CLAUSTROPHOBIA WITH MRI Past Psychological History: No Psychological Hx Reported Additional Psychological History / Comment(s): . Smoking Status: Former smoker Past Alcohol Use History: None Reported Additional Past Alcohol Use History / Comment(s): QUIT SMOKING 1972. -smoked occasional cigars. Past Drug Use History: None Reported Additional Drug Use History / Comment(s): pt's aware pt is not to use 24 hrs before procedure. - Past Family History Father Family Medical History: Cancer, Coronary Artery Disease (CAD) Additional Family Medical History / Comment(s): Bowel cancer. Mother Family Medical History: CVA/TIA, Diabetes Mellitus Brother(s) Family Medical History: Cancer Medications and Allergies Home Medications Medication Instructions Recorded Confirmed Type Insulin Detemir [Levemir Flextouch 32 units SQ HS 10/01/16 11/07/23 History Pen] Gabapentin [Neurontin] 600 mg PO BID 09/07/20 11/07/23 History Cholecalciferol (Vitamin D3) 250 mcg PO DAILY 11/05/21 11/07/23 History [Vitamin D3 (125 MCG = 5,000 IU)] Multivit-Mins/Iron/Folic/Lycop 1 tab PO DAILY 11/05/21 11/07/23 History [Centrum Men's Tablet] Fenofibrate Nanocrystallized 145 mg PO DAILY 04/30/23 11/07/23 History [Fenofibrate] amLODIPine [Norvasc] 5 mg PO HS 04/30/23 11/07/23 History Butalb/Acetaminophen/Caffeine 1 - 2 cap PO Q4HR PRN 10/20/23 11/07/23 History [Fioricet 50-300-40 mg Capsule] methocarbamoL [Robaxin-750] 750 mg PO QID PRN #60 tab 10/30/23 11/07/23 Rx Atorvastatin [Lipitor] 40 mg PO HS 11/07/23 11/07/23 History Dulaglutide [Trulicity] 1.5 mg SQ TU 11/07/23 11/07/23 History Losartan Potassium [Cozaar] 100 mg PO DAILY 11/07/23 11/07/23 History Sennosides/Docusate Sodium [Senna 1 tab PO DAILY PRN 11/07/23 11/07/23 History Plus 8.6-50 mg Tablet] Vit C/E/Zn/Coppr/Lutein/Zeaxan 2 cap PO DAILY 11/07/23 11/07/23 History [Preservision Areds 2 Softgel] oxyCODONE-APAP 7.5-325MG [Percocet 1 tab PO Q6HR PRN 11/07/23 11/07/23 History 7.5-325 mg] Allergies Allergy/AdvReac Type Severity Reaction Status Date / Time onion Allergy Anaphylaxis Verified 10/26/23 06:17 Results - Labs Labs: Abnormal Lab Results - Last 24 Hours (Table) 11/07/23 11/07/23 11/07/23 Range/Units 16:45 16:45 23:33 WBC 12.5 H (3.8-10.6) k/uL RBC 3.54 L (4.30-5.90) m/uL Hgb 10.7 L (13.0-17.5) gm/dL Hct 32.3 L (39.0-53.0) % Plt Count 479 H D (150-450) k/uL Neutrophils # 10.7 H (1.3-7.7) k/uL Lymphocytes # 0.9 L (1.0-4.8) k/uL ESR 78 H (0-20) mm/Hr Sodium 133 L (137-145) mmol/L Carbon Dioxide 17 L (22-30) mmol/L BUN 29 H (9-20) mg/dL Glucose 234 H (74-99) mg/dL POC Glucose (mg/dL) 226 H (70-110) mg/dL C-Reactive Protein 5.2 H (<1.0) mg/dL Total Protein 5.9 L (6.3-8.2) g/dL H & H 11/07/23 Range/Units 16:45 Hgb 10.7 L (13.0-17.5) gm/dL Hct 32.3 L (39.0-53.0) % Coagulation 11/07/23 Range/Units 16:45 INR 1.0 (<1.2) Result Diagrams: 11/07/23 16:45 11/08/23 10:01
[2023-11-08] MEDS: INSULIN ASPART (NovoLOG) 100 UNIT/ML VIAL SQ SCH (11:20)
[2023-11-08] MEDS ORDERED: HYDROmorphone 1 MG/ML 1 ML SYRINGE IVP PRN (11:34)
--- NOTE | 2023-11-08 12:47 | P.HPIM ---
History of Present Illness H&P Date: 11/08/23 This is a 73-year-old male with medical history significant for asthma, diabetes mellitus, hypertension, hyperlipidemia, peripheral neuropathy, recent C1-T1 procedure in October 2023. Patient is a former smoker. Patient returns to the hospital postop day #13 C2-T2 decompression and fusion and C3-C7 ACDF. Patient reports severe neck pain that developed yesterday that brought him to his knees that occurred out of nowhere he has not had any new injuries and has been up ambulating as usual prior to this. Patient has been nauseous. He received fentanyl en route without relief of pain. Patient is not having any issues moving his extremities no focal weakness. no chest pain no shortness of breath no nausea vomiting or diarrhea. He is not having any dizziness or lightheadedness. Pain is currently rated a 6/10 and has not been relieved with pain medications at this time. Patient states he sometimes has radiation down into the left arm. He has a focal area of tenderness to the left of the spine at the level of T12. Muscle feels more firm there. Cervical thoracic spine CT reveals postsurgical changes with hardware in similar position to October 27, 2023. There is surgical bed scattered foci of gas most pronounced at the level of C3 findings could be normal postsurgical change with infection not entirely ruled out at this time. Streak artifact limits evaluation there is no evidence for sp inal fracture. Blood cell count of 12.5, hemoglobin 10.7, platelet count of 479, sodium level of 133, BUN of 29, creatinine of 1.15. REVIEW OF SYSTEMS: CONSTITUTIONAL: No fever, no malaise, no fatigue. HEENT: No recent visual problems or hearing problems. Denied any sore throat. CARDIOVASCULAR: No chest pain, orthopnea, PND, no palpitations, no syncope. PULMONARY: No shortness of breath, no cough, no hemoptysis. GASTROINTESTINAL: No diarrhea, no nausea, no vomiting, no abdominal pain. NEUROLOGICAL: No headaches, no weakness, no numbness. HEMATOLOGICAL: Denies any bleeding or petechiae. GENITOURINARY: Denies any burning micturition, frequency, or urgency. MUSCULOSKELETAL/RHEUMATOLOGICAL: Denies any joint pain, swelling, or any muscle pain. ENDOCRINE: Denies any polyuria or polydipsia. The rest of the 14-point review of systems is negative. PHYSICAL EXAMINATION: GENERAL: The patient is alert and oriented x3, not in any acute distress. Well developed, well nourished. HEENT: Pupils are round and equally reacting to light. EOMI. No scleral icterus. No conjunctival pallor. Normocephalic, atraumatic. No pharyngeal erythema. No thyromegaly. CARDIOVASCULAR: S1 and S2 present. No murmurs, rubs, or gallops. PULMONARY: Chest is clear to auscultation, no wheezing or crackles. ABDOMEN: Soft, nontender, nondistended, normoactive bowel sounds. No palpable organomegaly. MUSCULOSKELETAL: No joint swelling or deformity. EXTREMITIES: No cyanosis, clubbing, or pedal edema. NEUROLOGICAL: Gross neurological examination did not reveal any focal deficits. SKIN: No rashes. Assessment and plan Recent C2-T2 decompression and fusion/2 C3-C7 ACDF postop day #13 return to the hospital with cervical neck pain, pain management will adjusted continues on oxycodone and muscle relaxer. Spinal surgery on consultation. Generalized weakness and medical debility secondary to above requesting physical therapy evaluation and likely will need subacute rehab on discharge History of asthma with no acute exacerbation History of diabetes mellitus type 2 will continue on Levemir and at bedtime with sliding scale insulin and Accu-Cheks ACHS Peripheral neuropathy maintained on gabapentin which has been resumed Hyperlipidemia resumed on Lofibra and statin therapy History of hypertension continues on losartan and amlodipine Hyponatremia likely SIADH due to pain will repeat after patient has received IV fluids Former smoker GI prophylaxis DVT prophylaxis Full Code The impression and plan of care has been dictated by Alisson Rodriguez, Nurse Practitioner as directed. Dr. Raj MD I have performed a history and physical examination and medical decision making of this patient, discussed the same with the dictator, and agree with the dictators assessment and plan as written, documented as a scribe. Based on total visit time, I have performed more than 50% of this visit. Past Medical History Past Medical History: Asthma, Diabetes Mellitus, Hyperlipidemia, Hypertension, Osteoarthritis (OA) Additional Past Medical History / Comment(s): neuropathy feet & legs, hx chest wall abscess (affected muscle/bone) hx Chronic back pain with repair, herniated disc., Hx hiatal hernia repair. Neck pain. seasonal asthma with exertion. History of Any Multi-Drug Resistant Organisms: None Reported Past Surgical History: Back Surgery, Hernia Repair, Orthopedic Surgery Additional Past Surgical History / Comment(s): Surgery on left elbow"nerve release", LT CTR, LT Hand "BONE SCRAPING", JENNIFER, I&D CHEST WALL ABCESS, PICC LINE INSERTED 01-01-16, REMOVED IN FEB 2016. ,I & D OF CHEST WAll ABSCESS 06/02/16 .,CARINA CATARACTS, EGD, PAIN CLINIC PROCEDURES. Hiatal hernia repair, back surgery 2021. C1-T1 procedure October 2023 Past Anesthesia/Blood Transfusion Reactions: No Reported Reaction Additional Past Anesthesia/Blood Transfusion Reaction / Comment(s): CLAUSTROPHOBIA WITH MRI Past Psychological History: No Psychological Hx Reported Additional Psychological History / Comment(s): . Smoking Status: Former smoker Past Alcohol Use History: None Reported Additional Past Alcohol Use History / Comment(s): QUIT SMOKING 1972. -smoked occasional cigars. Past Drug Use History: None Reported Additional Drug Use History / Comment(s): pt's aware pt is not to use 24 hrs before procedure. - Past Family History Father Family Medical History: Cancer, Coronary Artery Disease (CAD) Additional Family Medical History / Comment(s): Bowel cancer. Mother Family Medical History: CVA/TIA, Diabetes Mellitus Brother(s) Family Medical History: Cancer Medications and Allergies Home Medications Medication Instructions Recorded Confirmed Type Insulin Detemir [Levemir Flextouch 32 units SQ HS 10/01/16 11/07/23 History Pen] Gabapentin [Neurontin] 600 mg PO BID 09/07/20 11/07/23 History Cholecalciferol (Vitamin D3) 250 mcg PO DAILY 11/05/21 11/07/23 History [Vitamin D3 (125 MCG = 5,000 IU)] Multivit-Mins/Iron/Folic/Lycop 1 tab PO DAILY 11/05/21 11/07/23 History [Centrum Men's Tablet] Fenofibrate Nanocrystallized 145 mg PO DAILY 04/30/23 11/07/23 History [Fenofibrate] amLODIPine [Norvasc] 5 mg PO HS 04/30/23 11/07/23 History Butalb/Acetaminophen/Caffeine 1 - 2 cap PO Q4HR PRN 10/20/23 11/07/23 History [Fioricet 50-300-40 mg Capsule] methocarbamoL [Robaxin-750] 750 mg PO QID PRN #60 tab 10/30/23 11/07/23 Rx Atorvastatin [Lipitor] 40 mg PO HS 11/07/23 11/07/23 History Dulaglutide [Trulicity] 1.5 mg SQ TU 11/07/23 11/07/23 History Losartan Potassium [Cozaar] 100 mg PO DAILY 11/07/23 11/07/23 History Sennosides/Docusate Sodium [Senna 1 tab PO DAILY PRN 11/07/23 11/07/23 History Plus 8.6-50 mg Tablet] Vit C/E/Zn/Coppr/Lutein/Zeaxan 2 cap PO DAILY 11/07/23 11/07/23 History [Preservision Areds 2 Softgel] oxyCODONE-APAP 7.5-325MG [Percocet 1 tab PO Q6HR PRN 11/07/23 11/07/23 History 7.5-325 mg] Allergies Allergy/AdvReac Type Severity Reaction Status Date / Time hydromorphone [From Dilaudid] Allergy Vomiting Verified 11/08/23 11:57 onion Allergy Anaphylaxis Verified 10/26/23 06:17 Physical Exam Vitals: Vital Signs Temp Pulse Pulse Resp BP BP Pulse Ox 11/08/23 07:20 97.8 F 76 18 132/58 93 L 11/08/23 01:38 98.4 F 82 15 147/67 99 11/07/23 23:50 98.8 F 85 16 158/69 97 11/07/23 20:07 94 18 154/79 97 11/07/23 16:12 98.7 F 97 20 168/72 100 Intake and Output 11/07/23 11/08/23 11/08/23 22:59 06:59 14:59 Intake Total 525 Output Total 500 Balance 25 Intake: Intake, IV Titration 525 Amount Sodium Chloride 0.9% 1, 525 000 ml @ 75 mls/hr IV . [id number] [facility] Rx#:[id number] Output: Urine 500 Other: Voiding Method Urinal # Voids 1 Weight 54.431 kg Results CBC & Chem 7: 11/07/23 16:45 11/08/23 10:01 Labs: Abnormal Lab Results - Last 24 Hours (Table) 11/07/23 11/07/23 11/07/23 Range/Units 16:45 16:45 23:33 WBC 12.5 H (3.8-10.6) k/uL RBC 3.54 L (4.30-5.90) m/uL Hgb 10.7 L (13.0-17.5) gm/dL Hct 32.3 L (39.0-53.0) % Plt Count 479 H D (150-450) k/uL Neutrophils # 10.7 H (1.3-7.7) k/uL Lymphocytes # 0.9 L (1.0-4.8) k/uL ESR 78 H (0-20) mm/Hr Sodium 133 L (137-145) mmol/L Carbon Dioxide 17 L (22-30) mmol/L BUN 29 H (9-20) mg/dL Glucose 234 H (74-99) mg/dL POC Glucose (mg/dL) 226 H (70-110) mg/dL C-Reactive Protein 5.2 H (<1.0) mg/dL Total Protein 5.9 L (6.3-8.2) g/dL Thrombosis Risk Factor Assmnt - Choose All That Apply Any of the Below Risk Factors Present?: Yes Each Factor Represents 1 point: History of prior major surgery (<1month) Other Risk Factors: Yes Each Risk Factor Represents 2 Points: Age 61-74 years Thrombosis Risk Factor Assessment Total Risk Factor Score: 3 Thrombosis Risk Factor Assessment Level: Moderate Risk Assessment and Plan Time with Patient: Less than 30
[2023-11-08] MEDS: GABAPENTIN 300 MG CAP PO SCH (15:53)
[2023-11-08 16:11] LABS: Glucose,Whole Blood 142 mg/dL (70-110)
[2023-11-08 20:48] LABS: Glucose,Whole Blood 166 mg/dL (70-110)
[2023-11-09 05:51] LABS: Glucose,Whole Blood 63 mg/dL (70-110)
[2023-11-09 06:30] LABS: Glucose,Whole Blood 100 mg/dL (70-110)
--- NOTE | 2023-11-09 07:38 | P.PN ---
Subjective Progress Note Date: 11/09/23 Patient seen and examined this morning he is up and about in his room using the restroom. He states his and pain in his shoulders and across his low back. He denies any neurologic symptoms overnight. He denies any fevers chills shortness of breath or chest pain at this time. Incision is clean and dry. Denies any drainage. He states at home he just became very painful and so he came back in. He is questioning needing to go to subacute rehab but today states he does not think he needs to go there. He is doing things around the room under his own power. He is doing a little bit too much with his upper extremities and pushing pulling reaching and I discussed and educated him on this. Objective - Vital Signs Vital signs: Vital Signs Temp 98.2 F 11/09/23 02:00 Pulse 71 11/09/23 02:00 Resp 14 11/08/23 20:00 BP 115/61 11/09/23 02:00 Pulse Ox 96 11/09/23 02:00 FiO2 Intake & Output 11/08/23 11/09/23 11/09/23 18:59 06:59 18:59 Intake Total 900 Output Total 500 Balance 400 Intake: Intake, IV Titration 900 Amount Sodium Chloride 0.9% 1, 900 000 ml @ 75 mls/hr IV . [id number] [facility] Rx#:[id number] Output: Urine 500 Other: Voiding Method Urinal # Voids 2 1 - Exam PHYSICAL EXAMINATION: Vitals: Stable at this time General: Awake, alert, appropriate for age, in no acute distress. HEENT: No unusual neck masses around region of lateral neck triangle, thyroid, supraclavicular groove. Extremities: Skin warm and dry without no acute lesions, coloration, temperature, skin intact, no tenderness or erythema. Integument: Hairy patches: Absent Dorsal skin dimples: Absent Cafe au lait spots: Absent Surgical incisions: Clean dry and intact without erythema or ecchymosis or edema. No drainage incision is healing well and sutures can probably come out today or tomorrow for the patient Palpation: Please see Pain drawing on Intake sheet for further detail. (Tenderness = T, Nontender = NT, Swelling = S, Ecchymosis = E) Findings on Midline and paraspinal palpation and percussion: Cervical: Tender to palpation around the incision with a mild amount of subcutaneous fluid which is felt. Is a seromatous. There is no splaying of the fascia or incision. Thoracic: NT Lumbar: NT Sacral: NT Special findings: None POSTURAL and MUSCULO-SKELETAL EVALUATION: Coronal Balance: Neutral Recumbent testing: Patient can lay flat on back Sagittal Balance: [Neutral] Shoulder Profile: [Level] Pelvic Girdle: [Level] Neck ROM: [Unrestricted in six directions] Lumbar ROM: [Unrestricted in six directions] Shoulder ROM: Symmetric in abduction, ER/IR Hip ROM: Symmetric in abduction, adduction, ER/IR Knee ROM: Symmetric and intact in Flexion / extension Hands: Normal appearing structure L and R Feet: Normal appearing structure L and R VASCULAR STATUS : Wrist Pulses: [2/4 bilateral radial and ulnar] Pedal Pulses: [2/4 bilateral DP and PT] Color: [Normal] Edema: [None] NEUROLOGIC EXAMINATION: Mental Status: Awake and alert, fully oriented, with normal attention, concentration and memory, and fluent, appropriate speech. Cranial Nerves: I: Olfactory not tested. II: Visual acuity normal, no visual field deficit noted with confrontation. III,IV: Normal pupillary reflexes & intact extraocular movements without nystagmus. V,: Intact symmetrical facial sensation. VII: Intact symmetrical facial motor movement VIII: Hearing intact. IX,X: Intact gag, swallow, & normal voice. XI: Sternocleidomastoid, trapezius function intact. XII: Tongue midline with normal movements. Special Tests: L'hermitte's Sign: Absent Spurling'Sign: Absent Bilateral Cubital percussion test: Absent Bilateral Juvenal-Tinel sign - Carpal region: Absent Bilateral Straight Leg Raising: Absent Bilateral Motor Exam (0-5/5, N/T) STRENGTH UPPER EXTREMITY [5]/5 in all major muscle groups of the UE b/l [Except:] LOWER EXTREMITY [5]/5 in all major muscle groups of the LE b/l [Except:] REFLEXES Upper Extremity: RIGHT [2]/4 LEFT [2]/4 Lower Extremity: RIGHT [2]/4 LEFT [2]/4 Pathological Reflexes Jara's: RIGHT [Absent] LEFT [Absent] Babinski: RIGHT [Absent] LEFT [Absent] Clonus: RIGHT [None] LEFT [None] SENSORY Pain and LT sense [Intact C5-T1 and L2-S1] Dermatomal deficit [None] Gait and Functional Evaluation: Ambulatory aids: None - Labs CBC & Chem 7: 11/07/23 16:45 11/08/23 10:01 Labs: Abnormal Lab Results - Last 24 Hours (Table) 11/07/23 11/08/23 11/08/23 Range/Units 16:45 10:01 10:01 ESR 78 H (0-20) mm/Hr Sodium 136 L (137-145) mmol/L BUN 28 H (9-20) mg/dL Creatinine 1.36 H (0.66-1.25) mg/dL POC Glucose (mg/dL) (70-110) mg/dL Hemoglobin A1c 9.4 H (<=6.0) % 11/08/23 11/08/23 11/09/23 Range/Units 16:09 20:47 05:49 ESR (0-20) mm/Hr Sodium (137-145) mmol/L BUN (9-20) mg/dL Creatinine (0.66-1.25) mg/dL POC Glucose (mg/dL) 142 H 166 H 63 L (70-110) mg/dL Hemoglobin A1c (<=6.0) % Microbiology - Last 24 Hours (Table) 11/07/23 19:50 Blood Culture - Preliminary Blood 11/07/23 19:40 Blood Culture - Preliminary Blood Assessment and Plan (1) Postoperative pain after spinal surgery Current Visit: Yes Status: Acute Code(s): G89.18 - OTHER ACUTE POSTPROCEDURAL PAIN SNOMED Code(s): 601504640 (2) Hx of fusion of cervical spine Current Visit: Yes Status: Acute Code(s): Z98.1 - ARTHRODESIS STATUS SNOMED Code(s): 1462579289053 (3) Cervical radiculopathy due to degenerative joint disease of spine Current Visit: No Status: Acute Code(s): M47.22 - OTHER SPONDYLOSIS WITH RADICULOPATHY, CERVICAL REGION SNOMED Code(s): 14894045 (4) Cervical spondylosis with myelopathy Current Visit: No Status: Acute Code(s): M47.12 - OTHER SPONDYLOSIS WITH MYELOPATHY, CERVICAL REGION SNOMED Code(s): 595170552 Plan: -Appreciate senior information security consultant and team management. -Activity: Ambulate QID, OOB all meals, up and about, . -Daily PT/OT, increase ambulation strength and balance. -C collar when up and about -No pushing pulling lifting bending twisting greater than 10 pounds. T Keyur arms only -Pain control: [Adequate at this time], We will need muscle relaxers. -Meds: [reviewed] -GI ppx: senna, Miralax -DVT PPX: Mechanical patient is up and about and moving well -Hygiene: Shower today. Maintain dressing clean and dry. Meticulous cleaning after BMs away from incision site -Encourage IS 10x/hr -Dispo: Plan on discharging home versus [facility] today versus tomorrow.
[2023-11-09 09:05] LABS: BUN/Creat Ratio 14.17 Ratio (12.00-20.00); Calcium 8.8 mg/dL (8.7-10.3); Chloride 105 mmol/L (96-109); Glucose 53 mg/dL (70-110); Potassium 4.4 mmol/L (3.5-5.5); Sodium 140 mmol/L (135-145)
[2023-11-09 10:58] VITALS: BMI 20.5
[2023-11-09 11:54] LABS: Glucose,Whole Blood 96 mg/dL (70-110)
--- NOTE | 2023-11-09 14:29 | P.PN ---
Subjective Progress Note Date: 11/09/23 This is a 73-year-old male with medical history significant for asthma, diabetes mellitus, hypertension, hyperlipidemia, peripheral neuropathy, recent C1-T1 procedure in October 2023. Patient is a former smoker. Patient returns to the hospital postop day #13 C2-T2 decompression and fusion and C3-C7 ACDF. Patient reports severe neck pain that developed yesterday that brought him to his knees that occurred out of nowhere he has not had any new injuries and has been up ambulating as usual prior to this. Patient has been nauseous. He received fentanyl en route without relief of pain. Patient is not having any issues moving his extremities no focal weakness. no chest pain no shortness of breath no nausea vomiting or diarrhea. He is not having any dizziness or lightheadedness. Pain is currently rated a 6/10 and has not been relieved with pain medications at this time. Patient states he sometimes has radiation down into the left arm. He has a focal area of tenderness to the left of the spine at the level of T12. Muscle feels more firm there. Cervical thoracic spine CT reveals postsurgical changes with hardware in similar position to October 27, 2023. There is surgical bed scattered foci of gas most pronounced at the level of C3 findings could be normal postsurgical change with infection not entirely ruled out at this time. Streak artifact limits evaluation there is no evidence for spinal fracture. Blood cell count of 12.5, hemoglobin 10.7, platelet count of 479, sodium level of 133, BUN of 29, creatinine of 1.15. 11/09/2023 Patient is evaluated today in follow-up in the medical floor. He reports significant improvement in his cervical neck pain down to a 3 out of 10. Percocet have been increased up to 10 mg and patient continues on Flexeril 4 times a day as needed. Orthopedics is planning on removing the sutures morning and patient be discharged home tomorrow. Discussing with orthopedics Dr. David will be taking over his primary provider for this patient. REVIEW OF SYSTEMS: CONSTITUTIONAL: No fever, no malaise, no fatigue. HEENT: No recent visual problems or hearing problems. Denied any sore throat. CARDIOVASCULAR: No chest pain, orthopnea, PND, no palpitations, no syncope. PULMONARY: No shortness of breath, no cough, no hemoptysis. GASTROINTESTINAL: No diarrhea, no nausea, no vomiting, no abdominal pain. NEUROLOGICAL: No headaches, no weakness, no numbness. The rest of the 14-point review of systems is negative. PHYSICAL EXAMINATION: GENERAL: The patient is alert and oriented x3, not in any acute distress. Well developed, well nourished. HEENT: Pupils are round and equally reacting to light. EOMI. No scleral icterus. No conjunctival pallor. Normocephalic, atraumatic. No pharyngeal erythema. No thyromegaly. CARDIOVASCULAR: S1 and S2 present. No murmurs, rubs, or gallops. PULMONARY: Chest is clear to auscultation, no wheezing or crackles. ABDOMEN: Soft, nontender, nondistended, normoactive bowel sounds. No palpable organomegaly. MUSCULOSKELETAL: No joint swelling or deformity. EXTREMITIES: No cyanosis, clubbing, or pedal edema. NEUROLOGICAL: Gross neurological examination did not reveal any focal deficits. SKIN: No rashes. Assessment and plan Recent C2-T2 decompression and fusion/2 C3-C7 ACDF postop day #14 return to the hospital with cervical neck pain, pain management will adjusted continues on oxycodone and muscle relaxer. Spinal surgery on consultation. Generalized weakness and medical debility evaluated physical therapy who have recommended home with home care on discharge. Patient and are agreeing with this plan. History of asthma with no acute exacerbation History of diabetes mellitus type 2 will continue on Levemir and at bedtime with sliding scale insulin and Accu-Cheks ACHS Peripheral neuropathy maintained on gabapentin which has been resumed Hyperlipidemia resumed on Lofibra and statin therapy History of hypertension continues on losartan and amlodipine Hyponatremia likely SIADH due to pain will repeat after patient has received IV fluids Former smoker GI prophylaxis DVT prophylaxis Full Code The impression and plan of care has been dictated by Alisson Rodriguez, Nurse Practitioner as directed. Dr. Raj MD I have performed a history and physical examination and medical decision making of this patient, discussed the same with the dictator, and agree with the dictators assessment and plan as written, documented as a scribe. Based on total visit time, I have performed more than 50% of this visit. Objective - Vital Signs Vital signs: Vital Signs Temp 98.3 F 11/09/23 13:32 Pulse 84 11/09/23 13:32 Resp 17 11/09/23 13:32 BP 118/58 07/22/24 13:32 Pulse Ox 97 11/09/23 13:32 FiO2 Intake & Output 11/08/23 11/09/23 11/09/23 18:59 06:59 18:59 Intake Total 900 Output Total 500 Balance 400 Weight 54.431 kg Intake: Intake, IV Titration 900 Amount Sodium Chloride 0.9% 1, 900 000 ml @ 75 mls/hr IV . [id number] MELISSA Rx#:[id number] Output: Urine 500 Other: Voiding Method Urinal # Voids 2 1 - Labs CBC & Chem 7: 11/07/23 16:45 11/09/23 04:28 Labs: Abnormal Lab Results - Last 24 Hours (Table) 11/08/23 11/08/23 11/09/23 Range/Units 16:09 20:47 04:28 Glucose 53 L (70-110) mg/dL POC Glucose (mg/dL) 142 H 166 H (70-110) mg/dL 11/09/23 Range/Units 05:49 Glucose (70-110) mg/dL POC Glucose (mg/dL) 63 L (70-110) mg/dL Microbiology - Last 24 Hours (Table) 11/07/23 19:50 Blood Culture - Preliminary Blood 11/07/23 19:40 Blood Culture - Preliminary Blood Assessment and Plan Time with Patient: Less than 30
[2023-11-09 16:38] LABS: Glucose,Whole Blood 85 mg/dL (70-110)
[2023-11-09 20:31] LABS: Glucose,Whole Blood 130 mg/dL (70-110)
[2023-11-09] MEDS: INSULIN DETEMIR (LEVEMIR) 100 UNIT/ML SYR SQ SCH (20:54)
[2023-11-10 02:50] LABS: Glucose,Whole Blood 57 mg/dL (70-110)
[2023-11-10 03:13] LABS: Glucose,Whole Blood 83 mg/dL (70-110)
[2023-11-10 06:01] LABS: Glucose,Whole Blood 75 mg/dL (70-110)
--- NOTE | 2023-11-10 08:15 | P.PN ---
Subjective Progress Note Date: 11/10/23 Principal diagnosis: Severe post-op pain s/p C3-C7 ACDF and C2-T2 post cervical decompression and fusion Patient seen and examined this morning. Patient is resting comfortably in bed. He does report improvement of his overall cervical pain. He currently has complaint of muscle spasms. Medications have been adjusted. Surgical incision to the anterior cervical spine, edges are well-approximated with glue intact. Surgical incision to the posterior cervical spine, edges are well-approximated and sutures have been removed. Incision was cleaned with rubbing alcohol and l eft open to air. Patient reports improvement of his upper extremity radiculopathy since the procedure. He has noticed a decrease in his headaches as well. Patient is looking forward to going home later today. Objective - Vital Signs Vital signs: Vital Signs Temp 98.4 F 11/10/23 07:13 Pulse 85 11/10/23 07:13 Resp 17 11/10/23 07:13 BP 149/65 11/10/23 07:13 Pulse Ox 98 11/10/23 07:13 FiO2 Intake & Output 11/09/23 11/10/23 11/10/23 18:59 06:59 18:59 Output Total 2550 580 Balance -2550 -580 Weight 54.431 kg Output: Urine 2550 580 Other: # Voids 1 - Exam General: The patient is awake and alert, in no acute distress Skin: Skin is warm and dry with no obvious rashes or lesions. Surgical incision to the anterior cervical spine, edges are well-approximated with glue intact. Surgical incision to the posterior cervical spine, edges are well- approximated, sutures have been removed. Both incisions are healing well. Eye: Pupils are equal, round and reactive to light, extra-ocular movements are intact; there is normal conjunctiva bilaterally. Neck: The neck is supple, there is no tenderness and ROM intact. Cardiovascular: There is a regular rate and rhythm. No murmur, rub or gallop is appreciated. Respiratory: Lungs are clear to auscultation, respirations are non-labored, breath sounds are equal. Gastrointestinal: Soft, non-distended, non-tender abdomen. Back: There is no tenderness to palpation in the midline, paralumbar, parathoracic or buttocks region. There is no obvious deformity. Musculoskeletal: ROM limited secondary to pain and stiffness from surgical procedure. Shoulder abduction 5/5, elbow flexors 5/5, wrist dorsiflexors 5/5. finger abductor 5/5, fence maker 5/5, hip flexor 5/5, knee flexor 5/5, ankle dorsiflexor 5/5, ankle plantarflexion 5/5 and extensor hallucis 5/5. Neurological: CN 2-12 intact. There are no obvious motor or sensory deficits. Movement and coordination equal and intact. Sensory exam to light touch intact C5-T1 and intact from L2-S1. Reflexes 2/4 in bilateral upper and lower extremities. Negative Hoffmans, babinski, and clonus signs. Psychiatric: Cooperative, appropriate mood & affect, normal judgment. - Labs CBC & Chem 7: 11/07/23 16:45 11/09/23 04:28 Labs: Abnormal Lab Results - Last 24 Hours (Table) 11/09/23 11/09/23 11/10/23 Range/Units 04:28 20:29 02:48 Glucose 53 L (70-110) mg/dL POC Glucose (mg/dL) 130 H 57 L (70-110) mg/dL Microbiology - Last 24 Hours (Table) 11/07/23 19:40 Blood Culture - Preliminary Blood Assessment and Plan Assessment: Increased post-op pain 2 week post-op C3-C7 ACDF and C2-T2 post cervical decompression and fusion Plan: -Appreciate medical consultant and team management. -Activity: Ambulate QID, OOB all meals, up and about, limit lifting bending twisting to less than 5 lbs. Use walker or cane if needed for stability. -Daily PT/OT, increase ambulation strength and balance. -Cervical collar at all times -Pain control: Adequate at this time -Meds: reviewed -GI ppx: senna, Miralax -DVT PPX: mechanical -Hygiene: Shower today. Maintain incision clean and dry. -Encourage IS 10x/hr -Dispo: Discharge home later today *I reviewed and discussed this case with my attending Dr. David, whom has reviewed this chart and films and is in agreement with assessment and plan of care as outlined above. I have personally seen and examined the patient, performed the documentation and the assessment and plan as written. Number of minutes spent on the visit: 20m.
--- NOTE | 2023-11-10 08:25 | P.DS ---
Providers Date of admission: 11/09/23 08:05 Expected date of discharge: 11/10/23 Attending physician: Forrest David DO Consults: 11/07/23 18:47 Consult Physician Urgent Consulting Provider: Forrest David Consult Reason/Comments: Postop neck pain Do you want consulting provider notified?: Already Contacted 11/09/23 14:25 Consult Physician Routine Consulting Provider: Matt Anthony Consult Reason/Comments: med management Do you want consulting provider notified?: Already Contacted Primary care physician: [facility] Hospital Course: Hospital Course: The patient was evaluated and found to have increased post-op pain. While on the floor their pain was well controlled through their stay and they were started on appropriate medications, DVT ppx modalities, activity and dietary needs. Medicine as well as other consulting services have made their input and have helped with our team approach and multidisciplinary care. PT milestones have been met and passed and they have made the recommendation of home with home care for this patient and treating providers agree with this care path. The patient will be discharged home with appropriate medications, instructions and follow-up information and in stable condition. Patient Condition at Discharge: Good Plan - Discharge Summary Discharge Rx Participant: No New Discharge Prescriptions: New cefaDROXiL [Duricef] 500 mg PO Q12HR #28 cap Cyclobenzaprine [Flexeril] 5 mg PO TID #60 tablet Famotidine [Pepcid] 20 mg PO DAILY #30 tablet Gabapentin 600 mg PO TID #90 tab oxyCODONE HCL/ACETAMINOPHEN [Percocet 10-325 mg] 1 tab PO Q4HR PRN #40 tab PRN Reason: Pain Continue Insulin Detemir [Levemir Flextouch Pen] 32 units SQ HS Gabapentin [Neurontin] 600 mg PO BID Cholecalciferol (Vitamin D3) [Vitamin D3 (125 MCG = 5,000 IU)] 250 mcg PO DAILY Multivit-Mins/Iron/Folic/Lycop [Centrum Men's Tablet] 1 tab PO DAILY amLODIPine [Norvasc] 5 mg PO HS methocarbamoL [Robaxin-750] 750 mg PO QID PRN #60 tab PRN Reason: Muscle Spasm Losartan Potassium [Cozaar] 100 mg PO DAILY Sennosides/Docusate Sodium [Senna Plus 8.6-50 mg Tablet] 1 tab PO DAILY PRN PRN Reason: Constipation oxyCODONE-APAP 7.5-325MG [Percocet 7.5-325 mg] 1 tab PO Q6HR PRN PRN Reason: Pain Fenofibrate Nanocrystallized [Fenofibrate] 145 mg PO DAILY Butalb/Acetaminophen/Caffeine [Fioricet 50-300-40 mg Capsule] 1 - 2 cap PO Q4HR PRN PRN Reason: Migraine Headache Atorvastatin [Lipitor] 40 mg PO HS Dulaglutide [Trulicity] 1.5 mg SQ TU Vit C/E/Zn/Coppr/Lutein/Zeaxan [Preservision Areds 2 Softgel] 2 cap PO DAILY Discharge Medication List Insulin Detemir [Levemir Flextouch Pen] 32 units SQ HS 10/01/16 [History] Gabapentin [Neurontin] 600 mg PO BID 09/07/20 [History] Cholecalciferol (Vitamin D3) [Vitamin D3 (125 MCG = 5,000 IU)] 250 mcg PO DAILY 11/05/21 [History] Multivit-Mins/Iron/Folic/Lycop [Centrum Men's Tablet] 1 tab PO DAILY 11/05/21 [History] Fenofibrate Nanocrystallized [Fenofibrate] 145 mg PO DAILY 04/30/23 [History] amLODIPine [Norvasc] 5 mg PO HS 04/30/23 [History] Butalb/Acetaminophen/Caffeine [Fioricet 50-300-40 mg Capsule] 1 - 2 cap PO Q4HR PRN 10/20/23 [History] methocarbamoL [Robaxin-750] 750 mg PO QID PRN #60 tab 10/30/23 [Rx] Atorvastatin [Lipitor] 40 mg PO HS 11/07/23 [History] Dulaglutide [Trulicity] 1.5 mg SQ TU 11/07/23 [History] Losartan Potassium [Cozaar] 100 mg PO DAILY 11/07/23 [History] Sennosides/Docusate Sodium [Senna Plus 8.6-50 mg Tablet] 1 tab PO DAILY PRN 11/07/23 [History] Vit C/E/Zn/Coppr/Lutein/Zeaxan [Preservision Areds 2 Softgel] 2 cap PO DAILY 11/07/23 [History] oxyCODONE-APAP 7.5-325MG [Percocet 7.5-325 mg] 1 tab PO Q6HR PRN 11/07/23 [History] Famotidine [Pepcid] 20 mg PO DAILY #30 tablet 11/09/23 [Rx] Cyclobenzaprine [Flexeril] 5 mg PO TID #60 tablet 11/10/23 [Rx] Gabapentin 600 mg PO TID #90 tab 11/10/23 [Rx] cefaDROXiL [Duricef] 500 mg PO Q12HR #28 cap 11/10/23 [Rx] oxyCODONE HCL/ACETAMINOPHEN [Percocet 10-325 mg] 1 tab PO Q4HR PRN #40 tab 11/10/23 [Rx] Follow up Appointment(s)/Referral(s): Chin Yang DO [Primary Care Provider] - 1-2 days Forrest David DO [Doctor of Osteopathic Medicine] - 4 Weeks Patient Instructions/Handouts: Pain Management After Surgery (DC) Discharge Disposition: HOME WITH HOME HEALTH SERVICES
[2023-11-10] MEDS: CYCLOBENZAPRINE 5 MG TAB PO SCH (08:52)
[2023-11-10] MEDS: NON FORMULARY DRUG (Dulaglutide [Trulicity] 1.5 MG/0.5 ML Each) SQ SCH (09:58)
[2023-11-10] MEDS: PANTOPRAZOLE 40 MG TABLET PO SCH (10:12)
[2023-11-10 10:46] LABS: Glucose,Whole Blood 80 mg/dL (70-110)
[2023-11-10 12:51] VITALS: BP 146/60; PULSE 76; RESP 18; TEMP 98.6
--- NOTE | 2023-11-10 15:34 | P.PN ---
Subjective Progress Note Date: 11/10/23 This is a 73-year-old male with medical history significant for asthma, diabetes mellitus, hypertension, hyperlipidemia, peripheral neuropathy, recent C1-T1 procedure in October 2023. Patient is a former smoker. Patient returns to the hospital postop day #13 C2-T2 decompression and fusion and C3-C7 ACDF. Patient reports severe neck pain that developed yesterday that brought him to his knees that occurred out of nowhere he has not had any new injuries and has been up ambulating as usual prior to this. Patient has been nauseous. He received fentanyl en route without relief of pain. Patient is not having any issues moving his extremities no focal weakness. no chest pain no shortness of breath no nausea vomiting or diarrhea. He is not having any dizziness or lightheadedness. Pain is currently rated a 6/10 and has not been relieved with pain medications at this time. Patient states he sometimes has radiation down into the left arm. He has a focal area of tenderness to the left of the spine at the level of T12. Muscle feels more firm there. Cervical thoracic spine CT reveals postsurgical changes with hardware in similar position to October 27, 2023. There is surgical bed scattered foci of gas most pronounced at the level of C3 findings could be normal postsurgical change with infection not entirely ruled out at this time. Streak artifact limits evaluation there is no evidence for spinal fracture. Blood cell count of 12.5, hemoglobin 10.7, platelet count of 479, sodium level of 133, BUN of 29, creatinine of 1.15. 11/09/2023 Patient is evaluated today in follow-up in the medical floor. He reports significant improvement in his cervical neck pain down to a 3 out of 10. Percocet have been increased up to 10 mg and patient continues on Flexeril 4 times a day as needed. Orthopedics is planning on removing the sutures morning and patient be discharged home tomorrow. Discussing with orthopedics Dr. David will be taking over his primary provider for this patient. 11/10/2023 Patient evaluated in follow-up today in the medical floor he had sutures removed by orthopedic surgery at the bedside. They have recommended to increase oxycodone up to 10 mg every 4 hours as needed and patient has been recommended to discharge on Duricef 500 mg twice a day for the next 2 weeks. Patient will also continue on gabapentin therapy. Patient should follow-up with Dr. Gibbons in the office in the next 4 weeks. REVIEW OF SYSTEMS: CONSTITUTIONAL: No fever, no malaise, no fatigue. HEENT: No recent visual problems or hearing problems. Denied any sore throat. CARDIOVASCULAR: No chest pain, orthopnea, PND, no palpitations, no syncope. PULMONARY: No shortness of breath, no cough, no hemoptysis. GASTROINTESTINAL: No diarrhea, no nausea, no vomiting, no abdominal pain. NEUROLOGICAL: No headaches, no weakness, no numbness. The rest of the 14-point review of systems is negative. PHYSICAL EXAMINATION: GENERAL: The patient is alert and oriented x3, not in any acute distress. Well developed, well nourished. HEENT: Pupils are round and equally reacting to light. EOMI. No scleral icterus. No conjunctival pallor. Normocephalic, atraumatic. No pharyngeal erythema. No thyromegaly. CARDIOVASCULAR: S1 and S2 present. No murmurs, rubs, or gallops. PULMONARY: Chest is clear to auscultation, no wheezing or crackles. ABDOMEN: Soft, nontender, nondistended, normoactive bowel sounds. No palpable organomegaly. MUSCULOSKELETAL: No joint swelling or deformity. EXTREMITIES: No cyanosis, clubbing, or pedal edema. NEUROLOGICAL: Gross neurological examination did not reveal any focal deficits. SKIN: No rashes. Assessment and plan Recent C2-T2 decompression and fusion/2 C3-C7 ACDF postop day #15 return to the hospital with cervical neck pain, pain management will adjusted continues on oxycodone and muscle relaxer. Spinal surgery on consultation. Generalized weakness and medical debility evaluated physical therapy who have recommended home with home care on discharge. Patient and are agreeing with this plan. History of asthma with no acute exacerbation History of diabetes mellitus type 2 will continue on Levemir and at bedtime with sliding scale insulin and Accu-Cheks ACHS Peripheral neuropathy maintained on gabapentin which has been resumed Hyperlipidemia resumed on Lofibra and statin therapy History of hypertension continues on losartan and amlodipine Hyponatremia likely SIADH due to pain will repeat after patient has received IV fluids Former smoker GI prophylaxis DVT prophylaxis Full Code Patient cleared medically for DC Home. Patient instructed to continue bowel regimen while on narcotics for pain management. Continue with incentive s pirometer. The impression and plan of care has been dictated by Alisson Rodriguez Nurse Practitioner as directed. Dr. Raj MD I have performed a history and physical examination and medical decision making of this patient, discussed the same with the dictator, and agree with the dictators assessment and plan as written, documented as a scribe. Based on total visit time, I have performed more than 50% of this visit. Objective - Vital Signs Vital signs: Vital Signs Temp 98.4 F 11/10/23 07:13 Pulse 85 11/10/23 07:13 Resp 17 11/10/23 07:13 BP 149/65 11/10/23 07:13 Pulse Ox 98 11/10/23 07:13 FiO2 Intake & Output 11/09/23 11/10/23 11/10/23 18:59 06:59 18:59 Output Total 2550 580 Balance -2550 -580 Weight 54.431 kg Output: Urine 2550 580 Other: # Voids 1 - Labs CBC & Chem 7: 11/07/23 16:45 11/09/23 04:28 Labs: Abnormal Lab Results - Last 24 Hours (Table) 11/09/23 11/10/23 Range/Units 20:29 02:48 POC Glucose (mg/dL) 130 H 57 L (70-110) mg/dL Microbiology - Last 24 Hours (Table) 11/07/23 19:40 Blood Culture - Preliminary Blood Assessment and Plan Time with Patient: Less than 30
== END 2023-11-10 12:59 | disposition home health service (06) | DRG 948 ==
LOC: EC 16:06 → 4SSUR 18:33 → OBSVTOIN 11-09 08:05
PROVIDERS: ADMIT Orthopaedic Surgery; ATTEND Orthopaedic Surgery
DX: G89.18 Other acute postprocedural pain (principal); E22.2 Syndrome of inappropriate secretion of antidiuretic hormone; M47.12 Other spondylosis with myelopathy, cervical region; F40.240 Claustrophobia; Z98.42 Cataract extraction status, left eye; Z98.41 Cataract extraction status, right eye; I10 Essential (primary) hypertension; E11.42 Type 2 diabetes mellitus with diabetic polyneuropathy; E78.5 Hyperlipidemia, unspecified; J45.909 Unspecified asthma, uncomplicated; M47.22 Other spondylosis with radiculopathy, cervical region; M19.90 Unspecified osteoarthritis, unspecified site; F17.290 Nicotine dependence, other tobacco product, uncomplicated; Z98.1 Arthrodesis status; Z79.4 Long term (current) use of insulin; Z79.899 Other long term (current) drug therapy; Z82.49 Family history of ischemic heart disease and other diseases of the circulatory system; Z87.19 Personal history of other diseases of the digestive system
CPT/HCPCS: 36415; 72125; 72128; 80048; 80053; 83036; 83605; 85025; 85610; 85652; 85730; 86140; 87040; 96361; 96374; 96375; 99285